=== PATIENT | male | born 1985 | race Caucasian/White ===

== ENCOUNTER 2021-05-29 13:11 | Emergency (ER) | payer OTHER, SELFPAY ==
[2021-05-29] VITALS (9 sets, daily range): BP systolic 103–125; BP diastolic 51–96; PULSE 71–89; RESP 20–22; TEMP 37.4–37.6; O2SAT 90–95; BMI 35.8
--- NOTE | 2021-05-29 13:54 | ED.VIS.DYS ---
HPI History of Present Illness Chief Complaint: Shortness of Breath Informant: patient Onset/Context/Timing Onset: Days (2) Context: gradual Timing: Continuous Quality: Positive for - (sob) Current Severity: Mild Maximum Severity: Mild Worsened by: Exertion Relieved by: Nothing Associated Symptoms cough Chest Pain: Positive for None Narrative Narrative: Patient symptomatic with Covid 1 week ago, had a positive test several days later. He works at [employer] and some people from work had Covid and he thinks maybe he got it from one of them. He has not been vaccinated. He has developed shortness of breath in the last few days and is feeling extremely fatigued as he has been since the beginning. Denies any chest pain, palpitations, near-syncope or syncope. PFSH PFSH no medical history Home Medications albuterol sulfate [Ventolin HFA] 1 - 2 puff INHALATION Q4H PRN PRN #1 inhaler 05/29/21 [Rx Last Taken Unknown] dexamethasone 6 mg PO DAILY #7 tab 05/29/21 [Rx Last Taken Unknown] fluticasone propionate 1 spray INTRANASAL BID 05/29/21 [History Last Taken Unknown] Allergy/AdvReac Type Severity Reaction Status Date / Time No Known Allergies Allergy Verified 05/29/21 13:22 no surgical history Social History Smoking Status: Never smoker ROS ROS ED Constitutional Constitutional ED: Reports body ache(s), chills, fatigue, fever(s) and malaise Eyes Eyes: Denies change in vision or diplopia ENT ENT ED: Denies rhinorrhea or sore throat Cardiovascular Cardiovascular: Denies chest pain or palpitations Respiratory/Chest Respiratory/Chest: Reports cough and dyspnea Gastrointestinal Gastrointestinal: Reports diarrhea; Denies abdominal pain, nausea or vomiting Genitourinary Genitourinary ED: Denies dysuria or hematuria Musculoskeletal Musculoskeletal: Reports myalgias; Denies back pain or neck pain Integumentary Denies abscess or rash Neurologic Neurologic: Denies headache(s), paresthesias or weakness Psychiatric Psychiatric: Denies anxiety or suicidal thoughts EXAM Physical Exam Const Vital Signs: 05/29/21 13:18 05/29/21 13:22 05/29/21 13:49 Temperature 99.6 F H 99.6 F H Temperature Source Temporal Temporal Pulse Rate 71 71 Respiratory Rate 22 H 22 H Respiratory Effort Normal Blood Pressure 103/54 L 103/54 L Blood Pressure Mean 70 70 Pulse Ox 95 95 Oxygen Delivery Method Room Air Room Air Room Air 05/29/21 15:08 05/29/21 16:00 05/29/21 17:00 Temperature 99.4 F H 99.4 F H 99.4 F H Temperature Source Temporal Temporal Temporal Pulse Rate 86 80 89 Respiratory Rate 20 H 21 H 21 H Respiratory Effort Blood Pressure 125/96 H 117/64 117/67 Blood Pressure Mean 105 81 83 Pulse Ox 93 91 95 Oxygen Delivery Method Room Air Room Air Room Air Positive well nourished and well developed General Appearance ED: well developed and NAD HEENT Reports moist mucous membranes normocephalic and atraumatic Eyes PERRL and EOMs intact bilaterally Neck full ROM and supple Resp normal respiratory effort and clear to auscultation bilaterally Cardio regular rate, regular rhythm and no murmurs Rate: Negative for tachycardic GI non-tender and non-distended Auscultation: normoactive bowel sounds Palpation: soft Back/Spine no CVA tenderness General Back: other FROM Extremity normal to inspection and no calf tenderness General Extremety ED: Negative for edema, pulses abnormal or tenderness General Extremity: Negative for edema or pulses abnormal Neuro oriented x3, CN's II-XII intact bilaterally and no sensory deficits noted Sensorium / Orientation: awake and alert Motor Exam: strength 5/5 throughout Skin no rashes or lesions noted and no wounds MDM MDM MDM Narrative Medical decision making narrative: Ruled out pulmonary embolus by CT angiography after abnormal D-dimer. Otherwise work-up is consistent with mild Covid pneumonia. His pulse ox has been between 91 and 95% on room air. I discussed this case with pulmonology Dr. Hennessy. No indication for admission at this time, he is a candidate for monoclonal antibody infusion as an outpatient given his BMI of 35.8. He will be referred to this and given appropriate isolation instructions and supportive care at home, and Dr. Hennessy also recommends Decadron which he was prescribed. Lab Data Labs: Laboratory Results - last 24 hr 05/29/21 05/29/21 05/29/21 13:13 13:13 14:15 WBC 4.2 L RBC 5.25 Hgb 14.6 Hct 44.0 MCV 83.8 MCH 27.8 MCHC 33.2 RDW Std Deviation 38.9 RDW Coeff of Samantha 12.7 Plt Count 210 MPV 9.5 Immature Gran % (Auto) 0.500 Neut % (Auto) 76.4 H Lymph % (Auto) 18.4 L Sebastian % (Auto) 4.3 Eos % (Auto) 0.2 Baso % (Auto) 0.2 Absolute Neuts (auto) 3.2 Absolute Lymphs (auto) 0.77 L Nucleated RBC % 0 D-Dimer Quant (PE/DVT) 1.06 H* Sodium 138 Potassium 3.8 Chloride 106 Carbon Dioxide 26.0 Anion Gap 6 BUN 12 Creatinine 0.94 Estim Creat Clear Calc 113.25 Est GFR (MDRD) Af Amer 118 Est GFR (MDRD) Non-Af 97 BUN/Creatinine Ratio 12.8 Glucose 108 H Calcium 8.2 L Radiography Diagnostic Testing: Radiology Impression Chest X-Ray 05/29/21 14:25 IMPRESSION: Patchy infiltrates in the left lung base. Electronically Signed: Jose Kenney MD at 15:01 EDT , Service support , Chest CTA 05/29/21 15:20 IMPRESSION: No evidence of pulmonary embolism. Dense consolidation in both lower lobes as well as patchy bilateral infiltrates as described. Electronically Signed: Jose Kenney MD at 15:44 EDT , Service support , Discharge Plan Triage Chief Complaint: Shortness of Breath ED Provider: Alistair Green Dx/Rx/DC Orders Clinical Impression: Pneumonia due to COVID-19 virus Instructions: Coronavirus Disease 2019 (COVID-19): Caring for Yourself or Others, ED - COVID Monoclonal AB Infusion ... Prescriptions: New albuterol sulfate [Ventolin HFA] 1 INHALER inhaler 1 - 2 puff inhalation Q4H PRN PRN (Reason: Wheezing) Qty: 1 RF: 0 dexamethasone 6 MG tablet 6 mg PO DAILY Qty: 7 RF: 0 No Action fluticasone propionate 50 mcg/actuation spray,suspension 1 spray INTRANASAL BID RF: 0 Other Ambulatory Orders: COVID Outpatient Monoclonal Antibody Referral (Routine) Location: None Selected Ordered By: Dr. Alistair Green Primary Care Provider: Care Physician,No Primary Referrals: Care Physician,No Primary [Primary Care Provider] - Doctor,Your [STAFF PHYSICIAN] - As Needed Disposition Disposition: Home, Self Care
[2021-05-29 14:01] LABS: Absolute Lymphocyte Count 0.77 X10^3/uL (0.83-4.51); Absolute Neutrophil Count 3.2 X10^3/uL (2.0-7.7); Basophil# 0.01 X10^3/uL; Basophil% 0.2 % (0-1); Eosinophil# 0.01 X10^3/uL; Eosinophils% 0.2 % (0-5); Hemoglobin 14.6 g/dL (13.0-16.5); Lymphocyte # 0.77 X10^3/ul (0.83-4.51); Lymphocyte % 18.4 % (19-41); Mean Corp Hgb Conc 33.2 g/dL (32-36); Mean Corpuscular Hgb 27.8 pg (27.0-32.0); Mean Corpuscular Volume 83.8 fL (80-94); Mean Platelet Vol. 9.5 fl (6.2-12.0); Monocyte# 0.18 X10^3/uL; Monocyte% 4.3 % (0-10); NRBC Flagged by Analyzer 0 % (0-5); Neutrophil % 76.4 % (47-70); Platelet Count 210 K/mm3 (150-450); RBC Distribution Width CV 12.7 % (11.6-14.6); RBC Distribution Width SD 38.9 fl (35.1-43.9); Red Blood Count 5.25 M/mm3 (4.6-6.2); White Blood Count 4.2 K/mm3 (4.4-11.0)
[2021-05-29 14:12] LABS: Anion Gap 6 (5-15); BUN 12 mg/dL (7-18); BUN/Creat Ratio 12.8 RATIO (10-20); Calcium,Total 8.2 mg/dL (8.5-10.1); Chloride 106 mmol/L (98-107); Creatinine, Serum 0.94 mg/dL (0.70-1.30); EST Glomerular Filtration Rate 97 mL/min (>60); Est Glom Filt Rate - Afr Amer 118 mL/min (>60); Estimated Creatinine Clearance 113.25 ml/min; Glucose 108 mg/dL (74-106); Potassium 3.8 mmol/L (3.5-5.1); Sodium Level 138 mmol/L (136-145)
--- NOTE | 2021-05-29 14:25 | RAD_ITS ---
STUDY: X-RAY CHEST REASON FOR EXAM: Male, 35 years old. covid sob TECHNIQUE: Single AP portable view of the chest. COMPARISON: None. FINDINGS: EKG electrodes are seen. There is elevation of the right hemidiaphragm. Patchy infiltrates in the left lung base. Normal size heart. Normal mediastinum and kristie. Normal visualized pulmonary arteries. Normal visualized aortic arch and descending thoracic aorta. Normal visualized thoracic spine. Normal visualized ribs, clavicles, and shoulders. There is no demonstrated abnormality of the visualized soft tissue structures of the upper abdomen. RAD/Chest 1 View (Portable) IMPRESSION: Patchy infiltrates in the left lung base. Electronically Signed: Jose Kenney MD at 15:01 EDT , Service support ,
[2021-05-29 14:35] LABS: D-Dimer Quantitative (DVT/PE) 1.06 FEU/ug/m (0.27-0.49)
--- NOTE | 2021-05-29 15:20 | CT_ITS ---
STUDY: CTA CHEST REASON FOR EXAM: Male, 35 years old. covid sob, elevated d-dimer RADIATION DOSAGE (If Supplied By Facility): CTDIvol = ( 16.06 ) mGy, DLP = ( 512.83 ) mGycm TECHNIQUE: The examination was performed with the intravenous administration of IV 100mL Isovue-370. Post-processing of the angiographic images was performed, with multiplanar reformation and 3D reconstruction. Individualized dose optimization techniques were used for this CT. COMPARISON: None. FINDINGS: Normal enhancement of the main pulmonary artery and right and left pulmonary arteries. Normal enhancement of the bilateral peripheral pulmonary arteries. There is no demonstrated pulmonary embolism. Normal thoracic aorta and visualized great vessels. There is no demonstrated aortic dissection. Normal heart and pericardium. Normal mediastinum. Normal hilar regions. Normal visualized trachea and bronchi. The lungs are well expanded. Patchy infiltrate in the posterior aspect of the left upper lobe as well as in the peripheral lateral aspect of the right upper lobe. Focal patchy infiltrate in the superior segment of the left lower lobe as well as the posterior aspect of the lingular segment of the left upper lobe. Dense consolidation seen in both lower lobes with evidence of air bronchograms. Normal pleura. Normal chest wall structures. Normal osseous structures. Normal visualized upper abdomen. CT/CTA Chest W/WO Contrast IMPRESSION: No evidence of pulmonary embolism. Dense consolidation in both lower lobes as well as patchy bilateral infiltrates as described. Electronically Signed: Jose Kenney MD at 15:44 EDT , Service support ,
== END 2021-05-29 18:02 | disposition home or self-care (01) ==
PROVIDERS: Emergency Provider Emergency Medicine
DX: U07.1 COVID-19 (principal); J12.82 Pneumonia due to coronavirus disease 2019; Z79.52 Long term (current) use of systemic steroids; Z79.899 Other long term (current) drug therapy
CPT/HCPCS: 71045; 71275; 80048; 85025; 85379; 99285; Q9967; A4216

== ENCOUNTER 2021-06-02 06:46 | Inpatient (IN) | payer OTHER, SELFPAY ==
[2021-06-02] VITALS (38 sets, daily range): BP systolic 108–128; BP diastolic 58–91; PULSE 49–105; RESP 12–45; TEMP 36.1–37.3; O2SAT 50–100; BMI 36.7
--- NOTE | 2021-06-02 06:55 | NURSING ---
NO OLD EKGS
--- NOTE | 2021-06-02 06:56 | RAD_ITS ---
STUDY: X-RAY CHEST REASON FOR EXAM: Male, 35 years old. hypoxia TECHNIQUE: Single AP portable view of the chest. COMPARISON: 05/29/2021 FINDINGS: Alveolar opacities in both lungs consistent with bilateral pneumonia, pulmonary edema, or ARDS. There is no demonstrated pleural abnormality. Normal size heart. Normal mediastinum and kristie. Normal visualized pulmonary arteries. Normal visualized aortic arch and descending thoracic aorta. Normal visualized thoracic spine. Normal visualized ribs, clavicles, and shoulders. There is no demonstrated abnormality of the visualized soft tissue structures of the upper abdomen. RAD/Chest 1 View (Portable) IMPRESSION: Bilateral pneumonia, pulmonary edema, or ARDS. Electronically Signed: Dilip Altman MD at 8:04 EDT Tel , Service support ,
--- NOTE | 2021-06-02 06:57 | EKG12_ITS ---
Test Reason : CP Blood Pressure : / mmHG Vent. Rate : 088 BPM Atrial Rate : 088 BPM P-R Int : 120 ms QRS Dur : 086 ms QT Int : 424 ms P-R-T Axes : 035 021 -24 degrees QTc Int : 513 ms Normal sinus rhythm T wave abnormality, consider inferior ischemia Prolonged QT Abnormal ECG Confirmed by SALVATORE PERDOMO, KRISSY ([id number]), technical writer and editor THEO WHITMORE ([id number]) on 06/04/2021 12:26:06 PM Referred By: VANESSA Confirmed By:KRISSY CHASE MD
--- NOTE | 2021-06-02 07:05 | NURSING ---
DR SANCHEZ GOFF
[2021-06-02 07:06] LABS: Allen Test Positive; Base Excess -4 mmol/L (-2 to +2); Bicarbonate 20.5 mmol/L (22-26); Blood Gas Specimen Type ART; Comment 12; FI02 90; O2 Delivery Device BiPAP; PO2 88 mmHG (75-100); SITE L Radial; SO2 97 % (95-99); Total Carbon Dioxide 21 mmol/L; pCO2 29.8 mmHg (35-45); pH 7.45 (7.35-7.45)
[2021-06-02] MEDS: 0.9% Normal Saline 1,000 ML 150 ML IV (07:08)
--- NOTE | 2021-06-02 07:09 | CT_ITS ---
STUDY: CTA CHEST/THORAX REASON FOR EXAM: Male, 35 years old. Hypoxia RADIATION DOSAGE (If Supplied By Facility): CTDIvol = ( 13.85 ) mGy, DLP = ( 489.20 ) mGycm TECHNIQUE: The examination was performed with the intravenous administration of IV 100mL Isovue-370. Post-processing of the angiographic images was performed, with multiplanar reformation and 3D reconstruction. Individualized dose optimization techniques were used for this CT. COMPARISON: Portable AP upright chest x-ray 0700 hours. CTA chest 05/29/2021 FINDINGS: Normal enhancement of the main pulmonary artery and right and left pulmonary arteries. Normal enhancement of the bilateral peripheral pulmonary arteries. There is no demonstrated pulmonary embolism. Normal thoracic aorta and visualized great vessels. There is no demonstrated aortic dissection. Normal heart and pericardium. There are a few borderline to mildly enlarged, likely reactive mediastinal lymph nodes. A node in the aorticopulmonary window (series 2 image 150, series 601 image 172) has increased from 1.65 x 1.35 x 0.6 cm to 2.05 x 1.8 x 0.95 cm. A right subcarinal lymph node is 3. 150.7 x 1.0 cm. Normal hilar regions. Normal visualized trachea and bronchi. Ill-defined groundglass pneumonic infiltrates are now seen almost completely throughout the bilateral lung hilton, with some sparing of the apices, anterobasilar periphery, and right posterior costophrenic sulcus. These opacities are more confluent in the posterior periphery of the lower lobes, more so on the left, and in the posterolateral right upper lobe. Focally more confluent confluent, almost nodular subsegmental densities are also now present in the posterolateral periphery of the right upper lobe. Normal pleura. Normal chest wall structures. There are stable early degenerative changes of the lower thoracic spine. Normal visualized upper abdomen. CT/CTA Chest W/WO Contrast IMPRESSION: 1. No demonstrated pulmonary embolism or arterial dissection. 2. Bilateral patchy infiltrates have progressed to more diffuse, hazy, groundglass opacities nearly throughout the bilateral lung hilton, with scattered subsegmental zones more confluent density. These remain suspicious for infection, including viral pneumonia, such as Covid 19. Pulmonary edema or pulmonary hemorrhages might also have this appearance. 3. A few reactive lymph nodes are noted in the mediastinum. Electronically Signed: Amrit Emanuel MD at 8:18 EDT , Service support ,
--- NOTE | 2021-06-02 07:14 | NURSING ---
ICU DR BRADFORD HYPOXIC RESP FAILURE
--- NOTE | 2021-06-02 07:20 | NURSING ---
CBC CLOTTED PER LAB, THEY WILL SEND A NEW LABEL
--- NOTE | 2021-06-02 07:40 | EDS_ITS ---
HPI History of Present Illness Chief Complaint: Shortness of Breath Informant: patient and spouse/S.O. Narrative Narrative: Patient is a 35-year-old female presenting respiratory distress. He was brought in by his . Patient was diagnosed with Covid 12 days ago. He was seen in the ER 4 days ago and at that time was recommended monoclonal antibody therapy. He did not follow-up with that stating he did not want to come back to the ER. He was started on Decadron 6 mg daily as well as an inhaler. Is not clear if he was taking the medication. Patient has not had his Covid vaccine. states he has been having worsening symptoms over the past 2 days. PFSH PFSH Home Medications albuterol sulfate [Ventolin HFA] 1 - 2 puff INHALATION Q4H PRN PRN #1 inhaler 05/29/21 [Rx Last Taken Unknown] dexamethasone 6 mg PO DAILY #7 tab 05/29/21 [Rx Last Taken Unknown] Allergy/AdvReac Type Severity Reaction Status Date / Time No Known Allergies Allergy Verified 05/29/21 13:22 Social History Smoking Status: Never smoker ROS ROS ED Review of Systems ROS Unobtainable: other Details: Acuity of condition Respiratory/Chest Respiratory/Chest: Reports cough and dyspnea EXAM Physical Exam Const Vital Signs: 06/02/21 06:46 06/02/21 06:47 06/02/21 06:50 Temperature 98.9 F 98.8 F Temperature Source Temporal Temporal Pulse Rate 96 105 H Respiratory Rate 24 H 30 H Respiratory Effort Short of Breath Labored Accessory Muscle Use Agonal Blood Pressure 126/91 H 126/91 H Blood Pressure Mean 102 102 Pulse Ox 71 50 Oxygen Delivery Method Non-Rebreather Room Air Room Air Oxygen Flow Rate (L/min) 15 Fraction of Inspired Oxygen (FIO2) 06/02/21 06:52 06/02/21 06:53 06/02/21 07:05 Temperature 98.9 F 99.2 F H Temperature Source Temporal Temporal Pulse Rate 89 81 88 Respiratory Rate 16 14 16 Respiratory Effort Blood Pressure 126/91 H 126/91 H 120/62 Blood Pressure Mean 102 102 81 Pulse Ox 97 100 99 Oxygen Delivery Method Non-Rebreather Bi-pap Bi-pap Oxygen Flow Rate (L/min) 15 Fraction of Inspired Oxygen (FIO2) 100 80 06/02/21 07:26 Temperature 99 F Temperature Source Temporal Pulse Rate 87 Respiratory Rate 40 H Respiratory Effort Blood Pressure 109/61 Blood Pressure Mean 77 Pulse Ox 97 Oxygen Delivery Method Bi-pap Oxygen Flow Rate (L/min) Fraction of Inspired Oxygen (FIO2) Positive well nourished and well developed General Appearance ED: well developed, ill appearing and diaphoretic Orientation / Consciousness: other Other Details: Somnolent HEENT Reports dry mucous membranes atraumatic Mouth ED: Yes dry mucous membranes Mouth: dry mucous membranes Eyes PERRL and EOMs intact bilaterally Neck supple and no JVD Resp Resp Narrative: Patient is respiratory distress. He is tachypneic. Quiet breath sounds throughout Cardio regular rate, regular rhythm and no murmurs GI non-tender and non-distended Palpation: soft Back/Spine normal to inspection Extremity normal to inspection General Extremety ED: Negative for edema or tenderness General Extremity: Negative for edema Neuro oriented x3 and CN's II-XII intact bilaterally Sensorium / Orientation: alert Motor Exam: general weakness Psych mental status grossly normal Skin Lesions: no lesions Rashes: no rashes MDM MDM MDM Narrative Medical decision making narrative: Patient arrives in respiratory distress. His oxygen is somewhere in the 50s on room air and he goes up to 71% on nonrebreather. Patient is cyanotic with increased work of breathing. He had a recent diagnosis of Covid 19 infection and I suspect his presentation is a progression of this. Patient is placed on BiPAP which does improve his O2 saturation as well as his work of breathing. Patient is admitted to the ICU. Case discussed with Dr. Orozco. CTA is ordered to evaluate for PE. Patient has a lactic acidosis however I suspect this is from hypoxia. Will defer antibiotics at this time. Blood cultures and procalcitonin are pending. Lab Data Attestation: I reviewed the patient's lab results. Labs: Laboratory Results - last 24 hr 06/02/21 06/02/21 07:00 07:00 WBC Cancelled Corrected WBC Cancelled RBC Cancelled Hgb Cancelled Hct Cancelled MCV Cancelled MCH Cancelled MCHC Cancelled RDW Std Deviation Cancelled RDW Coeff of Samantha Cancelled Plt Count Cancelled MPV Cancelled Immature Gran % (Auto) Cancelled Neut % (Auto) Cancelled Lymph % (Auto) Cancelled [place] % (Auto) Cancelled Eos % (Auto) Cancelled Baso % (Auto) Cancelled Absolute Neuts (auto) Cancelled Absolute Lymphs (auto) Cancelled Total Counted Cancelled Neutrophils % (Manual) Cancelled Band Neutrophils % Cancelled Lymphocytes % (Manual) Cancelled Monocytes % (Manual) Cancelled Eosinophils % (Manual) Cancelled Basophils % (Manual) Cancelled Metamyelocytes % Cancelled Myelocytes % Cancelled Promyelocytes % Cancelled Blast Cells % Cancelled Plasma Cell % (Manual) Cancelled Other Cells % Cancelled Nucleated RBC % Cancelled Nucleated RBCs/100 WBC Cancelled Differential Comment Cancelled Diff Path Review Cancelled Hypersegmented Neuts Cancelled Atypical Lymphocytes Cancelled Reactive Lymphocytes Cancelled Smudge Cells Cancelled Toxic Granulation Cancelled Toxic Vacuolation Cancelled Dohle Bodies Cancelled Adry Rods Cancelled Platelet Estimate Cancelled Plt Morphology Comment Cancelled RBC Morphology Cancelled Polychromasia Cancelled Hypochromasia Cancelled Poikilocytosis Cancelled Basophilic Stippling Cancelled Anisocytosis Cancelled Microcytosis Cancelled Macrocytosis Cancelled Spherocytes Cancelled Sickle Cells Cancelled Target Cells Cancelled Tear Drop Cells Cancelled Ovalocytes Cancelled Stomatocytes Cancelled Imlls-Black Bodies Cancelled Ne Cells Cancelled Bite Cells Cancelled Crenated Cell Cancelled Acanthocytes (Spur) Cancelled Rouleaux Cancelled Schistocytes Cancelled D-Dimer Quant (PE/DVT) Cancelled ABG Data ABG results: ABG 06/02/21 07:01 Specimen Type ART Sample Site L Radial pH 7.45 Bicarbonate Actual 20.5 L Total CO2 21 Base Excess -4 L O2 Saturation 97 O2 % 90 ABG pCO2 29.8 L ABG pO2 88 Huseyin Test Positive O2 Delivery Device BiPAP Clinical Comments 12 Radiography Chest X-Ray - ED: 1 View, Read by ED Physician and - (Multifocal infiltrate, consistent with COVID-19 pneumonia) Rhythm Strip Rhythm Strip: Sinus Rhythm Rate: 88 Ectopy: None EKG Initial EKG: Attestation: I personally reviewed and interpreted this EKG as follows: Interpretation: Sinus Rhythm Comments: Normal sinus rhythm at a rate of 88 Normal axis T wave inversions in inferior and lateral leads, most consistent with a strain pattern Critical Care Time Critical Care Time: Yes Critical care time (excluding procedures): 30-74 minutes (35-frequent bedside reevaluation for respiratory failure. Discussion with family and admission to the ICU.), Discussing w/Patient &/or Family/Physician/Allergy/Immunology and Arranging Admission or Transfer Discharge Plan Triage Chief Complaint: Shortness of Breath ED Provider: Tatum Long Dx/Rx/DC Orders Clinical Impression: Pneumonia due to COVID-19 virus, Acute respiratory failure with hypoxia Prescriptions: No Action albuterol sulfate [Ventolin HFA] 1 INHALER inhaler 1 - 2 puff inhalation Q4H PRN PRN (Reason: Wheezing) Qty: 1 RF: 0 dexamethasone 6 MG tablet 6 mg PO DAILY Qty: 7 RF: 0 Primary Care Provider: Care Physician,No Primary Referrals: Care Physician,No Primary [Primary Care Provider] - Disposition Disposition: Acute Care [facility]
[2021-06-02 07:41] LABS: ALB/GLOB Ratio 0.6 RATIO (0.9-2.4); AST(SGOT) 69 U/L (15-37); Alanine Aminotransfer ALT/SGPT 25 U/L (16-61); Albumin, Serum 2.8 g/dL (3.2-5.0); Alkaline Phosphatase 88 U/L (45-117); Anion Gap 12 (5-15); BUN 30 mg/dL (7-18); BUN/Creat Ratio 20.5 RATIO (10-20); CPK Total, Creatine Kinase 120 U/L (39-308); Calcium,Total 8.5 mg/dL (8.5-10.1); Chloride 100 mmol/L (98-107); Creatinine, Serum 1.46 mg/dL (0.70-1.30); EST Glomerular Filtration Rate 58 mL/min (>60); Est Glom Filt Rate - Afr Amer 70 mL/min (>60); Estimated Creatinine Clearance 72.92 ml/min; Globulin 4.5 g/dL (2.2-4.2); Glucose 136 mg/dL (74-106); LDH 1057 U/L (87-241); Potassium 4.5 mmol/L (3.5-5.1); Protein, Total 7.3 g/dL (6.4-8.2); Sodium Level 134 mmol/L (136-145)
[2021-06-02 07:42] LABS: Hematocrit 37.9 % (40-54); Hemoglobin 12.5 g/dL (13.0-16.5); Mean Platelet Vol. 8.8 fl (6.2-12.0); POSITIVE COUNT YES; POSITIVE MORPHOLOGY YES; Platelet Count 334 K/mm3 (150-450); RBC Distribution Width CV 13.1 % (11.6-14.6); RBC Distribution Width SD 40.5 fl (35.1-43.9); Red Blood Count 4.46 M/mm3 (4.6-6.2); White Blood Count 17.1 K/mm3 (4.4-11.0)
[2021-06-02 07:42] LABS: Troponin-I HS 34 pg/mL (3.0-78.0)
[2021-06-02 07:43] LABS: Lactic Acid 5.9 mmol/L (0.4-1.9); Procalcitonin 0.15 ng/mL (0.00-0.09)
[2021-06-02 07:44] LABS: Differential Indicated MANUAL DIFF
[2021-06-02 07:45] LABS: D-Dimer Quantitative (DVT/PE) 10.45 FEU/ug/m (0.27-0.49)
--- NOTE | 2021-06-02 07:53 | NURSING ---
ICU 1
[2021-06-02 08:18] LABS: Lymphocyte 7 % (19-41); Metamyelocyte 2 % (0-1); Monocyte 5 % (0-10); Neutrophil-Band 3 % (0-5); Neutrophil-Segmented 82 % (47-70); Plasma Cell 1 %; Total Cells Counted 100 (MANUAL DIFF)
[2021-06-02 08:19] LABS: Platelet Estimate ADEQUATE (ADEQ); Red Cell Morphology NORM C+C NORMAL (NORM C&C)
[2021-06-02 08:20] LABS: Absolute Neutrophil Count 14.6 X10^3/uL (2.0-7.7)
[2021-06-02 08:37] LABS: Fibrinogen 602 mg/dl (203-444)
--- NOTE | 2021-06-02 08:48 | CON.PCM.CC_ITS ---
Assessment & Plan Assessment/Plan (1) Acute respiratory failure with hypoxia: (2) Pneumonia due to COVID-19 virus: PLAN: RECOMMENDATIONS: 1. Continue gentle IV fluid hydration but transition to LR. 2. Start remdesivir. 3. Continue Decadron to complete 10-day treatment course. 4. Continue Lovenox twice daily. 5. Continue BiPAP and wean FiO2 to maintain oxygen saturations at or above 90%. 6. Maintain euvolemic state. Utilize as needed Lasix. IMPRESSIONS: 1. Acute hypoxemic respiratory failure secondary to COVID-19 pneumonia The patient presented to the hospital with progressive respiratory symptoms and hypoxemia, with symptom onset sometime around May 22. The patient subsequently tested positive for coronavirus. He is unvaccinated. Although D- dimer was elevated at presentation, CTA chest showed no evidence for PE. Nevertheless, there was extensive bilateral groundglass infiltrates. The patient has been started on continuous BiPAP support, which will be continued as tolerated. Wean FiO2 to maintain oxygen saturations at or above 90%. The patient will be continued on Decadron as ordered to complete a 10-day treatment course. I did call and speak briefly with infectious diseases, who was in agreement that given his close proximity to the 10-day window for remdesivir, that the medication should be administered. Unfortunately, we do not have any access currently to tocilizumab. The patient is at high risk for further clinical decompensation and the need for intubation in the next 24 hours. 2. Acute kidney injury Likely prerenal in etiology. Continue gentle IV fluid hydration. Continue to monitor urine output. No current indication for renal replacement therapy. TIME: 38 minutes of critical care time, independent of procedures, was spent addressing the patient's acute hypoxemic respiratory failure secondary to COVID- 19 pneumonia, acute kidney injury, review of all data and collaboration with the care team. ([id number]) HPI Consult Data Date of Consult: 06/03/21 HPI Narrative Reason for Consultation: Acute hypoxemic respiratory failure secondary to COVID- 19 pneumonia HPI Narrative: The patient is a 35-year-old male, with a history as outlined below, who presented to the emergency department on June 02 with progressive dyspnea and hypoxemia. The patient has been evaluated in the emergency department on May 29 with dyspnea. The patient is unvaccinated with regard to coronavirus. At the time of his emergency department visit on May 29, the patient was noted to be saturating in the mid 90s on room air. However, the patient did desaturate with ambulation. The patient was discharged home with a prescription for Decadron. Although the patient initially reported that he began to feel better, he subsequently decompensated over the last several days. The patient reported that his symptoms initially began on 22 May. On presentation to the emergency department, the patient was noted to be afebrile but was tachypneic and hypoxemic. Laboratory evaluation revealed an elevated white blood cell count to 17,000. Coagulation profile revealed a fibrinogen of 602 with a D-dimer of 10.45. Chemistry profile was notable for a sodium of 134 and creatinine of 1.46. Lactate was elevated at 5.9. Procalcitonin was noted to be 0.15. The patient was initiated on BiPAP therapy in the emergency department. Follow-up ABG revealed a pH of 7.45 with a PCO2 of 29 and PO2 of 88. CTA chest showed no evidence for PE but did demonstrate significant bilateral groundglass changes. Rapid coronavirus antigen testing was positive. Blood cultures were obtained. The patient was subsequently admitted to the medical intensive care unit for further management. FORMERLY [facility], [facility] Home Medications albuterol sulfate [Ventolin HFA] 1 - 2 puff INHALATION Q4H PRN PRN #1 inhaler 05/29/21 [Rx Last Taken Unknown] dexamethasone 6 mg PO DAILY #7 tab 05/29/21 [Rx Last Taken Unknown] Allergy/AdvReac Type Severity Reaction Status Date / Time No Known Allergies Allergy Verified 05/29/21 13:22 Family History (Updated 06/02/21 @ 14:[address] Laureen Orozco DO) Mother No problems noted. Father No problems noted. Social History Smoking Status: Never smoker ROS Constitutional Constitutional: Reports chills, fatigue and fever(s) Eyes Eyes: Denies blurry vision or change in vision ENT HEENT: Denies headache(s) or loss taste/smell Cardiovascular Cardiovascular: Reports dyspnea Respiratory/Chest Respiratory/Chest: Reports cough and dyspnea Gastrointestinal Gastrointestinal: Denies abdominal pain, diarrhea, nausea or vomiting Genitourinary Genitourinary: Denies difficulty urinating Musculoskeletal Musculoskeletal: Reports arthralgias and myalgias Integumentary Integumentary: Denies lesions, rash or skin ulcer Neurologic Neurologic: Denies abnormal gait or abnormal speech Psychiatric Psychiatric: Denies anxiety or depression Endocrine Endocrinology: Reports fatigue Hematologic/Lymphatic Hematologic/Lymphatic: Denies easy bleeding or easy bruising Physical Exam Const alert General Appearance: cooperative, in distress, ill appearing and on BiPAP Nutritional Appearance: obese HEENT normocephalic and head/scalp atraumatic Eyes PERRL, EOMs intact bilaterally and conjunctivae normal Neck supple General: trachea midline Resp Effort and Inspection: tachypneic and labored Auscultation: diminished lung sounds; Negative for rales, rhonchi or wheezes Cardio regular rate, regular rhythm, S1 normal heart sound and S2 normal heart sound GI normal to inspection, nondistended, normoactive bowel sounds Extremity no clubbing, cyanosis or edema Skin no rashes or lesions noted Neuro CN's II-XII intact bilaterally and no focal motor deficits Psych cooperative and affect normal Lab / Micro Data Result Diagrams: 06/03/21 03:31 06/03/21 03:31 Labs: Laboratory Results - last 24 hr 06/02/21 07:00: Fibrinogen 602 H, D-Dimer Quant (PE/DVT) Cancelled 06/02/21 07:00: Sodium 134 L, Potassium 4.5, Chloride 100, Carbon Dioxide 22.0, Anion Gap 12, BUN 30 H, Creatinine 1.46 H, Estim Creat Clear Calc 72.92, Est GFR (MDRD) Af Amer 70, Est GFR (MDRD) Non-Af 58 L, BUN/Creatinine Ratio 20.5 H, Glucose 136 H, Calcium 8.5, Total Bilirubin 1.30 H, AST 69 H, ALT 25, Alkaline Phosphatase 88, Lactate Dehydrogenase 1057 H, Total Creatine Kinase 120, C-React Prot Ext Range 99.20 H, Total Protein 7.3, Albumin 2.8 L, Globulin 4.5 H, Albumin/Globulin Ratio 0.6 L 06/02/21 07:00: Procalcitonin 0.15 H 06/02/21 07:00: Lactic Acid 5.9 H* 06/02/21 07:00: WBC Cancelled, Corrected WBC Cancelled, RBC Cancelled, Hgb Cancelled, Hct Cancelled, MCV Cancelled, MCH Cancelled, MCHC Cancelled, RDW Std Deviation Cancelled, RDW Coeff of Samantha Cancelled, Plt Count Cancelled, MPV Cancelled, Immature Gran % (Auto) Cancelled, Neut % (Auto) Cancelled, Lymph % (Auto) Cancelled, [place] % (Auto) Cancelled, Eos % (Auto) Cancelled, Baso % (Auto) Cancelled, Absolute Neuts (auto) Cancelled, Absolute Lymphs (auto) Cancelled, Total Counted Cancelled, Neutrophils % (Manual) Cancelled, Band Neutrophils % Cancelled, Lymphocytes % (Manual) Cancelled, Monocytes % (Manual) Cancelled, Eosinophils % (Manual) Cancelled, Basophils % (Manual) Cancelled, Metamyelocytes % Cancelled, Myelocytes % Cancelled, Promyelocytes % Cancelled, Blast Cells % Cancelled, Plasma Cell % (Manual) Cancelled, Other Cells % Cancelled, Nucleated RBC % Cancelled, Nucleated RBCs/100 WBC Cancelled, Differential Comment Cancelled, Diff Path Review Cancelled, Hypersegmented Neuts Cancelled, Atypical Lymphocytes Cancelled, Reactive Lymphocytes Cancelled, Smudge Cells Cancelled, Toxic Granulation Cancelled, Toxic Vacuolation Cancelled, Dohle Bodies Cancelled, Adry Rods Cancelled, Platelet Estimate Cancelled, Plt Morphology Comment Cancelled, RBC Morphology Cancelled, Polychromasia Cancelled, Hypochromasia Cancelled, Poikilocytosis Cancelled, Basophilic Stippling Cancelled, Anisocytosis Cancelled, Microcytosis Cancelled, Macrocytosis Cancelled, Spherocytes Cancelled, Sickle Cells Cancelled, Target Cells Cancelled, Tear Drop Cells Cancelled, Ovalocytes Cancelled, Stomatocytes Cancelled, [place] Bodies Cancelled, Ne Cells Cancelled, Bite Cells Cancelled, Crenated Cell Cancelled, Acanthocytes (Spur) Cancelled, Rouleaux Cancelled, Schistocytes Cancelled 06/02/21 07:00: Troponin I High Sens 34 06/02/21 07:16: D-Dimer Quant (PE/DVT) 10.45 H* 06/02/21 07:35: WBC 17.1 H, RBC 4.46 L, Hgb 12.5 L, Hct 37.9 L, MCV 85.0, MCH 28.0, MCHC 33.0, RDW Std Deviation 40.5, RDW Coeff of Samantha 13.1, Plt Count 334, MPV 8.8, Neut % (Auto) Not Reportable, Absolute Neuts (auto) 14.6 H, Absolute Lymphs (auto) 1.20, Total Counted 100, Neutrophils % (Manual) 82 H, Band Neutrophils % 3, Lymphocytes % (Manual) 7 L, Monocytes % (Manual) 5, Metamyelocytes % 2 H, Plasma Cell % (Manual) 1, Diff Path Review February, Platelet Estimate ADEQUATE, RBC Morphology NORM C+C Micro: Microbiology 06/02/21 07:08 Nasal Secretion SARS-CoV-2 Antigen (Rapid) - Final SARS-CoV-2 (COVID 19) ABG Data ABG results: ABG 06/02/21 07:01 Specimen Type ART Sample Site L Radial pH 7.45 Bicarbonate Actual 20.5 L Total CO2 21 Base Excess -4 L O2 Saturation 97 O2 % 90 ABG pCO2 29.8 L ABG pO2 88 Huseyin Test Positive O2 Delivery Device BiPAP Clinical Comments 12 Rhythm Strip Rhythm Strip: Sinus Rhythm Rate: 88 Ectopy: None Radiology Impression Chest X-Ray 06/02/21 06:56 IMPRESSION: Bilateral pneumonia, pulmonary edema, or ARDS. Electronically Signed: Dilip Altman MD at 8:04 EDT Tel , Service support , Chest CTA 06/02/21 07:09 IMPRESSION: 1. No demonstrated pulmonary embolism or arterial dissection. 2. Bilateral patchy infiltrates have progressed to more diffuse, hazy, groundglass opacities nearly throughout the bilateral lung [place], with scattered subsegmental zones more confluent density. These remain suspicious for infection, including viral pneumonia, such as Covid 19. Pulmonary edema or pulmonary hemorrhages might also have this appearance. 3. A few reactive lymph nodes are noted in the mediastinum. Electronically Signed: Amrit Emanuel MD at 8:18 EDT , Service support , Charges/Coding Procedures Hospitalists Procedures: [id number] Critial Care 1st Hr
[2021-06-02] MEDS: Enoxaparin 40 MG/0.4 ML Syringe SC ×2 (10:44→20:30)
[2021-06-02] MEDS: 0.9% Saline Lock 10 ML Syringe IV (10:45)
[2021-06-02] MEDS: Lactated Ringers 1,000 ML 75 ML IV ×2 (10:45→20:30)
[2021-06-02] MEDS: dexAMETHasone 10 MG/ML Vial 6 MG IV (11:07)
[2021-06-02 11:08] LABS: Reflex Lactate? Y
[2021-06-02 12:55] LABS: Alkaline Phosphatase 87 U/L (45-117)
[2021-06-02 13:35] LABS: Lactic Acid 1.8 mmol/L (0.4-1.9)
--- NOTE | 2021-06-02 14:05 | PCM.HP.STD ---
HPI - General General Date of Admission: 06/02/21 HPI Narrative DOMO MUÑOZ, is a 35 M who presents [facility] Home Medications albuterol sulfate [Ventolin HFA] 1 - 2 puff INHALATION Q4H PRN PRN #1 inhaler 05/29/21 [Rx Last Taken Unknown] dexamethasone 6 mg PO DAILY #7 tab 05/29/21 [Rx Last Taken Unknown] Allergy/AdvReac Type Severity Reaction Status Date / Time No Known Allergies Allergy Verified 05/29/21 13:22 Family History Mother No problems noted. Father No problems noted. Social History Smoking Status: Never smoker ROS Constitutional Constitutional: Reports chills, fatigue, malaise and weakness; Denies anorexia, change in weight, fever(s), night sweats or other Eyes Eyes: Denies blurry vision, change in eye color, change in vision, discharge from eye(s), double vision, erythema, eye pain, loss of vision or other ENT HEENT: Denies abnormal hearing, dysphagia, ear pain, epistaxis, headache(s), hearing loss, nasal congestion, nasal discharge, post nasal drip, sinus pressure, sore throat or other Cardiovascular Cardiovascular: Reports dyspnea on exertion; Denies chest pain, claudication, edema, lightheadedness, orthopnea, palpitations, paroxysmal nocturnal dyspnea, rapid heart rate, syncope or other Respiratory/Chest Respiratory/Chest: Reports cough, dyspnea, shortness of breath at rest and shortness of breath with exertion; Denies excessive phlegm production, hemoptysis, productive cough, wheezing or other Gastrointestinal Gastrointestinal: Denies abdominal pain, coffee ground emesis, constipation, diarrhea, dyspepsia, hematemesis, hematochezia, loose stools, melena, nausea, vomiting or other Genitourinary Genitourinary: Denies burning urination, difficulty urinating, dysuria, hematuria, nocturia, urinary frequency, urinary hesitancy, urinary incontinence, urinary urgency or other Musculoskeletal Musculoskeletal: Denies arthralgias, back pain, joint pain, joint stiffness, joint swelling, myalgias, neck pain or other Neurologic Neurologic: Denies abnormal gait, abnormal speech, confusion, disequilibrium, dizziness, focal weakness, headache(s), numbness, paresthesias, seizure-like activity, seizures, syncope, tingling, tremor(s) or other Psychiatric Psychiatric: Denies anxiety, depression, homicidal ideation, suicidal ideation or other Endocrine Endocrinology: Denies change in body appearance, cold intolerance, excessive sweating, heat intolerance, polydipsia, polyuria or other Hematologic/Lymphatic Hematologic/Lymphatic: Denies anemia, easy bleeding, easy bruising, lymphadenopathy or other Allergic/Immunologic Allergic/Immunologic: Denies rhinitis, hives, eczemia, asthma or other Vital Signs Vital Signs Vital Signs: 06/02/21 06:46 06/02/21 06:47 06/02/21 06:50 Temperature 98.9 F 98.8 F Temperature Source Temporal Temporal Pulse Rate 96 105 H Respiratory Rate 24 H 30 H Respiratory Effort Short of Breath Labored Accessory Muscle Use Agonal Respiratory Pattern Blood Pressure 126/91 H 126/91 H Blood Pressure [BP] Blood Pressure Mean 102 102 Blood Pressure Mean [BP] Blood Pressure Source Blood Pressure Source [BP] Blood Pressure Position Blood Pressure Position [BP] Blood Pressure Location Blood Pressure Location [BP] Pulse Ox 71 50 Oxygen Delivery Method Non-Rebreather Room Air Room Air Oxygen Flow Rate (L/min) 15 Fraction of Inspired Oxygen (FIO2) 06/02/21 06:52 06/02/21 06:53 06/02/21 07:05 Temperature 98.9 F 99.2 F H Temperature Source Temporal Temporal Pulse Rate 89 81 88 Respiratory Rate 16 14 16 Respiratory Effort Respiratory Pattern Blood Pressure 126/91 H 126/91 H 120/62 Blood Pressure [BP] Blood Pressure Mean 102 102 81 Blood Pressure Mean [BP] Blood Pressure Source Blood Pressure Source [BP] Blood Pressure Position Blood Pressure Position [BP] Blood Pressure Location Blood Pressure Location [BP] Pulse Ox 97 100 99 Oxygen Delivery Method Non-Rebreather Bi-pap Bi-pap Oxygen Flow Rate (L/min) 15 Fraction of Inspired Oxygen (FIO2) 100 80 06/02/21 07:26 06/02/21 07:34 06/02/21 07:46 Temperature 99 F Temperature Source Temporal Pulse Rate 87 85 83 Respiratory Rate 40 H 38 H 40 H Respiratory Effort Respiratory Pattern Tachypnea Tachypnea Blood Pressure 109/61 Blood Pressure [BP] Blood Pressure Mean 77 Blood Pressure Mean [BP] Blood Pressure Source Blood Pressure Source [BP] Blood Pressure Position Blood Pressure Position [BP] Blood Pressure Location Blood Pressure Location [BP] Pulse Ox 97 92 98 Oxygen Delivery Method Bi-pap Oxygen Flow Rate (L/min) Fraction of Inspired Oxygen (FIO2) 100 75 06/02/21 08:28 06/02/21 08:33 06/02/21 08:38 Temperature 97 F L Temperature Source Temporal Pulse Rate 78 76 74 Respiratory Rate 44 H 41 H Respiratory Effort Respiratory Pattern Tachypnea Blood Pressure 117/65 Blood Pressure [BP] Blood Pressure Mean 82 Blood Pressure Mean [BP] Blood Pressure Source Monitor Blood Pressure Source [BP] Blood Pressure Position Semi-Fowlers Blood Pressure Position [BP] Blood Pressure Location Right Arm Blood Pressure Location [BP] Pulse Ox 92 95 Oxygen Delivery Method Bi-pap Oxygen Flow Rate (L/min) Fraction of Inspired Oxygen (FIO2) 80 80 06/02/21 08:45 06/02/21 09:00 06/02/21 09:15 Temperature 97 F L Temperature Source Temporal Pulse Rate 75 77 73 Respiratory Rate 45 H 32 H 43 H Respiratory Effort Respiratory Pattern Blood Pressure 109/64 118/64 Blood Pressure [BP] 111/69 Blood Pressure Mean 79 82 Blood Pressure Mean [BP] 83 Blood Pressure Source Monitor Monitor Blood Pressure Source [BP] Monitor Blood Pressure Position Semi-Fowlers Semi-Fowlers Blood Pressure Position [BP] Semi-Fowlers Blood Pressure Location Right Arm Right Arm Blood Pressure Location [BP] Left Arm Pulse Ox 91 94 91 Oxygen Delivery Method Bi-pap Bi-pap Bi-pap Oxygen Flow Rate (L/min) Fraction of Inspired Oxygen (FIO2) 80 80 80 06/02/21 09:30 06/02/21 10:00 06/02/21 10:30 Temperature Temperature Source Pulse Rate 64 68 66 Respiratory Rate 38 H 37 H 38 H Respiratory Effort Respiratory Pattern Blood Pressure 121/65 H Blood Pressure [BP] 109/67 108/75 Blood Pressure Mean 83 Blood Pressure Mean [BP] 81 86 Blood Pressure Source Monitor Blood Pressure Source [BP] Monitor Monitor Blood Pressure Position Semi-Fowlers Blood Pressure Position [BP] Semi-Fowlers Semi-Fowlers Blood Pressure Location Right Arm Blood Pressure Location [BP] Left Arm Left Arm Pulse Ox 94 95 95 Oxygen Delivery Method Bi-pap Bi-pap Bi-pap Oxygen Flow Rate (L/min) Fraction of Inspired Oxygen (FIO2) 80 80 80 06/02/21 11:00 06/02/21 11:38 06/02/21 12:06 Temperature Temperature Source Pulse Rate 70 58 L 55 L Respiratory Rate 40 H Respiratory Effort Respiratory Pattern Tachypnea Blood Pressure Blood Pressure [BP] 108/65 Blood Pressure Mean Blood Pressure Mean [BP] 79 Blood Pressure Source Blood Pressure Source [BP] Monitor Blood Pressure Position Blood Pressure Position [BP] Semi-Fowlers Blood Pressure Location Blood Pressure Location [BP] Left Arm Pulse Ox 98 95 Oxygen Delivery Method Bi-pap Oxygen Flow Rate (L/min) Fraction of Inspired Oxygen (FIO2) 80 80 Weight Weight: 112.5 kg Body Mass Index (BMI) 36.7 Physical Exam Const alert and oriented x3 Constitutional Narrative: Young white male sitting up in bed on noninvasive ventilation, markedly tachypneic although does not appear in significant respiratory distress at this time General Appearance: cooperative HEENT normocephalic, head/scalp atraumatic, hearing grossly normal bilaterally and dentition normal Mouth: oral and palatal mucosa normal and moist mucous membranes abnormal parched Eyes PERRL, EOMs intact bilaterally and conjunctivae normal Neck no lymphadenopathy, supple and no JVD Neck Narrative: Trachea midline, no thyromegaly Resp no retractions, no use of accessory muscles and clear to auscultation bilaterally Resp Narrative: Diffuse crackles bilaterally, significant tachypnea Auscultation: crackles; Negative for rales, rhonchi or wheezes Cardio regular rhythm, S1 normal heart sound, S2 normal heart sound, no murmurs, no rub, no gallops, no clicks and no JVD Cardio Narrative: Bradycardia GI normal to inspection, nondistended, normoactive bowel sounds, soft to palpation, non-tender and non-distended Extremity no clubbing, cyanosis or edema Peripheral Pulses: Yes pulses 2+ throughout Skin no rashes or lesions noted, no wounds, skin turgor normal, no jaundice, no petechiae and no mottling Neuro oriented x3, CN's II-XII intact bilaterally, moves all extremities and no focal motor deficits Sensorium / Orientation: awake and alert Speech: speech normal Psych Psych Narrative: Appears mildly anxious Results Lab / Micro Data Result Diagrams: 06/02/21 07:35 06/02/21 07:00 Labs: Laboratory Results - last 24 hr 06/02/21 07:00: Fibrinogen 602 H, D-Dimer Quant (PE/DVT) Cancelled 06/02/21 07:00: Sodium 134 L, Potassium 4.5, Chloride 100, Carbon Dioxide 22.0, Anion Gap 12, BUN 30 H, Creatinine 1.46 H, Estim Creat Clear Calc 72.92, Est GFR (MDRD) Af Amer 70, Est GFR (MDRD) Non-Af 58 L, BUN/Creatinine Ratio 20.5 H, Glucose 136 H, Calcium 8.5, Total Bilirubin 1.30 H, AST 69 H, ALT 25, Alkaline Phosphatase 88, Lactate Dehydrogenase 1057 H, Total Creatine Kinase 120, C-React Prot Ext Range 99.20 H, Total Protein 7.3, Albumin 2.8 L, Globulin 4.5 H, Albumin/Globulin Ratio 0.6 L 06/02/21 07:00: Procalcitonin 0.15 H 06/02/21 07:00: Lactic Acid 5.9 H* 06/02/21 07:00: WBC Cancelled, Corrected WBC Cancelled, RBC Cancelled, Hgb Cancelled, Hct Cancelled, MCV Cancelled, MCH Cancelled, MCHC Cancelled, RDW Std Deviation Cancelled, RDW Coeff of Samantha Cancelled, Plt Count Cancelled, MPV Cancelled, Immature Gran % (Auto) Cancelled, Neut % (Auto) Cancelled, Lymph % (Auto) Cancelled, Jerome % (Auto) Cancelled, Eos % (Auto) Cancelled, Baso % (Auto) Cancelled, Absolute Neuts (auto) Cancelled, Absolute Lymphs (auto) Cancelled, Total Counted Cancelled, Neutrophils % (Manual) Cancelled, Band Neutrophils % Cancelled, Lymphocytes % (Manual) Cancelled, Monocytes % (Manual) Cancelled, Eosinophils % (Manual) Cancelled, Basophils % (Manual) Cancelled, Metamyelocytes % Cancelled, Myelocytes % Cancelled, Promyelocytes % Cancelled, Blast Cells % Cancelled, Plasma Cell % (Manual) Cancelled, Other Cells % Cancelled, Nucleated RBC % Cancelled, Nucleated RBCs/100 WBC Cancelled, Differential Comment Cancelled, Diff Path Review Cancelled, Hypersegmented Neuts Cancelled, Atypical Lymphocytes Cancelled, Reactive Lymphocytes Cancelled, Smudge Cells Cancelled, Toxic Granulation Cancelled, Toxic Vacuolation Cancelled, Dohle Bodies Cancelled, Adry Rods Cancelled, Platelet Estimate Cancelled, Plt Morphology Comment Cancelled, RBC Morphology Cancelled, Polychromasia Cancelled, Hypochromasia Cancelled, Poikilocytosis Cancelled, Basophilic Stippling Cancelled, Anisocytosis Cancelled, Microcytosis Cancelled, Macrocytosis Cancelled, Spherocytes Cancelled, Sickle Cells Cancelled, Target Cells Cancelled, Tear Drop Cells Cancelled, Ovalocytes Cancelled, Stomatocytes Cancelled, [place] Bodies Cancelled, Ne Cells Cancelled, Bite Cells Cancelled, Crenated Cell Cancelled, Acanthocytes (Spur) Cancelled, Rouleaux Cancelled, Schistocytes Cancelled 06/02/21 07:00: Troponin I High Sens 34 06/02/21 07:00: Alkaline Phosphatase 87 06/02/21 07:16: D-Dimer Quant (PE/DVT) 10.45 H* 06/02/21 07:35: WBC 17.1 H, RBC 4.46 L, Hgb 12.5 L, Hct 37.9 L, MCV 85.0, MCH 28.0, MCHC 33.0, RDW Std Deviation 40.5, RDW Coeff of Samantha 13.1, Plt Count 334, MPV 8.8, Neut % (Auto) Not Reportable, Absolute Neuts (auto) 14.6 H, Absolute Lymphs (auto) 1.20, Total Counted 100, Neutrophils % (Manual) 82 H, Band Neutrophils % 3, Lymphocytes % (Manual) 7 L, Monocytes % (Manual) 5, Metamyelocytes % 2 H, Plasma Cell % (Manual) 1, Diff Path Review February foll, Platelet Estimate ADEQUATE, RBC Morphology NORM C+C 06/02/21 11:45: Lactic Acid Cancelled 06/02/21 13:05: Lactic Acid 1.8 Micro: Microbiology 06/02/21 07:08 Nasal Secretion SARS-CoV-2 Antigen (Rapid) - Final SARS-CoV-2 (COVID 19) ABG Data ABG results: ABG 06/02/21 07:01 Specimen Type ART Sample Site L Radial pH 7.45 Bicarbonate Actual 20.5 L Total CO2 21 Base Excess -4 L O2 Saturation 97 O2 % 90 ABG pCO2 29.8 L ABG pO2 88 Huseyin Test Positive O2 Delivery Device BiPAP Clinical Comments 12 Rhythm Strip Rhythm Strip: Sinus Rhythm Rate: 88 Ectopy: None Radiology Impression Chest X-Ray 06/02/21 06:56 IMPRESSION: Bilateral pneumonia, pulmonary edema, or ARDS. Electronically Signed: Dilip Altman MD at 8:04 EDT Tel , Service support , Chest CTA 06/02/21 07:09 IMPRESSION: 1. No demonstrated pulmonary embolism or arterial dissection. 2. Bilateral patchy infiltrates have progressed to more diffuse, hazy, groundglass opacities nearly throughout the bilateral lung [place], with scattered subsegmental zones more confluent density. These remain suspicious for infection, including viral pneumonia, such as Covid 19. Pulmonary edema or pulmonary hemorrhages might also have this appearance. 3. A few reactive lymph nodes are noted in the mediastinum. Electronically Signed: Amrit Emanuel MD at 8:18 EDT , Service support , Assessment & Plan Assessment/Plan (1) Acute respiratory failure with hypoxia: (2) Pneumonia due to COVID-19 virus: (3) Leukocytosis: (4) MALAIKA (acute kidney injury): (5) Sepsis: (6) Hyperbilirubinemia: PLAN: Assessment: Sepsis secondary to COVID-19 pneumonia -Patient has acute hypoxic respiratory failure, hyperbilirubinemia, MALAIKA, and known source of infection Acute hypoxic respiratory failure secondary to COVID-19 pneumonia/ARDS MALAIKA Hyperbilirubinemia Hyponatremia Leukocytosis Plan: -Continue gentle hydration with LR -Continue Decadron but will convert to IV to complete 10-day course all this could be extended given severity of disease -Start remdesivir per discussion with infectious disease -Continue BiPAP support and wean FiO2 as able to keep sats greater than 90% -Twice daily Lovenox 40 mg -CTA of the chest showed impressive bilateral infiltrates consistent with COVID-19 infection but no PE -We do not have any access to tocilizumab -Transfer was attempted to [facility], [facility], [place] [facility] [place] [facility], and [facility] for tocilizumab dosing without any success as there are not any available beds, [facility] had available beds but they do not have any Tocilizumab -Monitor urine output closely -Serial labs -Patient has markedly elevated markers of inflammation -Patient and family are aware that he could decompensate clinically resulting in intubation Charges/Coding Visit Charges Inpatient E&M: 02164 Init Hosp L3
[2021-06-02 17:45] LABS: Bedside Glucose 126 mg/dL (70-110)
[2021-06-03] VITALS (34 sets, daily range): BP systolic 113–135; BP diastolic 55–71; PULSE 43–71; RESP 12–44; TEMP 36.1–36.7; O2SAT 90–98
--- NOTE | 2021-06-03 02:46 | CPS ---
Patient tried on AVAPS for increased RR on BiPAP settings. Will monitor patient on these new settings.
[2021-06-03 03:50] LABS: Hematocrit 39.3 % (40-54); Hemoglobin 12.7 g/dL (13.0-16.5); Mean Corp Hgb Conc 32.3 g/dL (32-36); Mean Corpuscular Hgb 27.9 pg (27.0-32.0); Mean Corpuscular Volume 86.4 fL (80-94); Mean Platelet Vol. 8.9 fl (6.2-12.0); POSITIVE COUNT YES; POSITIVE MORPHOLOGY YES; Platelet Count 327 K/mm3 (150-450); RBC Distribution Width CV 13.3 % (11.6-14.6); RBC Distribution Width SD 42.2 fl (35.1-43.9); Red Blood Count 4.55 M/mm3 (4.6-6.2); White Blood Count 17.3 K/mm3 (4.4-11.0)
[2021-06-03 04:01] LABS: Differential Indicated MANUAL DIFF
[2021-06-03 04:26] LABS: ALB/GLOB Ratio 0.7 RATIO (0.9-2.4); AST(SGOT) 31 U/L (15-37); Alanine Aminotransfer ALT/SGPT 20 U/L (16-61); Albumin, Serum 2.3 g/dL (3.2-5.0); Alkaline Phosphatase 67 U/L (45-117); Anion Gap 5 (5-15); BUN 27 mg/dL (7-18); BUN/Creat Ratio 28.8 RATIO (10-20); Calcium,Total 7.7 mg/dL (8.5-10.1); Chloride 105 mmol/L (98-107); Creatinine, Serum 0.94 mg/dL (0.70-1.30); EST Glomerular Filtration Rate 97 mL/min (>60); Est Glom Filt Rate - Afr Amer 117 mL/min (>60); Estimated Creatinine Clearance 113.25 ml/min; Globulin 3.3 g/dL (2.2-4.2); Glucose 131 mg/dL (74-106); Potassium 4.4 mmol/L (3.5-5.1); Protein, Total 5.6 g/dL (6.4-8.2); Sodium Level 140 mmol/L (136-145); Thyroid Stim Hormone (TSH) 1.21 uIU/mL (0.358-3.74)
[2021-06-03 04:30] LABS: Absolute Neutrophil Count 14.7 X10^3/uL (2.0-7.7)
[2021-06-03 04:31] LABS: Absolute Lymphocyte Count 0.86 X10^3/uL (0.83-4.51); Lymphocyte 5 % (19-41); Monocyte 7 % (0-10); Myelocyte 1 % (0-0); Neutrophil-Band 2 % (0-5); Neutrophil-Segmented 83 % (47-70); Platelet Estimate ADEQUATE (ADEQ); Promyelocyte 2 % (0-0); Red Cell Morphology NORM C+C NORMAL (NORM C&C)
--- NOTE | 2021-06-03 05:49 | PN.CC_ITS ---
Assessment & Plan Assessment/Plan (1) Acute respiratory failure with hypoxia: (2) Pneumonia due to COVID-19 virus: PLAN: RECOMMENDATIONS: 1. Stop continuous IV fluids. 2. Continue remdesivir as ordered. Continue to monitor liver and renal function. 3. Continue Decadron to complete 10-day treatment course. 4. Continue Lovenox twice daily. 5. Continue BiPAP and wean FiO2 to maintain oxygen saturations at or above 90%. 6. If the patient remains stable today from an oxygenation perspective, will attempt to wean to Airvo. 7. Maintain euvolemic state. Utilize as needed Lasix. IMPRESSIONS: 1. Acute hypoxemic respiratory failure secondary to COVID-19 pneumonia The patient presented to the hospital with progressive respiratory symptoms and hypoxemia, with symptom onset sometime around May 22. The patient subsequently tested positive for coronavirus. He is unvaccinated. Although D- dimer was elevated at presentation, CTA chest showed no evidence for PE. Nevertheless, there was extensive bilateral groundglass infiltrates. The patient has been started on continuous BiPAP support, which will be continued as tolerated. Wean FiO2 to maintain oxygen saturations at or above 90%. The patient will be continued on Decadron as ordered to complete a 10-day treatment course. I did call and speak briefly with infectious diseases, who was in agreement that given his close proximity to the 10-day window for remdesivir, that the medication should be administered. Unfortunately, we do not have any access currently to tocilizumab. 2. Acute kidney injury Resolved. Likely prerenal in etiology. Fluids can be discontinued. Continue to monitor urine output. No current indication for renal replacement therapy. TIME: 34 minutes of critical care time, independent of procedures, was spent addressing the patient's acute hypoxemic respiratory failure secondary to COVID- 19 pneumonia, acute kidney injury, review of all data and collaboration with the care team. ([id number]) Subjective Subjective The patient was seen and examined at the bedside this morning. Events from the last 24 hours have been reviewed. The patient is currently afebrile, hemodynamically stable and maintaining appropriate oxygen saturations on continuous BiPAP support with an FiO2 requirement of 70%. The patient remains tachypneic and has been bradycardic overnight. He is currently documented to be overall net -600 mL for the hospital admission. White count remains elevated this morning at 17,000. Liver and renal function are stable. The patient remains on remdesivir, Decadron and twice daily Lovenox. Objective Data Objective Data The patient's most recent lab work, culture data and imaging studies have all been personally reviewed. CTA chest showed no evidence for pulmonary embolism. However, significant bilateral groundglass infiltrates were noted. Blood cultures are pending. Vital Signs: Vital Signs Temp Pulse Resp BP Pulse Ox 97.9 F 50 L 33 H 114/67 97 06/03/21 00:00 06/03/21 04:35 06/03/21 04:35 06/03/21 04:00 06/03/21 04:35 Oxygen Flow Rate (L/min) 2 Oxygen Delivery Method Bi-pap Weight: 112.5 kg Body Mass Index (BMI) 36.7 Intake & Output: Intake and Output for Last 24 Hours 06/01/21 06/02/21 06/03/21 23:59 23:59 23:59 Intake Total 1453.75 / 1453.75 0 / 0 Output Total 1700 / 1900 400 / 400 Balance -246.25 / -446.25 -400 / -400 Lab / Micro Data Attestation: I reviewed the patient's lab results. Result Diagrams: 06/03/21 03:31 06/03/21 03:31 Labs: Laboratory Results - last 24 hr 06/02/21 07:00: Fibrinogen 602 H, D-Dimer Quant (PE/DVT) Cancelled 06/02/21 07:00: Sodium 134 L, Potassium 4.5, Chloride 100, Carbon Dioxide 22.0, Anion Gap 12, BUN 30 H, Creatinine 1.46 H, Estim Creat Clear Calc 72.92, Est GFR (MDRD) Af Amer 70, Est GFR (MDRD) Non-Af 58 L, BUN/Creatinine Ratio 20.5 H, Glucose 136 H, Calcium 8.5, Total Bilirubin 1.30 H, AST 69 H, ALT 25, Alkaline Phosphatase 88, Lactate Dehydrogenase 1057 H, Total Creatine Kinase 120, C-React Prot Ext Range 99.20 H, Total Protein 7.3, Albumin 2.8 L, Globulin 4.5 H, Albumin/Globulin Ratio 0.6 L 06/02/21 07:00: Procalcitonin 0.15 H 06/02/21 07:00: Lactic Acid 5.9 H* 06/02/21 07:00: WBC Cancelled, Corrected WBC Cancelled, RBC Cancelled, Hgb Cancelled, Hct Cancelled, MCV Cancelled, MCH Cancelled, MCHC Cancelled, RDW Std Deviation Cancelled, RDW Coeff of Samantha Cancelled, Plt Count Cancelled, MPV Cancelled, Immature Gran % (Auto) Cancelled, Neut % (Auto) Cancelled, Lymph % (Auto) Cancelled, Haakon % (Auto) Cancelled, Eos % (Auto) Cancelled, Baso % (Auto) Cancelled, Absolute Neuts (auto) Cancelled, Absolute Lymphs (auto) Cancelled, Total Counted Cancelled, Neutrophils % (Manual) Cancelled, Band Neutrophils % Cancelled, Lymphocytes % (Manual) Cancelled, Monocytes % (Manual) Cancelled, Eosinophils % (Manual) Cancelled, Basophils % (Manual) Cancelled, Metamyelocytes % Cancelled, Myelocytes % Cancelled, Promyelocytes % Cancelled, Blast Cells % Cancelled, Plasma Cell % (Manual) Cancelled, Other Cells % Cancelled, Nucleated RBC % Cancelled, Nucleated RBCs/100 WBC Cancelled, Differential Comment Cancelled, Diff Path Review Cancelled, Hypersegmented Neuts Cancelled, Atypical Lymphocytes Cancelled, Reactive Lymphocytes Cancelled, Smudge Cells Cancelled, Toxic Granulation Cancelled, Toxic Vacuolation Cancelled, Dohle Bodies Cancelled, Adry Rods Cancelled, Platelet Estimate Cancelled, Plt Morphology Comment Cancelled, RBC Morphology Cancelled, Polychromasia Cancelled, Hypoch romasia Cancelled, Poikilocytosis Cancelled, Basophilic Stippling Cancelled, Anisocytosis Cancelled, Microcytosis Cancelled, Macrocytosis Cancelled, Spherocytes Cancelled, Sickle Cells Cancelled, Target Cells Cancelled, Tear Drop Cells Cancelled, Ovalocytes Cancelled, Stomatocytes Cancelled, [place] Bodies Cancelled, [place] Cells Cancelled, Bite Cells Cancelled, Crenated Cell Cancelled, Acanthocytes (Spur) Cancelled, Rouleaux Cancelled, Schistocytes Cancelled 06/02/21 07:00: Troponin I High Sens 34 06/02/21 07:00: Alkaline Phosphatase 87 06/02/21 07:16: D-Dimer Quant (PE/DVT) 10.45 H* 06/02/21 07:35: WBC 17.1 H, RBC 4.46 L, Hgb 12.5 L, Hct 37.9 L, MCV 85.0, MCH 28.0, MCHC 33.0, RDW Std Deviation 40.5, RDW Coeff of Samantha 13.1, Plt Count 334, MPV 8.8, Neut % (Auto) Not Reportable, Absolute Neuts (auto) 14.6 H, Absolute Lymphs (auto) 1.20, Total Counted 100, Neutrophils % (Manual) 82 H, Band Neutrophils % 3, Lymphocytes % (Manual) 7 L, Monocytes % (Manual) 5, Metamyelocytes % 2 H, Plasma Cell % (Manual) 1, Diff Path Review February gerardo, Platelet Estimate ADEQUATE, RBC Morphology NORM C+C 06/02/21 11:45: Lactic Acid Cancelled 06/02/21 13:05: Lactic Acid 1.8 06/02/21 17:09: POC Glucose 126 H 06/03/21 03:31: WBC 17.3 H, RBC 4.55 L, Hgb 12.7 L, Hct 39.3 L, MCV 86.4, MCH 27.9, MCHC 32.3, RDW Std Deviation 42.2, RDW Coeff of Samantha 13.3, Plt Count 327, MPV 8.9, Neut % (Auto) Not Reportable, Absolute Neuts (auto) 14.7 H, Absolute Lymphs (auto) 0.86, Neutrophils % (Manual) 83 H, Band Neutrophils % 2, Lymphocytes % (Manual) 5 L, Monocytes % (Manual) 7, Myelocytes % 1 H, Promyelocytes % 2 H, Diff Path Review February gerardo, Platelet Estimate ADEQUATE, RBC Morphology NORM C+C 06/03/21 03:31: Sodium 140, Potassium 4.4, Chloride 105, Carbon Dioxide 30.0, Anion Gap 5, BUN 27 H, Creatinine 0.94, Estim Creat Clear Calc 113.25, Est GFR (MDRD) Af Amer 117, Est GFR (MDRD) Non-Af 97, BUN/Creatinine Ratio 28.8 H, Glucose 131 H, Calcium 7.7 L, Total Bilirubin 0.80, AST 31, ALT 20, Alkaline Phosphatase 67, Total Protein 5.6 L, Albumin 2.3 L, Globulin 3.3, Albumin/Globulin Ratio 0.7 L, TSH 1.21 Micro: Microbiology 06/02/21 07:08 Nasal Secretion SARS-CoV-2 Antigen (Rapid) - Final SARS-CoV-2 (COVID 19) ABG Data ABG results: ABG 06/02/21 07:01 Specimen Type ART Sample Site L Radial pH 7.45 Bicarbonate Actual 20.5 L Total CO2 21 Base Excess -4 L O2 Saturation 97 O2 % 90 ABG pCO2 29.8 L ABG pO2 88 Huseyin Test Positive O2 Delivery Device BiPAP Clinical Comments 12 Radiography Diagnostic Testing: Radiology Impression Chest X-Ray 06/02/21 06:56 IMPRESSION: Bilateral pneumonia, pulmonary edema, or ARDS. Electronically Signed: Dilip Altman MD at 8:04 EDT Tel , Service support , Chest CTA 06/02/21 07:09 IMPRESSION: 1. No demonstrated pulmonary embolism or arterial dissection. 2. Bilateral patchy infiltrates have progressed to more diffuse, hazy, groundglass opacities nearly throughout the bilateral lung [place], with scattered subsegmental zones more confluent density. These remain suspicious for infection, including viral pneumonia, such as Covid 19. Pulmonary edema or pulmonary hemorrhages might also have this appearance. 3. A few reactive lymph nodes are noted in the mediastinum. Electronically Signed: Amrit Emanuel MD at 8:18 EDT , Service support , Rhythm Strip Rhythm Strip: Sinus Rhythm Rate: 88 Ectopy: None Physical Exam Const alert General Appearance: cooperative, ill appearing and on BiPAP Nutritional Appearance: obese HEENT normocephalic and head/scalp atraumatic Eyes PERRL, EOMs intact bilaterally and conjunctivae normal Neck supple General: trachea midline Resp Effort and Inspection: tachypneic and labored Auscultation: diminished lung sounds; Negative for rales, rhonchi or wheezes Cardio S1 normal heart sound and S2 normal heart sound Rate: bradycardia GI normal to inspection, nondistended, normoactive bowel sounds Extremity no clubbing, cyanosis or edema Skin no rashes or lesions noted Neuro CN's II-XII intact bilaterally and no focal motor deficits Psych cooperative and affect normal Charges/Coding Procedures Hospitalists Procedures: [id number] Critial Care 1st Hr
[2021-06-03] MEDS: Enoxaparin 40 MG/0.4 ML Syringe SC ×2 (09:57→19:43)
[2021-06-03] MEDS: dexAMETHasone 10 MG/ML Vial 6 MG IV (09:58)
--- NOTE | 2021-06-03 11:28 | PN.HOSP_ITS ---
Subjective Subjective Patient has been able to be weaned from continuous BiPAP to air Vo with a flow rate of 60 L/min and FiO2 of 90%. He states that his breathing feels okay at this time. He just worked with therapy and is doing exercises in his room while sitting up in a chair. He has no specific complaints but does note that he got significantly winded with exertion. Objective Data Objective Data Vital Signs: Vital Signs Temp Pulse Resp BP Pulse Ox 97 F L 63 21 H 135/69 H 95 06/03/21 08:00 06/03/21 10:00 06/03/21 10:00 06/03/21 10:00 06/03/21 10:00 Oxygen Flow Rate (L/min) 60 Oxygen Delivery Method Airvo Weight: 112.5 kg Body Mass Index (BMI) 36.7 Intake & Output: Intake and Output for Last 24 Hours 06/01/21 06/02/21 06/03/21 23:59 23:59 23:59 Intake Total 1453.75 / 1453.75 987.5 / 987.5 Output Total 1700 / 1900 800 / 800 Balance -246.25 / -446.25 187.5 / 187.5 Lab / Micro Data Result Diagrams: 06/03/21 03:31 06/03/21 03:31 Labs: Laboratory Results - last 24 hr 06/02/21 07:00: Alkaline Phosphatase 87 06/02/21 11:45: Lactic Acid Cancelled 06/02/21 13:05: Lactic Acid 1.8 06/02/21 17:09: POC Glucose 126 H 06/03/21 03:31: WBC 17.3 H, RBC 4.55 L, Hgb 12.7 L, Hct 39.3 L, MCV 86.4, MCH 27.9, MCHC 32.3, RDW Std Deviation 42.2, RDW Coeff of Samantha 13.3, Plt Count 327, MPV 8.9, Neut % (Auto) Not Reportable, Absolute Neuts (auto) 14.7 H, Absolute Lymphs (auto) 0.86, Neutrophils % (Manual) 83 H, Band Neutrophils % 2, Lymphocyt es % (Manual) 5 L, Monocytes % (Manual) 7, Myelocytes % 1 H, Promyelocytes % 2 H , Diff Path Review May , Platelet Estimate ADEQUATE, RBC Morphology NORM C+C 08/29/21 03:31: Sodium 140, Potassium 4.4, Chloride 105, Carbon Dioxide 30.0, Anion Gap 5, BUN 27 H, Creatinine 0.94, Estim Creat Clear Calc 113.25, Est GFR (MDRD) Af Amer 117, Est GFR (MDRD) Non-Af 97, BUN/Creatinine Ratio 28.8 H, Glucose 131 H, Calcium 7.7 L, Total Bilirubin 0.80, AST 31, ALT 20, Alkaline Phosphatase 67, Total Protein 5.6 L, Albumin 2.3 L, Globulin 3.3, Albumin/Globulin Ratio 0.7 L, TSH 1.21 Micro: Microbiology 06/02/21 07:08 Nasal Secretion SARS-CoV-2 Antigen (Rapid) - Final SARS-CoV-2 (COVID 19) Rhythm Strip Rhythm Strip: Sinus Rhythm Rate: 88 Ectopy: None Physical Exam Const alert and oriented x3 Constitutional Narrative: Young white male sitting up in a chair on air Vo, less tachypneic, nontoxic General Appearance: cooperative Exam Limitations: no limitations HEENT normocephalic, head/scalp atraumatic, hearing grossly normal bilaterally and dentition normal HEENT Narrative: No thrush Head and Scalp: normocephalic Neck Neck Narrative: Trachea midline, no thyromegaly Resp no retractions, no use of accessory muscles and clear to auscultation bilaterally Resp Narrative: Diminished lung sounds but clear today Auscultation: crackles; Negative for rales, rhonchi or wheezes Cardio regular rate, regular rhythm, S1 normal heart sound, S2 normal heart sound, no murmurs, no rub, no gallops, no clicks and no JVD GI normal to inspection, nondistended, normoactive bowel sounds, soft to palpation, non-tender and non-distended Extremity no clubbing, cyanosis or edema Peripheral Pulses: Yes pulses 2+ throughout Neuro oriented x3, moves all extremities and no focal motor deficits Sensorium / Orientation: awake and alert Speech: speech normal Psych affect normal Psych Narrative: A much less anxious today Assessment & Plan Assessment/Plan (1) Acute respiratory failure with hypoxia: (2) Pneumonia due to COVID-19 virus: (3) Leukocytosis: (4) MALAIKA (acute kidney injury): (5) Sepsis: (6) Hyperbilirubinemia: PLAN: Assessment: Sepsis secondary to COVID-19 pneumonia -Patient has acute hypoxic respiratory failure, hyperbilirubinemia, MALAIKA, and known source of infection Acute hypoxic respiratory failure secondary to COVID-19 pneumonia/ARDS MALAIKA-resolved Hyperbilirubinemia Hyponatremia Leukocytosis Plan: -Discontinue IV fluids -Blood cultures are pending but doubt bacterial infection -Oxygen has been weaned from continuous BiPAP to air Vo with a flow rate of 60 L/min and FiO2 of 90% -SPO2 has been 90 to 98% on the air Vo -Wean O2 as able -Continue Decadron day 2 of 5 -Continue remdesivir day 2 of 5 -Continue twice daily Lovenox 40 mg -CTA of the chest showed impressive bilateral infiltrates consistent with COVID- 19 infection but no PE -Serial labs -Patient and family are aware that he could decompensate clinically resulting in intubation Charges/Coding Visit Charges Inpatient E&M: 92422 Subs Hosp L2
[2021-06-04] VITALS (41 sets, daily range): BP systolic 108–125; BP diastolic 55–76; PULSE 39–76; RESP 12–33; TEMP 36.4–37.2; O2SAT 91–97
[2021-06-04 02:00] LABS: M R Staph aureus DNA By PCR Negative (Negative); Probe Check PASS; Specimen Processing Control PASS
[2021-06-04 04:58] LABS: Hematocrit 41.1 % (40-54); Hemoglobin 13.5 g/dL (13.0-16.5); Mean Corp Hgb Conc 32.8 g/dL (32-36); Mean Corpuscular Hgb 28.1 pg (27.0-32.0); Mean Corpuscular Volume 85.6 fL (80-94); Mean Platelet Vol. 8.7 fl (6.2-12.0); POSITIVE COUNT YES; POSITIVE MORPHOLOGY YES; Platelet Count 316 K/mm3 (150-450); RBC Distribution Width CV 13.1 % (11.6-14.6); RBC Distribution Width SD 41.2 fl (35.1-43.9); White Blood Count 19.1 K/mm3 (4.4-11.0)
[2021-06-04 05:05] LABS: Differential Indicated MANUAL DIFF
[2021-06-04 05:15] LABS: ALB/GLOB Ratio 0.7 RATIO (0.9-2.4); AST(SGOT) 27 U/L (15-37); Alanine Aminotransfer ALT/SGPT 22 U/L (16-61); Albumin, Serum 2.3 g/dL (3.2-5.0); Alkaline Phosphatase 69 U/L (45-117); Anion Gap 4 (5-15); BUN 27 mg/dL (7-18); BUN/Creat Ratio 35.2 RATIO (10-20); Calcium,Total 7.9 mg/dL (8.5-10.1); Chloride 108 mmol/L (98-107); Creatinine, Serum 0.77 mg/dL (0.70-1.30); EST Glomerular Filtration Rate 123 mL/min (>60); Est Glom Filt Rate - Afr Amer 148 mL/min (>60); Estimated Creatinine Clearance 138.26 ml/min; Globulin 3.4 g/dL (2.2-4.2); Glucose 105 mg/dL (74-106); Potassium 4.2 mmol/L (3.5-5.1); Protein, Total 5.7 g/dL (6.4-8.2); Sodium Level 141 mmol/L (136-145)
[2021-06-04 05:57] LABS: Lymphocyte 11 % (19-41); Metamyelocyte 5 % (0-1); Monocyte 3 % (0-10); Myelocyte 4 % (0-0); Neutrophil-Segmented 76 % (47-70); Plasma Cell 1 %; Total Cells Counted 100 (MANUAL DIFF)
[2021-06-04 05:58] LABS: Absolute Neutrophil Count 16.3 X10^3/uL (2.0-7.7)
[2021-06-04 06:00] LABS: Differential Comment MANUAL DIFF; Platelet Estimate ADEQUATE (ADEQ); Red Cell Morphology NORM C+C NORMAL (NORM C&C)
[2021-06-04] MEDS: Enoxaparin 40 MG/0.4 ML Syringe SC ×2 (08:54→20:00)
[2021-06-04] MEDS: Furosemide 20 MG/2 ML VIAL IV (08:54)
[2021-06-04] MEDS: 0.9% Saline Lock 10 ML Syringe IV (08:54)
[2021-06-04] MEDS: Acetaminophen 325 MG Tablet 650 MG PO (08:57)
--- NOTE | 2021-06-04 09:40 | PN.CC_ITS ---
Assessment & Plan Assessment/Plan (1) Acute respiratory failure with hypoxia: (2) Pneumonia due to COVID-19 virus: PLAN: RECOMMENDATIONS: 1. Avoid continuous IV fluids. Lasix as tolerated 2. Continue remdesivir as ordered. Continue to monitor liver and renal function. 3. Continue Decadron to complete 10-day treatment course. 4. Continue Lovenox twice daily. 5. Continue BiPAP and wean FiO2 to maintain oxygen saturations at or above 90%. 6. Okay to use Airvo to assist with nutrition 7. Atropine if needed for bradycardia with hypotension IMPRESSIONS: 1. Acute hypoxemic respiratory failure secondary to COVID-19 pneumonia The patient presented to the hospital with progressive respiratory symptoms and hypoxemia, with symptom onset sometime around May 22. The patient subsequently tested positive for coronavirus. He is unvaccinated. Although D-dimer was elevated at presentation, CTA chest showed no evidence for PE. Nevertheless, there was extensive bilateral groundglass infiltrates. The patient has been started on continuous BiPAP support, which will be continued as tolerated. Wean FiO2 to maintain oxygen saturations at or above 90%. The patient will be continued on Decadron as ordered to complete a 10-day treatment course. We will continue to volume restrict as tolerated. 2. Acute kidney injury Resolved. Likely prerenal in etiology. Fluids can be discontinued. Continue to monitor urine output. No current indication for renal replacement therapy. 3. Bradycardia/obesity/possible depression Complicates care, management, recovery and prognosis. Continue to attempt to motivate patient. Atropine can be used if patient becomes hypotensive. Continue telemetry. Clinical suspicion for high vagal tone leading to lower heart rates TIME: 32 minutes of critical care time, independent of procedures, was spent addressing the patient's acute hypoxemic respiratory failure secondary to COVID- 19 pneumonia, acute kidney injury, review of all data and collaboration with the care team. (7:30 AM to 8:30 AM) Subjective Subjective Patient did okay overnight. Patient did tolerate BiPAP with sleep and is back on Airvo during the day. No fever has been noted overnight. Patient is not reporting any pain. Patient did have significant bradycardia associated with coughing episodes Objective Data Objective Data Vital Signs: Vital Signs Temp Pulse Resp BP Pulse Ox 36.4 C L 64 26 H 119/61 92 06/04/21 06:00 06/04/21 08:45 06/04/21 08:45 06/04/21 08:45 06/04/21 08:45 Oxygen Flow Rate (L/min) 60 Oxygen Delivery Method Airvo Weight: 112.6 kg Body Mass Index (BMI) 36.7 Intake & Output: Intake and Output for Last 24 Hours 06/02/21 06/03/21 06/04/21 23:59 23:59 23:59 Intake Total 1453.75 / 1453.75 2087.5 / 2087.5 410 / 410 Output Total 1700 / 1900 1100 / 1100 500 / 500 Balance -246.25 / -446.25 987.5 / 987.5 -90 / -90 Lab / Micro Data Result Diagrams: 06/04/21 04:37 06/04/21 04:37 Labs: Laboratory Results - last 24 hr 06/03/21 22:57: MRSA (PCR) Negative 06/04/21 04:37: WBC 19.1 H, RBC 4.80, Hgb 13.5, Hct 41.1, MCV 85.6, MCH 28.1, MCHC 32.8, RDW Std Deviation 41.2, RDW Coeff of Samantha 13.1, Plt Count 316, MPV 8.7, Neut % (Auto) Not Reportable, Absolute Neuts (auto) 16.3 H, Absolute Lymphs (auto) 2.10, Total Counted 100, Neutrophils % (Manual) 76 H, Lymphocytes % (Manual) 11 L, Monocytes % (Manual) 3, Metamyelocytes % 5 H, Myelocytes % 4 H, Plasma Cell % (Manual) 1, Differential Comment MANUAL DIFF, Diff Path Review February, Platelet Estimate ADEQUATE, RBC Morphology NORM C+C 06/04/21 04:37: Sodium 141, Potassium 4.2, Chloride 108 H, Carbon Dioxide 29.0, Anion Gap 4 L, BUN 27 H, Creatinine 0.77, Estim Creat Clear Calc 138.26, Est GFR (MDRD) Af Amer 148, Est GFR (MDRD) Non-Af 123, BUN/Creatinine Ratio 35.2 H, Glucose 105, Calcium 7.9 L, Total Bilirubin 0.80, AST 27, ALT 22, Alkaline Phosphatase 69, Total Protein 5.7 L, Albumin 2.3 L, Globulin 3.4, Albumin/Globulin Ratio 0.7 L Micro: Microbiology 06/02/21 07:00 Blood Culture (Wb) - Anticubital Right Blood Culture - Preliminary No growth in 48 hours. 06/02/21 06:50 Blood Culture (Wb) - Anticubital Left Blood Culture - Preliminary No growth in 48 hours. 06/02/21 07:08 Nasal Secretion SARS-CoV-2 Antigen (Rapid) - Final SARS-CoV-2 (COVID 19) Rhythm Strip Rhythm Strip: Sinus Rhythm Rate: 88 Ectopy: None Physical Exam Const General Appearance: cooperative, ill appearing and on BiPAP Nutritional Appearance: obese HEENT normocephalic Head and Scalp: normal to inspection Mouth: oral and palatal mucosa normal Eyes PERRL and EOMs intact bilaterally Eyes Narrative: Slight scleral injection without icterus Lymph Lymphatic: no lymphadenopathy noted Resp Effort and Inspection: tachypneic and respiratory distress Auscultation: diminished lung sounds; Negative for rales, rhonchi or wheezes Cardio S1 normal heart sound and S2 normal heart sound Rate: bradycardia GI normal to inspection, nondistended, normoactive bowel sounds Extremity General Extremity: Negative for clubbing, cyanosis or edema Peripheral Pulses: Yes pulses 2+ throughout Skin no rashes or lesions noted Neuro oriented x3, CN's II-XII intact bilaterally, moves all extremities and no focal motor deficits Psych Mood & Affect: depressed and flat affect Charges/Coding Procedures Hospitalists Procedures: [id number] Critial Care 1st Hr
--- NOTE | 2021-06-04 10:52 | PN.HOSP_ITS ---
Subjective Subjective Patient states he is very tired and fatigued today. He is stable with regards to his oxygenation status and remains on air Vo during the day and BiPAP at night. Current airflow settings are 60 L/min and 85% FiO2. No specific complaints other than fatigue. Objective Data Objective Data Vital Signs: Vital Signs Temp Pulse Resp BP Pulse Ox 97.5 F L 58 L 23 H 121/62 H 94 06/04/21 06:00 06/04/21 10:32 06/04/21 08:59 06/04/21 10:32 06/04/21 10:32 Oxygen Flow Rate (L/min) 60 Oxygen Delivery Method Airvo Weight: 112.6 kg Body Mass Index (BMI) 36.7 Intake & Output: Intake and Output for Last 24 Hours 06/02/21 06/03/21 06/04/21 23:59 23:59 23:59 Intake Total 1453.75 / 1453.75 2087.5 / 2087.5 410 / 410 Output Total 1700 / 1900 1100 / 1100 500 / 500 Balance -246.25 / -446.25 987.5 / 987.5 -90 / -90 Lab / Micro Data Result Diagrams: 06/04/21 04:37 06/04/21 04:37 Labs: Laboratory Results - last 24 hr 06/03/21 22:57: MRSA (PCR) Negative 06/04/21 04:37: WBC 19.1 H, RBC 4.80, Hgb 13.5, Hct 41.1, MCV 85.6, MCH 28.1, MCHC 32.8, RDW Std Deviation 41.2, RDW Coeff of Samantha 13.1, Plt Count 316, MPV 8.7, Neut % (Auto) Not Reportable, Absolute Neuts (auto) 16.3 H, Absolute Lymphs (auto) 2.10, Total Counted 100, Neutrophils % (Manual) 76 H, Lymphocytes % (Manual) 11 L, Monocytes % (Manual) 3, Metamyelocytes % 5 H, Myelocytes % 4 H, Plasma Cell % (Manual) 1, Differential Comment MANUAL DIFF, Diff Path Review May , Platelet Estimate ADEQUATE, RBC Morphology NORM C+C 06/04/21 04:37: Sodium 141, Potassium 4.2, Chloride 108 H, Carbon Dioxide 29.0, Anion Gap 4 L, BUN 27 H, Creatinine 0.77, Estim Creat Clear Calc 138.26, Est GFR (MDRD) Af Amer 148, Est GFR (MDRD) Non-Af 123, BUN/Creatinine Ratio 35.2 H, Glucose 105, Calcium 7.9 L, Total Bilirubin 0.80, AST 27, ALT 22, Alkaline Phosphatase 69, Total Protein 5.7 L, Albumin 2.3 L, Globulin 3.4, Albumin/Globulin Ratio 0.7 L Micro: Microbiology 06/02/21 07:00 Blood Culture (Wb) - Anticubital Right Blood Culture - Preliminary No growth in 48 hours. 06/02/21 06:50 Blood Culture (Wb) - Anticubital Left Blood Culture - Preliminary No growth in 48 hours. 06/02/21 07:08 Nasal Secretion SARS-CoV-2 Antigen (Rapid) - Final SARS-CoV-2 (COVID 19) Rhythm Strip Rhythm Strip: Sinus Rhythm Rate: 88 Ectopy: None Physical Exam Const alert and oriented x3 Constitutional Narrative: Young white male sitting up in a chair on airVo, appears very fatigued, nontoxic, appears mildly short of breath General Appearance: cooperative Exam Limitations: no limitations HEENT normocephalic, head/scalp atraumatic, hearing grossly normal bilaterally and dentition normal HEENT Narrative: Mallampati 2-3, no thrush on exam Head and Scalp: normocephalic Resp no retractions, no use of accessory muscles and clear to auscultation bilaterally Resp Narrative: Diminished lung sounds, few scattered crackles Auscultation: crackles; Negative for rales, rhonchi or wheezes Cardio regular rate, regular rhythm, S1 normal heart sound, S2 normal heart sound, no murmurs, no rub, no gallops, no clicks and no JVD Cardio Narrative: Bradycardia GI normal to inspection, nondistended, normoactive bowel sounds, soft to palpation, non-tender and non-distended Extremity Extremity Narrative: Trace edema bilateral upper and lower extremities, no cyanosis or clubbing Peripheral Pulses: Yes pulses 2+ throughout Neuro oriented x3, moves all extremities and no focal motor deficits Sensorium / Orientation: awake and alert Speech: speech normal Assessment & Plan Assessment/Plan (1) Acute respiratory failure with hypoxia: (2) Pneumonia due to COVID-19 virus: (3) Leukocytosis: (4) MALAIKA (acute kidney injury): (5) Sepsis: (6) Hyperbilirubinemia: PLAN: Assessment: Sepsis secondary to COVID-19 pneumonia -Patient has acute hypoxic respiratory failure, hyperbilirubinemia, MALAIKA, and known source of infection Acute hypoxic respiratory failure secondary to COVID-19 pneumonia/ARDS MALAIKA-resolved Hyperbilirubinemia Hyponatremia Leukocytosis-secondary to steroid use Plan: -Lasix IV push times 20 mg x 1 dose today -Blood cultures are negative for growth at 48 hours -Oxygen has been weaned from continuous BiPAP to air Vo with a flow rate of 60 L/min and FiO2 of 85% -SPO2 has been 91 to 96% on the air Vo -Wean O2 as able -Continue Decadron day 3 of 5 -Continue remdesivir day 3 of 5 -Continue twice daily Lovenox 40 mg -CTA of the chest showed impressive bilateral infiltrates consistent with COVID- 19 infection but no PE -Serial labs -Patient and family are aware that he could decompensate clinically resulting in intubation Charges/Coding Visit Charges Inpatient E&M: 81603 Subs Hosp L2
[2021-06-04] MEDS: dexAMETHasone 10 MG/ML Vial 6 MG IV (10:55)
--- NOTE | 2021-06-04 12:15 | CASEMGMT ---
Addendum entered by Samson Shipley 06/04/21 14:13: Prescription benefits: Pt states he has rx benefits as far as I know. Original Note: RN CM DOCUMENTATION ENGINEER CM to room to meet with patient for initial transition planning/care coordination assessment. FRANCES SPARKS introduced self and role at [facility]. Pt voices understanding and consents to assessment at this time. Pt sitting up in recliner chair in room in no distress at this time. Pt is A/O at this time and answers all questions appropriately. Care providers, pharmacy, and demographics verified/updated at this time. Pt had COVID testing done @ [facility] 05/23. PCP: No PCP. Pt states he usually goes to [facility] in [place], but has not been there for years. He wishes to f/u @ there @ discharge. Specialists: denies Preferred Pharmacy: [facility] Retail Insurance: [employer] Living Will/HPOA: Pt does not currently have LW/HCPOA and declines info at this time. Pt made aware that he can contact as an out-pt and make appt in the future if he decides he would like to talk with someone about this or would like to utilize [facility] social work for advanced directive completion. LNOK: , Leigha Living Arrangements: Lives w/his , Leigha, and 2 sons: ages 6 & 3. Independent prior to illness w/COVID. Works full-time. and children have not been ill and have not had symptoms of COVID. was vaccinated. Pt states he has been quarantining in his home. They have an extra bathroom and bedroom he has been using. Transportation: Pt states drives self and states no transportation concerns at this time. also drives. DME: Denies using any DME and denies needs. Pt may need O2 @ discharge. He states he has no preference of DME company. HHC/SNF: No history of either. No needs identified. Pt wishes to return home and states has no concerns with going home at time of discharge. CM to follow for home oxygen needs and any further discharge planning/needs. Pt voices no further concerns/needs at this time. Advised pt to ask for CM if any further questions/concerns/needs arise. Voices understanding. PLAN: Home. CM to follow for any O2 needs @ discharge. Luke FERRARA RN, CM
[2021-06-04 14:05] LABS: Pathologist Review Reviewed
[2021-06-04 14:09] LABS: Pathologist Review Reviewed
[2021-06-04 14:14] LABS: Pathologist Review Reviewed
[2021-06-05] VITALS (36 sets, daily range): BP systolic 95–124; BP diastolic 48–73; PULSE 48–94; RESP 12–35; TEMP 35.9–37.5; O2SAT 84–100
[2021-06-05 04:07] LABS: Differential Indicated MANUAL DIFF; Hematocrit 44.9 % (40-54); Hemoglobin 14.4 g/dL (13.0-16.5); Mean Corp Hgb Conc 32.1 g/dL (32-36); Mean Corpuscular Hgb 28.1 pg (27.0-32.0); Mean Corpuscular Volume 87.5 fL (80-94); Mean Platelet Vol. 8.8 fl (6.2-12.0); POSITIVE COUNT YES; POSITIVE MORPHOLOGY YES; Platelet Count 322 K/mm3 (150-450); RBC Distribution Width SD 41.6 fl (35.1-43.9); Red Blood Count 5.13 M/mm3 (4.6-6.2); White Blood Count 21.7 K/mm3 (4.4-11.0)
[2021-06-05 04:36] LABS: ALB/GLOB Ratio 0.7 RATIO (0.9-2.4); AST(SGOT) 50 U/L (15-37); Alanine Aminotransfer ALT/SGPT 35 U/L (16-61); Albumin, Serum 2.6 g/dL (3.2-5.0); Alkaline Phosphatase 77 U/L (45-117); Anion Gap 5 (5-15); BUN 20 mg/dL (7-18); BUN/Creat Ratio 24.8 RATIO (10-20); Calcium,Total 8.2 mg/dL (8.5-10.1); Chloride 105 mmol/L (98-107); EST Glomerular Filtration Rate 116 mL/min (>60); Est Glom Filt Rate - Afr Amer 140 mL/min (>60); Estimated Creatinine Clearance 133.07 ml/min; Globulin 3.7 g/dL (2.2-4.2); Glucose 91 mg/dL (74-106); Potassium 4.6 mmol/L (3.5-5.1); Protein, Total 6.3 g/dL (6.4-8.2); Sodium Level 138 mmol/L (136-145)
[2021-06-05 04:41] LABS: Metamyelocyte 5 % (0-1); Neutrophil-Segmented 72 % (47-70); Total Cells Counted 100 (MANUAL DIFF)
[2021-06-05 04:42] LABS: Absolute Neutrophil Count 15.6 X10^3/uL (2.0-7.7); Eosinophil 1 % (0-5); Lymphocyte 11 % (19-41); Monocyte 6 % (0-10); Myelocyte 4 % (0-0); Neutrophil # 15.64 X10^3/uL (2.7-7.7); Promyelocyte 1 % (0-0)
[2021-06-05 04:43] LABS: Absolute Lymphocyte Count 2.39 X10^3/uL (0.83-4.51); Lymphocyte # 2.39 X10^3/ul (0.83-4.51)
[2021-06-05 04:44] LABS: Platelet Estimate ADEQUATE (ADEQ)
[2021-06-05 04:46] LABS: Red Cell Morphology NORM C+C NORMAL (NORM C&C)
--- NOTE | 2021-06-05 08:35 | PN.CC_ITS ---
Assessment & Plan Assessment/Plan (1) Acute respiratory failure with hypoxia: (2) Pneumonia due to COVID-19 virus: PLAN: RECOMMENDATIONS: 1. Avoid continuous IV fluids. Lasix as tolerated 2. Continue remdesivir as ordered. Continue to monitor liver and renal function. 3. Continue Decadron to complete 10-day treatment course. 4. Continue Lovenox twice daily. 5. Continue BiPAP with sleep and wean FiO2 to maintain oxygen saturations at or above 90%. 6. Attempt to arrange visit with to motivate patient 7. Atropine if needed for bradycardia with hypotension IMPRESSIONS: 1. Acute hypoxemic respiratory failure secondary to COVID-19 pneumonia The patient presented to the hospital with progressive respiratory symptoms and hypoxemia, with symptom onset sometime around May 22. The patient subsequently tested positive for COVID-19. He is unvaccinated. Although D-dimer was elevated at presentation, CTA chest showed no evidence for PE. Nevertheless, there was extensive bilateral groundglass infiltrates. Patient has been able to be weaned to Airvo during the day. Would continue with BiPAP with sleep as he is still a high risk for intubation. Wean FiO2 to maintain oxygen saturations at or above 90%. The patient will be continued on Decadron as ordered to complete a 10-day treatment course. We will continue to volume restrict as tolerated. 2. Acute kidney injury Resolved. Likely prerenal in etiology. Fluids can be discontinued. Continue to monitor urine output. No current indication for renal replacement therapy. 3. Bradycardia/obesity/possible depression Complicates care, management, recovery and prognosis. Continue to attempt to motivate patient. Will attempt to arrange for a visit from his to help with motivation. Atropine can be used if patient becomes hypotensive. Continue telemetry. Clinical suspicion for high vagal tone leading to lower heart rates. TIME: 31 minutes of critical care time, independent of procedures, was spent addressing the patient's acute hypoxemic respiratory failure secondary to COVID- 19 pneumonia, acute kidney injury, review of all data and collaboration with the care team. (7 AM to 8 AM) Subjective Subjective Patient did okay from a hemodynamic standpoint overnight. Patient is still requiring high FiO2 requirements and overall reports that he is frustrated with his lack of improvement. Patient has had very poor p.o. intake. Nursing is reporting poor participation in recovery. Patient has been video calling with his . Patient is not reporting any nausea, vomiting or chest pain. Patient does have generalized body aches. Objective Data Objective Data Vital Signs: Vital Signs Temp Pulse Resp BP Pulse Ox 37.5 C H 81 27 H 124/73 H 93 06/05/21 04:00 06/05/21 07:12 06/05/21 06:00 06/05/21 06:00 06/05/21 07:12 Oxygen Flow Rate (L/min) 60 Oxygen Delivery Method Bi-pap Weight: 112.2 kg Body Mass Index (BMI) 36.7 Intake & Output: Intake and Output for Last 24 Hours 06/03/21 06/04/21 06/05/21 23:59 23:59 23:59 Intake Total 2087.5 / 2087.5 1200 / 1200 200 / 200 Output Total 1100 / 1100 2325 / 2625 800 / 800 Balance 987.5 / 987.5 -1125 / -1425 -600 / -600 Lab / Micro Data Result Diagrams: 06/05/21 03:50 06/05/21 03:50 Labs: Laboratory Results - last 24 hr 06/02/21 07:35: Diff Path Review Reviewed 06/03/21 03:31: Diff Path Review Reviewed 06/04/21 04:37: Diff Path Review Reviewed 06/05/21 03:50: WBC 21.7 H, RBC 5.13, Hgb 14.4, Hct 44.9, MCV 87.5, MCH 28.1, MCHC 32.1, RDW Std Deviation 41.6, RDW Coeff of Samantha 13.0, Plt Count 322, MPV 8.8, Neut % (Auto) Not Reportable, Absolute Neuts (auto) 15.6 H, Absolute Lymphs (auto) 2.39, Total Counted 100, Neutrophils % (Manual) 72 H, Lymphocytes % (Manual) 11 L, Monocytes % (Manual) 6, Eosinophils % (Manual) 1, Metamyelocytes % 5 H, Myelocytes % 4 H, Promyelocytes % 1 H, Diff Path Review May foll, Platelet Estimate ADEQUATE, RBC Morphology NORM C+C 06/05/21 03:50: Sodium 138, Potassium 4.6, Chloride 105, Carbon Dioxide 28.0, Anion Gap 5, BUN 20 H, Creatinine 0.80, Estim Creat Clear Calc 133.07, Est GFR (MDRD) Af Amer 140, Est GFR (MDRD) Non-Af 116, BUN/Creatinine Ratio 24.8 H, Glucose 91, Calcium 8.2 L, Total Bilirubin 1.20 H, AST 50 H, ALT 35, Alkaline Phosphatase 77, Total Protein 6.3 L, Albumin 2.6 L, Globulin 3.7, Albumin/Gl obulin Ratio 0.7 L Micro: Microbiology 06/02/21 07:00 Blood Culture (Wb) - Anticubital Right Blood Culture - Preliminary No growth in 48 hours. 06/02/21 06:50 Blood Culture (Wb) - Anticubital Left Blood Culture - Preliminary No growth in 48 hours. 06/02/21 07:08 Nasal Secretion SARS-CoV-2 Antigen (Rapid) - Final SARS-CoV-2 (COVID 19) Rhythm Strip Rhythm Strip: Sinus Rhythm Rate: 88 Ectopy: None Physical Exam Const Constitutional Narrative: On Airvo General Appearance: cooperative and ill appearing Nutritional Appearance: obese HEENT normocephalic Eyes PERRL and EOMs intact bilaterally Eyes Narrative: Slight scleral injection without icterus Lymph Lymphatic: no lymphadenopathy noted Resp Effort and Inspection: tachypneic and respiratory distress Auscultation: diminished lung sounds; Negative for rales, rhonchi or wheezes Cardio S1 normal heart sound and S2 normal heart sound Rate: bradycardia GI normal to inspection, nondistended, normoactive bowel sounds Extremity General Extremity: Negative for clubbing, cyanosis or edema Skin no rashes or lesions noted Neuro oriented x3, CN's II-XII intact bilaterally, moves all extremities and no focal motor deficits Psych Mood & Affect: depressed and flat affect Charges/Coding Procedures Hospitalists Procedures: [id number] Critial Care 1st Hr
[2021-06-05] MEDS: dexAMETHasone 10 MG/ML Vial 6 MG IV (09:54)
[2021-06-05] MEDS: Enoxaparin 40 MG/0.4 ML Syringe SC ×2 (09:55→19:47)
--- NOTE | 2021-06-05 11:23 | PCM.PN.HOSP ---
Subjective Subjective No issues overnight, has slow recovery. Maintaining his oxygen saturations on air Vo, but still requiring elevated FiO2's Objective Data Objective Data Vital Signs: Vital Signs Temp Pulse Resp BP Pulse Ox 97.9 F 89 18 113/60 89 06/05/21 08:00 06/05/21 10:58 06/05/21 09:00 06/05/21 09:00 06/05/21 09:00 Oxygen Flow Rate (L/min) 60 Oxygen Delivery Method Airvo Weight: 247 lb 5.738 oz Body Mass Index (BMI) 36.7 Intake & Output: Intake and Output for Last 24 Hours 06/04/21 06/05/21 06/06/21 03:59 03:59 03:59 Intake Total 2087.5 / 2087.5 1200 / 1200 200 / 200 Output Total 900 / 1100 2625 / 3125 650 / 650 Balance 1187.5 / 987.5 -1425 / -1925 -450 / -450 Lab / Micro Data Result Diagrams: 06/05/21 03:50 06/05/21 03:50 Labs: Laboratory Results - last 24 hr 06/02/21 07:35: Diff Path Review Reviewed 06/03/21 03:31: Diff Path Review Reviewed 06/04/21 04:37: Diff Path Review Reviewed 06/05/21 03:50: WBC 21.7 H, RBC 5.13, Hgb 14.4, Hct 44.9, MCV 87.5, MCH 28.1, MCHC 32.1, RDW Std Deviation 41.6, RDW Coeff of Samantha 13.0, Plt Count 322, MPV 8.8, Neut % (Auto) Not Reportable, Absolute Neuts (auto) 15.6 H, Absolute Lymphs (auto) 2.39, Total Counted 100, Neutrophils % (Manual) 72 H, Lymphocytes % (Manual) 11 L, Monocytes % (Manual) 6, Eosinophils % (Manual) 1, Metamyelocytes % 5 H, Myelocytes % 4 H, Promyelocytes % 1 H, Diff Path Review May foll, Platelet Estimate ADEQUATE, RBC Morphology NORM C+C 06/05/21 03:50: Sodium 138, Potassium 4.6, Chloride 105, Carbon Dioxide 28.0, Anion Gap 5, BUN 20 H, Creatinine 0.80, Estim Creat Clear Calc 133.07, Est GFR (MDRD) Af Amer 140, Est GFR (MDRD) Non-Af 116, BUN/Creatinine Ratio 24.8 H, Glucose 91, Calcium 8.2 L, Total Bilirubin 1.20 H, AST 50 H, ALT 35, Alkaline Phosphatase 77, Total Protein 6.3 L, Albumin 2.6 L, Globulin 3.7, Albumin/Globulin Ratio 0.7 L Micro: Microbiology 06/02/21 07:00 Blood Culture (Wb) - Anticubital Right Blood Culture - Preliminary No growth in 48 hours. 06/02/21 06:50 Blood Culture (Wb) - Anticubital Left Blood Culture - Preliminary No growth in 48 hours. 06/02/21 07:08 Nasal Secretion SARS-CoV-2 Antigen (Rapid) - Final SARS-CoV-2 (COVID 19) Rhythm Strip Rhythm Strip: Sinus Rhythm Rate: 88 Ectopy: None Physical Exam Const alert and oriented x3 General Appearance: cooperative HEENT normocephalic and moist oral mucous membranes Eyes PERRL, EOMs intact bilaterally and conjunctivae normal Neck supple and no JVD Resp normal respiratory effort, no retractions, no use of accessory muscles and clear to auscultation bilaterally Auscultation: diminished lung sounds; Negative for crackles, rales, rhonchi or wheezes Cardio regular rate, regular rhythm, S1 normal heart sound, S2 normal heart sound and no murmurs GI soft to palpation, non-tender and non-distended; Negative for hepatosplenomegaly Extremity no clubbing, cyanosis or edema Skin no rashes or lesions noted Neuro no focal motor deficits and no sensory deficits noted Psych Mood & Affect: flat affect Assessment & Plan Assessment/Plan (1) Acute respiratory failure with hypoxia: (2) Pneumonia due to COVID-19 virus: (3) MALAIKA (acute kidney injury): (4) Sepsis: (5) Hyperbilirubinemia: PLAN: 1. Sepsis and acute hypoxic respiratory failure secondary to COVID-19 pneumonia -Limit IV fluids, and Lasix as needed -Continue with air Vo as needed, may need to go up on the BiPAP, appreciate optical instrument assembly supervisor assistance -Continue with Decadron and remdesivir -CT of the chest demonstrated no PE DVT: Lovenox Charges/Coding Visit Charges Inpatient E&M: 94713 Subs Hosp L2
[2021-06-05 12:35] LABS: Pathologist Review Reviewed
[2021-06-05] MEDS: Acetaminophen 325 MG Tablet 650 MG PO (19:46)
[2021-06-05] MEDS: MELATONIN 3 MG TABLET PO (19:46)
[2021-06-06] VITALS (36 sets, daily range): BP systolic 93–125; BP diastolic 47–74; PULSE 56–95; RESP 12–32; TEMP 36.3–36.8; O2SAT 84–100
[2021-06-06 03:50] LABS: Hematocrit 42.7 % (40-54); Hemoglobin 14.1 g/dL (13.0-16.5); Mean Corpuscular Hgb 28.1 pg (27.0-32.0); Mean Corpuscular Volume 85.2 fL (80-94); Mean Platelet Vol. 8.9 fl (6.2-12.0); POSITIVE COUNT YES; POSITIVE MORPHOLOGY YES; Platelet Count 306 K/mm3 (150-450); RBC Distribution Width CV 12.9 % (11.6-14.6); RBC Distribution Width SD 39.6 fl (35.1-43.9); Red Blood Count 5.01 M/mm3 (4.6-6.2); White Blood Count 20.2 K/mm3 (4.4-11.0)
[2021-06-06 03:53] LABS: Differential Indicated MANUAL DIFF
[2021-06-06 04:05] LABS: ALB/GLOB Ratio 0.7 RATIO (0.9-2.4); AST(SGOT) 54 U/L (15-37); Alanine Aminotransfer ALT/SGPT 39 U/L (16-61); Albumin, Serum 2.6 g/dL (3.2-5.0); Alkaline Phosphatase 75 U/L (45-117); Anion Gap 3 (5-15); BUN 17 mg/dL (7-18); Calcium,Total 8.3 mg/dL (8.5-10.1); Chloride 105 mmol/L (98-107); Creatinine, Serum 0.77 mg/dL (0.70-1.30); EST Glomerular Filtration Rate 121 mL/min (>60); Est Glom Filt Rate - Afr Amer 147 mL/min (>60); Estimated Creatinine Clearance 138.26 ml/min; Globulin 3.7 g/dL (2.2-4.2); Glucose 89 mg/dL (74-106); Potassium 4.2 mmol/L (3.5-5.1); Protein, Total 6.3 g/dL (6.4-8.2); Sodium Level 138 mmol/L (136-145)
[2021-06-06 04:16] LABS: Myelocyte 1 % (0-0); Neutrophil-Band 1 % (0-5); Neutrophil-Segmented 86 % (47-70); Total Cells Counted 100 (MANUAL DIFF)
[2021-06-06 04:17] LABS: Eosinophil 2 % (0-5); Lymphocyte 9 % (19-41); Monocyte 1 % (0-10); Platelet Estimate ADEQUATE (ADEQ); Red Cell Morphology NORM C+C NORMAL (NORM C&C)
[2021-06-06 04:18] LABS: Absolute Lymphocyte Count 1.81 X10^3/uL (0.83-4.51); Absolute Neutrophil Count 17.5 X10^3/uL (2.0-7.7); Lymphocyte # 1.81 X10^3/ul (0.83-4.51); Neutrophil # 17.54 X10^3/uL (2.7-7.7)
[2021-06-06] MEDS: Furosemide 40 MG/4 ML Vial IV (05:47)
[2021-06-06] MEDS: 0.9% Saline Lock 10 ML Syringe IV ×2 (05:47→09:44)
--- NOTE | 2021-06-06 07:49 | PN.CC_ITS ---
Assessment & Plan Assessment/Plan (1) Acute respiratory failure with hypoxia: (2) Pneumonia due to COVID-19 virus: PLAN: RECOMMENDATIONS: 1. Avoid continuous IV fluids. Administer Lasix today 2. Continue remdesivir as ordered. Continue to monitor liver and renal function. 3. Continue Decadron to complete 10-day treatment course. 4. Continue Lovenox twice daily. 5. Continue BiPAP with sleep and wean FiO2 to maintain oxygen saturations at or above 90%. 6. Increase activity and incentive spirometer as tolerated IMPRESSIONS: 1. Acute hypoxemic respiratory failure secondary to COVID-19 pneumonia The patient presented to the hospital with progressive respiratory symptoms and hypoxemia, with symptom onset sometime around May 22. The patient subsequently tested positive for COVID-19. He is unvaccinated. [facility]th [facility] D-dimer was elevated at presentation, CTA chest showed no evidence for PE. Nevertheless, there was extensive bilateral groundglass infiltrates. Patient has been able to be weaned to Airvo during the day. Would continue with BiPAP with sleep as he is still a high risk for intubation. Wean FiO2 to maintain oxygen saturations at or above 90%. The patient will be continued on Decadron as ordered to complete a 10-day treatment course. We will continue to volume restrict as tolerated. Patient will be given a diuretic challenge today. 2. Acute kidney injury Resolved. Likely prerenal in etiology. Continue to monitor urine output. No current indication for renal replacement therapy. Patient will be challenged with diuretics as tolerated 3. Bradycardia/obesity/possible depression Complicates care, management, recovery and prognosis. Continue to attempt to motivate patient. Will attempt to arrange for a visit from his to help with motivation. Heart rate appears to be improving. Continue telemetry. Clinical suspicion for high vagal tone leading to lower heart rates. Subjective Subjective Patient did okay overnight. Patient has required AVAPS to maintain saturations. Patient was visited by his last night and appears to be in a better mood today. Patient subjectively feels improved compared to previous. Patient still reporting a nonproductive cough. Objective Data Objective Data Vital Signs: Vital Signs Temp Pulse Resp BP Pulse Ox 36.6 C 87 18 114/73 95 06/06/21 00:00 06/06/21 07:00 06/06/21 07:00 06/06/21 07:00 06/06/21 07:00 Oxygen Flow Rate (L/min) 60 Oxygen Delivery Method Bi-pap Weight: 111.5 kg Body Mass Index (BMI) 36.7 Intake & Output: Intake and Output for Last 24 Hours 06/04/21 06/05/21 06/06/21 23:59 23:59 23:59 Intake Total 1200 / 1200 2630 / 2690 150 / 150 Output Total 2325 / 2625 1900 / 2650 2250 / 2250 Balance -1125 / -1425 730 / 40 -2100 / -2100 Lab / Micro Data Result Diagrams: 06/06/21 03:35 06/06/21 03:35 Labs: Laboratory Results - last 24 hr 06/05/21 03:50: Diff Path Review Reviewed 06/06/21 03:35: WBC 20.2 H, RBC 5.01, Hgb 14.1, Hct 42.7, MCV 85.2, MCH 28.1, MCHC 33.0, RDW Std Deviation 39.6, RDW Coeff of Samantha 12.9, Plt Count 306, MPV 8.9, Neut % (Auto) Not Reportable, Absolute Neuts (auto) 17.5 H, Absolute Lymphs (auto) 1.81, Total Counted 100, Neutrophils % (Manual) 86 H, Band Neutrophils % 1, Lymphocytes % (Manual) 9 L, Monocytes % (Manual) 1, Eosinophils % (Manual) 2, Myelocytes % 1 H, Platelet Estimate ADEQUATE, RBC Morphology NORM C+C 06/06/21 03:35: Sodium 138, Potassium 4.2, Chloride 105, Carbon Dioxide 30.0, Anion Gap 3 L, BUN 17, Creatinine 0.77, Estim Creat Clear Calc 138.26, Est GFR (MDRD) Af Amer 147, Est GFR (MDRD) Non-Af 121, BUN/Creatinine Ratio 22.0 H, Glucose 89, Calcium 8.3 L, Total Bilirubin 1.20 H, AST 54 H, ALT 39, Alkaline Phosphatase 75, Total Protein 6.3 L, Albumin 2.6 L, Globulin 3.7, Albumin/Globulin Ratio 0.7 L Micro: Microbiology 06/02/21 07:00 Blood Culture (Wb) - Anticubital Right Blood Culture - Preliminary No growth in 48 hours. 06/02/21 06:50 Blood Culture (Wb) - Anticubital Left Blood Culture - Preliminary No growth in 48 hours. 06/02/21 07:08 Nasal Secretion SARS-CoV-2 Antigen (Rapid) - Final SARS-CoV-2 (COVID 19) Rhythm Strip Rhythm Strip: Sinus Rhythm Rate: 88 Ectopy: None Physical Exam Const Constitutional Narrative: On BiPAP General Appearance: cooperative Nutritional Appearance: obese HEENT normocephalic Eyes PERRL and EOMs intact bilaterally Eyes Narrative: Slight scleral injection without icterus Lymph Lymphatic: no lymphadenopathy noted Chest inspection of chest normal Chest: symmetrical chest wall rise; Negative for crepitus Resp Effort and Inspection: tachypneic and respiratory distress Auscultation: diminished lung sounds; Negative for rales, rhonchi or wheezes Cardio S1 normal heart sound, S2 normal heart sound, no murmurs, no rub and no gallops GI normal to inspection, nondistended, normoactive bowel sounds Extremity General Extremity: edema bilateral (1+) lower extremity; Negative for clubbing or cyanosis Skin no rashes or lesions noted Neuro oriented x3, CN's II-XII intact bilaterally, moves all extremities and no focal motor deficits Psych Mood & Affect: depressed and flat affect Charges/Coding Visit Charges Inpatient E&M: 62199 Subs Hosp L3
[2021-06-06] MEDS: Enoxaparin 40 MG/0.4 ML Syringe SC ×2 (09:43→19:44)
[2021-06-06] MEDS: dexAMETHasone 10 MG/ML Vial 6 MG IV (09:44)
--- NOTE | 2021-06-06 09:57 | PN.HOSP_ITS ---
Subjective Subjective No issues overnight, maintain his oxygen saturations with BiPAP overnight, he is currently back to air Vo maintaining his sats on an FiO2 of 70 Objective Data Objective Data Vital Signs: Vital Signs Temp Pulse Resp BP Pulse Ox 98.3 F 95 19 H 110/73 92 06/06/21 08:00 06/06/21 08:00 06/06/21 08:00 06/06/21 08:00 06/06/21 08:00 Oxygen Flow Rate (L/min) 60 Oxygen Delivery Method Airvo Weight: 245 lb 13.047 oz Body Mass Index (BMI) 36.7 Intake & Output: Intake and Output for Last 24 Hours 06/05/21 06/06/21 06/07/21 03:59 03:59 03:59 Intake Total 1200 / 1200 2720 / 2720 60 / 60 Output Total 2625 / 3125 2750 / 2750 1900 / 1900 Balance -1425 / -1925 -30 / -30 -1840 / -1840 Lab / Micro Data Result Diagrams: 06/06/21 03:35 06/06/21 03:35 Labs: Laboratory Results - last 24 hr 06/05/21 03:50: Diff Path Review Reviewed 06/06/21 03:35: WBC 20.2 H, RBC 5.01, Hgb 14.1, Hct 42.7, MCV 85.2, MCH 28.1, MCHC 33.0, RDW Std Deviation 39.6, RDW Coeff of Samantha 12.9, Plt Count 306, MPV 8.9, Neut % (Auto) Not Reportable, Absolute Neuts (auto) 17.5 H, Absolute Lymphs (auto) 1.81, Total Counted 100, Neutrophils % (Manual) 86 H, Band Neutrophils % 1, Lymphocytes % (Manual) 9 L, Monocytes % (Manual) 1, Eosinophils % (Manual) 2, Myelocytes % 1 H, Platelet Estimate ADEQUATE, RBC Morphology NORM C+C 06/06/21 03:35: Sodium 138, Potassium 4.2, Chloride 105, Carbon Dioxide 30.0, Anion Gap 3 L, BUN 17, Creatinine 0.77, Estim Creat Clear Calc 138.26, Est GFR (MDRD) Af Amer 147, Est GFR (MDRD) Non-Af 121, BUN/Creatinine Ratio 22.0 H, Glucose 89, Calcium 8.3 L, Total Bilirubin 1.20 H, AST 54 H, ALT 39, Alkaline Phosphatase 75, Total Protein 6.3 L, Albumin 2.6 L, Globulin 3.7, Albumin/Globulin Ratio 0.7 L Micro: Microbiology 06/02/21 07:00 Blood Culture (Wb) - Anticubital Right Blood Culture - Preliminary No growth in 48 hours. 06/02/21 06:50 Blood Culture (Wb) - Anticubital Left Blood Culture - Preliminary No growth in 48 hours. 06/02/21 07:08 Nasal Secretion SARS-CoV-2 Antigen (Rapid) - Final SARS-CoV-2 (COVID 19) Rhythm Strip Rhythm Strip: Sinus Rhythm Rate: 88 Ectopy: None Physical Exam Const alert and oriented x3 General Appearance: cooperative HEENT normocephalic and moist oral mucous membranes Eyes PERRL, EOMs intact bilaterally and conjunctivae normal Neck supple and no JVD Resp normal respiratory effort, no retractions, no use of accessory muscles and clear to auscultation bilaterally Auscultation: diminished lung sounds; Negative for crackles, rales, rhonchi or wheezes Cardio regular rate, regular rhythm, S1 normal heart sound, S2 normal heart sound and no murmurs GI soft to palpation, non-tender and non-distended; Negative for hepatosplenomegaly Extremity no clubbing, cyanosis or edema Skin no rashes or lesions noted Neuro no focal motor deficits and no sensory deficits noted Psych Mood & Affect: flat affect Assessment & Plan Assessment/Plan (1) Acute respiratory failure with hypoxia: (2) Pneumonia due to COVID-19 virus: (3) MALAIKA (acute kidney injury): (4) Sepsis: (5) Hyperbilirubinemia: PLAN: 1. Sepsis and acute hypoxic respiratory failure secondary to COVID-19 pneumonia -Limit IV fluids, and Lasix as needed -Continue with air Vo as needed, may need to go up on the BiPAP, appreciate certifed refrigeration operator assistance -Continue with Decadron and remdesivir -CT of the chest demonstrated no PE DVT: Lovenox Charges/Coding Visit Charges Inpatient E&M: 77080 Subs Hosp L2
--- NOTE | 2021-06-06 10:12 | CASEMGMT ---
SW participated in ICU rounds, participated via phone. SW called after rounds to offer support. had mentioned to the night staff that she had paperwork that needs completed for pt's job. She states she had the company fax it over, however it was not received. SW gave fax number and this SW's email to have pt's company send the information again, she gave permission for SW to have the paperwork completed and sent back to pt's company. SW will continue to follow, will assist as able with paperwork. JUAN Sesay
[2021-06-06] MEDS: Acetaminophen 325 MG Tablet 650 MG PO (19:44)
[2021-06-06] MEDS: MELATONIN 3 MG TABLET PO (19:44)
[2021-06-07] VITALS (34 sets, daily range): BP systolic 104–143; BP diastolic 61–79; PULSE 59–95; RESP 12–32; TEMP 36.1–36.6; O2SAT 87–100
--- NOTE | 2021-06-07 00:07 | NURSING ---
po staying 86-87 % on avap fi02 at 75%. resp paged
[2021-06-07 04:32] LABS: Hematocrit 40.7 % (40-54); Hemoglobin 13.6 g/dL (13.0-16.5); Mean Corp Hgb Conc 33.4 g/dL (32-36); Mean Corpuscular Hgb 28.5 pg (27.0-32.0); Mean Corpuscular Volume 85.3 fL (80-94); Mean Platelet Vol. 8.8 fl (6.2-12.0); POSITIVE COUNT YES; POSITIVE MORPHOLOGY YES; Platelet Count 313 K/mm3 (150-450); RBC Distribution Width CV 13.1 % (11.6-14.6); RBC Distribution Width SD 40.4 fl (35.1-43.9); Red Blood Count 4.77 M/mm3 (4.6-6.2); White Blood Count 22.3 K/mm3 (4.4-11.0)
[2021-06-07 04:57] LABS: ALB/GLOB Ratio 0.6 RATIO (0.9-2.4); AST(SGOT) 43 U/L (15-37); Alanine Aminotransfer ALT/SGPT 38 U/L (16-61); Albumin, Serum 2.4 g/dL (3.2-5.0); Alkaline Phosphatase 64 U/L (45-117); Anion Gap 5 (5-15); BUN 23 mg/dL (7-18); BUN/Creat Ratio 31.2 RATIO (10-20); Calcium,Total 8.5 mg/dL (8.5-10.1); Chloride 104 mmol/L (98-107); Creatinine, Serum 0.74 mg/dL (0.70-1.30); EST Glomerular Filtration Rate 128 mL/min (>60); Est Glom Filt Rate - Afr Amer 155 mL/min (>60); Estimated Creatinine Clearance 143.86 ml/min; Globulin 3.7 g/dL (2.2-4.2); Glucose 102 mg/dL (74-106); Potassium 4.2 mmol/L (3.5-5.1); Protein, Total 6.1 g/dL (6.4-8.2); Sodium Level 138 mmol/L (136-145)
[2021-06-07 05:08] LABS: Differential Indicated MANUAL DIFF
[2021-06-07 05:28] LABS: Total Cells Counted 100 (MANUAL DIFF)
[2021-06-07 05:30] LABS: Eosinophil 1 % (0-5); Lymphocyte 4 % (19-41); Monocyte 1 % (0-10); Myelocyte 1 % (0-0); Neutrophil-Band 3 % (0-5); Neutrophil-Segmented 90 % (47-70)
[2021-06-07 05:31] LABS: Absolute Neutrophil Count 20.8 X10^3/uL (2.0-7.7); Neutrophil # 20.75 X10^3/uL (2.7-7.7); Platelet Estimate ADEQUATE (ADEQ); Red Cell Morphology NORM C+C NORMAL (NORM C&C)
[2021-06-07 05:32] LABS: Absolute Lymphocyte Count 0.89 X10^3/uL (0.83-4.51); Lymphocyte # 0.89 X10^3/ul (0.83-4.51)
--- NOTE | 2021-06-07 06:22 | RAD_ITS ---
INDICATION: hypoxia EXAMINATION/TECHNIQUE: X-RAY - XR Chest 1 View COMPARISON: 05/25/2021. FINDINGS: LINES/DEVICES: None. LUNGS: Prominence of the bronchovascular interstitial lung markings is visualized bilaterally and scattered areas of patchy airspace opacification visualized in bilateral lung [place] that demonstrates slight decrease in comparison to the prior study consistent with the patient''s history of Covid 19 disease. No evidence of pneumothorax or pleural effusion is seen. MEDIASTINUM AND CARDIOVASCULAR STRUCTURES: Cardiac silhouette not enlarged. Central airways and mediastinal contour are unremarkable. BONES AND SOFT TISSUES: Unremarkable. RAD/Chest 1 View (Portable) IMPRESSION: Bilateral patchy airspace opacification visualized consistent with Covid 19 disease, slightly improved aeration is seen in comparison to the prior study. Electronically Signed: Usama León MD at 9:16 EDT Tel , Service support ,
[2021-06-07] MEDS: dexAMETHasone 10 MG/ML Vial 6 MG IV (08:38)
[2021-06-07] MEDS: Enoxaparin 40 MG/0.4 ML Syringe SC ×2 (08:38→22:13)
[2021-06-07 09:02] LABS: Pathologist Review Reviewed
--- NOTE | 2021-06-07 10:17 | PN.CC_ITS ---
Assessment & Plan Assessment/Plan (1) Acute respiratory failure with hypoxia: (2) Pneumonia due to COVID-19 virus: PLAN: RECOMMENDATIONS: 1. Continue Lasix as tolerated with labs 2. Completed remdesivir. No need to monitor liver function daily 3. Continue Decadron to complete 10-day treatment course. 4. Continue Lovenox twice daily. 5. Continue BiPAP with sleep and wean FiO2 to maintain oxygen saturations at or above 90%. 6. Increase activity and incentive spirometer as tolerated 7. Diuretic challenge IMPRESSIONS: 1. Acute hypoxemic respiratory failure secondary to COVID-19 pneumonia The patient presented to the hospital with progressive respiratory symptoms and hypoxemia, with symptom onset sometime around May 22. The patient subsequently tested positive for COVID-19. He is unvaccinated. Although D-dimer was elevated at presentation, CTA chest showed no evidence for PE. Nevertheless, there was extensive bilateral groundglass infiltrates. Patient has been able to be weaned to Airvo during the day. Would continue with BiPAP with sleep as he is still a high risk for intubation. Wean FiO2 to maintain oxygen saturations at or above 90%. The patient was significant desaturation overnight, likely secondary to derecruitment. Patient is on maximal BiPAP settings, but appears to be tolerating Airvo at this time. Continue with aggressive pulmonary toileting, but cannot exclude the need for intubation in the next 24 hours. Chest x-ray actually appears somewhat improved and patient appears to be having a lymphocytic reaction. 2. Acute kidney injury Resolved. Likely prerenal in etiology. Continue to monitor urine output. No current indication for renal replacement therapy. Patient will be challenged with diuretics as tolerated 3. Bradycardia/obesity/possible depression Complicates care, management, recovery and prognosis. Continue to attempt to motivate patient. Will attempt to arrange for a visit from his to help with motivation. Heart rate appears to be normalized. Continue telemetry. Clinical suspicion for high vagal tone leading to lower heart rates. TIME: 33 minutes critical care time spent addressing patient's acute hypoxic respiratory failure, review of all data and collaboration with care team (7 AM to 8 AM) Subjective Subjective Patient did okay overnight. Patient did have significant worsening in oxygenation and was on BiPAP 95% this morning when initially evaluated. Patient's motivation continues to be dragging. A chest x-ray was obtained showing actual improvement in infiltrates bilaterally. Patient was challenged with Airvo and appears to be tolerating at this time. Patient's appetite is slightly improved. Objective Data Objective Data Vital Signs: Vital Signs Temp Pulse Resp BP Pulse Ox 36.1 C L 74 15 108/61 95 06/07/21 08:00 06/07/21 09:00 06/07/21 09:00 06/07/21 09:00 06/07/21 09:00 Oxygen Flow Rate (L/min) 60 Oxygen Delivery Method Airvo Weight: 112.6 kg Body Mass Index (BMI) 36.7 Intake & Output: Intake and Output for Last 24 Hours 06/05/21 06/06/21 06/07/21 23:59 23:59 23:59 Intake Total 2630 / 2690 1760 / 1760 500 / 500 Output Total 1900 / 2650 3650 / 3650 350 / 350 Balance 730 / 40 -1890 / -1890 150 / 150 Lab / Micro Data Result Diagrams: 06/07/21 04:20 06/07/21 04:20 Labs: Laboratory Results - last 24 hr 06/06/21 03:35: Diff Path Review Reviewed 06/07/21 04:20: WBC 22.3 H, RBC 4.77, Hgb 13.6, Hct 40.7, MCV 85.3, MCH 28.5, MCHC 33.4, RDW Std Deviation 40.4, RDW Coeff of Samantha 13.1, Plt Count 313, MPV 8.8, Neut % (Auto) Not Reportable, Absolute Neuts (auto) 20.8 H, Absolute Lymphs (auto) 0.89, Total Counted 100, Neutrophils % (Manual) 90 H, Band Neutrophils % 3, Lymphocytes % (Manual) 4 L, Monocytes % (Manual) 1, Eosinophils % (Manual) 1, Myelocytes % 1 H, Diff Path Review May foll, Platelet Estimate ADEQUATE, RBC Morphology NORM C+C 06/07/21 04:20: Sodium 138, Potassium 4.2, Chloride 104, Carbon Dioxide 29.0, Anion Gap 5, BUN 23 H, Creatinine 0.74, Estim Creat Clear Calc 143.86, Est GFR (MDRD) Af Amer 155, Est GFR (MDRD) Non-Af 128, BUN/Creatinine Ratio 31.2 H, Glucose 102, Calcium 8.5, Total Bilirubin 0.90, AST 43 H, ALT 38, Alkaline Phosphatase 64, Total Protein 6.1 L, Albumin 2.4 L, Globulin 3.7, Albumin/Globul in Ratio 0.6 L Micro: Microbiology 06/02/21 06:50 Blood Culture (Wb) - Anticubital Left Blood Culture - Final No growth in 5 days. 06/02/21 07:00 Blood Culture (Wb) - Anticubital Right Blood Culture - Final No growth in 5 days. 06/02/21 07:08 Nasal Secretion SARS-CoV-2 Antigen (Rapid) - Final SARS-CoV-2 (COVID 19) Radiography Diagnostic Testing: Radiology Impression Chest X-Ray 06/07/21 06:22 IMPRESSION: Bilateral patchy airspace opacification visualized consistent with Covid 19 disease, slightly improved aeration is seen in comparison to the prior study. Electronically Signed: Usama León MD at 9:16 EDT Tel , Service support , Rhythm Strip Rhythm Strip: Sinus Rhythm Rate: 88 Ectopy: None Physical Exam Const Constitutional Narrative: On BiPAP, then Airvo General Appearance: cooperative and frail Nutritional Appearance: obese HEENT normocephalic Eyes PERRL and EOMs intact bilaterally Eyes Narrative: Slight scleral injection without icterus Lymph Lymphatic: no lymphadenopathy noted Chest inspection of chest normal Chest: symmetrical chest wall rise; Negative for crepitus Resp Effort and Inspection: tachypneic and respiratory distress Auscultation: diminished lung sounds; Negative for rales, rhonchi or wheezes Cardio S1 normal heart sound, S2 normal heart sound, no murmurs, no rub and no gallops Rate: bradycardia GI normal to inspection, nondistended, normoactive bowel sounds Extremity General Extremity: edema bilateral (1+) lower extremity; Negative for clubbing or cyanosis Skin no rashes or lesions noted Neuro oriented x3, CN's II-XII intact bilaterally, moves all extremities and no focal motor deficits Psych Mood & Affect: depressed and flat affect Charges/Coding Procedures Hospitalists Procedures: [id number] Critial Care 1st Hr
[2021-06-07] MEDS: Furosemide 40 MG/4 ML Vial IV (11:30)
[2021-06-07 13:04] LABS: Pathologist Review Reviewed
--- NOTE | 2021-06-07 16:53 | PN.HOSP_ITS ---
Subjective Subjective Feels like he is breathing a little bit better today, his FiO2 has climbed on his air Vo. Did discuss his need for incentive spirometry and that coughing while doing incentive spirometry is a good thing Objective Data Objective Data Vital Signs: Vital Signs Temp Pulse Resp BP Pulse Ox 97.1 F L 80 23 H 104/73 90 06/07/21 12:50 06/07/21 15:09 06/07/21 15:00 06/07/21 15:00 06/07/21 15:00 Oxygen Flow Rate (L/min) 60 Oxygen Delivery Method Airvo Weight: 248 lb 3.848 oz Body Mass Index (BMI) 36.7 Intake & Output: Intake and Output for Last 24 Hours 06/06/21 06/07/21 06/08/21 03:59 03:59 03:59 Intake Total 2720 / 2720 1670 / 1670 1000 / 1000 Output Total 2750 / 2750 2500 / 2850 1950 / 1950 Balance -30 / -30 -830 / -1180 -950 / -950 Lab / Micro Data Result Diagrams: 06/07/21 04:20 06/07/21 04:20 Labs: Laboratory Results - last 24 hr 06/06/21 03:35: Diff Path Review Reviewed 06/07/21 04:20: WBC 22.3 H, RBC 4.77, Hgb 13.6, Hct 40.7, MCV 85.3, MCH 28.5, MCHC 33.4, RDW Std Deviation 40.4, RDW Coeff of Samantha 13.1, Plt Count 313, MPV 8.8, Neut % (Auto) Not Reportable, Absolute Neuts (auto) 20.8 H, Absolute Lymphs (auto) 0.89, Total Counted 100, Neutrophils % (Manual) 90 H, Band Neutrophils % 3, Lymphocytes % (Manual) 4 L, Monocytes % (Manual) 1, Eosinophils % (Manual) 1, Myelocytes % 1 H, Diff Path Review Reviewed, Platelet Estimate ADEQUATE, RBC M orphology NORM C+C 06/07/21 04:20: Sodium 138, Potassium 4.2, Chloride 104, Carbon Dioxide 29.0, Anion Gap 5, BUN 23 H, Creatinine 0.74, Estim Creat Clear Calc 143.86, Est GFR (MDRD) Af Amer 155, Est GFR (MDRD) Non-Af 128, BUN/Creatinine Ratio 31.2 H, Glucose 102, Calcium 8.5, Total Bilirubin 0.90, AST 43 H, ALT 38, Alkaline Phosphatase 64, Total Protein 6.1 L, Albumin 2.4 L, Globulin 3.7, Albumin/Globulin Ratio 0.6 L Micro: Microbiology 06/02/21 06:50 Blood Culture (Wb) - Anticubital Left Blood Culture - Final No growth in 5 days. 06/02/21 07:00 Blood Culture (Wb) - Anticubital Right Blood Culture - Final No growth in 5 days. 06/02/21 07:08 Nasal Secretion SARS-CoV-2 Antigen (Rapid) - Final SARS-CoV-2 (COVID 19) Radiography Diagnostic Testing: Radiology Impression Chest X-Ray 06/07/21 06:22 IMPRESSION: Bilateral patchy airspace opacification visualized consistent with Covid 19 disease, slightly improved aeration is seen in comparison to the prior study. Electronically Signed: Usama León MD at 9:16 EDT Tel , Service support , Rhythm Strip Rhythm Strip: Sinus Rhythm Rate: 88 Ectopy: None Physical Exam Const alert and oriented x3 General Appearance: cooperative HEENT normocephalic and moist oral mucous membranes Eyes PERRL, EOMs intact bilaterally and conjunctivae normal Neck supple and no JVD Resp normal respiratory effort, no retractions, no use of accessory muscles and clear to auscultation bilaterally Auscultation: diminished lung sounds; Negative for crackles, rales, rhonchi or wheezes Cardio regular rate, regular rhythm, S1 normal heart sound, S2 normal heart sound and no murmurs GI soft to palpation, non-tender and non-distended; Negative for hepatosplenomegaly Extremity no clubbing, cyanosis or edema Skin no rashes or lesions noted Neuro no focal motor deficits and no sensory deficits noted Psych Mood & Affect: flat affect Assessment & Plan Assessment/Plan (1) Acute respiratory failure with hypoxia: (2) Pneumonia due to COVID-19 virus: (3) MALAIKA (acute kidney injury): (4) Sepsis: (5) Hyperbilirubinemia: PLAN: 1. Sepsis and acute hypoxic respiratory failure secondary to COVID-19 pneumonia -Limit IV fluids, and Lasix as needed -Continue with air Vo as needed, may need to go up on the BiPAP, appreciate video game script writer assistance -Continue with Decadron and remdesivir -CT of the chest demonstrated no PE DVT: Lovenox Charges/Coding Visit Charges Inpatient E&M: 38698 Subs Hosp L2
[2021-06-07] MEDS: Acetaminophen 325 MG Tablet 650 MG PO (22:13)
[2021-06-07] MEDS: MELATONIN 3 MG TABLET PO (22:17)
[2021-06-08] VITALS (36 sets, daily range): BP systolic 106–127; BP diastolic 57–75; PULSE 49–96; RESP 12–29; TEMP 36.2–36.4; O2SAT 90–97
[2021-06-08] MEDS: Acetaminophen 325 MG Tablet 650 MG PO ×3 (05:10→18:10)
[2021-06-08 05:31] LABS: Hematocrit 41.3 % (40-54); Hemoglobin 13.7 g/dL (13.0-16.5); Mean Corp Hgb Conc 33.2 g/dL (32-36); Mean Corpuscular Hgb 28.4 pg (27.0-32.0); Mean Corpuscular Volume 85.5 fL (80-94); Mean Platelet Vol. 9.2 fl (6.2-12.0); POSITIVE COUNT YES; POSITIVE MORPHOLOGY YES; Platelet Count 386 K/mm3 (150-450); RBC Distribution Width CV 13.1 % (11.6-14.6); RBC Distribution Width SD 40.2 fl (35.1-43.9); Red Blood Count 4.83 M/mm3 (4.6-6.2); White Blood Count 20.8 K/mm3 (4.4-11.0)
[2021-06-08 05:40] LABS: Differential Indicated MANUAL DIFF
[2021-06-08 05:59] LABS: ALB/GLOB Ratio 0.6 RATIO (0.9-2.4); AST(SGOT) 33 U/L (15-37); Alanine Aminotransfer ALT/SGPT 36 U/L (16-61); Albumin, Serum 2.5 g/dL (3.2-5.0); Alkaline Phosphatase 66 U/L (45-117); Anion Gap 7 (5-15); BUN 24 mg/dL (7-18); Calcium,Total 8.5 mg/dL (8.5-10.1); Chloride 100 mmol/L (98-107); Creatinine, Serum 0.86 mg/dL (0.70-1.30); EST Glomerular Filtration Rate 108 mL/min (>60); Est Glom Filt Rate - Afr Amer 130 mL/min (>60); Estimated Creatinine Clearance 123.79 ml/min; Globulin 4.1 g/dL (2.2-4.2); Glucose 108 mg/dL (74-106); Potassium 4.1 mmol/L (3.5-5.1); Protein, Total 6.6 g/dL (6.4-8.2); Sodium Level 137 mmol/L (136-145)
[2021-06-08 06:40] LABS: Total Cells Counted 100 (MANUAL DIFF)
[2021-06-08 06:43] LABS: Eosinophil 1 % (0-5); Lymphocyte 2 % (19-41); Metamyelocyte 1 % (0-1); Monocyte 1 % (0-10); Neutrophil-Segmented 95 % (47-70); Platelet Estimate ADEQUATE (ADEQ)
[2021-06-08 06:44] LABS: Absolute Lymphocyte Count 0.42 X10^3/uL (0.83-4.51); Absolute Neutrophil Count 19.7 X10^3/uL (2.0-7.7); Lymphocyte # 0.42 X10^3/ul (0.83-4.51); Neutrophil # 19.73 X10^3/uL (2.7-7.7); Red Cell Morphology NORM C+C NORMAL (NORM C&C)
[2021-06-08 06:45] LABS: Toxic Granulation 1+
--- NOTE | 2021-06-08 08:25 | PCM.PN.INT ---
Assessment & Plan Assessment/Plan (1) Acute respiratory failure with hypoxia: (2) Pneumonia due to COVID-19 virus: PLAN: RECOMMENDATIONS: 1. Continue Lasix as tolerated with labs 2. Completed remdesivir. No need to monitor liver function daily 3. Continue Decadron to complete 10-day treatment course. 4. Continue Lovenox twice daily. 5. Continue BiPAP with sleep and wean FiO2 to maintain oxygen saturations at or above 90%. 6. Increase activity and incentive spirometer as tolerated 7. Diuretic challenge IMPRESSIONS: 1. Acute hypoxemic respiratory failure secondary to COVID-19 pneumonia The patient presented to the hospital with progressive respiratory symptoms and hypoxemia, with symptom onset sometime around May 22. The patient subsequently tested positive for COVID-19. He is unvaccinated. Although D-dimer was elevated at presentation, CTA chest showed no evidence for PE. Nevertheless, there was extensive bilateral groundglass infiltrates. Patient has been able to be weaned to Airvo during the day. Would continue with BiPAP with sleep as he is still a high risk for intubation. Wean FiO2 to maintain oxygen saturations at or above 90%. The patient was significant desaturation overnight, likely secondary to derecruitment. Patient is on maximal BiPAP settings, but appears to be tolerating Airvo at this time. Patient appears to be improving clinically. Slightly less concerned about need for intubation, but continue to stress aggressive pulmonary toileting. 2. Acute kidney injury Resolved. Likely prerenal in etiology. Continue to monitor urine output. No current indication for renal replacement therapy. Patient will be challenged with diuretics as tolerated 3. Bradycardia/obesity/possible depression Complicates care, management, recovery and prognosis. Continue to attempt to motivate patient. Will attempt to arrange for a visit from his to help with motivation. Heart rate appears to be normalized. Continue telemetry. Clinical suspicion for high vagal tone leading to lower heart rates. Subjective Subjective Patient much more awake and interactive today compared to previous. Patient states he feels subjectively improved. Patient is still having a cough with deep inhalation. Patient was able to have visitation with his overnight and felt this improved his condition. Patient is reporting more of an appetite today. Objective Data Objective Data Vital Signs: Vital Signs Temp Pulse Resp BP Pulse Ox 36.4 C L 61 19 H 114/67 90 06/08/21 08:03 06/08/21 08:03 06/08/21 08:03 06/08/21 08:03 06/08/21 08:03 Oxygen Flow Rate (L/min) 60 Oxygen Delivery Method Airvo Weight: 109.7 kg Body Mass Index (BMI) 36.7 Intake & Output: Intake and Output for Last 24 Hours 06/06/21 06/07/21 06/08/21 23:59 23:59 23:59 Intake Total 1760 / 1760 2049 / 2049 0 / 0 Output Total 3650 / 3650 3100 / 3100 200 / 200 Balance -1890 / -1890 -1050 / -1050 -200 / -200 Lab / Micro Data Result Diagrams: 06/08/21 03:20 06/08/21 03:20 Labs: Laboratory Results - last 24 hr 06/06/21 03:35: Diff Path Review Reviewed 06/07/21 04:20: Diff Path Review Reviewed 06/08/21 03:20: WBC 20.8 H, RBC 4.83, Hgb 13.7, Hct 41.3, MCV 85.5, MCH 28.4, MCHC 33.2, RDW Std Deviation 40.2, RDW Coeff of Samantha 13.1, Plt Count 386, MPV 9.2, Neut % (Auto) Not Reportable, Absolute Neuts (auto) 19.7 H, Absolute Lymphs (auto) 0.42 L, Total Counted 100, Neutrophils % (Manual) 95 H, Lymphocytes % (Manual) 2 L, Monocytes % (Manual) 1, Eosinophils % (Manual) 1, Metamyelocytes % 1, Diff Path Review May foll, Toxic Granulation 1+, Platelet Estimate ADEQUATE, RBC Morphology NORM C+C 06/08/21 03:20: Sodium 137, Potassium 4.1, Chloride 100, Carbon Dioxide 30.0, Anion Gap 7, BUN 24 H, Creatinine 0.86, Estim Creat Clear Calc 123.79, Est GFR (MDRD) Af Amer 130, Est GFR (MDRD) Non-Af 108, BUN/Creatinine Ratio 28.0 H, Glucose 108 H, Calcium 8.5, Total Bilirubin 0.90, AST 33, ALT 36, Alkaline Phosphatase 66, Total Protein 6.6, Albumin 2.5 L, Globulin 4.1, Albumin/Globulin Ratio 0.6 L Micro: Microbiology 06/02/21 06:50 Blood Culture (Wb) - Anticubital Left Blood Culture - Final No growth in 5 days. 06/02/21 07:00 Blood Culture (Wb) - Anticubital Right Blood Culture - Final No growth in 5 days. 06/02/21 07:08 Nasal Secretion SARS-CoV-2 Antigen (Rapid) - Final SARS-CoV-2 (COVID 19) Radiography Diagnostic Testing: Radiology Impression Chest X-Ray 06/07/21 06:22 IMPRESSION: Bilateral patchy airspace opacification visualized consistent with Covid 19 disease, slightly improved aeration is seen in comparison to the prior study. Electronically Signed: Usama León MD at 9:16 EDT Tel , Service support , Rhythm Strip Rhythm Strip: Sinus Rhythm Rate: 88 Ectopy: None Physical Exam Const Constitutional Narrative: On Airvo General Appearance: cooperative and frail Nutritional Appearance: obese HEENT normocephalic Eyes PERRL and EOMs intact bilaterally Eyes Narrative: Slight scleral injection without icterus Lymph Lymphatic: no lymphadenopathy noted Chest inspection of chest normal Chest: symmetrical chest wall rise; Negative for crepitus Resp Effort and Inspection: tachypneic and respiratory distress Auscultation: diminished lung sounds; Negative for rales, rhonchi or wheezes Cardio S1 normal heart sound, S2 normal heart sound, no murmurs, no rub and no gallops Rate: regular rate GI normal to inspection, nondistended, normoactive bowel sounds Extremity General Extremity: edema bilateral (1+) lower extremity; Negative for clubbing or cyanosis Skin no rashes or lesions noted Neuro oriented x3, CN's II-XII intact bilaterally, moves all extremities and no focal motor deficits Psych mental status grossly normal, thought process normal and cooperative Charges/Coding Visit Charges Inpatient E&M: 45466 Subs Hosp L3
[2021-06-08] MEDS: dexAMETHasone 10 MG/ML Vial 6 MG IV (08:52)
[2021-06-08] MEDS: Enoxaparin 40 MG/0.4 ML Syringe SC ×2 (08:52→20:39)
[2021-06-08] MEDS: Furosemide 40 MG/4 ML Vial IV (08:52)
[2021-06-08] MEDS: 0.9% Saline Lock 10 ML Syringe IV (08:52)
--- NOTE | 2021-06-08 10:39 | PN.HOSP_ITS ---
Subjective Subjective Continues to feel improved, no issues overnight. Did have extensive discussions with him about incentive spirometry and how coughing is a good thing Objective Data Objective Data Vital Signs: Vital Signs Temp Pulse Resp BP Pulse Ox 97.6 F L 82 18 107/70 91 06/08/21 08:03 06/08/21 10:00 06/08/21 10:00 06/08/21 10:00 06/08/21 10:00 Oxygen Flow Rate (L/min) 60 Oxygen Delivery Method Airvo Weight: 241 lb 13.553 oz Body Mass Index (BMI) 36.7 Intake & Output: Intake and Output for Last 24 Hours 06/07/21 06/08/21 06/09/21 03:59 03:59 03:59 Intake Total 1670 / 1670 2050 / 2050 360 / 360 Output Total 2500 / 2850 3100 / 3300 1475 / 1475 Balance -830 / -1180 -1050 / -1250 -1115 / -1115 Lab / Micro Data Result Diagrams: 06/08/21 03:20 06/08/21 03:20 Labs: Laboratory Results - last 24 hr 06/07/21 04:20: Diff Path Review Reviewed 06/08/21 03:20: WBC 20.8 H, RBC 4.83, Hgb 13.7, Hct 41.3, MCV 85.5, MCH 28.4, MCHC 33.2, RDW Std Deviation 40.2, RDW Coeff of Samantha 13.1, Plt Count 386, MPV 9.2, Neut % (Auto) Not Reportable, Absolute Neuts (auto) 19.7 H, Absolute Lymphs (auto) 0.42 L, Total Counted 100, Neutrophils % (Manual) 95 H, Lymphocytes % (Manual) 2 L, Monocytes % (Manual) 1, Eosinophils % (Manual) 1, Metamyelocytes % 1, Diff Path Review May foll, Toxic Granulation 1+, Platelet Estimate ADEQUATE, RBC Morphology NORM C+C 06/08/21 03:20: Sodium 137, Potassium 4.1, Chloride 100, Carbon Dioxide 30.0, Anion Gap 7, BUN 24 H, Creatinine 0.86, Estim Creat Clear Calc 123.79, Est GFR (MDRD) Af Amer 130, Est GFR (MDRD) Non-Af 108, BUN/Creatinine Ratio 28.0 H, Glucose 108 H, Calcium 8.5, Total Bilirubin 0.90, AST 33, ALT 36, Alkaline Phosphatase 66, Total Protein 6.6, Albumin 2.5 L, Globulin 4.1, Albumin/Globulin Ratio 0.6 L Micro: Microbiology 06/02/21 06:50 Blood Culture (Wb) - Anticubital Left Blood Culture - Final No growth in 5 days. 06/02/21 07:00 Blood Culture (Wb) - Anticubital Right Blood Culture - Final No growth in 5 days. 06/02/21 07:08 Nasal Secretion SARS-CoV-2 Antigen (Rapid) - Final SARS-CoV-2 (COVID 19) Rhythm Strip Rhythm Strip: Sinus Rhythm Rate: 88 Ectopy: None Physical Exam Const alert and oriented x3 General Appearance: cooperative HEENT normocephalic and moist oral mucous membranes Eyes PERRL, EOMs intact bilaterally and conjunctivae normal Neck supple and no JVD Resp normal respiratory effort, no retractions, no use of accessory muscles and clear to auscultation bilaterally Auscultation: diminished lung sounds; Negative for crackles, rales, rhonchi or wheezes Cardio regular rate, regular rhythm, S1 normal heart sound, S2 normal heart sound and no murmurs GI soft to palpation, non-tender and non-distended; Negative for hepatosplenomegaly Extremity no clubbing, cyanosis or edema Skin no rashes or lesions noted Neuro no focal motor deficits and no sensory deficits noted Psych affect normal Assessment & Plan Assessment/Plan (1) Acute respiratory failure with hypoxia: (2) Pneumonia due to COVID-19 virus: (3) MALAIKA (acute kidney injury): (4) Sepsis: (5) Hyperbilirubinemia: PLAN: 1. Sepsis and acute hypoxic respiratory failure secondary to COVID-19 pneumonia -Limit IV fluids, and Lasix as needed -Continue with air Vo as needed, may need to go up on the BiPAP, appreciate valve inspector assistance -Continue with Decadron, completed remdesivir -CT of the chest demonstrated no PE DVT: Lovenox Charges/Coding Visit Charges Inpatient E&M: 42377 Subs Hosp L2
--- NOTE | 2021-06-08 18:53 | NURSING ---
Emergency documentation in effect.
--- NOTE | 2021-06-08 18:53 | NURSING ---
Emergency documentation in effect.
[2021-06-08] MEDS: MELATONIN 3 MG TABLET PO (20:39)
[2021-06-09] VITALS (36 sets, daily range): BP systolic 99–125; BP diastolic 49–76; PULSE 57–105; RESP 12–33; TEMP 36.6–36.8; O2SAT 88–100
[2021-06-09] MEDS: Acetaminophen 325 MG Tablet 650 MG PO ×2 (04:05→20:33)
[2021-06-09 05:34] LABS: Absolute Lymphocyte Count 1.09 X10^3/uL (0.83-4.51); Absolute Neutrophil Count 22.2 X10^3/uL (2.0-7.7); Basophil% 0.4 % (0-1); Eosinophil# 0.42 X10^3/uL; Eosinophils% 1.6 % (0-5); Hematocrit 43.7 % (40-54); Hemoglobin 14.5 g/dL (13.0-16.5); Lymphocyte # 1.09 X10^3/ul (0.83-4.51); Lymphocyte % 4.3 % (19-41); Mean Corp Hgb Conc 33.2 g/dL (32-36); Mean Corpuscular Hgb 28.3 pg (27.0-32.0); Mean Corpuscular Volume 85.4 fL (80-94); Mean Platelet Vol. 9.5 fl (6.2-12.0); Monocyte% 2.7 % (0-10); NRBC Flagged by Analyzer 0 % (0-5); Neutrophil # 22.22 X10^3/uL (2.7-7.7); Neutrophil % 87.1 % (47-70); POSITIVE DIFFERENTIAL YES; Platelet Count 488 K/mm3 (150-450); RBC Distribution Width CV 12.9 % (11.6-14.6); RBC Distribution Width SD 39.9 fl (35.1-43.9); Red Blood Count 5.12 M/mm3 (4.6-6.2); White Blood Count 25.5 K/mm3 (4.4-11.0)
[2021-06-09 05:35] LABS: Differential Indicated SCAN CRITERIA MET
[2021-06-09 05:38] LABS: Differential Comment SCANNED
[2021-06-09 05:46] LABS: Anion Gap 4 (5-15); BUN 22 mg/dL (7-18); BUN/Creat Ratio 24.6 RATIO (10-20); Calcium,Total 8.4 mg/dL (8.5-10.1); Chloride 100 mmol/L (98-107); Creatinine, Serum 0.89 mg/dL (0.70-1.30); EST Glomerular Filtration Rate 103 mL/min (>60); Est Glom Filt Rate - Afr Amer 124 mL/min (>60); Estimated Creatinine Clearance 119.62 ml/min; Glucose 95 mg/dL (74-106); Sodium Level 136 mmol/L (136-145)
--- NOTE | 2021-06-09 07:24 | PCM.PN.INT ---
Assessment & Plan Assessment/Plan (1) Acute respiratory failure with hypoxia: (2) Pneumonia due to COVID-19 virus: PLAN: RECOMMENDATIONS: 1. Continue Lasix as tolerated with labs 2. Completed remdesivir. No need to monitor liver function daily 3. Continue Decadron to complete 10-day treatment course (06/11/2021). 4. Continue Lovenox twice daily. 5. Continue BiPAP with sleep and wean FiO2 to maintain oxygen saturations at or above 90%. 6. Increase activity and incentive spirometer as tolerated 7. Diuretic challenge today IMPRESSIONS: 1. Acute hypoxemic respiratory failure secondary to COVID-19 pneumonia The patient presented to the hospital with progressive respiratory symptoms and hypoxemia, with symptom onset sometime around May 22. The patient subsequently tested positive for COVID-19. He is unvaccinated. Although D-dimer was elevated at presentation, CTA chest showed no evidence for PE. Nevertheless, there was extensive bilateral groundglass infiltrates. Patient has been able to be weaned to Airvo during the day. Would continue with BiPAP with sleep as he is still a high risk for intubation. Wean FiO2 to maintain oxygen saturations at or above 90%. The patient was significant desaturation overnight, likely secondary to derecruitment. Patient appears to be requiring more oxygen on BiPAP and on Airvo. This would be suggestive of possible uncontrolled sleep apnea. Will increase patient's EPAP to prevent the recruitment. 2. Acute kidney injury Resolved. Likely prerenal in etiology. Continue to monitor urine output. No current indication for renal replacement therapy. Patient will be challenged with diuretics as tolerated 3. Bradycardia/obesity/possible depression Complicates care, management, recovery and prognosis. Continue to attempt to motivate patient. Will attempt to arrange for a visit from his to help with motivation. Heart rate appears to be normalized. Continue telemetry. Clinical suspicion for high vagal tone leading to lower heart rates previously. Subjective Subjective Patient did okay overnight. No acute issues were reported. Patient was actually requiring less FiO2 on Airvo than on BiPAP. No chest pain is reported. Patient is reporting a good appetite. Objective Data Objective Data Vital Signs: Vital Signs Temp Pulse Resp BP Pulse Ox 36.6 C 85 33 H 113/68 95 06/09/21 04:00 06/09/21 07:00 06/09/21 07:00 06/09/21 07:00 06/09/21 07:00 Oxygen Flow Rate (L/min) 60 Oxygen Delivery Method Bi-pap Weight: 107.5 kg Body Mass Index (BMI) 36.7 Intake & Output: Intake and Output for Last 24 Hours 06/07/21 06/08/21 06/09/21 23:59 23:59 23:59 Intake Total 2049 / 2049 1300 / 1300 120 / 120 Output Total 3100 / 3100 2475 / 2475 225 / 225 Balance -1050 / -1050 -1175 / -1175 -105 / -105 Lab / Micro Data Result Diagrams: 06/09/21 03:50 06/09/21 03:50 Labs: Laboratory Results - last 24 hr 06/09/21 03:50: WBC 25.5 H, RBC 5.12, Hgb 14.5, Hct 43.7, MCV 85.4, MCH 28.3, MCHC 33.2, RDW Std Deviation 39.9, RDW Coeff of Samantha 12.9, Plt Count 488 H, MPV 9.5, Immature Gran % (Auto) 3.900 H, Neut % (Auto) 87.1 H, Lymph % (Auto) 4.3 L, [place] % (Auto) 2.7, Eos % (Auto) 1.6, Baso % (Auto) 0.4, Absolute Neuts (auto) 22.2 H, Absolute Lymphs (auto) 1.09, Nucleated RBC % 0, Differential Comment SCANNED 06/09/21 03:50: Sodium 136, Potassium 4.0, Chloride 100, Carbon Dioxide 32.0, Anion Gap 4 L, BUN 22 H, Creatinine 0.89, Estim Creat Clear Calc 119.62, Est GFR (MDRD) Af Amer 124, Est GFR (MDRD) Non-Af 103, BUN/Creatinine Ratio 24.6 H, Glucose 95, Calcium 8.4 L Micro: Microbiology 06/02/21 06:50 Blood Culture (Wb) - Anticubital Left Blood Culture - Final No growth in 5 days. 06/02/21 07:00 Blood Culture (Wb) - Anticubital Right Blood Culture - Final No growth in 5 days. 06/02/21 07:08 Nasal Secretion SARS-CoV-2 Antigen (Rapid) - Final SARS-CoV-2 (COVID 19) Rhythm Strip Rhythm Strip: Sinus Rhythm Rate: 88 Ectopy: None Physical Exam Const Constitutional Narrative: On BiPAP General Appearance: cooperative Nutritional Appearance: obese HEENT normocephalic Eyes PERRL and EOMs intact bilaterally Eyes Narrative: Slight scleral injection without icterus Lymph Lymphatic: no lymphadenopathy noted Chest inspection of chest normal Chest: symmetrical chest wall rise; Negative for crepitus Resp Effort and Inspection: tachypneic and respiratory distress Auscultation: diminished lung sounds; Negative for rales, rhonchi or wheezes Cardio S1 normal heart sound, S2 normal heart sound, no murmurs, no rub and no gallops Rate: regular rate GI normal to inspection, nondistended, normoactive bowel sounds Extremity General Extremity: edema bilateral (1+) lower extremity; Negative for clubbing or cyanosis Skin no rashes or lesions noted Neuro oriented x3, CN's II-XII intact bilaterally, moves all extremities and no focal motor deficits Psych mental status grossly normal, thought process normal and cooperative Mood & Affect: depressed and flat affect Charges/Coding Visit Charges Inpatient E&M: 47953 Subs Hosp L3
[2021-06-09] MEDS: Furosemide 40 MG Tablet PO (09:32)
[2021-06-09] MEDS: Sodium Chloride 0.65% 1 SPRAY SPRAY.BTL 2 SPRAY NASAL ×2 (09:32→20:33)
[2021-06-09] MEDS: dexAMETHasone 10 MG/ML Vial 6 MG IV (09:32)
[2021-06-09] MEDS: Enoxaparin 40 MG/0.4 ML Syringe SC ×2 (09:32→20:33)
--- NOTE | 2021-06-09 09:56 | PN.HOSP_ITS ---
Subjective Subjective No issues overnight, doing well. Continue with air Vo and BiPAP Objective Data Objective Data Vital Signs: Vital Signs Temp Pulse Resp BP Pulse Ox 97.8 F 105 H 20 H 125/76 H 90 06/09/21 04:00 06/09/21 09:00 06/09/21 09:00 06/09/21 09:00 06/09/21 09:00 Oxygen Flow Rate (L/min) 60 Oxygen Delivery Method Airvo Weight: 236 lb 15.951 oz Body Mass Index (BMI) 36.7 Intake & Output: Intake and Output for Last 24 Hours 06/08/21 06/09/21 06/10/21 03:59 03:59 03:59 Intake Total 2050 / 2050 1300 / 1420 120 / 120 Output Total 3100 / 3300 2475 / 2700 225 / 225 Balance -1050 / -1250 -1175 / -1280 -105 / -105 Lab / Micro Data Result Diagrams: 06/09/21 03:50 06/09/21 03:50 Labs: Laboratory Results - last 24 hr 06/09/21 03:50: WBC 25.5 H, RBC 5.12, Hgb 14.5, Hct 43.7, MCV 85.4, MCH 28.3, MCHC 33.2, RDW Std Deviation 39.9, RDW Coeff of Samantha 12.9, Plt Count 488 H, MPV 9.5, Immature Gran % (Auto) 3.900 H, Neut % (Auto) 87.1 H, Lymph % (Auto) 4.3 L, [place] % (Auto) 2.7, Eos % (Auto) 1.6, Baso % (Auto) 0.4, Absolute Neuts (auto) 22.2 H, Absolute Lymphs (auto) 1.09, Nucleated RBC % 0, Differential Comment SCANNED 06/09/21 03:50: Sodium 136, Potassium 4.0, Chloride 100, Carbon Dioxide 32.0, Anion Gap 4 L, BUN 22 H, Creatinine 0.89, Estim Creat Clear Calc 119.62, Est GFR (MDRD) Af Amer 124, Est GFR (MDRD) Non-Af 103, BUN/Creatinine Ratio 24.6 H, Glucose 95, Calcium 8.4 L Micro: Microbiology 06/02/21 06:50 Blood Culture (Wb) - Anticubital Left Blood Culture - Final No growth in 5 days. 06/02/21 07:00 Blood Culture (Wb) - Anticubital Right Blood Culture - Final No growth in 5 days. 06/02/21 07:08 Nasal Secretion SARS-CoV-2 Antigen (Rapid) - Final SARS-CoV-2 (COVID 19) Rhythm Strip Rhythm Strip: Sinus Rhythm Rate: 88 Ectopy: None Physical Exam Const alert and oriented x3 General Appearance: cooperative HEENT normocephalic and moist oral mucous membranes Eyes PERRL, EOMs intact bilaterally and conjunctivae normal Neck supple and no JVD Resp normal respiratory effort, no retractions and no use of accessory muscles Auscultation: diminished lung sounds; Negative for crackles, rales, rhonchi or wheezes Cardio regular rate, regular rhythm, S1 normal heart sound, S2 normal heart sound and no murmurs GI soft to palpation, non-tender and non-distended; Negative for hepatosplenomegaly Extremity no clubbing, cyanosis or edema Skin no rashes or lesions noted Neuro no focal motor deficits and no sensory deficits noted Psych affect normal Assessment & Plan Assessment/Plan (1) Acute respiratory failure with hypoxia: (2) Pneumonia due to COVID-19 virus: (3) MALAIKA (acute kidney injury): (4) Sepsis: (5) Hyperbilirubinemia: PLAN: 1. Sepsis and acute hypoxic respiratory failure secondary to COVID-19 pneumonia -Limit IV fluids, and Lasix as needed -Continue with air Vo as needed, may need to go up on the BiPAP, appreciate blood and plasma laboratory assistant assistance -Continue with Decadron, completed remdesivir -CT of the chest demonstrated no PE DVT: Lovenox Charges/Coding Visit Charges Inpatient E&M: 25560 Subs Hosp L2
[2021-06-09] MEDS: MELATONIN 3 MG TABLET PO (20:33)
[2021-06-10] VITALS (35 sets, daily range): BP systolic 103–121; BP diastolic 53–81; PULSE 65–105; RESP 12–32; TEMP 36–37.2; O2SAT 88–95
[2021-06-10 04:54] LABS: Absolute Lymphocyte Count 1.04 X10^3/uL (0.83-4.51); Absolute Neutrophil Count 17.3 X10^3/uL (2.0-7.7); Basophil# 0.05 X10^3/uL; Basophil% 0.2 % (0-1); Eosinophil# 0.35 X10^3/uL; Eosinophils% 1.7 % (0-5); Hematocrit 39.9 % (40-54); Hemoglobin 13.6 g/dL (13.0-16.5); Lymphocyte # 1.04 X10^3/ul (0.83-4.51); Lymphocyte % 5.2 % (19-41); Mean Corp Hgb Conc 34.1 g/dL (32-36); Mean Corpuscular Hgb 28.8 pg (27.0-32.0); Mean Corpuscular Volume 84.5 fL (80-94); Monocyte# 0.75 X10^3/uL; Monocyte% 3.7 % (0-10); NRBC Flagged by Analyzer 0 % (0-5); Neutrophil # 17.29 X10^3/uL (2.7-7.7); Neutrophil % 86.2 % (47-70); Platelet Count 384 K/mm3 (150-450); RBC Distribution Width CV 13.1 % (11.6-14.6); Red Blood Count 4.72 M/mm3 (4.6-6.2); White Blood Count 20.1 K/mm3 (4.4-11.0)
[2021-06-10 05:13] LABS: ALB/GLOB Ratio 0.5 RATIO (0.9-2.4); AST(SGOT) 34 U/L (15-37); Alanine Aminotransfer ALT/SGPT 34 U/L (16-61); Albumin, Serum 2.1 g/dL (3.2-5.0); Alkaline Phosphatase 83 U/L (45-117); Anion Gap 5 (5-15); BUN 22 mg/dL (7-18); BUN/Creat Ratio 27.7 RATIO (10-20); Calcium,Total 8.4 mg/dL (8.5-10.1); Chloride 101 mmol/L (98-107); Creatinine, Serum 0.79 mg/dL (0.70-1.30); EST Glomerular Filtration Rate 118 mL/min (>60); Est Glom Filt Rate - Afr Amer 142 mL/min (>60); Estimated Creatinine Clearance 134.76 ml/min; Globulin 4.4 g/dL (2.2-4.2); Glucose 113 mg/dL (74-106); Potassium 4.2 mmol/L (3.5-5.1); Protein, Total 6.5 g/dL (6.4-8.2); Sodium Level 136 mmol/L (136-145)
--- NOTE | 2021-06-10 08:06 | PCM.PN.INT ---
Assessment & Plan Assessment/Plan (1) Acute respiratory failure with hypoxia: (2) Pneumonia due to COVID-19 virus: PLAN: RECOMMENDATIONS: 1. Continue Lasix as tolerated with labs 2. Completed remdesivir. No need to monitor liver function daily 3. Continue Decadron to complete 10-day treatment course (06/11/2021). 4. Continue Lovenox twice daily. 5. Continue BiPAP with sleep and wean FiO2 to maintain oxygen saturations at or above 90%. 6. Increase activity and incentive spirometer as tolerated 7. Hold Lasix for today IMPRESSIONS: 1. Acute hypoxemic respiratory failure secondary to COVID-19 pneumonia The patient presented to the hospital with progressive respiratory symptoms and hypoxemia, with symptom onset sometime around May 22. The patient subsequently tested positive for COVID-19. He is unvaccinated. Although D-dimer was elevated at presentation, CTA chest showed no evidence for PE. Nevertheless, there was extensive bilateral groundglass infiltrates. Patient has been able to be weaned to Airvo during the day. Would continue with BiPAP with sleep as he is still a high risk for intubation. Wean FiO2 to maintain oxygen saturations at or above 90%. Patient appears to be improved on increased EPAP settings. Decadron will be completed 06/11/2021. We will hold off on diuresis for now as patient does have an element of contraction alkalosis. 2. Acute kidney injury Resolved. Likely prerenal in etiology. Continue to monitor urine output. No current indication for renal replacement therapy. Patient will be challenged with diuretics as tolerated 3. Bradycardia/obesity/possible depression Complicates care, management, recovery and prognosis. Continue to attempt to motivate patient. Will attempt to arrange for a visit from his to help with motivation. Heart rate appears to be normalized. Continue telemetry. Clinical suspicion for high vagal tone leading to lower heart rates previously. Subjective Subjective The patient did well overnight. No acute issues were reported. Patient able to tolerate BiPAP therapy. Patient subjectively feels unchanged compared to previous. Objective Data Objective Data Vital Signs: Vital Signs Temp Pulse Resp BP Pulse Ox 37.2 C 72 20 H 116/75 92 06/10/21 04:00 06/10/21 07:35 06/10/21 07:35 06/10/21 07:00 06/10/21 07:35 Oxygen Flow Rate (L/min) 60 Oxygen Delivery Method Bi-pap Weight: 107.9 kg Body Mass Index (BMI) 36.7 Intake & Output: Intake and Output for Last 24 Hours 06/08/21 06/09/21 06/10/21 23:59 23:59 23:59 Intake Total 1300 / 1300 480 / 480 Output Total 2475 / 2475 5 / 2274 400 / 400 Balance -1175 / -1175 -1545 / -1795 -400 / -400 Lab / Micro Data Result Diagrams: 06/10/21 04:40 06/10/21 04:40 Labs: Laboratory Results - last 24 hr 06/10/21 04:40: WBC 20.1 H, RBC 4.72, Hgb 13.6, Hct 39.9 L, MCV 84.5, MCH 28.8, MCHC 34.1, RDW Std Deviation 40.0, RDW Coeff of Samantha 13.1, Plt Count 384, MPV 9.0, Immature Gran % (Auto) 3.000 H, Neut % (Auto) 86.2 H, Lymph % (Auto) 5.2 L, [place] % (Auto) 3.7, Eos % (Auto) 1.7, Baso % (Auto) 0.2, Absolute Neuts (auto) 17.3 H, Absolute Lymphs (auto) 1.04, Nucleated RBC % 0 06/10/21 04:40: Sodium 136, Potassium 4.2, Chloride 101, Carbon Dioxide 30.0, Anion Gap 5, BUN 22 H, Creatinine 0.79, Estim Creat Clear Calc 134.76, Est GFR (MDRD) Af Amer 142, Est GFR (MDRD) Non-Af 118, BUN/Creatinine Ratio 27.7 H, Glucose 113 H, Calcium 8.4 L, Total Bilirubin 0.90, AST 34, ALT 34, Alkaline Phosphatase 83, Total Protein 6.5, Albumin 2.1 L, Globulin 4.4 H, Albumin/Globulin Ratio 0.5 L Micro: Microbiology 06/02/21 06:50 Blood Culture (Wb) - Anticubital Left Blood Culture - Final No growth in 5 days. 06/02/21 07:00 Blood Culture (Wb) - Anticubital Right Blood Culture - Final No growth in 5 days. 06/02/21 07:08 Nasal Secretion SARS-CoV-2 Antigen (Rapid) - Final SARS-CoV-2 (COVID 19) Rhythm Strip Rhythm Strip: Sinus Rhythm Rate: 88 Ectopy: None Physical Exam Const Constitutional Narrative: On BiPAP General Appearance: cooperative Nutritional Appearance: obese HEENT normocephalic Eyes PERRL and EOMs intact bilaterally Eyes Narrative: Slight scleral injection without icterus Lymph Lymphatic: no lymphadenopathy noted Chest inspection of chest normal Chest: symmetrical chest wall rise; Negative for crepitus Resp Effort and Inspection: tachypneic and respiratory distress Auscultation: diminished lung sounds; Negative for rales, rhonchi or wheezes Cardio S1 normal heart sound, S2 normal heart sound, no murmurs, no rub and no gallops Rate: regular rate GI normal to inspection, nondistended, normoactive bowel sounds Extremity General Extremity: edema bilateral (1+) lower extremity; Negative for clubbing or cyanosis Skin no rashes or lesions noted Neuro oriented x3, CN's II-XII intact bilaterally, moves all extremities and no focal motor deficits Psych mental status grossly normal, thought process normal and cooperative Mood & Affect: depressed and flat affect Charges/Coding Visit Charges Inpatient E&M: 43867 Subs Hosp L3
[2021-06-10] MEDS: Enoxaparin 40 MG/0.4 ML Syringe SC ×2 (08:25→20:54)
[2021-06-10] MEDS: dexAMETHasone 10 MG/ML Vial 6 MG IV (08:25)
[2021-06-10] MEDS: 0.9% Saline Lock 10 ML Syringe IV (08:25)
[2021-06-10] MEDS: Acetaminophen 325 MG Tablet 650 MG PO ×2 (08:33→22:26)
--- NOTE | 2021-06-10 10:48 | PN.HOSP_ITS ---
Subjective Subjective No new issues overnight, remained stable. Tolerating BiPAP and air well Objective Data Objective Data Vital Signs: Vital Signs Temp Pulse Resp BP Pulse Ox 97 F L 91 20 H 109/65 88 06/10/21 08:00 06/10/21 10:00 06/10/21 10:00 06/10/21 10:00 06/10/21 10:00 Oxygen Flow Rate (L/min) 60 Oxygen Delivery Method Mechanical Ventilator Weight: 237 lb 14.06 oz Body Mass Index (BMI) 36.7 Intake & Output: Intake and Output for Last 24 Hours 06/09/21 06/10/21 06/11/21 03:59 03:59 03:59 Intake Total 1300 / 1420 480 / 480 240 / 240 Output Total 2475 / 2700 2275 / 2425 550 / 550 Balance -1175 / -1280 -1795 / -1945 -310 / -310 Lab / Micro Data Result Diagrams: 06/10/21 04:40 06/10/21 04:40 Labs: Laboratory Results - last 24 hr 06/10/21 04:40: WBC 20.1 H, RBC 4.72, Hgb 13.6, Hct 39.9 L, MCV 84.5, MCH 28.8, MCHC 34.1, RDW Std Deviation 40.0, RDW Coeff of Samantha 13.1, Plt Count 384, MPV 9.0, Immature Gran % (Auto) 3.000 H, Neut % (Auto) 86.2 H, Lymph % (Auto) 5.2 L, [place] % (Auto) 3.7, Eos % (Auto) 1.7, Baso % (Auto) 0.2, Absolute Neuts (auto) 17.3 H, Absolute Lymphs (auto) 1.04, Nucleated RBC % 0 06/10/21 04:40: Sodium 136, Potassium 4.2, Chloride 101, Carbon Dioxide 30.0, Anion Gap 5, BUN 22 H, Creatinine 0.79, Estim Creat Clear Calc 134.76, Est GFR (MDRD) Af Amer 142, Est GFR (MDRD) Non-Af 118, BUN/Creatinine Ratio 27.7 H, Glucose 113 H, Calcium 8.4 L, Total Bilirubin 0.90, AST 34, ALT 34, Alkaline Phosphatase 83, Total Protein 6.5, Albumin 2.1 L, Globulin 4.4 H, Albumin/Globulin Ratio 0.5 L Micro: Microbiology 06/02/21 06:50 Blood Culture (Wb) - Anticubital Left Blood Culture - Final No growth in 5 days. 06/02/21 07:00 Blood Culture (Wb) - Anticubital Right Blood Culture - Final No growth in 5 days. 06/02/21 07:08 Nasal Secretion SARS-CoV-2 Antigen (Rapid) - Final SARS-CoV-2 (COVID 19) Rhythm Strip Rhythm Strip: Sinus Rhythm Rate: 88 Ectopy: None Physical Exam Const alert and oriented x3 General Appearance: cooperative HEENT normocephalic and moist oral mucous membranes Eyes PERRL, EOMs intact bilaterally and conjunctivae normal Neck supple and no JVD Resp normal respiratory effort, no retractions and no use of accessory muscles Auscultation: diminished lung sounds; Negative for crackles, rales, rhonchi or wheezes Cardio regular rate, regular rhythm, S1 normal heart sound, S2 normal heart sound and no murmurs GI soft to palpation, non-tender and non-distended; Negative for hepatosplenomegaly Extremity no clubbing, cyanosis or edema Skin no rashes or lesions noted Neuro no focal motor deficits and no sensory deficits noted Psych affect normal Assessment & Plan Assessment/Plan (1) Acute respiratory failure with hypoxia: (2) Pneumonia due to COVID-19 virus: (3) MALAIKA (acute kidney injury): (4) Sepsis: (5) Hyperbilirubinemia: PLAN: 1. Sepsis and acute hypoxic respiratory failure secondary to COVID-19 pneumonia -Limit IV fluids, and Lasix as needed -Continue with air Vo as needed, may need to go up on the BiPAP, appreciate arch cushion press operator assistance -Continue with Decadron, completed remdesivir -CT of the chest demonstrated no PE DVT: Lovenox Charges/Coding Visit Charges Inpatient E&M: [id number] Subs Hosp L2
[2021-06-10] MEDS: MELATONIN 3 MG TABLET PO (22:26)
[2021-06-11] VITALS (34 sets, daily range): BP systolic 102–120; BP diastolic 58–76; PULSE 70–115; RESP 12–34; TEMP 36.1–36.6; O2SAT 89–95
[2021-06-11 05:16] LABS: Absolute Lymphocyte Count 1.31 X10^3/uL (0.83-4.51); Absolute Neutrophil Count 19.4 X10^3/uL (2.0-7.7); Basophil# 0.07 X10^3/uL; Basophil% 0.3 % (0-1); Eosinophil# 0.32 X10^3/uL; Eosinophils% 1.4 % (0-5); Hematocrit 43.7 % (40-54); Hemoglobin 14.3 g/dL (13.0-16.5); Lymphocyte # 1.31 X10^3/ul (0.83-4.51); Lymphocyte % 5.8 % (19-41); Mean Corp Hgb Conc 32.7 g/dL (32-36); Mean Corpuscular Hgb 28.2 pg (27.0-32.0); Mean Corpuscular Volume 86.2 fL (80-94); Mean Platelet Vol. 9.1 fl (6.2-12.0); Monocyte# 1.13 X10^3/uL; NRBC Flagged by Analyzer 0 % (0-5); Neutrophil # 19.41 X10^3/uL (2.7-7.7); Neutrophil % 85.2 % (47-70); Platelet Count 409 K/mm3 (150-450); RBC Distribution Width CV 13.2 % (11.6-14.6); RBC Distribution Width SD 40.9 fl (35.1-43.9); Red Blood Count 5.07 M/mm3 (4.6-6.2); White Blood Count 22.8 K/mm3 (4.4-11.0)
[2021-06-11 05:38] LABS: Anion Gap 6 (5-15); BUN 20 mg/dL (7-18); BUN/Creat Ratio 23.8 RATIO (10-20); Calcium,Total 8.3 mg/dL (8.5-10.1); Chloride 100 mmol/L (98-107); Creatinine, Serum 0.84 mg/dL (0.70-1.30); EST Glomerular Filtration Rate 110 mL/min (>60); Est Glom Filt Rate - Afr Amer 133 mL/min (>60); Estimated Creatinine Clearance 126.74 ml/min; Glucose 101 mg/dL (74-106); Potassium 4.1 mmol/L (3.5-5.1); Sodium Level 135 mmol/L (136-145)
--- NOTE | 2021-06-11 07:18 | PN.CC_ITS ---
Assessment & Plan Assessment/Plan (1) Acute respiratory failure with hypoxia: (2) Pneumonia due to COVID-19 virus: PLAN: RECOMMENDATIONS: 1. Continue Lasix as tolerated with labs 2. Completed remdesivir. No need to monitor liver function daily 3. Continue Decadron to complete 10-day treatment course (06/11/2021). 4. Continue Lovenox twice daily. 5. Continue BiPAP with sleep and wean FiO2 to maintain oxygen saturations at or above 90%. 6. Increase activity and incentive spirometer as tolerated 7. Diuretic challenge IMPRESSIONS: 1. Acute hypoxemic respiratory failure secondary to COVID-19 pneumonia The patient presented to the hospital with progressive respiratory symptoms and hypoxemia, with symptom onset sometime around May 22. The patient subsequently tested positive for COVID-19. He is unvaccinated. Although D-dimer was elevated at presentation, CTA chest showed no evidence for PE. Nevertheless, there was extensive bilateral groundglass infiltrates. Patient has been able to be weaned to Airvo during the day. Would continue with BiPAP with sleep as he is still a high risk for intubation. Wean FiO2 to maintain oxygen saturations at or above 90%. Patient appears to be improved on increased EPAP settings. Decadron will be completed today. Will attempt to challenge with diuretics again today. 2. Acute kidney injury Resolved. Likely prerenal in etiology. Continue to monitor urine output. No current indication for renal replacement therapy. Patient will be challenged with diuretics as tolerated 3. Bradycardia/obesity/possible depression Complicates care, management, recovery and prognosis. Continue to attempt to motivate patient. Will attempt to arrange for a visit from his to help with motivation. Heart rate appears to be normalized. Continue telemetry. Clinical suspicion for high vagal tone leading to lower heart rates initially. Subjective Subjective Patient did well overnight. No acute issues were reported. Patient has been tolerating Airvo during the day. No fevers have been noted. Patient tolerating p.o. Objective Data Objective Data Vital Signs: Vital Signs Temp Pulse Resp BP Pulse Ox 36.6 C 85 26 H 109/60 92 06/11/21 05:00 06/11/21 07:13 06/11/21 07:13 06/11/21 05:00 06/11/21 07:13 Oxygen Flow Rate (L/min) 60 Oxygen Delivery Method Bi-pap Weight: 109.7 kg Body Mass Index (BMI) 36.7 Intake & Output: Intake and Output for Last 24 Hours 06/09/21 06/10/21 06/11/21 23:59 23:59 23:59 Intake Total 480 / 480 580 / 580 0 / 0 Output Total 2024 2750 / 2850 100 / 100 Balance -1545 / -1795 -2170 / -2270 -100 / -100 Lab / Micro Data Result Diagrams: 06/11/21 04:55 06/11/21 04:55 Labs: Laboratory Results - last 24 hr 06/11/21 04:55: WBC 22.8 H, RBC 5.07, Hgb 14.3, Hct 43.7, MCV 86.2, MCH 28.2, MCHC 32.7, RDW Std Deviation 40.9, RDW Coeff of Samantha 13.2, Plt Count 409, MPV 9.1, Immature Gran % (Auto) 2.300 H, Neut % (Auto) 85.2 H, Lymph % (Auto) 5.8 L, [place] % (Auto) 5.0, Eos % (Auto) 1.4, Baso % (Auto) 0.3, Absolute Neuts (auto) 19.4 H, Absolute Lymphs (auto) 1.31, Nucleated RBC % 0 06/11/21 04:55: Sodium 135 L, Potassium 4.1, Chloride 100, Carbon Dioxide 29.0, Anion Gap 6, BUN 20 H, Creatinine 0.84, Estim Creat Clear Calc 126.74, Est GFR (MDRD) Af Amer 133, Est GFR (MDRD) Non-Af 110, BUN/Creatinine Ratio 23.8 H, Glucose 101, Calcium 8.3 L Micro: Microbiology 06/02/21 06:50 Blood Culture (Wb) - Anticubital Left Blood Culture - Final No growth in 5 days. 06/02/21 07:00 Blood Culture (Wb) - Anticubital Right Blood Culture - Final No growth in 5 days. 06/02/21 07:08 Nasal Secretion SARS-CoV-2 Antigen (Rapid) - Final SARS-CoV-2 (COVID 19) Rhythm Strip Rhythm Strip: Sinus Rhythm Rate: 88 Ectopy: None Physical Exam Const Constitutional Narrative: On BiPAP General Appearance: cooperative Nutritional Appearance: obese HEENT normocephalic Eyes PERRL and EOMs intact bilaterally Eyes Narrative: Slight scleral injection without icterus Lymph Lymphatic: no lymphadenopathy noted Chest inspection of chest normal Chest: symmetrical chest wall rise; Negative for crepitus Resp Effort and Inspection: tachypneic and respiratory distress Auscultation: diminished lung sounds; Negative for rales, rhonchi or wheezes Cardio S1 normal heart sound, S2 normal heart sound, no murmurs, no rub and no gallops Rate: regular rate GI normal to inspection, nondistended, normoactive bowel sounds Extremity General Extremity: edema bilateral (1+) lower extremity; Negative for clubbing or cyanosis Skin no rashes or lesions noted Neuro oriented x3, CN's II-XII intact bilaterally, moves all extremities and no focal motor deficits Psych mental status grossly normal, thought process normal and cooperative Mood & Affect: depressed and flat affect Charges/Coding Visit Charges Inpatient E&M: 43685 Subs Hosp L3
[2021-06-11] MEDS: dexAMETHasone 10 MG/ML Vial 6 MG IV (08:12)
[2021-06-11] MEDS: Acetaminophen 325 MG Tablet 650 MG PO ×2 (08:13→13:51)
[2021-06-11] MEDS: Enoxaparin 40 MG/0.4 ML Syringe SC ×2 (08:13→22:06)
--- NOTE | 2021-06-11 10:00 | PN.HOSP_ITS ---
Subjective Subjective Patient seen and examined. He was on AirVo and had no active complaints. Review of systems otherwise negative. He is tachypneic and tachycardic. Objective Data Objective Data Vital Signs: Vital Signs Temp Pulse Resp BP Pulse Ox 97.5 F L 105 H 24 H 114/66 94 06/11/21 08:00 06/11/21 09:00 06/11/21 09:00 06/11/21 09:00 06/11/21 09:00 Oxygen Flow Rate (L/min) 60 Oxygen Delivery Method Airvo Weight: 241 lb 13.553 oz Body Mass Index (BMI) 36.7 Intake & Output: Intake and Output for Last 24 Hours 06/09/21 06/10/21 06/11/21 23:59 23:59 23:59 Intake Total 480 / 480 580 / 580 0 / 0 Output Total 2025 / 2275 2750 / 2850 100 / 100 Balance -1545 / -1795 -2170 / -2270 -100 / -100 Lab / Micro Data Result Diagrams: 06/11/21 04:55 06/11/21 04:55 Labs: Laboratory Results - last 24 hr 06/11/21 04:55: WBC 22.8 H, RBC 5.07, Hgb 14.3, Hct 43.7, MCV 86.2, MCH 28.2, MCHC 32.7, RDW Std Deviation 40.9, RDW Coeff of Samantha 13.2, Plt Count 409, MPV 9.1, Immature Gran % (Auto) 2.300 H, Neut % (Auto) 85.2 H, Lymph % (Auto) 5.8 L, [place] % (Auto) 5.0, Eos % (Auto) 1.4, Baso % (Auto) 0.3, Absolute Neuts (auto) 19.4 H, Absolute Lymphs (auto) 1.31, Nucleated RBC % 0 06/11/21 04:55: Sodium 135 L, Potassium 4.1, Chloride 100, Carbon Dioxide 29.0, Anion Gap 6, BUN 20 H, Creatinine 0.84, Estim Creat Clear Calc 126.74, Est GFR (MDRD) Af Amer 133, Est GFR (MDRD) Non-Af 110, BUN/Creatinine Ratio 23.8 H, Glucose 101, Calcium 8.3 L Micro: Microbiology 06/02/21 06:50 Blood Culture (Wb) - Anticubital Left Blood Culture - Final No growth in 5 days. 06/02/21 07:00 Blood Culture (Wb) - Anticubital Right Blood Culture - Final No growth in 5 days. 06/02/21 07:08 Nasal Secretion SARS-CoV-2 Antigen (Rapid) - Final SARS-CoV-2 (COVID 19) Rhythm Strip Rhythm Strip: Sinus Rhythm Rate: 88 Ectopy: None Physical Exam Const alert, oriented x3 and no apparent distress Exam Limitations: no limitations HEENT head/scalp atraumatic and moist oral mucous membranes Head and Scalp: normocephalic Eyes PERRL, EOMs intact bilaterally and conjunctivae normal Neck no lymphadenopathy Resp Resp Narrative: tachypneic, diminished breath sounds bibasally, on AirVO. Cardio regular rhythm, S1 normal heart sound, S2 normal heart sound and no murmurs Cardio Narrative: tachycardic GI normal to inspection, nondistended, normoactive bowel sounds, soft to palpation, non-tender and non-distended Extremity normal to inspection, full ROM and no clubbing, cyanosis or edema Peripheral Pulses: Yes pulses 2+ throughout Skin no rashes or lesions noted Neuro oriented x3, CN's II-XII intact bilaterally and moves all extremities Sensorium / Orientation: awake and alert Psych affect normal Assessment & Plan Assessment/Plan (1) Sepsis: (2) MALAIKA (acute kidney injury): (3) Pneumonia due to COVID-19 virus: (4) Acute respiratory failure with hypoxia: (5) Hyperbilirubinemia: PLAN: #Acute hypoxic respiratory failure due to COVID 19 infection. * still remains on AirVO. remains tachypneic * CTA negative ofr PE * on AirVO and BIPAP at night, with sleep * titrate oxygen to maintain sats >90% * breathing treatment with bronchodilators. * on IV lasix * completed remdesivir. To complete a 10 day course of decadron. * covid test was positive for 06/02/2021 * #MALAIKA: resolved #Bradycardia: resolved DVT prophylaxis: lovenox 40mg bid Charges/Coding Visit Charges Inpatient E&M: 92409 Subs Hosp L3
[2021-06-11] MEDS: Furosemide 40 MG Tablet PO ×2 (11:00→17:24)
[2021-06-11] MEDS: 0.9% Saline Lock 10 ML Syringe IV ×2 (13:49→14:29)
[2021-06-11] MEDS: QUEtiapine 25 MG Tablet 50 MG PO (22:06)
[2021-06-12] VITALS (35 sets, daily range): BP systolic 94–121; BP diastolic 57–73; PULSE 74–136; RESP 12–41; TEMP 36.4–36.8; O2SAT 85–100
[2021-06-12 04:15] LABS: Absolute Lymphocyte Count 1.42 X10^3/uL (0.83-4.51); Basophil# 0.07 X10^3/uL; Basophil% 0.3 % (0-1); Eosinophil# 0.16 X10^3/uL; Eosinophils% 0.7 % (0-5); Hemoglobin 13.3 g/dL (13.0-16.5); Lymphocyte # 1.42 X10^3/ul (0.83-4.51); Lymphocyte % 6.1 % (19-41); Mean Corp Hgb Conc 32.4 g/dL (32-36); Mean Corpuscular Hgb 27.9 pg (27.0-32.0); Mean Corpuscular Volume 86.1 fL (80-94); Mean Platelet Vol. 8.8 fl (6.2-12.0); Monocyte% 4.7 % (0-10); NRBC Flagged by Analyzer 0 % (0-5); Neutrophil # 19.99 X10^3/uL (2.7-7.7); Neutrophil % 86.4 % (47-70); Platelet Count 376 K/mm3 (150-450); RBC Distribution Width CV 13.2 % (11.6-14.6); RBC Distribution Width SD 41.1 fl (35.1-43.9); Red Blood Count 4.76 M/mm3 (4.6-6.2); White Blood Count 23.2 K/mm3 (4.4-11.0)
[2021-06-12 04:33] LABS: Anion Gap 5 (5-15); BUN 20 mg/dL (7-18); BUN/Creat Ratio 26.7 RATIO (10-20); Calcium,Total 8.1 mg/dL (8.5-10.1); Chloride 103 mmol/L (98-107); Creatinine, Serum 0.75 mg/dL (0.70-1.30); EST Glomerular Filtration Rate 126 mL/min (>60); Est Glom Filt Rate - Afr Amer 152 mL/min (>60); Estimated Creatinine Clearance 141.94 ml/min; Glucose 112 mg/dL (74-106); Potassium 4.2 mmol/L (3.5-5.1); Sodium Level 138 mmol/L (136-145)
--- NOTE | 2021-06-12 06:51 | PN.CC_ITS ---
Assessment & Plan Assessment/Plan (1) Acute respiratory failure with hypoxia: (2) Pneumonia due to COVID-19 virus: PLAN: RECOMMENDATIONS: 1. Continue to wean oxygen to maintain saturations at or above 90%. 2. Continue Lovenox twice daily. 3. Continue attempts at awake prone positioning as tolerated. 4. Continue diuretic therapy as needed to maintain euvolemic state. 5. Encourage incentive spirometer use and mobilize patient as tolerated. IMPRESSIONS: 1. Acute hypoxemic respiratory failure secondary to COVID-19 pneumonia The patient presented to the hospital with progressive respiratory symptoms and hypoxemia, with symptom onset sometime around May 22. The patient subsequently tested positive for coronavirus. He is unvaccinated. Although D- dimer was elevated at presentation, CTA chest showed no evidence for PE. Ne vertheless, there was extensive bilateral groundglass infiltrates. The patient has completed treatment courses of both remdesivir and Decadron to date. However, he continues to have a high oxygen requirement, transitioning between BiPAP support at night and heated high flow throughout the day. Plan to continue to wean FiO2 as tolerated to maintain saturations at or above 90%. Continue twice daily Lovenox as ordered. Continue periodic administration of IV Lasix to maintain euvolemic state. 2. Acute kidney injury Resolved. Likely prerenal in etiology. Continue to monitor urine output. No current indication for renal replacement therapy. This note was generated with Sighter dictation software. It may contain incorrect words, spelling, and punctuation that were not noted in checking the note before signing. Subjective Subjective The patient was seen and examined at the bedside this morning. Events from the last 24 hours have been reviewed. The patient is currently afebrile, hemodynamically stable and maintaining appropriate oxygen saturations on BiPAP with an FiO2 requirement of 60%. The patient has primarily been maintained on BiPAP throughout the night with Airvo heated high flow throughout the day. He is currently documented to be overall net -7.3 L for the hospital admission. The patient has completed treatment courses of remdesivir and Decadron. Objective Data Objective Data The patient's most recent lab work, culture data and imaging studies have all been personally reviewed. CTA chest showed no evidence for pulmonary embolism. However, significant bilateral groundglass infiltrates were noted. Vital Signs: Vital Signs Temp Pulse Resp BP Pulse Ox 97.6 F L 87 34 H 113/69 91 06/12/21 00:00 06/12/21 06:00 06/12/21 06:00 06/12/21 06:00 06/12/21 06:00 Oxygen Flow Rate (L/min) 60 Oxygen Delivery Method Bi-pap Weight: 111.3 kg Body Mass Index (BMI) 36.7 Intake & Output: Intake and Output for Last 24 Hours 06/10/21 06/11/21 06/12/21 23:59 23:59 23:59 Intake Total 580 / 580 1210 / 1210 Output Total 2750 / 2850 1100 / 1100 Balance -2170 / -2270 110 / 110 Lab / Micro Data Attestation: I reviewed the patient's lab results. Result Diagrams: 06/13/21 04:25 06/13/21 04:25 Labs: Laboratory Results - last 24 hr 06/12/21 04:10: WBC 23.2 H, RBC 4.76, Hgb 13.3, Hct 41.0, MCV 86.1, MCH 27.9, MCHC 32.4, RDW Std Deviation 41.1, RDW Coeff of Samantha 13.2, Plt Count 376, MPV 8.8, Immature Gran % (Auto) 1.800 H, Neut % (Auto) 86.4 H, Lymph % (Auto) 6.1 L, [place] % (Auto) 4.7, Eos % (Auto) 0.7, Baso % (Auto) 0.3, Absolute Neuts (auto) 20.0 H, Absolute Lymphs (auto) 1.42, Nucleated RBC % 0 06/12/21 04:10: Sodium 138, Potassium 4.2, Chloride 103, Carbon Dioxide 30.0, Anion Gap 5, BUN 20 H, Creatinine 0.75, Estim Creat Clear Calc 141.94, Est GFR (MDRD) Af Amer 152, Est GFR (MDRD) Non-Af 126, BUN/Creatinine Ratio 26.7 H, Glucose 112 H, Calcium 8.1 L Micro: Microbiology 06/02/21 06:50 Blood Culture (Wb) - Anticubital Left Blood Culture - Final No growth in 5 days. 06/02/21 07:00 Blood Culture (Wb) - Anticubital Right Blood Culture - Final No growth in 5 days. 06/02/21 07:08 Nasal Secretion SARS-CoV-2 Antigen (Rapid) - Final SARS-CoV-2 (COVID 19) Rhythm Strip Rhythm Strip: Sinus Rhythm Rate: 88 Ectopy: None Physical Exam Const alert and no apparent distress Constitutional Narrative: Sitting in bedside recliner. General Appearance: cooperative Nutritional Appearance: obese HEENT normocephalic and head/scalp atraumatic Eyes PERRL, EOMs intact bilaterally and conjunctivae normal Neck supple General: trachea midline Chest inspection of chest normal Resp Effort and Inspection: tachypneic Auscultation: diminished lung sounds; Negative for rales, rhonchi or wheezes Cardio regular rate and regular rhythm GI normal to inspection, nondistended, normoactive bowel sounds Extremity General Extremity: edema bilateral lower extremity; Negative for clubbing Skin no rashes or lesions noted Neuro moves all extremities and no focal motor deficits Psych Mood & Affect: flat affect Charges/Coding Visit Charges Inpatient E&M: 08817 Subs Hosp L3
[2021-06-12 10:06] LABS: Pathologist Review Reviewed
[2021-06-12] MEDS: Enoxaparin 40 MG/0.4 ML Syringe SC ×2 (12:20→20:06)
[2021-06-12] MEDS: Acetaminophen 325 MG Tablet 650 MG PO ×2 (12:26→20:05)
--- NOTE | 2021-06-12 13:14 | CASEMGMT ---
Pt's called about forms from pt's company, if they were faxed over. They were faxed over this morning. SW explained to will see if physician can assist in completing and will have pt sign a release. SW spoke w/pt, he signed a release for SW to have the form completed and faxed to his company. Physician will look at form and complete it as time allows, give back to SW. SW will continue to follow. JUAN Sesay
--- NOTE | 2021-06-12 15:25 | PN.HOSP_ITS ---
Subjective Subjective Patient seen and examined. He remains short of breath, and tachypneic and tachycardic. He was on high flow oxygen by nasal canula at time of review, but subsequently was transitioned to BIPAP due to worening shortness of breath. Review of systems is otherwise. Objective Data Objective Data Vital Signs: Vital Signs Temp Pulse Resp BP Pulse Ox 98.2 F 125 H 32 H 111/72 93 06/12/21 12:22 06/12/21 14:00 06/12/21 14:00 06/12/21 14:00 06/12/21 14:00 Oxygen Flow Rate (L/min) 60 Oxygen Delivery Method Airvo Weight: 245 lb 5.992 oz Body Mass Index (BMI) 36.7 Intake & Output: Intake and Output for Last 24 Hours 06/10/21 06/11/21 06/12/21 23:59 23:59 23:59 Intake Total 580 / 580 1210 / 1210 400 / 400 Output Total 2750 / 2850 1100 / 1100 1150 / 1150 Balance -2170 / -2270 110 / 110 -750 / -750 Lab / Micro Data Result Diagrams: 06/12/21 04:10 06/12/21 04:10 Labs: Laboratory Results - last 24 hr 06/08/21 03:20: Diff Path Review Reviewed 06/12/21 04:10: WBC 23.2 H, RBC 4.76, Hgb 13.3, Hct 41.0, MCV 86.1, MCH 27.9, MCHC 32.4, RDW Std Deviation 41.1, RDW Coeff of Samantha 13.2, Plt Count 376, MPV 8.8, Immature Gran % (Auto) 1.800 H, Neut % (Auto) 86.4 H, Lymph % (Auto) 6.1 L, [place] % (Auto) 4.7, Eos % (Auto) 0.7, Baso % (Auto) 0.3, Absolute Neuts (auto) 20.0 H, Absolute Lymphs (auto) 1.42, Nucleated RBC % 0 06/12/21 04:10: Sodium 138, Potassium 4.2, Chloride 103, Carbon Dioxide 30.0, Anion Gap 5, BUN 20 H, Creatinine 0.75, Estim Creat Clear Calc 141.94, Est GFR (MDRD) Af Amer 152, Est GFR (MDRD) Non-Af 126, BUN/Creatinine Ratio 26.7 H, Glucose 112 H, Calcium 8.1 L Micro: Microbiology 06/02/21 06:50 Blood Culture (Wb) - Anticubital Left Blood Culture - Final No growth in 5 days. 06/02/21 07:00 Blood Culture (Wb) - Anticubital Right Blood Culture - Final No growth in 5 days. 06/02/21 07:08 Nasal Secretion SARS-CoV-2 Antigen (Rapid) - Final SARS-CoV-2 (COVID 19) Rhythm Strip Rhythm Strip: Sinus Rhythm Rate: 88 Ectopy: None Physical Exam Const alert and oriented x3 Orientation / Consciousness: lethargic Exam Limitations: no limitations HEENT head/scalp atraumatic and moist oral mucous membranes Head and Scalp: normocephalic Eyes PERRL, EOMs intact bilaterally and conjunctivae normal Neck no lymphadenopathy Resp Resp Narrative: few bilateral crackles, diminished breath sounds bibasally, no wheezes or crackles. on BIPAP Cardio Cardio Narrative: tachypneic, normal S1 and S2. no murmurs GI normal to inspection, nondistended, normoactive bowel sounds, soft to palpation, non-tender and non-distended Extremity normal to inspection, full ROM and no clubbing, cyanosis or edema Peripheral Pulses: Yes pulses 2+ throughout Skin no rashes or lesions noted Neuro oriented x3, CN's II-XII intact bilaterally and moves all extremities Sensorium / Orientation: awake and alert Psych Psych Narrative: flat affect Assessment & Plan Assessment/Plan (1) Sepsis: (2) Acute respiratory failure with hypoxia: (3) Pneumonia due to COVID-19 virus: (4) MALAIKA (acute kidney injury): (5) Hyperbilirubinemia: PLAN: #Acute hypoxic respiratory failure due to COVID 19 infection. * now on BIPAP; still remains very short of breath * CTA negative for PE * titrate oxygen to maintain sats >90% * breathing treatment with bronchodilators. * on IV lasix * completed remdesivir. To complete a 10 day course of decadron. * covid test was positive for 06/02/2021 * in cumulative negative balance of 7.3L * #MALAIKA: resolved. DVT prophylaxis: lovenox 40mg bid Charges/Coding Visit Charges Inpatient E&M: 13929 Subs Hosp L3
[2021-06-12] MEDS: QUEtiapine 25 MG Tablet 50 MG PO (20:05)
[2021-06-12] MEDS: MELATONIN 3 MG TABLET PO (20:05)
--- NOTE | 2021-06-12 21:15 | NURSING ---
pt resp 30-40. hrt 120-140. pt c/o feeling anxious. dr magy mullins notified. portable chest xray
--- NOTE | 2021-06-12 21:25 | RAD_ITS ---
STUDY: X-RAY CHEST REASON FOR EXAM: Male, 35 years old. SOB/Anxiety TECHNIQUE: Portable, upright, AP chest radiograph COMPARISON: 06/07/2021 FINDINGS: Bilateral perihilar infiltrates are increased compared to 06/07/2021. There is no demonstrated pleural abnormality. Normal size heart. Normal mediastinum and kristie. Normal visualized pulmonary arteries. Normal visualized aortic arch and descending thoracic aorta. Normal visualized thoracic spine. Normal visualized ribs, clavicles, and shoulders. There is no demonstrated abnormality of the visualized soft tissue structures of the upper abdomen. RAD/Chest 1 View (Portable) IMPRESSION: Increased appearance of bilateral pneumonia. Electronically Signed: Jerry Miguel MD at 22:07 EDT Tel , Service support ,
--- NOTE | 2021-06-12 21:41 | NURSING ---
portable chest xray done
--- NOTE | 2021-06-12 22:18 | NURSING ---
pt up to bsc. pt became very dizzy. pt asst back to bed. pt had a 600cc red black liquid stool. pt cleaned up from bedpan
[2021-06-12] MEDS: 0.9% Saline Lock 10 ML Syringe IV (22:53)
[2021-06-13] VITALS (35 sets, daily range): BP systolic 94–144; BP diastolic 56–92; PULSE 75–139; RESP 12–44; TEMP 36.4–37.7; O2SAT 73–98
--- NOTE | 2021-06-13 00:24 | PCM.RX.CS ---
Consult Pharmacy has been consulted to manage selected antiobiotic: Vancomycin Type of Consult: New start Suspected Infection: Pneumonia Prior Doses of Antibiotics Received/Current Regimen: Medications Vancomycin HCl 1,500 mg/ (Sodium Chloride) 530 mls @ 250 mls/hr IV Q8H KATHYA Vancomycin HCl 1,750 mg/ (Sodium Chloride) 535 mls @ 250 mls/hr IV X1 ONE Stop: 06/13/21 01:08 Last Admin: 06/12/21 23:16 Dose: 250 mls/hr Labs: Sodium 138 mmol/L (136-145) 06/12/21 04:10 Potassium 4.2 mmol/L (3.5-5.1) 06/12/21 04:10 Chloride 103 mmol/L (98-107) 06/12/21 04:10 Carbon Dioxide 30.0 mmol/L (21.0-32.0) 06/12/21 04:10 Anion Gap 5 (5-15) 06/12/21 04:10 BUN 20 mg/dL (7-18) H 06/12/21 04:10 Creatinine 0.75 mg/dL (0.70-1.30) 06/12/21 04:10 Est GFR (MDRD) Af Amer 152 mL/min (>60) 06/12/21 04:10 Est GFR (MDRD) Non-Af 126 mL/min (>60) 06/12/21 04:10 BUN/Creatinine Ratio 26.7 RATIO (10-20) H 06/12/21 04:10 Glucose 112 mg/dL (74-106) H 06/12/21 04:10 Microbiology: Microbiology 06/02/21 06:50 Blood Culture (Wb) - Anticubital Left Blood Culture - Final No growth in 5 days. 06/02/21 07:00 Blood Culture (Wb) - Anticubital Right Blood Culture - Final No growth in 5 days. 06/02/21 07:08 Nasal Secretion SARS-CoV-2 Antigen (Rapid) - Final SARS-CoV-2 (COVID 19) Weight used for dosin.3 kg Estimated Creatinine Clearance: 142 Goal Trough: 15-20 mcg/mL Pharmacy Plan for Drug Dosing: Pharmacy Service will continue to monitor and adjust dosing as required. Follow-Up Labs: Trough Vancomycin Labs to be done on [date and time ordered]: 06/13/21 @2300
[2021-06-13 04:34] LABS: Absolute Lymphocyte Count 0.91 X10^3/uL (0.83-4.51); Absolute Neutrophil Count 22.6 X10^3/uL (2.0-7.7); Basophil# 0.05 X10^3/uL; Basophil% 0.2 % (0-1); Eosinophil# 0.14 X10^3/uL; Eosinophils% 0.6 % (0-5); Hematocrit 40.4 % (40-54); Hemoglobin 13.4 g/dL (13.0-16.5); Lymphocyte # 0.91 X10^3/ul (0.83-4.51); Lymphocyte % 3.6 % (19-41); Mean Corp Hgb Conc 33.2 g/dL (32-36); Mean Corpuscular Hgb 28.3 pg (27.0-32.0); Mean Corpuscular Volume 85.2 fL (80-94); Mean Platelet Vol. 8.8 fl (6.2-12.0); Monocyte# 1.25 X10^3/uL; Monocyte% 4.9 % (0-10); NRBC Flagged by Analyzer 0 % (0-5); Neutrophil # 22.63 X10^3/uL (2.7-7.7); Neutrophil % 89.4 % (47-70); POSITIVE DIFFERENTIAL YES; Platelet Count 389 K/mm3 (150-450); RBC Distribution Width CV 13.3 % (11.6-14.6); RBC Distribution Width SD 41.5 fl (35.1-43.9); Red Blood Count 4.74 M/mm3 (4.6-6.2); White Blood Count 25.3 K/mm3 (4.4-11.0)
[2021-06-13 04:38] LABS: Differential Indicated SCAN CRITERIA MET
[2021-06-13 04:48] LABS: Anion Gap 5 (5-15); BUN 14 mg/dL (7-18); BUN/Creat Ratio 20.2 RATIO (10-20); Calcium,Total 8.1 mg/dL (8.5-10.1); Chloride 102 mmol/L (98-107); Creatinine, Serum 0.69 mg/dL (0.70-1.30); EST Glomerular Filtration Rate 137 mL/min (>60); Est Glom Filt Rate - Afr Amer 166 mL/min (>60); Estimated Creatinine Clearance 154.29 ml/min; Glucose 116 mg/dL (74-106); Potassium 4.1 mmol/L (3.5-5.1); Sodium Level 135 mmol/L (136-145)
[2021-06-13 05:15] LABS: Differential Comment SCANNED
--- NOTE | 2021-06-13 06:28 | PCM.PN.INT ---
Assessment & Plan Assessment/Plan (1) Acute respiratory failure with hypoxia: (2) Pneumonia due to COVID-19 virus: PLAN: RECOMMENDATIONS: 1. Given CTA findings, discontinue Lovenox and start patient on Eliquis. 2. Proceed with intubation. Once intubated, obtain arterial blood gas in 1 hour. 3. Initiate propofol and fentanyl for sedation. 4. Obtain and send sputum for culture. 5. Wean FiO2 and PEEP to maintain oxygen saturations at or above 90%. 6. Continue empiric antimicrobials. 7. Start weight-based heparin infusion. 8. Check strep and urine Legionella antigens, along with procalcitonin. 9. Continue diuretic therapy as needed to maintain euvolemic state. 10. Start appropriate GI prophylaxis IMPRESSIONS: 1. Acute hypoxemic respiratory failure secondary to COVID-19 pneumonia The patient presented to the hospital with progressive respiratory symptoms and hypoxemia, with symptom onset sometime around May 22. The patient subsequently tested positive for coronavirus. He is unvaccinated. Despite having completed a treatment course of remdesivir and Decadron, the patient has remained quite tenuous from a respiratory perspective. In fact, over the last 24 hours he has decompensated from an oxygenation standpoint. Repeat CTA chest completed this morning did reveal evidence of pulmonary emboli and significant bilateral infiltrates. Ultimately, the patient was intubated on June 13. He will be continued on broad-spectrum antimicrobials, pending further infectious work-up. Weight-based heparin infusion has been initiated. FiO2 and PEEP will be weaned to maintain oxygen saturations at or above 90%. Continue periodic administration of IV Lasix to maintain euvolemic state. 2. Bilateral pulmonary emboli As noted above, weight-based heparin infusion will be initiated. 3. Acute kidney injury Resolved. Likely prerenal in etiology. Continue to monitor urine output. No current indication for renal replacement therapy. TIME: 42 minutes of critical care time, inclusive of procedures, was spent addressing the patient's acute hypoxemic respiratory failure secondary to COVID-19 pneumonia, bilateral pulmonary emboli, review of all data and collaboration with care team. ([id number], [id number]) Subjective Subjective The patient was seen and examined at the bedside this morning. Events from the last 24 hours have been reviewed. The patient currently has a low-grade fever but remains otherwise hemodynamically stable. The patient has had increasing tachypnea and tachycardia overnight. He has also become progressively hypoxemic and is now requiring BiPAP with an FiO2 requirement of 75%. Given his clinical decompensation, the patient was started overnight on vancomycin and Zosyn. The patient is currently documented to be overall net -9 L for the hospital admission. White count remains elevated at 25,000. Chemistry profile was unremarkable. Given the patient's clinical decompensation, a repeat CTA chest was obtained this morning. That imaging study demonstrated continued evidence of pronounced bilateral confluent and nonconfluent groundglass opacities bilaterally. In addition, there was evidence of bilateral subsegmental pulmonary emboli. Therefore, the patient's prophylactic Lovenox was discontinued and he was placed on Eliquis. Over the course of the morning and into the early afternoon hours, the patient continued to decompensate from a respiratory perspective. He continued to demonstrate increased work of breathing despite the use of noninvasive positive pressure ventilatory support and was notably tachypneic. His was brought to the bedside. She was updated on his overall clinical status along with the findings of his CTA chest from today. I explained to her that given his clinical decompensation, I would advocate to proceed with intubation. She is in agreement. Intubation Indication: Respiratory failure Consent was obtained from: Patient's The patient was placed in the appropriate sniffing position. Preoxygenated sedation via BiPAP was provided for a minimum of 3 minutes. The patient had continuous cardiac as well as pulse oximetry monitoring during the procedure. Procedure sedation was provided by the administration of 4 mg of Versed, 20 mg of etomidate and 100 mg of succinylcholine. Direct laryngoscopy was then performed using a number 4 MAC blade, which revealed a grade 1 view. A 7.5 mm endotracheal tube was visualized advancing between the cords to the level of 23 cm at the lip. The stylette was then removed and discarded. Tube placement was confirmed by fogging in the tube along with equal and bilateral breath sounds. Colorimetric change was visualized on the CO2 meter. The cuff was then inflated and the tube secured using a commercially available device. A good pulse oximetry waveform was seen on the monitor throughout the procedure. A portable chest x-ray has been ordered to confirm appropriate placement. The patient tolerated the procedure well. Objective Data Objective Data The patient's most recent lab work, culture data and imaging studies have all been personally reviewed. CTA chest showed no evidence for pulmonary embolism. However, significant bilateral ground glass infiltrates were noted. MRSA screen was negative. Blood cultures have demonstrated no growth to date. Vital Signs: Vital Signs Temp Pulse Resp BP Pulse Ox 99.4 F H 108 H 38 H 129/80 H 95 06/13/21 04:00 06/13/21 06:00 06/13/21 06:00 06/13/21 06:00 06/13/21 06:00 Oxygen Flow Rate (L/min) 60 Oxygen Delivery Method Bi-pap Weight: 111.7 kg Body Mass Index (BMI) 36.7 Intake & Output: Intake and Output for Last 24 Hours 06/11/21 06/12/21 06/13/21 23:59 23:59 23:59 Intake Total 1210 / 1210 1060 / 1060 585 / 585 Output Total 1100 / 1100 2600 / 2900 680 / 680 Balance 110 / 110 -1540 / -1840 -95 / -95 Lab / Micro Data Attestation: I reviewed the patient's lab results. Result Diagrams: 06/14/21 04:55 06/14/21 04:55 Labs: Laboratory Results - last 24 hr 06/08/21 03:20: Diff Path Review Reviewed 06/13/21 04:25: WBC 25.3 H, RBC 4.74, Hgb 13.4, Hct 40.4, MCV 85.2, MCH 28.3, MCHC 33.2, RDW Std Deviation 41.5, RDW Coeff of Samantha 13.3, Plt Count 389, MPV 8.8, Immature Gran % (Auto) 1.300 H, Neut % (Auto) 89.4 H, Lymph % (Auto) 3.6 L, [place] % (Auto) 4.9, Eos % (Auto) 0.6, Baso % (Auto) 0.2, Absolute Neuts (auto) 22.6 H, Absolute Lymphs (auto) 0.91, Nucleated RBC % 0, Differential Comment SCANNED 06/13/21 04:25: Sodium 135 L, Potassium 4.1, Chloride 102, Carbon Dioxide 28.0, Anion Gap 5, BUN 14, Creatinine 0.69 L, Estim Creat Clear Calc 154.29, Est GFR (MDRD) Af Amer 166, Est GFR (MDRD) Non-Af 137, BUN/Creatinine Ratio 20.2 H, Glucose 116 H, Calcium 8.1 L Micro: Microbiology 06/02/21 06:50 Blood Culture (Wb) - Anticubital Left Blood Culture - Final No growth in 5 days. 06/02/21 07:00 Blood Culture (Wb) - Anticubital Right Blood Culture - Final No growth in 5 days. 06/02/21 07:08 Nasal Secretion SARS-CoV-2 Antigen (Rapid) - Final SARS-CoV-2 (COVID 19) Radiography Diagnostic Testing: Radiology Impression Chest X-Ray 06/12/21 21:25 IMPRESSION: Increased appearance of bilateral pneumonia. Electronically Signed: Jerry Miguel MD at 22:07 EDT Tel , Service support , Rhythm Strip Rhythm Strip: Sinus Rhythm Rate: 88 Ectopy: None Physical Exam Const alert Constitutional Narrative: Sitting in bedside recliner. General Appearance: cooperative, ill appearing and on BiPAP Nutritional Appearance: obese HEENT normocephalic and head/scalp atraumatic Eyes PERRL, EOMs intact bilaterally and conjunctivae normal Neck supple General: trachea midline Chest inspection of chest normal Resp Effort and Inspection: tachypneic and labored Auscultation: diminished lung sounds; Negative for rales, rhonchi or wheezes Cardio S1 normal heart sound and S2 normal heart sound Rate: tachycardic Heart Sounds: Negative for murmur GI normal to inspection, nondistended, normoactive bowel sounds Extremity General Extremity: edema bilateral lower extremity; Negative for clubbing Skin no rashes or lesions noted Neuro moves all extremities and no focal motor deficits Psych Mood & Affect: flat affect Charges/Coding Procedures Hospitalists Procedures: 45764 Critial Care 1st Hr
--- NOTE | 2021-06-13 06:32 | CT_ITS ---
STUDY: CTA CHEST REASON FOR EXAM: Male, 35 years old. Worsening respiratory failure RADIATION DOSAGE (If Supplied By Facility): CTDIvol = ( 17.41 ) mGy, DLP = ( 492.26 ) mGycm TECHNIQUE: The examination was performed with the intravenous administration of IV 100mL Isovue-370. Post-processing of the angiographic images was performed, with multiplanar reformation and 3D reconstruction. Individualized dose optimization techniques were used for this CT. COMPARISON: 06/02/2021 FINDINGS: Normal enhancement of the main pulmonary artery and right and left pulmonary arteries. Normal enhancement of the bilateral peripheral pulmonary arteries. There are numerous right and left upper and lower lobe subsegmental pulmonary emboli. Normal thoracic aorta and visualized great vessels. There is no demonstrated aortic dissection. Normal heart and pericardium. Normal mediastinum. Normal hilar regions. Normal visualized trachea and bronchi. The lungs are well expanded. Extensive ground glass and peripheral consolidative densities throughout both lungs, mildly progressed compared 06/02/2021. Normal pleura. Normal chest wall structures. Normal osseous structures. Normal visualized upper abdomen. CT/CTA Chest W/WO Contrast IMPRESSION: Numerous bilateral subsegmental pulmonary emboli. Progression of pulmonary infiltrates and consolidations compared to 06/02/2021. Electronically Signed: Jerry Miguel MD at 7:34 EDT Tel , Service support ,
[2021-06-13 08:15] LABS: Allen Test Positive; Base Excess 2 mmol/L (-2 to +2); Bicarbonate 25.8 mmol/L (22-26); Blood Gas Specimen Type ART; FI02 85; Mode avaps; O2 Delivery Device BiPAP; PEEP 10; PO2 63 mmHG (75-100); RR 14; SITE L Radial; SO2 93 % (95-99); Total Carbon Dioxide 27 mmol/L; Vt 450; pCO2 36.2 mmHg (35-45); pH 7.46 (7.35-7.45)
[2021-06-13] MEDS: 0.9% Saline Lock 10 ML Syringe IV ×3 (08:54→19:04)
[2021-06-13 09:22] LABS: Procalcitonin 0.25 ng/mL (0.00-0.09)
--- NOTE | 2021-06-13 10:00 | CASEMGMT ---
RN CLARE participated in interdisciplinary rounds this morning. Patient continues on continues Bipap with Fio2 @ 85%. CM will continue to follow-this patient and plan for a safe discharge when appropriate.
--- NOTE | 2021-06-13 10:57 | PN.HOSP_ITS ---
Subjective Subjective Patient seen and examined. He looked very ill and was very tachycardic and tachypneic. He was on BiPAP at time of review. In cumulative negative balance by 8.9L Objective Data Objective Data Vital Signs: Vital Signs Temp Pulse Resp BP Pulse Ox 99.5 F H 104 H 43 H 121/65 H 94 06/13/21 08:00 06/13/21 09:00 06/13/21 09:00 06/13/21 09:00 06/13/21 09:00 Oxygen Flow Rate (L/min) 60 Oxygen Delivery Method Bi-pap Weight: 246 lb 4.101 oz Body Mass Index (BMI) 36.7 Intake & Output: Intake and Output for Last 24 Hours 06/11/21 06/12/21 06/13/21 23:59 23:59 23:59 Intake Total 1210 / 1210 1060 / 1060 1165 / 1165 Output Total 1100 / 1100 2600 / 2900 1180 / 1180 Balance 110 / 110 -1540 / -1840 -15 / -15 Lab / Micro Data Result Diagrams: 06/13/21 04:25 06/13/21 04:25 Labs: Laboratory Results - last 24 hr 06/13/21 04:25: WBC 25.3 H, RBC 4.74, Hgb 13.4, Hct 40.4, MCV 85.2, MCH 28.3, MCHC 33.2, RDW Std Deviation 41.5, RDW Coeff of Samantha 13.3, Plt Count 389, MPV 8.8, Immature Gran % (Auto) 1.300 H, Neut % (Auto) 89.4 H, Lymph % (Auto) 3.6 L, [place] % (Auto) 4.9, Eos % (Auto) 0.6, Baso % (Auto) 0.2, Absolute Neuts (auto) 22.6 H, Absolute Lymphs (auto) 0.91, Nucleated RBC % 0, Differential Comment SCANNED 06/13/21 04:25: Sodium 135 L, Potassium 4.1, Chloride 102, Carbon Dioxide 28.0, Anion Gap 5, BUN 14, Creatinine 0.69 L, Estim Creat Clear Calc 154.29, Est GFR (MDRD) Af Amer 166, Est GFR (MDRD) Non-Af 137, BUN/Creatinine Ratio 20.2 H, Glucose 116 H, Calcium 8.1 L 06/13/21 08:45: Procalcitonin 0.25 H Micro: Microbiology 06/13/21 08:45 Urine, Clean Catch Legionella Antigen - Final 06/13/21 08:45 Urine, Clean Catch Streptococcus pneumoniae Antigen (M - Final 06/02/21 06:50 Blood Culture (Wb) - Anticubital Left Blood Culture - Final No growth in 5 days. 06/02/21 07:00 Blood Culture (Wb) - Anticubital Right Blood Culture - Final No growth in 5 days. 06/02/21 07:08 Nasal Secretion SARS-CoV-2 Antigen (Rapid) - Final SARS-CoV-2 (COVID 19) ABG Data ABG results: ABG 06/13/21 08:08 Specimen Type ART Sample Site L Radial pH 7.46 H Bicarbonate Actual 25.8 Total CO2 27 Base Excess 2 O2 Saturation 93 L O2 % 85 ABG pCO2 36.2 ABG pO2 63 L Huseyin Test Positive Respiration Rate 14 O2 Delivery Device BiPAP Vent Mode avaps Tidal Volume 450 POC PEEP 10 Radiography Diagnostic Testing: Radiology Impression Chest X-Ray 06/12/21 21:25 IMPRESSION: Increased appearance of bilateral pneumonia. Electronically Signed: Jerry Miguel MD at 22:07 EDT Tel , Service support , Chest CTA 06/13/21 06:32 IMPRESSION: Numerous bilateral subsegmental pulmonary emboli. Progression of pulmonary infiltrates and consolidations compared to 06/02/2021. Electronically Signed: Jerry Miguel MD at 7:34 EDT Tel , Service support , Rhythm Strip Rhythm Strip: Sinus Rhythm Rate: 88 Ectopy: None Physical Exam Const alert, oriented x3 and no apparent distress Constitutional Narrative: looks very ill and frail General Appearance: cooperative Orientation / Consciousness: lethargic Exam Limitations: no limitations HEENT normocephalic, head/scalp atraumatic, hearing grossly normal bilaterally, moist oral mucous membranes and dentition normal Head and Scalp: normocephalic Eyes PERRL, EOMs intact bilaterally and conjunctivae normal Neck no lymphadenopathy, supple and no JVD Neck Narrative: Trachea midline, no thyromegaly Resp normal respiratory effort, no retractions and no use of accessory muscles Resp Narrative: few bilateral crackles, diminished breath sounds bibasally, no wheezes or crackles. Remains on BIPAP Auscultation: diminished lung sounds; Negative for crackles, rales, rhonchi or wheezes Cardio Cardio Narrative: still tachypneic, normal S1 and S2. no murmurs GI normal to inspection, nondistended, normoactive bowel sounds, soft to palpation, non-tender and non-distended; Negative for hepatosplenomegaly Extremity normal to inspection, full ROM and no clubbing, cyanosis or edema Extremity Narrative: Trace edema bilateral upper and lower extremities, no cyanosis or clubbing Peripheral Pulses: Yes pulses 2+ throughout Skin no rashes or lesions noted, no wounds, skin turgor normal, no jaundice, no petechiae and no mottling Neuro oriented x3, CN's II-XII intact bilaterally, moves all extremities, no focal motor deficits and no sensory deficits noted Sensorium / Orientation: awake and alert Speech: speech normal Psych Psych Narrative: looks distressed and anxious Mood & Affect: flat affect Assessment & Plan Assessment/Plan (1) Sepsis: (2) Acute respiratory failure with hypoxia: (3) Pneumonia due to COVID-19 virus: (4) MALAIKA (acute kidney injury): (5) Hyperbilirubinemia: PLAN: #Acute hypoxic respiratory failure due to COVID 19 infection. * still on BIPAP; still remains very short of breath * initial CTA negative for PE * repeat CTA done yesterday showed numerous right and left upper and lower lobe subsegmental pulmonary emboli and progression of pulmonary infiltrates and consolidations compared to prior. * titrate oxygen to maintain sats >90% * breathing treatment with bronchodilators. * on IV lasix * completed remdesivir. To complete a 10 day course of decadron. * covid test was positive for 06/02/2021 * in cumulative negative balance of 7.3L * started on IV vancomycin and zosyn due to probable superimposed bacterial pneumonia * #Pulmonary embolism * CTA reading as above. * on heparin drip * #MALAIKA: resolved. DVT prophylaxis:patient now on heparin drip for PE Prognosis: pateint is very ill and deteriorating. Prognosis is guarded. Charges/Coding Visit Charges Inpatient E&M: 09169 Subs Hosp L3
[2021-06-13] MEDS: HEPARIN/D5w 25,000 UNITS 25,000 UNITS/250 ML IV.SOLN. 8 UNITS IV (11:55)
--- NOTE | 2021-06-13 12:05 | CHAPLAIN ---
Type of Pastoral Visit ___ Initial Visit ___ Follow-up Visit ___ On-call Visit ___ General Patient Visit ___ Spiritual Assessment _x__ Family Conference ___ Bereavement ___ Rapid Response ___ Code Blue ___ Other (describe below) Pastoral Care Referral From ___ Patient ___ Family _x__ Nurse ___ Physician ___ Vaccine Specialist ___ Sales And Service Specialist ___ Other (describe below) Sacrament/Intervention _x__ Active listening ___ Anointing ___ Bahai ___ Bereavement ___ Communion _x__ Jennifer exploration ___ _x__ Life review _x__ Prayer ___ Reconciliation ___ Sacrament of Sick _x__ Supportive presence ___ Wedding ___ Other (describe below) Pastoral Comments met with spouse after her meeting with and RN; pt condition continues to be very serious; spouse is tearful and afraid her will ; pt expresses concern that his parents and her parents are not taking the illness seriously and have not been supportive at this time; pt and spouse are Adventist according to her account; her belief system helps her but she also has jennifer questions during this time; spouse is given time, presence, calm assurance of care, and prayers; spouse does not seek oil burner mechanic support for the patient at this time because it might make him further upset to see the oil burner mechanic; spouse will require support ongoing
[2021-06-13 12:08] LABS: Partial Thromboplast Time 24.1 Seconds (24.1-36.2)
[2021-06-13 12:23] LABS: International Normalized Ratio 1.3; Prothrombin Time (Protime)PT. 15.5 SECONDS (11.7-14.9)
[2021-06-13] MEDS: Midazolam 2 MG/2 ML Syringe 4 MG IV (13:05)
[2021-06-13] MEDS: Etomidate 20 MG/10 ML Vial IV (13:07)
[2021-06-13] MEDS: Propofol 10MG/Ml 1,000 MG/100 ML Bottle 6.7 MG CONT INF (13:10)
[2021-06-13] MEDS: Succinylcholine Chloride 200 MG/10 ML Vial 100 MG IV (13:25)
--- NOTE | 2021-06-13 13:32 | RAD_ITS ---
STUDY: X-RAY CHEST REASON FOR EXAM: Male, 35 years old. Intubation TECHNIQUE: Single AP portable view of the chest. COMPARISON: Comparison is made with prior study 06/12/2021. FINDINGS: An endotracheal tube is in situ. The tip is at 4.8 cm proximal to the chris. A nasogastric tube is seen with the tip in the fundal portion of the stomach. EKG electrodes are seen. Stable bilateral pulmonary infiltrates worse in the right upper lobe. There is no demonstrated pleural abnormality. Normal size heart. Normal mediastinum and kristie. Normal visualized pulmonary arteries. Normal visualized aortic arch and descending thoracic aorta. Normal visualized thoracic spine. Normal visualized ribs, clavicles, and shoulders. There is no demonstrated abnormality of the visualized soft tissue structures of the upper abdomen. RAD/Chest 1 View (Portable) IMPRESSION: The tip of the endotracheal tube is at 4.8 cm proximal to the chris. The tip of the orogastric tube is in the fundal portion of the stomach. Stable bilateral infiltrates worse in the right upper lobe. Electronically Signed: Jose Kenney MD at 14:14 EDT , Service support ,
[2021-06-13 14:59] LABS: CPK Total, Creatine Kinase 30 U/L (39-308); Triglycerides 119 mg/dL
[2021-06-13 15:20] LABS: Allen Test Positive; Base Excess 0 mmol/L (-2 to +2); Bicarbonate 29.2 mmol/L (22-26); Blood Gas Specimen Type ART; FI02 100; Mode AC; O2 Delivery Device Adult Vent; PEEP 15; PO2 79 mmHG (75-100); RR 14; SITE L Radial; SO2 89 % (95-99); Total Carbon Dioxide 32 mmol/L; Vt 500; pCO2 92.8 mmHg (35-45); pH 7.11 (7.35-7.45)
[2021-06-13] MEDS: Propofol 10MG/Ml 1,000 MG/100 ML Bottle 33.5 MG CONT INF ×4 (15:24→23:47)
--- NOTE | 2021-06-13 16:27 | CHAPLAIN ---
Type of Pastoral Visit ___ Initial Visit _x__ Follow-up Visit ___ On-call Visit ___ General Patient Visit ___ Spiritual Assessment ___ Family Conference ___ Bereavement ___ Rapid Response ___ Code Blue ___ Other (describe below) Pastoral Care Referral From ___ Patient ___ Family _x__ Nurse ___ Physician ___ [employer] Fusion Middleware Architect ___ Pigment Mixer ___ Other (describe below) Sacrament/Intervention ___ Active listening ___ Anointing ___ Faith ___ Bereavement ___ Communion ___ Jennifer exploration ___ _x__ Life review _x__ Prayer ___ Reconciliation ___ Sacrament of Sick _x__ Supportive presence ___ Wedding _x__ Other (describe below) Pastoral Comments RN requested support for spouse of patient; spouse has episode of chest pain and is checked out by medical staff; spouse is ok but is then given support and presence by this systems program manager; sat in room with patient and spouse; asked questions for spouse to keep talking and on focus; prayer; met patient's best friend in waiting area for support and presence too
[2021-06-13] MEDS: Heparin Injection (Vial) 5,000 UNIT/ML VIAL IV (19:02)
[2021-06-13] MEDS: TITRATION PARAMETER CHANGE 1 EACH IV (23:30)
[2021-06-14] VITALS (39 sets, daily range): BP systolic 81–116; BP diastolic 49–70; PULSE 71–104; RESP 16–18; TEMP 36.4–37.9; O2SAT 86–100
--- NOTE | 2021-06-14 00:02 | PCM.RX.CS ---
Consult Pharmacy has been consulted to manage selected antiobiotic: Vancomycin Type of Consult: Follow-up Labs: Sodium 135 mmol/L (136-145) L 06/13/21 04:25 Potassium 4.1 mmol/L (3.5-5.1) 06/13/21 04:25 Chloride 102 mmol/L (98-107) 06/13/21 04:25 Carbon Dioxide 28.0 mmol/L (21.0-32.0) 06/13/21 04:25 Anion Gap 5 (5-15) 06/13/21 04:25 BUN 14 mg/dL (7-18) 06/13/21 04:25 Creatinine 0.69 mg/dL (0.70-1.30) L 06/13/21 04:25 Est GFR (MDRD) Af Amer 166 mL/min (>60) 06/13/21 04:25 Est GFR (MDRD) Non-Af 137 mL/min (>60) 06/13/21 04:25 BUN/Creatinine Ratio 20.2 RATIO (10-20) H 06/13/21 04:25 Glucose 116 mg/dL (74-106) H 06/13/21 04:25 Microbiology: Microbiology 06/12/21 13:17 Sputum, Induced/Lukens Gram Stain - Final 06/13/21 08:45 Urine, Clean Catch Legionella Antigen - Final 06/13/21 08:45 Urine, Clean Catch Streptococcus pneumoniae Antigen (M - Final 06/02/21 06:50 Blood Culture (Wb) - Anticubital Left Blood Culture - Final No growth in 5 days. 06/02/21 07:00 Blood Culture (Wb) - Anticubital Right Blood Culture - Final No growth in 5 days. 06/02/21 07:08 Nasal Secretion SARS-CoV-2 Antigen (Rapid) - Final SARS-CoV-2 (COVID 19) Goal Trough: 15-20 mcg/mL Pharmacy Plan for Drug Dosing: Pharmacy Service will continue to monitor and adjust dosing as required. DOSE STARTED BEFORE TROUGH DRAWN, RETIME TROUGH TO NEXT DOSE Follow-Up Labs: Trough Vancomycin Labs to be done on [date and time ordered]: 06/14 @ 0700
[2021-06-14 01:45] LABS: Partial Thromboplast Time 36.5 Seconds (24.1-36.2)
[2021-06-14] MEDS: Heparin Injection (Vial) 5,000 UNIT/ML VIAL IV ×4 (02:28→23:36)
[2021-06-14] MEDS: Propofol 10MG/Ml 1,000 MG/100 ML Bottle 33.5 MG CONT INF ×9 (02:36→22:31)
[2021-06-14 05:01] LABS: Absolute Lymphocyte Count 0.84 X10^3/uL (0.83-4.51); Absolute Neutrophil Count 19.1 X10^3/uL (2.0-7.7); Basophil# 0.06 X10^3/uL; Basophil% 0.3 % (0-1); Eosinophils% 1.4 % (0-5); Hematocrit 38.9 % (40-54); Lymphocyte # 0.84 X10^3/ul (0.83-4.51); Lymphocyte % 3.9 % (19-41); Mean Corp Hgb Conc 30.8 g/dL (32-36); Mean Corpuscular Hgb 28.3 pg (27.0-32.0); Mean Corpuscular Volume 91.7 fL (80-94); Mean Platelet Vol. 8.8 fl (6.2-12.0); Monocyte# 1.07 X10^3/uL; Monocyte% 4.9 % (0-10); NRBC Flagged by Analyzer 0 % (0-5); Neutrophil # 19.07 X10^3/uL (2.7-7.7); Neutrophil % 87.8 % (47-70); Platelet Count 356 K/mm3 (150-450); RBC Distribution Width CV 13.5 % (11.6-14.6); RBC Distribution Width SD 45.7 fl (35.1-43.9); Red Blood Count 4.24 M/mm3 (4.6-6.2); White Blood Count 21.7 K/mm3 (4.4-11.0)
[2021-06-14 05:24] LABS: Anion Gap 4 (5-15); BUN 12 mg/dL (7-18); BUN/Creat Ratio 24.9 RATIO (10-20); Calcium,Total 7.9 mg/dL (8.5-10.1); Chloride 106 mmol/L (98-107); Creatinine, Serum 0.48 mg/dL (0.70-1.30); EST Glomerular Filtration Rate 210 mL/min (>60); Est Glom Filt Rate - Afr Amer 254 mL/min (>60); Estimated Creatinine Clearance 221.79 ml/min; Glucose 106 mg/dL (74-106); Potassium 4.8 mmol/L (3.5-5.1); Sodium Level 138 mmol/L (136-145)
[2021-06-14 05:26] LABS: Base Excess 4 mmol/L (-2 to +2); Bicarbonate 31.6 mmol/L (22-26); Blood Gas Specimen Type ART; FI02 100; Mode AC; O2 Delivery Device Adult Vent; PEEP 15; PO2 99 mmHG (75-100); RR 16; SITE L Radial; SO2 96 % (95-99); Total Carbon Dioxide 34 mmol/L; Vt 500; pCO2 78.4 mmHg (35-45); pH 7.21 (7.35-7.45)
--- NOTE | 2021-06-14 06:48 | PN.CC_ITS ---
Assessment & Plan Assessment/Plan (1) Acute respiratory failure with hypoxia: (2) Pneumonia due to COVID-19 virus: PLAN: RECOMMENDATIONS: 1. Continue patient on assist control mode of mechanical ventilation. Wean FiO2/PEEP to maintain saturations at or above 90%. 2. Attempt to maintain plateau pressures less than 30. 3. Continue empiric antimicrobials. 4. Continue weight-based heparin infusion. 5. Continue propofol and fentanyl for sedation. 6. Continue appropriate GI prophylaxis. 7. Continue diuretic therapy as needed to maintain euvolemic state. 8. Continue Nimbex infusion for at least 24 additional hours. IMPRESSIONS: 1. Acute hypoxemic respiratory failure secondary to COVID-19 pneumonia The patient presented to the hospital with progressive respiratory symptoms and hypoxemia, with symptom onset sometime around May 22. The patient subsequently tested positive for coronavirus. He is unvaccinated. Despite h lisa completed a treatment course of remdesivir and Decadron, the patient has remained quite tenuous from a respiratory perspective. In fact, the patient decompensated from an oxygenation standpoint and ultimately required intubation on June 13. Repeat CTA chest did reveal evidence of pulmonary emboli and significant bilateral infiltrates. Accordingly, the patient will be continued on broad-spectrum antimicrobials along with weight-based heparin infusion. FiO2 and PEEP will be weaned as tolerated. The patient is currently being maintained on a cis atracurium infusion to prevent coughing and ventilator dyssynchrony. Anticipate at least 24 additional hours of pharmacologic paralysis. Continue periodic administration of IV Lasix to maintain euvolemic state. 2. Bilateral pulmonary emboli Continue weight-based heparin infusion for now. 3. Acute kidney injury Resolved. Likely prerenal in etiology. Continue to monitor urine output. No current indication for renal replacement therapy. TIME: 36 minutes of critical care time, inclusive of procedures, was spent addressing the patient's acute hypoxemic respiratory failure secondary to COVID-19 pneumonia, bilateral pulmonary emboli, review of all data and collaboration with care team. ([id number]) Subjective Subjective The patient was seen and examined at the bedside this morning. Events from the last 24 hours have been reviewed. The patient is currently afebrile, hem odynamically stable and maintaining appropriate oxygen saturations on assist control mode mechanical ventilation with an FiO2 requirement of 90% and PEEP of 15. The patient remains on a continuous atracurium infusion. He is currently sedated on propofol and fentanyl the patient. The patient also remains on a continuous heparin infusion. He is currently documented to be overall net -7.6 L for the hospital admission. White blood cell count remains elevated at 22,000. ABG from this morning revealed a pH of 7.21, PCO2 of 78 and PO2 of 99. Chemistry profile remains unremarkable. The patient remains on broad-spectrum antimicrobials. Objective Data Objective Data The patient's most recent lab work, culture data and imaging studies have all been personally reviewed. CTA chest showed no evidence for pulmonary embolism. However, significant bilateral ground glass infiltrates were noted. MRSA screen was negative. Blood cultures have demonstrated no growth to date. Vital Signs: Vital Signs Temp Pulse Resp BP Pulse Ox 97.7 F L 89 16 110/62 97 06/14/21 06:00 06/14/21 06:00 06/14/21 06:00 06/14/21 06:00 06/14/21 06:00 Oxygen Flow Rate (L/min) 60 Oxygen Delivery Method Mechanical Ventilator Weight: 106.2 kg Body Mass Index (BMI) 36.7 Intake & Output: Intake and Output for Last 24 Hours 06/12/21 06/13/21 06/14/21 23:59 23:59 23:59 Intake Total 1060 / 1060 2663.39 / 2694.83 1152.83 / 1152.83 Output Total 2600 / 2900 2125 / 2125 465 / 465 Balance -1540 / -1840 538.39 / 569.83 687.83 / 687.83 Lab / Micro Data Attestation: I reviewed the patient's lab results. Result Diagrams: 06/14/21 04:55 06/14/21 04:55 Labs: Laboratory Results - last 24 hr 06/13/21 08:45: Procalcitonin 0.25 H 06/13/21 08:55: Total Creatine Kinase 30 L, Triglycerides 119 06/13/21 11:50: PT 15.5 H, INR 1.3, APTT 24.1 06/13/21 17:35: APTT 34.0 06/14/21 01:15: APTT 36.5 H 06/14/21 04:55: WBC 21.7 H, RBC 4.24 L, Hgb 12.0 L, Hct 38.9 L, MCV 91.7 D, MCH 28.3, MCHC 30.8 L D, RDW Std Deviation 45.7 H, RDW Coeff of Samantha 13.5, Plt Count 356, MPV 8.8, Immature Gran % (Auto) 1.700 H, Neut % (Auto) 87.8 H, Lymph % (Auto) 3.9 L, Laurel % (Auto) 4.9, Eos % (Auto) 1.4, Baso % (Auto) 0.3, Absolute Neuts (auto) 19.1 H, Absolute Lymphs (auto) 0.84, Nucleated RBC % 0 06/14/21 04:55: Sodium 138, Potassium 4.8, Chloride 106, Carbon Dioxide 28.0, Anion Gap 4 L, BUN 12, Creatinine 0.48 L, Estim Creat Clear Calc 221.79, Est GFR (MDRD) Af Amer 254, Est GFR (MDRD) Non-Af 210, BUN/Creatinine Ratio 24.9 H, Gl ucose 106, Calcium 7.9 L Micro: Microbiology 06/12/21 13:17 Sputum, Induced/Lukens Gram Stain - Final 06/13/21 08:45 Urine, Clean Catch Legionella Antigen - Final 06/13/21 08:45 Urine, Clean Catch Streptococcus pneumoniae Antigen (M - Final 06/02/21 06:50 Blood Culture (Wb) - Anticubital Left Blood Culture - Final No growth in 5 days. 06/02/21 07:00 Blood Culture (Wb) - Anticubital Right Blood Culture - Final No growth in 5 days. 06/02/21 07:08 Nasal Secretion SARS-CoV-2 Antigen (Rapid) - Final SARS-CoV-2 (COVID 19) ABG Data ABG results: ABG 06/13/21 06/13/21 06/14/21 08:08 15:15 05:19 Specimen Type ART ART ART Sample Site L Radial L Radial L Radial pH 7.46 H 7.11 L* 7.21 L Bicarbonate Actual 25.8 29.2 H 31.6 H Total CO2 27 32 34 Base Excess 2 0 4 H O2 Saturation 93 L 89 L 96 O2 % 85 100 100 ABG pCO2 36.2 92.8 H* 78.4 H* ABG pO2 63 L 79 99 Huseyin Test Positive Positive N/A Respiration Rate 14 14 16 O2 Delivery Device BiPAP Adult Vent Adult Vent Vent Mode avaps AC AC Tidal Volume 450 500 500 POC PEEP 10 15 15 Crit Call To/Read Back Yes Yes Blood Gas Notified Whom berny amato Radiography Diagnostic Testing: Radiology Impression Chest CTA 06/13/21 06:32 IMPRESSION: Numerous bilateral subsegmental pulmonary emboli. Progression of pulmonary infiltrates and consolidations compared to 06/02/2021. Electronically Signed: Jerry Miguel MD at 7:34 EDT Tel , Service support , Chest X-Ray 06/13/21 13:32 IMPRESSION: The tip of the endotracheal tube is at 4.8 cm proximal to the chris. The tip of the orogastric tube is in the fundal portion of the stomach. Stable bilateral infiltrates worse in the right upper lobe. Electronically Signed: Jose Kenney MD at 14:14 EDT , Service support , Rhythm Strip Rhythm Strip: Sinus Rhythm Rate: 88 Ectopy: None Physical Exam Const no apparent distress Constitutional Narrative: Pharmacologically paralyzed General Appearance: intubated and patient mechanically ventilated Nutritional Appearance: obese HEENT normocephalic and head/scalp atraumatic Mouth: endotracheal tube in place and OG tube in place Eyes conjunctivae normal Neck supple General: trachea midline Chest inspection of chest normal Resp Auscultation: diminished lung sounds; Negative for rales, rhonchi or wheezes Cardio regular rate and regular rhythm GI normal to inspection, nondistended, normoactive bowel sounds Extremity no clubbing, cyanosis or edema Skin no rashes or lesions noted Neuro Sensorium / Orientation: sedated on vent Charges/Coding Procedures Hospitalists Procedures: [id number] Critial Care 1st Hr
[2021-06-14 07:51] LABS: Vancomycin, Trough Level 15.1 ug/mL (5.0-15.0)
--- NOTE | 2021-06-14 08:20 | PCM.RX.CS ---
Consult Type of Consult: Follow-up Suspected Infection: Pneumonia Labs: Sodium 138 mmol/L (136-145) 06/14/21 04:55 Potassium 4.8 mmol/L (3.5-5.1) 06/14/21 04:55 Chloride 106 mmol/L (98-107) 06/14/21 04:55 Carbon Dioxide 28.0 mmol/L (21.0-32.0) 06/14/21 04:55 Anion Gap 4 (5-15) L 06/14/21 04:55 BUN 12 mg/dL (7-18) 06/14/21 04:55 Creatinine 0.48 mg/dL (0.70-1.30) L 06/14/21 04:55 Est GFR (MDRD) Af Amer 254 mL/min (>60) 06/14/21 04:55 Est GFR (MDRD) Non-Af 210 mL/min (>60) 06/14/21 04:55 BUN/Creatinine Ratio 24.9 RATIO (10-20) H 06/14/21 04:55 Glucose 106 mg/dL (74-106) 06/14/21 04:55 Vancomycin Trough 15.1 ug/mL (5.0-15.0) H 06/14/21 07:00 Microbiology: Microbiology 06/12/21 13:17 Sputum, Induced/Lukens Gram Stain - Final 06/13/21 08:45 Urine, Clean Catch Legionella Antigen - Final 06/13/21 08:45 Urine, Clean Catch Streptococcus pneumoniae Antigen (M - Final 06/02/21 06:50 Blood Culture (Wb) - Anticubital Left Blood Culture - Final No growth in 5 days. 06/02/21 07:00 Blood Culture (Wb) - Anticubital Right Blood Culture - Final No growth in 5 days. 06/02/21 07:08 Nasal Secretion SARS-CoV-2 Antigen (Rapid) - Final SARS-CoV-2 (COVID 19) Goal Trough: 15-20 mcg/mL Pharmacy Plan for Drug Dosing: VANCOMYCIN LEVEL RECEIVED Current Vancomycin Dose: 1500MG Q8H Number of Doses Received: 4 Vancomycin Level: 15.1 Hours Since Last Dose: 6 Renal Function: sCr 0.48 MG/DL Renal Function Trend: STABLE Lab/Micro: Vancomycin Plan/Comments: NO CHANGES MADE TO VANCOMYCIN DOSING REGIMEN AT THIS TIME, CONTINUE WITH 1500MG Q8H. Pending Level: 0700 06/16/21 Pharmacy Service will continue to monitor and adjust dosing as required. Follow-Up Labs: Trough Vancomycin Labs to be done on [date and time ordered]: 06/16/21 0700 VANCOMYCIN LEVEL
[2021-06-14 08:58] LABS: Partial Thromboplast Time 36.7 Seconds (24.1-36.2)
[2021-06-14] MEDS: HEPARIN/D5w 25,000 UNITS 25,000 UNITS/250 ML IV.SOLN. 14 UNITS IV (10:05)
[2021-06-14] MEDS: Lansoprazole 15 MG Capsule.DR 30 MG GT (10:08)
--- NOTE | 2021-06-14 10:14 | CASEMGMT ---
Social Work SW participated in ICU rounds. Pt is now intubated. Physician completed paperwork for pt employer and SW faxed to employer. Phone call to pt Leigha and updated on paperwork and offered emotional support. Leigha states she did speak with nurse this morning and that was helpful in understanding pt condition. Pt tearful, but does state that she has support around her and she has a friend who will drive her to the hospital today to visit pt. SW offered to meet with her or to notify lace cutter when she arrives. Leigha denies at this time. SW will remain available for family support if desired. TIBURCIO Mtz
--- NOTE | 2021-06-14 14:46 | CHAPLAIN ---
Type of Pastoral Visit ___ Initial Visit _x__ Follow-up Visit ___ On-call Visit ___ General Patient Visit ___ Spiritual Assessment ___ Family Conference ___ Bereavement ___ Rapid Response ___ Code Blue ___ Other (describe below) Pastoral Care Referral From ___ Patient ___ Family _x__ Nurse ___ Physician _x__ Wood Boatbuilder ___ Barrel Leveler ___ Other (describe below) Sacrament/Intervention ___ Active listening ___ Anointing ___ Denominational ___ Bereavement ___ Communion ___ Jennifer exploration ___ ___ Life review _x__ Prayer ___ Reconciliation ___ Sacrament of Sick _x__ Supportive presence ___ Wedding ___ Other (describe below) Pastoral Comments follow up visit to patient who is intubated and to his who is now in the room; had just been in to talk with spouse; offered support and presence; prayer is welcomed
[2021-06-14] MEDS: Dexmedetomidine 1,000 mcg in 0.9% NS 240 mL 13.3 MCG CONT INF (14:51)
--- NOTE | 2021-06-14 16:08 | PN.HOSP_ITS ---
Subjective Subjective Patient seen and examined. He was intubated after decompensating respiratory simon in the afternoon of June 13. He is also paralyzed with cisatracurium. He remains on heparin drip for bilateral PE and on broad-spectrum antimicrobials. No other active issues per his nurse. Objective Data Objective Data Vital Signs: Vital Signs Temp Pulse Resp BP Pulse Ox 99.0 F 98 16 105/65 100 06/14/21 12:00 06/14/21 14:15 06/14/21 14:15 06/14/21 13:00 06/14/21 14:15 Oxygen Flow Rate (L/min) 60 Oxygen Delivery Method Mechanical Ventilator Weight: 234 lb 2.095 oz Body Mass Index (BMI) 36.7 Intake & Output: Intake and Output for Last 24 Hours 06/12/21 06/13/21 06/14/21 23:59 23:59 23:59 Intake Total 1060 / 1060 2663.39 / 2694.83 2685.00 / 2685.00 Output Total 2600 / 2900 2125 / 2125 965 / 965 Balance -1540 / -1840 538.39 / 569.83 1720.00 / 1720.00 Lab / Micro Data Result Diagrams: 06/14/21 04:55 06/14/21 04:55 Labs: Laboratory Results - last 24 hr 06/13/21 17:35: APTT 34.0 06/14/21 01:15: APTT 36.5 H 06/14/21 04:55: WBC 21.7 H, RBC 4.24 L, Hgb 12.0 L, Hct 38.9 L, MCV 91.7 D, MCH 28.3, MCHC 30.8 L D, RDW Std Deviation 45.7 H, RDW Coeff of Samantha 13.5, Plt Count 356, MPV 8.8, Immature Gran % (Auto) 1.700 H, Neut % (Auto) 87.8 H, Lymph % (Auto) 3.9 L, Dickenson % (Auto) 4.9, Eos % (Auto) 1.4, Baso % (Auto) 0.3, Absolute Neuts (auto) 19.1 H, Absolute Lymphs (auto) 0.84, Nucleated RBC % 0 06/14/21 04:55: Sodium 138, Potassium 4.8, Chloride 106, Carbon Dioxide 28.0, Anion Gap 4 L, BUN 12, Creatinine 0.48 L, Estim Creat Clear Calc 221.79, Est GFR (MDRD) Af Amer 254, Est GFR (MDRD) Non-Af 210, BUN/Creatinine Ratio 24.9 H, Glucose 106, Calcium 7.9 L 06/14/21 07:00: Vancomycin Trough 15.1 H 06/14/21 08:30: APTT 36.7 H Micro: Microbiology 06/14/21 07:20 Sputum, Induced/Lukens Gram Stain - Final 06/12/21 13:17 Sputum, Induced/Lukens Gram Stain - Final 06/13/21 08:45 Urine, Clean Catch Legionella Antigen - Final 06/13/21 08:45 Urine, Clean Catch Streptococcus pneumoniae Antigen (M - Final 06/02/21 06:50 Blood Culture (Wb) - Anticubital Left Blood Culture - Final No growth in 5 days. 06/02/21 07:00 Blood Culture (Wb) - Anticubital Right Blood Culture - Final No growth in 5 days. 06/02/21 07:08 Nasal Secretion SARS-CoV-2 Antigen (Rapid) - Final SARS-CoV-2 (COVID 19) ABG Data ABG results: ABG 06/14/21 05:19 Specimen Type ART Sample Site L Radial pH 7.21 L Bicarbonate Actual 31.6 H Total CO2 34 Base Excess 4 H O2 Saturation 96 O2 % 100 ABG pCO2 78.4 H* ABG pO2 99 Huseyin Test N/A Respiration Rate 16 O2 Delivery Device Adult Vent Vent Mode AC Tidal Volume 500 POC PEEP 15 Crit Call To/Read Back Yes Blood Gas Notified Whom Rhythm Strip Rhythm Strip: Sinus Rhythm Rate: 88 Ectopy: None Physical Exam Const Constitutional Narrative: intubated, sedated, paralysed. RASS score is -4 General Appearance: cooperative Exam Limitations: altered mental status HEENT normocephalic, head/scalp atraumatic, hearing grossly normal bilaterally, moist oral mucous membranes and dentition normal Head and Scalp: normocephalic Eyes PERRL, EOMs intact bilaterally and conjunctivae normal Neck no lymphadenopathy, supple and no JVD Neck Narrative: Trachea midline, no thyromegaly Resp Resp Narrative: intubated, sedated, Auscultation: diminished lung sounds Cardio regular rate, regular rhythm, S1 normal heart sound, S2 normal heart sound, no murmurs, no rub, no gallops, no clicks and no JVD Cardio Narrative: still tachypneic, normal S1 and S2. no murmurs GI normal to inspection, nondistended, normoactive bowel sounds, soft to palpation, non-tender and non-distended; Negative for hepatosplenomegaly Extremity normal to inspection, full ROM and no clubbing, cyanosis or edema Peripheral Pulses: Yes pulses 2+ throughout Skin no rashes or lesions noted, no wounds, skin turgor normal, no jaundice, no petechiae and no mottling Neuro Neuro Narrative: intubated, sedated, RASS score is -4 Psych Mood & Affect: flat affect Assessment & Plan Assessment/Plan (1) Sepsis: (2) Acute respiratory failure with hypoxia: (3) Pneumonia due to COVID-19 virus: (4) MALAIKA (acute kidney injury): (5) Hyperbilirubinemia: PLAN: #Acute hypoxic respiratory failure due to COVID 19 infection. * was emergently intubated and sedated yesterday. * on heparin drip for bilateral PE * on intermittent IV lasix * vent management as per critical care. * completed remdesivir and to complete a 10 day course of decadron * on IV vancomycin and zosyn for superimposed bactereial pneumonia. * #Pulmonary embolism * CTA reading as above. * on heparin drip * #MALAIKA: resolved. DVT prophylaxis:patient now on heparin drip for PE Prognosis: patient is very ill and deteriorating. Prognosis is guarded. Charges/Coding Visit Charges Inpatient E&M: 55708 [facility] Hosp L3
[2021-06-14] MEDS: TITRATION PARAMETER CHANGE 1 EACH IV (20:20)
[2021-06-14 23:14] LABS: Partial Thromboplast Time 42.5 Seconds (24.1-36.2)
[2021-06-15] VITALS (39 sets, daily range): BP systolic 86–116; BP diastolic 51–85; PULSE 24–112; RESP 16–27; TEMP 37.7–38; O2SAT 64–97
[2021-06-15] MEDS: HEPARIN/D5w 25,000 UNITS 25,000 UNITS/250 ML IV.SOLN. 17 UNITS IV (00:54)
[2021-06-15] MEDS: Propofol 10MG/Ml 1,000 MG/100 ML Bottle 33.5 MG CONT INF ×2 (01:19→04:19)
[2021-06-15] MEDS: Dexmedetomidine 1,000 mcg in 0.9% NS 240 mL 15.9 MCG CONT INF (05:23)
--- NOTE | 2021-06-15 05:55 | PN.CC_ITS ---
Assessment & Plan Assessment/Plan (1) Acute respiratory failure with hypoxia: (2) Pneumonia due to COVID-19 virus: PLAN: RECOMMENDATIONS: 1. Continue patient on assist control mode of mechanical ventilation. Wean FiO2/PEEP to maintain saturations at or above 90%. 2. Attempt to maintain plateau pressures less than 30. 3. Continue empiric antimicrobials. 4. Continue weight-based heparin infusion. 5. Continue propofol, fentanyl and Precedex for sedation. 6. Continue appropriate GI prophylaxis. 7. Continue diuretic therapy as needed to maintain euvolemic state. 8. Continue Nimbex infusion. Will attempt to wean paralytic over the course of the day. IMPRESSIONS: 1. Acute hypoxemic respiratory failure secondary to COVID-19 pneumonia The patient presented to the hospital with progressive respiratory symptoms and hypoxemia, with symptom onset sometime around May 22. The patient subsequently tested positive for coronavirus. He is unvaccinated. Despite having completed a treatment course of remdesivir and Decadron, the patient has remained quite tenuous from a respiratory perspective. In fact, the patient decompensated from an oxygenation standpoint and ultimately required intubation on June 13. Repeat CTA chest did reveal evidence of pulmonary emboli and significant bilateral infiltrates. Accordingly, the patient will be continued on broad-spectrum antimicrobials along with weight-based heparin infusion. FiO2 and PEEP will be weaned as tolerated. The patient is currently being maintained on a cis atracurium infusion to prevent coughing and ventilator dyssynchrony. Continue periodic administration of IV Lasix to maintain euvolemic state. 2. Bilateral pulmonary emboli Continue weight-based heparin infusion for now. 3. Acute kidney injury Resolved. Likely prerenal in etiology. Continue to monitor urine output. No current indication for renal replacement therapy. TIME: 38 minutes of critical care time, inclusive of procedures, was spent addressing the patient's acute hypoxemic respiratory failure secondary to COVID-19 pneumonia, bilateral pulmonary emboli, review of all data and collaboration with care team. ([id number]) Subjective Subjective The patient was seen and examined at the bedside this morning. Events from the last 24 hours have been reviewed. The patient currently has low-grade fevers with borderline blood pressure readings. Last evening, the patient did have to be started transiently on vasopressor support due to hemodynamic instability that developed as a consequence of sedative medication use. However, over the course of the night, his Levophed was able to be weaned off completely. He remains sedated on propofol, fentanyl and Precedex. The patient remains on a continuous atracurium infusion. He remains on assist control mode of mechanical ventilation with an FiO2 requirement of 80% and PEEP of 10. He is currently documented to be overall net -5 L for the hospital admission. Arterial blood g as obtained this morning revealed a pH of 7.3, PCO2 of 69 and PO2 of 63. Objective Data Objective Data The patient's most recent lab work, culture data and imaging studies have all been personally reviewed. CTA chest showed no evidence for pulmonary embolism. However, significant bilateral ground glass infiltrates were noted. MRSA screen was negative. Blood cultures have demonstrated no growth to date. Vital Signs: Vital Signs Temp Pulse Resp BP Pulse Ox 100 F H 71 17 97/54 L 90 06/15/21 04:00 06/15/21 04:00 06/15/21 04:00 06/15/21 04:00 06/15/21 04:00 Oxygen Flow Rate (L/min) 60 Oxygen Delivery Method Mechanical Ventilator Weight: 109.2 kg Body Mass Index (BMI) 36.7 Intake & Output: Intake and Output for Last 24 Hours 06/13/21 06/14/21 06/15/21 23:59 23:59 23:59 Intake Total 2663.39 / 2694.83 4240.98 / 4323.96 1237.92 / 1237.92 Output Total 2125 / 2125 1790 / 1790 320 / 320 Balance 538.39 / 569.83 2450.98 / 2533.96 917.92 / 917.92 Lab / Micro Data Attestation: I reviewed the patient's lab results. Result Diagrams: 06/15/21 05:40 06/15/21 05:40 Labs: Laboratory Results - last 24 hr 06/14/21 07:00: Vancomycin Trough 15.1 H 06/14/21 08:30: APTT 36.7 H 06/14/21 16:00: APTT 38.0 H 06/14/21 22:50: APTT 42.5 H Micro: Microbiology 06/14/21 07:20 Sputum, Induced/Lukens Gram Stain - Final 06/12/21 13:17 Sputum, Induced/Lukens Gram Stain - Final 06/13/21 08:45 Urine, Clean Catch Legionella Antigen - Final 06/13/21 08:45 Urine, Clean Catch Streptococcus pneumoniae Antigen (M - Final 06/02/21 06:50 Blood Culture (Wb) - Anticubital Left Blood Culture - Final No growth in 5 days. 06/02/21 07:00 Blood Culture (Wb) - Anticubital Right Blood Culture - Final No growth in 5 days. 06/02/21 07:08 Nasal Secretion SARS-CoV-2 Antigen (Rapid) - Final SARS-CoV-2 (COVID 19) Rhythm Strip Rhythm Strip: Sinus Rhythm Rate: 88 Ectopy: None Physical Exam Const no apparent distress Constitutional Narrative: Pharmacologically paralyzed General Appearance: intubated and patient mechanically ventilated Nutritional Appearance: obese HEENT normocephalic and head/scalp atraumatic Mouth: endotracheal tube in place and OG tube in place Eyes conjunctivae normal Neck supple General: trachea midline Chest inspection of chest normal Resp Auscultation: diminished lung sounds; Negative for rales, rhonchi or wheezes Cardio regular rate and regular rhythm GI normal to inspection, nondistended, normoactive bowel sounds Extremity General Extremity: edema bilateral lower extremity; Negative for clubbing Skin no rashes or lesions noted Neuro Sensorium / Orientation: sedated on vent Charges/Coding Procedures Hospitalists Procedures: [id number] Critial Care 1st Hr
[2021-06-15 05:56] LABS: Absolute Lymphocyte Count 1.24 X10^3/uL (0.83-4.51); Basophil# 0.02 X10^3/uL; Basophil% 0.2 % (0-1); Eosinophil# 0.32 X10^3/uL; Eosinophils% 2.8 % (0-5); Hematocrit 35.3 % (40-54); Lymphocyte # 1.24 X10^3/ul (0.83-4.51); Mean Corp Hgb Conc 31.2 g/dL (32-36); Mean Corpuscular Hgb 28.4 pg (27.0-32.0); Mean Corpuscular Volume 91.2 fL (80-94); Mean Platelet Vol. 8.8 fl (6.2-12.0); Monocyte# 0.57 X10^3/uL; NRBC Flagged by Analyzer 0 % (0-5); Neutrophil # 9.04 X10^3/uL (2.7-7.7); Neutrophil % 79.9 % (47-70); Platelet Count 321 K/mm3 (150-450); RBC Distribution Width CV 13.2 % (11.6-14.6); RBC Distribution Width SD 44.4 fl (35.1-43.9); Red Blood Count 3.87 M/mm3 (4.6-6.2); White Blood Count 11.3 K/mm3 (4.4-11.0)
[2021-06-15 06:09] LABS: Partial Thromboplast Time 45.9 Seconds (24.1-36.2)
[2021-06-15 06:10] LABS: Anion Gap 3 (5-15); BUN 10 mg/dL (7-18); BUN/Creat Ratio 16.4 RATIO (10-20); Calcium,Total 7.9 mg/dL (8.5-10.1); Chloride 103 mmol/L (98-107); Creatinine, Serum 0.61 mg/dL (0.70-1.30); EST Glomerular Filtration Rate 160 mL/min (>60); Est Glom Filt Rate - Afr Amer 193 mL/min (>60); Estimated Creatinine Clearance 174.52 ml/min; Glucose 73 mg/dL (74-106); Potassium 4.1 mmol/L (3.5-5.1); Sodium Level 139 mmol/L (136-145)
[2021-06-15 06:41] LABS: Allen Test Positive; Base Excess 7 mmol/L (-2 to +2); Bicarbonate 33.8 mmol/L (22-26); Blood Gas Specimen Type ART; FI02 80; Mode AC; O2 Delivery Device Adult Vent; PEEP 10; PO2 63 mmHG (75-100); RR 16; SITE L Radial; SO2 88 % (95-99); Total Carbon Dioxide 36 mmol/L; Vt 500; pCO2 68.9 mmHg (35-45)
[2021-06-15] MEDS: Heparin Injection (Vial) 5,000 UNIT/ML VIAL IV ×3 (06:41→21:09)
[2021-06-15] MEDS: TITRATION PARAMETER CHANGE 1 EACH IV ×2 (07:06→16:06)
[2021-06-15] MEDS: Propofol 10MG/Ml 1,000 MG/100 ML Bottle 32.8 MG CONT INF ×4 (07:20→15:30)
[2021-06-15] MEDS: 0.9% Saline Lock 10 ML Syringe IV ×4 (08:14→14:29)
--- NOTE | 2021-06-15 09:22 | NURSING ---
0925 prep for line placement. Yadiel Farris MATERIAL COORDINATOR present HR 51 R 20 BP 100/58 71 spO2 86 0930 HR 67 R 17 BP 95/53 67 SpO2 93 100% FiO2 intermiitant levi to 52 0935 HR 66 R 18 BP 95/52 65 SpO2 94 wire in 0940 HR 68 R 19 BP 94/54 67 SpO2 [address] cxr ordered
--- NOTE | 2021-06-15 09:33 | CASEMGMT ---
SW called , offered support. SW remains available for support to family. JUAN Sesay
--- NOTE | 2021-06-15 09:35 | RAD_ITS ---
STUDY: X-RAY CHEST REASON FOR EXAM: Male, 35 years old. RIJ tl placement TECHNIQUE: Single AP portable view of the chest. COMPARISON: June 13, 2021 FINDINGS: Central catheter on the right extends to the cavoatrial junction. Endotracheal tube, 3 cm above the chris. Feeding tube extends to the stomach in the upper abdomen. There are stable moderate groundglass and airspace opacities of the bilateral lungs. There is no demonstrated pleural abnormality. Normal size heart. Normal mediastinum and kristie. Normal visualized pulmonary arteries. Normal visualized aortic arch and descending thoracic aorta. Normal visualized thoracic spine. Normal visualized ribs, clavicles, and shoulders. There is no demonstrated abnormality of the visualized soft tissue structures of the upper abdomen. RAD/CXR for Line Placement IMPRESSION: Central catheter placement. No pneumothorax. Stable endotracheal tube and feeding tube. Stable bilateral pneumonia. Electronically Signed: Alistair Mclean MD at 10:27 EDT , Service support ,
--- NOTE | 2021-06-15 09:54 | PCM.OP.BLANK ---
Operative Report Date of Procedure: 06/15/21 Central line placement procedure note Indication: IV access/hemodynamic instability/vasoactive medications Procedure: A time-out was completed to verify correct patient, indication, medication allergies, procedure, coagulation studies, informed consent signed, and equipment needed. The patient was placed in the supine position for a central line placement to the rt IJ vein. The patients rt neck was prepped using chlorhexidine and a full body sterile drape was applied. 1% lidocaine was used to anesthetize the surrounding skin. A 7fr 16 cm blue guard triple lumen catheter introduced into the internal jugular vein using the modified Seldinger technique with the assistance of ultrasound. The catheter was threaded smoothly over the guidewire, the guidewire was removed easily, nonpulsatile blood returned. All ports were aspirated of air and flushed with sterile saline. The catheter was sutured in place and covered with an occlusive dressing impregnated with chlorhexidine. Post-procedure: The patient tolerated the procedure well. Vital signs remained stable. EBL 3 cc. No complications. Chest X Ray ordered to confirm tip placement and the absence of pneumothorax. Procedures Hospitalists Procedures: 57212 Insert Non-tunnel CV Cath
[2021-06-15] MEDS: HEPARIN/D5w 25,000 UNITS 25,000 UNITS/250 ML IV.SOLN. 18 UNITS IV (10:25)
[2021-06-15] MEDS: Lansoprazole 15 MG Capsule.DR 30 MG GT (10:42)
[2021-06-15] MEDS: QUEtiapine 100 MG Tablet PO ×2 (10:42→21:02)
[2021-06-15] MEDS: Furosemide 40 MG/4 ML Vial IV (10:44)
[2021-06-15] MEDS: Dexmedetomidine 1,000 mcg in 0.9% NS 240 mL 16.4 MCG CONT INF (10:50)
--- NOTE | 2021-06-15 15:40 | PN.HOSP_ITS ---
Subjective Subjective Patient seen and examined. He remains intubated and sedated. He has been having low grade fevers. He had an internal jugular central line inserted today. He was initiated on levophed overnight, but was subsequently weaned off. He remains on cis atracurium to paralyse him and prevent coughing and ventilator dyssynchrony. Objective Data Objective Data Vital Signs: Vital Signs Temp Pulse Resp BP Pulse Ox 100.0 F H 74 16 86/52 L 93 06/15/21 14:00 06/15/21 15:00 06/15/21 14:00 06/15/21 14:00 06/15/21 14:00 Oxygen Flow Rate (L/min) 60 Oxygen Delivery Method Mechanical Ventilator Weight: 240 lb 11.916 oz Body Mass Index (BMI) 36.7 Intake & Output: Intake and Output for Last 24 Hours 06/13/21 06/14/21 06/15/21 23:59 23:59 23:59 Intake Total 2663.39 / 2694.83 4240.98 / 4323.96 3136.59 / 3136.59 Output Total 2125 / 2125 1790 / 1790 2500 / 2500 Balance 538.39 / 569.83 2450.98 / 2533.96 636.59 / 636.59 Lab / Micro Data Result Diagrams: 06/15/21 05:40 06/15/21 05:40 Labs: Laboratory Results - last 24 hr 06/14/21 16:00: APTT 38.0 H 06/14/21 22:50: APTT 42.5 H 06/15/21 05:40: WBC 11.3 H, RBC 3.87 L, Hgb 11.0 L, Hct 35.3 L, MCV 91.2, MCH 28.4, MCHC 31.2 L, RDW Std Deviation 44.4 H, RDW Coeff of Samantha 13.2, Plt Count 321, MPV 8.8, Immature Gran % (Auto) 1.100 H, Neut % (Auto) 79.9 H, Lymph % (Auto) 11.0 L, [place] % (Auto) 5.0, Eos % (Auto) 2.8, Baso % (Auto) 0.2, Absolute Neuts (auto) 9.0 H, Absolute Lymphs (auto) 1.24, Nucleated RBC % 0 06/15/21 05:40: Sodium 139, Potassium 4.1, Chloride 103, Carbon Dioxide 33.0 H, Anion Gap 3 L, BUN 10, Creatinine 0.61 L, Estim Creat Clear Calc 174.52, Est GFR (MDRD) Af Amer 193, Est GFR (MDRD) Non-Af 160, BUN/Creatinine Ratio 16.4, Glucose 73 L, Calcium 7.9 L 06/15/21 05:40: APTT 45.9 H 06/15/21 13:30: APTT 52.0 H Micro: Microbiology 06/14/21 07:20 Sputum, Induced/Lukens Gram Stain - Final 06/14/21 07:20 Sputum, Induced/Lukens Respiratory Culture - Preliminary Culture exhibits no growth. 06/12/21 13:17 Sputum, Induced/Lukens Gram Stain - Final 06/13/21 08:45 Urine, Clean Catch Legionella Antigen - Final 06/13/21 08:45 Urine, Clean Catch Streptococcus pneumoniae Antigen (M - Final 06/02/21 06:50 Blood Culture (Wb) - Anticubital Left Blood Culture - Final No growth in 5 days. 06/02/21 07:00 Blood Culture (Wb) - Anticubital Right Blood Culture - Final No growth in 5 days. 06/02/21 07:08 Nasal Secretion SARS-CoV-2 Antigen (Rapid) - Final SARS-CoV-2 (COVID 19) ABG Data ABG results: ABG 06/15/21 06:35 Specimen Type ART Sample Site L Radial pH 7.30 L Bicarbonate Actual 33.8 H Total CO2 36 Base Excess 7 H O2 Saturation 88 L O2 % 80 ABG pCO2 68.9 H* ABG pO2 63 L Huseyin Test Positive Respiration Rate 16 O2 Delivery Device Adult Vent Vent Mode AC Tidal Volume 500 POC PEEP 10 Crit Call To/Read Back Yes Blood Gas Notified Whom brown Radiography Diagnostic Testing: Radiology Impression Chest X-Ray 06/15/21 09:35 IMPRESSION: Central catheter placement. No pneumothorax. Stable endotracheal tube and feeding tube. Stable bilateral pneumonia. Electronically Signed: Alistair Mclean MD at 10:27 EDT , Service support , Rhythm Strip Rhythm Strip: Sinus Rhythm Rate: 88 Ectopy: None Physical Exam Const Constitutional Narrative: intubated, sedated, paralysed. RASS score is -4 General Appearance: cooperative Exam Limitations: altered mental status HEENT normocephalic, head/scalp atraumatic, hearing grossly normal bilaterally, moist oral mucous membranes and dentition normal Head and Scalp: normocephalic Eyes PERRL, EOMs intact bilaterally and conjunctivae normal Neck no lymphadenopathy, supple and no JVD Neck Narrative: Trachea midline, no thyromegaly Resp normal respiratory effort, no retractions and no use of accessory muscles Resp Narrative: intubated, sedated, RASS score is -4 Auscultation: diminished lung sounds Cardio regular rate, regular rhythm, S1 normal heart sound, S2 normal heart sound, no murmurs, no rub, no gallops, no clicks and no JVD Cardio Narrative: still tachypneic, normal S1 and S2. no murmurs GI normal to inspection, nondistended, normoactive bowel sounds, soft to palpation, non-tender and non-distended; Negative for hepatosplenomegaly Extremity normal to inspection, full ROM and no clubbing, cyanosis or edema Peripheral Pulses: Yes pulses 2+ throughout Skin no rashes or lesions noted, no wounds, skin turgor normal, no jaundice, no petechiae and no mottling Neuro Neuro Narrative: intubated, sedated, RASS score is -4 Psych Psych Narrative: RASS score is -4 Mood & Affect: flat affect Assessment & Plan Assessment/Plan (1) Sepsis: (2) Acute respiratory failure with hypoxia: (3) Pneumonia due to COVID-19 virus: (4) MALAIKA (acute kidney injury): (5) Hyperbilirubinemia: PLAN: #Acute hypoxic respiratory failure due to COVID 19 infection. * intubated and sedated. * on heparin drip for bilateral PE * on intermittent IV lasix * vent management as per critical care. * completed remdesivir and to complete a 10 day course of decadron * on IV vancomycin and zosyn for superimposed bacterial pneumonia. * in cumulative positive balance by 5.29L * #Pulmonary embolism * CTA reading as above. * on heparin drip * #MALAIKA: resolved. DVT prophylaxis:patient now on heparin drip for PE Prognosis: patient is very ill and deteriorating. Prognosis is guarded. Charges/Coding Visit Charges Inpatient E&M: 50581 Subs Hosp L3
[2021-06-15] MEDS: Propofol 10MG/Ml 1,000 MG/100 ML Bottle 29.5 MG CONT INF ×2 (18:42→21:33)
[2021-06-15] MEDS: Dexmedetomidine 1,000 mcg in 0.9% NS 240 mL 41 MCG CONT INF (19:24)
[2021-06-15 20:46] LABS: Partial Thromboplast Time 53.7 Seconds (24.1-36.2)
[2021-06-15] MEDS: HEPARIN/D5w 25,000 UNITS 25,000 UNITS/250 ML IV.SOLN. 20 UNITS IV (22:42)
[2021-06-16] VITALS (40 sets, daily range): BP systolic 83–124; BP diastolic 52–81; PULSE 62–89; RESP 16–47; TEMP 36.8–38.3; O2SAT 85–97
[2021-06-16] MEDS: Propofol 10MG/Ml 1,000 MG/100 ML Bottle 29.5 MG CONT INF ×2 (00:27→03:20)
[2021-06-16] MEDS: Dexmedetomidine 1,000 mcg in 0.9% NS 240 mL 41 MCG CONT INF ×4 (01:37→19:45)
[2021-06-16 02:50] LABS: Absolute Lymphocyte Count 1.22 X10^3/uL (0.83-4.51); Absolute Neutrophil Count 9.4 X10^3/uL (2.0-7.7); Basophil# 0.02 X10^3/uL; Basophil% 0.2 % (0-1); Eosinophil# 0.28 X10^3/uL; Eosinophils% 2.4 % (0-5); Hematocrit 34.6 % (40-54); Lymphocyte # 1.22 X10^3/ul (0.83-4.51); Lymphocyte % 10.4 % (19-41); Mean Corp Hgb Conc 31.8 g/dL (32-36); Mean Corpuscular Hgb 28.4 pg (27.0-32.0); Mean Corpuscular Volume 89.2 fL (80-94); Mean Platelet Vol. 8.6 fl (6.2-12.0); Monocyte# 0.63 X10^3/uL; Monocyte% 5.4 % (0-10); NRBC Flagged by Analyzer 0 % (0-5); Neutrophil # 9.43 X10^3/uL (2.7-7.7); Neutrophil % 80.5 % (47-70); Platelet Count 325 K/mm3 (150-450); RBC Distribution Width SD 42.7 fl (35.1-43.9); Red Blood Count 3.88 M/mm3 (4.6-6.2); White Blood Count 11.7 K/mm3 (4.4-11.0)
[2021-06-16 03:04] LABS: Partial Thromboplast Time 54.2 Seconds (24.1-36.2)
[2021-06-16 03:15] LABS: Anion Gap 4 (5-15); BUN 9 mg/dL (7-18); BUN/Creat Ratio 16.3 RATIO (10-20); Calcium,Total 7.8 mg/dL (8.5-10.1); Chloride 104 mmol/L (98-107); Creatinine, Serum 0.55 mg/dL (0.70-1.30); EST Glomerular Filtration Rate 179 mL/min (>60); Est Glom Filt Rate - Afr Amer 217 mL/min (>60); Estimated Creatinine Clearance 193.56 ml/min; Glucose 82 mg/dL (74-106); Potassium 3.4 mmol/L (3.5-5.1); Sodium Level 141 mmol/L (136-145)
[2021-06-16] MEDS: Acetaminophen 650 MG/20 ML UDC GT ×3 (03:34→17:04)
[2021-06-16] MEDS: 0.9% Saline Lock 10 ML Syringe IV ×5 (03:36→09:06)
[2021-06-16] MEDS: Succinylcholine Chloride 200 MG/10 ML Vial 100 MG IV (03:50)
--- NOTE | 2021-06-16 04:00 | RAD_ITS ---
STUDY: X-RAY CHEST REASON FOR EXAM: Male, 35 years old. Tube placement TECHNIQUE: Portable, semierect, AP chest radiograph COMPARISON: 06/15/2021 RAD/Chest 1 View (Portable) IMPRESSION: Endotracheal tube terminates 3.5 cm above the chris. Similar diffuse lung opacities. Right IJ central catheter and enteric tube remain. Electronically Signed: Jerry Miguel MD at 4:47 EDT Tel , Service support ,
[2021-06-16] MEDS: Succinylcholine Chloride 200 MG/10 ML Vial IV (04:10)
[2021-06-16] MEDS: Heparin Injection (Vial) 5,000 UNIT/ML VIAL IV (04:19)
[2021-06-16] MEDS: TITRATION PARAMETER CHANGE 1 EACH IV ×2 (04:34→05:46)
--- NOTE | 2021-06-16 04:55 | PN.CC_ITS ---
Assessment & Plan Assessment/Plan (1) Acute respiratory failure with hypoxia: (2) Pneumonia due to COVID-19 virus: PLAN: RECOMMENDATIONS: 1. Continue patient on assist control mode of mechanical ventilation. Wean FiO2/PEEP to maintain saturations at or above 90%. 2. Attempt to maintain plateau pressures less than 30. 3. Continue antimicrobials. 4. Continue therapeutic anticoagulation. 5. Continue current sedation regimen and maintain deep level of sedation to prevent coughing and ventilator dyssynchrony. 6. Continue appropriate GI prophylaxis. 7. Continue diuretic therapy as needed to maintain euvolemic state. 8. Potassium repletion as ordered. 9. Check triglycerides and CK. 10. Continue Levophed to maintain a mean arterial pressure at or above 65 mmHg. 11. Increase Seroquel dosing and restart Decadron. IMPRESSIONS: 1. Acute hypoxemic respiratory failure secondary to COVID-19 pneumonia The patient presented to the hospital with progressive respiratory symptoms and hypoxemia, with symptom onset sometime around May 22. The patient subsequently tested positive for coronavirus. He is unvaccinated. Despite having completed a treatment course of remdesivir and Decadron, the patient has remained quite tenuous from a respiratory perspective. In fact, the patient decompensated from an oxygenation standpoint and ultimately required intubation on June 13. Repeat CTA chest did reveal evidence of pulmonary emboli and significant bilateral infiltrates. Accordingly, the patient will be continued on broad-spectrum antimicrobials along with therapeutic anticoagulation. The patient has been weaned from his paralytic therapy. Maintain deep level of sedation in order to prevent coughing and further ventilator dyssynchrony. We will continue IV diuretic therapy today. Decadron has been restarted as well. The patient can be started on tube feeds today from my perspective. 2. Distributive shock The patient developed hypotension as a consequence of sedative medication use. Plan to continue current supportive measures including Levophed to maintain a mean arterial pressure at or above 65 mmHg. 3. Bilateral pulmonary emboli Continue therapeutic anticoagulation with Lovenox as ordered. 4. Hypokalemia Electrolyte repletion as ordered. Recheck levels in the morning. TIME: 37 minutes of critical care time, independent of procedures, was spent addressing the patient's acute hypoxemic respiratory failure secondary to COVID- 19 pneumonia, bilateral pulmonary emboli, distributive shock, review of all data and collaboration with care team. ([id number]) Subjective Subjective The patient was seen and examined at the bedside this morning. Events from the last 24 hours have been reviewed. The patient was able to be weaned off of cisatracurium over the last 12 hours. However, as a consequence of discontinua tion of paralytic therapy, the patient became increasingly agitated and dyssynchronous with the ventilator. The patient also was experiencing frequent paroxysms of coughing, which also led to further ventilator dyssynchrony. Therefore, his sedation regimen was further escalated and now includes propofol, fentanyl, Precedex and a Versed infusion. The patient has been febrile with a temperature this morning noted to be 101 ?F. He is currently documented to be overall net -5.1 L for the hospital admission. The patient remains on broad- spectrum antimicrobials along with low-dose Levophed at 5 mcg/min to maintain hemodynamic stability. He remains stable on assist control mode of mechanical ventilation with an FiO2 requirement of 60% and PEEP of 10. He remains therapeutically anticoagulated on Lovenox twice daily. Decadron was once again restarted this morning. Repeat chest x-ray from this morning revealed an appropriately positioned endotracheal tube with continued bilateral airspace opacities. Objective Data Objective Data The patient's most recent lab work, culture data and imaging studies have all be en personally reviewed. CTA chest showed no evidence for pulmonary embolism. However, significant bilateral ground glass infiltrates were noted. MRSA screen was negative. Blood cultures have demonstrated no growth to date. Sputum culture dated June 12 was positive for Moraxella. Vital Signs: Vital Signs Temp Pulse Resp BP Pulse Ox 101.0 F H 79 47 H 83/52 L 97 06/16/21 04:00 06/16/21 04:00 06/16/21 04:00 06/16/21 04:10 06/16/21 04:00 Oxygen Flow Rate (L/min) 60 Oxygen Delivery Method Mechanical Ventilator Weight: 109.2 kg Body Mass Index (BMI) 36.7 Intake & Output: Intake and Output for Last 24 Hours 06/14/21 06/15/21 06/16/21 23:59 23:59 23:59 Intake Total 4240.98 / 4323.96 4567.88 / 4758.38 1283.69 / 1283.69 Output Total 1790 / 1790 4525 / 4525 950 / 950 Balance 2450.98 / 2533.96 42.88 / 233.38 333.69 / 333.69 Lab / Micro Data Attestation: I reviewed the patient's lab results. Result Diagrams: 06/16/21 02:45 06/16/21 02:45 Labs: Laboratory Results - last 24 hr 06/15/21 05:40: WBC 11.3 H, RBC 3.87 L, Hgb 11.0 L, Hct 35.3 L, MCV 91.2, MCH 28.4, MCHC 31.2 L, RDW Std Deviation 44.4 H, RDW Coeff of Samantha 13.2, Plt Count 321, MPV 8.8, Immature Gran % (Auto) 1.100 H, Neut % (Auto) 79.9 H, Lymph % (Auto) 11.0 L, [place] % (Auto) 5.0, Eos % (Auto) 2.8, Baso % (Auto) 0.2, Absolute Neuts (auto) 9.0 H, Absolute Lymphs (auto) 1.24, Nucleated RBC % 0 06/15/21 05:40: Sodium 139, Potassium 4.1, Chloride 103, Carbon Dioxide 33.0 H, Anion Gap 3 L, BUN 10, Creatinine 0.61 L, Estim Creat Clear Calc 174.52, Est GFR (MDRD) Af Amer 193, Est GFR (MDRD) Non-Af 160, BUN/Creatinine Ratio 16.4, Glucose 73 L, Calcium 7.9 L 06/15/21 05:40: APTT 45.9 H 06/15/21 13:30: APTT 52.0 H 06/15/21 20:00: APTT 53.7 H 06/16/21 02:45: WBC 11.7 H, RBC 3.88 L, Hgb 11.0 L, Hct 34.6 L, MCV 89.2, MCH 28.4, MCHC 31.8 L, RDW Std Deviation 42.7, RDW Coeff of Samantha 13.0, Plt Count 325, MPV 8.6, Immature Gran % (Auto) 1.100 H, Neut % (Auto) 80.5 H, Lymph % (Auto) 10.4 L, [place] % (Auto) 5.4, Eos % (Auto) 2.4, Baso % (Auto) 0.2, Absolute Neuts (auto) 9.4 H, Absolute Lymphs (auto) 1.22, Nucleated RBC % 0 06/16/21 02:45: Sodium 141, Potassium 3.4 L, Chloride 104, Carbon Dioxide 33.0 H , Anion Gap 4 L, BUN 9, Creatinine 0.55 L, Estim Creat Clear Calc 193.56, Est GFR (MDRD) Af Amer 217, Est GFR (MDRD) Non-Af 179, BUN/Creatinine Ratio 16.3, Glucose 82, Calcium 7.8 L 06/16/21 02:45: APTT 54.2 H Micro: Microbiology 06/12/21 13:17 Sputum, Induced/Lukens Gram Stain - Final 06/12/21 13:17 Sputum, Induced/Lukens Respiratory Culture - Final Moraxella(Michel.)Catarrhalis 06/14/21 07:20 Sputum, Induced/Lukens Gram Stain - Final 06/14/21 07:20 Sputum, Induced/Lukens Respiratory Culture - Preliminary Culture exhibits no growth. 06/13/21 08:45 Urine, Clean Catch Legionella Antigen - Final 06/13/21 08:45 Urine, Clean Catch Streptococcus pneumoniae Antigen (M - Final 06/02/21 06:50 Blood Culture (Wb) - Anticubital Left Blood Culture - Final No growth in 5 days. 06/02/21 07:00 Blood Culture (Wb) - Anticubital Right Blood Culture - Final No growth in 5 days. 06/02/21 07:08 Nasal Secretion SARS-CoV-2 Antigen (Rapid) - Final SARS-CoV-2 (COVID 19) ABG Data ABG results: ABG 06/15/21 06:35 Specimen Type ART Sample Site L Radial pH 7.30 L Bicarbonate Actual 33.8 H Total CO2 36 Base Excess 7 H O2 Saturation 88 L O2 % 80 ABG pCO2 68.9 H* ABG pO2 63 L Huseyin Test Positive Respiration Rate 16 O2 Delivery Device Adult Vent Vent Mode AC Tidal Volume 500 POC PEEP 10 Crit Call To/Read Back Yes Blood Gas Notified Whom brown Radiography Diagnostic Testing: Radiology Impression Chest X-Ray 06/15/21 09:35 IMPRESSION: Central catheter placement. No pneumothorax. Stable endotracheal tube and feeding tube. Stable bilateral pneumonia. Electronically Signed: Alistair Mclean MD at 10:27 EDT , Service support , Chest X-Ray 06/16/21 04:00 IMPRESSION: Endotracheal tube terminates 3.5 cm above the chris. Similar diffuse lung opacities. Right IJ central catheter and enteric tube remain. Electronically Signed: Jerry Miguel MD at 4:47 EDT Tel , Service support , Rhythm Strip Rhythm Strip: Sinus Rhythm Rate: 88 Ectopy: None Physical Exam Const Constitutional Narrative: and friend are present at the bedside. The pat ient appears quite uncomfortable and diaphoretic this morning. General Appearance: intubated and patient mechanically ventilated Nutritional Appearance: obese HEENT normocephalic and head/scalp atraumatic Mouth: endotracheal tube in place and OG tube in place Eyes PERRL and conjunctivae normal Neck supple General: trachea midline and CVC in place Chest inspection of chest normal Chest Narrative: No crepitus noted Resp Effort and Inspection: tachypneic Auscultation: rales and diminished lung sounds; Negative for rhonchi or wheezes Cardio S1 normal heart sound and S2 normal heart sound Rate: tachycardic GI normal to inspection, nondistended, normoactive bowel sounds Extremity General Extremity: edema bilateral lower extremity; Negative for clubbing Skin no rashes or lesions noted Neuro Sensorium / Orientation: sedated on vent Charges/Coding Procedures Hospitalists Procedures: 51482 Critial Care 1st Hr
[2021-06-16 05:05] LABS: Magnesium 2.2 mg/dL (1.6-2.6); Phosphorus 2.3 mg/dL (2.5-4.9)
[2021-06-16] MEDS: Albuterol 2.5 MG/3 ML VIAL.NEB. INHALATION (05:13)
[2021-06-16] MEDS: Enoxaparin 100 MG/ML Syringe SC ×2 (05:45→21:22)
[2021-06-16] MEDS: QUEtiapine 100 MG Tablet 200 MG PO ×2 (05:45→21:25)
[2021-06-16] MEDS: Propofol 10MG/Ml 1,000 MG/100 ML Bottle 32.8 MG CONT INF ×6 (06:05→21:21)
[2021-06-16] MEDS: Furosemide 40 MG/4 ML Vial IV ×2 (06:06→19:29)
[2021-06-16] MEDS: Chlorhexidine 15 ML PO ×2 (10:41→21:50)
[2021-06-16] MEDS: Lansoprazole 15 MG Capsule.DR 30 MG GT (10:42)
[2021-06-16] MEDS: dexAMETHasone 4 MG/ML Vial 6 MG IV (10:42)
--- NOTE | 2021-06-16 14:28 | PN.HOSP_ITS ---
Subjective Subjective Patient seen and examined. He remains intubated and sedated. His and friend were by his bedside. He became agitated overnight after his paralytic medication was turned off. Propofol and fentanyl were increased. He is also been noted to be febrile. He was started on low-dose Levophed which he remains on. Chest x-ray this morning showed persistent bilateral airspace opacities. Objective Data Objective Data Vital Signs: Vital Signs Temp Pulse Resp BP Pulse Ox 98.2 F 81 22 H 112/67 91 06/16/21 12:00 06/16/21 13:20 06/16/21 13:20 06/16/21 14:00 06/16/21 13:20 Oxygen Flow Rate (L/min) 60 Oxygen Delivery Method Mechanical Ventilator Weight: 240 lb 11.916 oz Body Mass Index (BMI) 36.7 Intake & Output: Intake and Output for Last 24 Hours 06/14/21 06/15/21 06/16/21 23:59 23:59 23:59 Intake Total 4240.98 / 4323.96 4567.88 / 4758.38 3337.86 / 3337.86 Output Total 1790 / 1790 4525 / 4525 3300 / 3300 Balance 2450.98 / 2533.96 42.88 / 233.38 37.86 / 37.86 Lab / Micro Data Result Diagrams: 06/16/21 02:45 06/16/21 02:45 Labs: Laboratory Results - last 24 hr 06/15/21 20:00: APTT 53.7 H 06/16/21 02:45: WBC 11.7 H, RBC 3.88 L, Hgb 11.0 L, Hct 34.6 L, MCV 89.2, MCH 28.4, MCHC 31.8 L, RDW Std Deviation 42.7, RDW Coeff of Samantha 13.0, Plt Count 325, MPV 8.6, Immature Gran % (Auto) 1.100 H, Neut % (Auto) 80.5 H, Lymph % (Auto) 10.4 L, [place] % (Auto) 5.4, Eos % (Auto) 2.4, Baso % (Auto) 0.2, Absolute Neuts (auto) 9.4 H, Absolute Lymphs (auto) 1.22, Nucleated RBC % 0 06/16/21 02:45: Sodium 141, Potassium 3.4 L, Chloride 104, Carbon Dioxide 33.0 H , Anion Gap 4 L, BUN 9, Creatinine 0.55 L, Estim Creat Clear Calc 193.56, Est GFR (MDRD) Af Amer 217, Est GFR (MDRD) Non-Af 179, BUN/Creatinine Ratio 16.3, Glucose 82, Calcium 7.8 L 06/16/21 02:45: APTT 54.2 H 06/16/21 02:45: Phosphorus 2.3 L, Magnesium 2.2 Micro: Microbiology 06/14/21 07:20 Sputum, Induced/Lukens Gram Stain - Final 06/14/21 07:20 Sputum, Induced/Lukens Respiratory Culture - Final Culture exhibits no growth. 06/12/21 13:17 Sputum, Induced/Lukens Gram Stain - Final 06/12/21 13:17 Sputum, Induced/Lukens Respiratory Culture - Final Moraxella(Michel.)Catarrhalis 06/13/21 08:45 Urine, Clean Catch Legionella Antigen - Final 06/13/21 08:45 Urine, Clean Catch Streptococcus pneumoniae Antigen (M - Final 06/02/21 06:50 Blood Culture (Wb) - Anticubital Left Blood Culture - Final No growth in 5 days. 06/02/21 07:00 Blood Culture (Wb) - Anticubital Right Blood Culture - Final No growth in 5 days. 06/02/21 07:08 Nasal Secretion SARS-CoV-2 Antigen (Rapid) - Final SARS-CoV-2 (COVID 19) Radiography Diagnostic Testing: Radiology Impression Chest X-Ray 06/16/21 04:00 IMPRESSION: Endotracheal tube terminates 3.5 cm above the crhis. Similar diffuse lung opacities. Right IJ central catheter and enteric tube remain. Electronically Signed: Jerry Miguel MD at 4:47 EDT Tel , Service support , Rhythm Strip Rhythm Strip: Sinus Rhythm Rate: 88 Ectopy: None Physical Exam Const Constitutional Narrative: intubated, sedated, paralysed. RASS score is -4 General Appearance: cooperative Exam Limitations: altered mental status HEENT normocephalic, head/scalp atraumatic, hearing grossly normal bilaterally, moist oral mucous membranes and dentition normal Head and Scalp: normocephalic Eyes PERRL, EOMs intact bilaterally and conjunctivae normal Neck no lymphadenopathy, supple and no JVD Neck Narrative: Trachea midline, no thyromegaly Resp Resp Narrative: intubated, sedated, RASS score is -4. diminished breath sounds bibasally, no wheezes or crackles. tachypneic. Auscultation: diminished lung sounds Cardio regular rate, regular rhythm, S1 normal heart sound, S2 normal heart sound, no murmurs, no rub, no gallops, no clicks and no JVD Cardio Narrative: still tachypneic, normal S1 and S2. no murmurs GI normal to inspection, nondistended, normoactive bowel sounds, soft to palpation, non-tender and non-distended; Negative for hepatosplenomegaly Extremity normal to inspection and no clubbing, cyanosis or edema Peripheral Pulses: Yes pulses 2+ throughout Skin no rashes or lesions noted, no wounds, skin turgor normal, no jaundice, no petechiae and no mottling Neuro Neuro Narrative: intubated, sedated, RASS score is -4 Psych Psych Narrative: RASS score is -4 Mood & Affect: flat affect Assessment & Plan Assessment/Plan (1) Sepsis: (2) Acute respiratory failure with hypoxia: (3) Pneumonia due to COVID-19 virus: (4) MALAIKA (acute kidney injury): (5) Hyperbilirubinemia: PLAN: #Acute hypoxic respiratory failure due to COVID 19 infection. * intubated and sedated. * restarted on decadron. Has remained tachypneic. * on intermittent IV lasix * vent management as per critical care. * completed a 5 day course of remdesivir. * on IV vancomycin and zosyn for superimposed bacterial pneumonia. * in cumulative positive balance by 5.29L * #Pulmonary embolism * CTA reading as above. * heparin drip discontinued and patient switched to therapeutic lovenox. #Hypokalemia: K is 3.4. Will replace and trend. DVT prophylaxis:not indicated as he is on therapeutic lovenox for PE. Prognosis: patient remains critically ill. Prognosis is guarded. Charges/Coding Visit Charges Inpatient E&M: 17950 Subs Hosp L3
[2021-06-16 17:13] LABS: Vancomycin, Trough Level 14.7 ug/mL (5.0-15.0)
--- NOTE | 2021-06-16 17:24 | PHA.PHARE_ITS ---
Consult Pharmacy has been consulted to manage selected antiobiotic: Vancomycin Type of Consult: Follow-up Prior Doses of Antibiotics Received/Current Regimen: current regimen is 1500mg q8h Labs: Sodium 141 mmol/L (136-145) 06/16/21 02:45 Potassium 3.4 mmol/L (3.5-5.1) L 06/16/21 02:45 Chloride 104 mmol/L (98-107) 06/16/21 02:45 Carbon Dioxide 33.0 mmol/L (21.0-32.0) H 06/16/21 02:45 Anion Gap 4 (5-15) L 06/16/21 02:45 BUN 9 mg/dL (7-18) 06/16/21 02:45 Creatinine 0.55 mg/dL (0.70-1.30) L 06/16/21 02:45 Est GFR (MDRD) Af Amer 217 mL/min (>60) 06/16/21 02:45 Est GFR (MDRD) Non-Af 179 mL/min (>60) 06/16/21 02:45 BUN/Creatinine Ratio 16.3 RATIO (10-20) 06/16/21 02:45 Glucose 82 mg/dL (74-106) 06/16/21 02:45 Vancomycin Trough 14.7 ug/mL (5.0-15.0) 06/16/21 16:27 Microbiology: Microbiology 06/14/21 07:20 Sputum, Induced/Lukens Gram Stain - Final 06/14/21 07:20 Sputum, Induced/Lukens Respiratory Culture - Final Culture exhibits no growth. 06/12/21 13:17 Sputum, Induced/Lukens Gram Stain - Final 06/12/21 13:17 Sputum, Induced/Lukens Respiratory Culture - Final Moraxella(Michel.)Catarrhalis 06/13/21 08:45 Urine, Clean Catch Legionella Antigen - Final 06/13/21 08:45 Urine, Clean Catch Streptococcus pneumoniae Antigen (M - Fi nal 06/02/21 06:50 Blood Culture (Wb) - Anticubital Left Blood Culture - Final No growth in 5 days. 06/02/21 07:00 Blood Culture (Wb) - Anticubital Right Blood Culture - Final No growth in 5 days. 06/02/21 07:08 Nasal Secretion SARS-CoV-2 Antigen (Rapid) - Final SARS-CoV-2 (COVID 19) Weight used for dosin.2 kg Estimated Creatinine Clearance: >100ml/min Goal Trough: 15-20 mcg/mL Pharmacy Plan for Drug Dosing: The vanc trough level drawn at 16:27 today (about 8 hours after the previous dose) came back as 14.7. This is very close to the goal range still so will keep the same dosing for now. Recheck the trough again in 2 days. Pharmacy Service will continue to monitor and adjust dosing as required. Follow-Up Labs: Trough Vancomycin Labs to be done on [date and time ordered]: 06/18/21 08:30
[2021-06-17] VITALS (35 sets, daily range): BP systolic 88–111; BP diastolic 52–64; PULSE 76–93; RESP 16–34; TEMP 37.7–38.8; O2SAT 88–98
[2021-06-17] MEDS: Propofol 10MG/Ml 1,000 MG/100 ML Bottle 32.8 MG CONT INF ×9 (00:08→21:41)
[2021-06-17] MEDS: Dexmedetomidine 1,000 mcg in 0.9% NS 240 mL 41 MCG CONT INF ×4 (01:32→21:25)
[2021-06-17 03:30] LABS: Absolute Lymphocyte Count 0.72 X10^3/uL (0.83-4.51); Absolute Neutrophil Count 17.1 X10^3/uL (2.0-7.7); Basophil# 0.03 X10^3/uL; Basophil% 0.2 % (0-1); Eosinophil# 0.02 X10^3/uL; Eosinophils% 0.1 % (0-5); Hematocrit 37.8 % (40-54); Hemoglobin 11.8 g/dL (13.0-16.5); Lymphocyte # 0.72 X10^3/ul (0.83-4.51); Lymphocyte % 3.8 % (19-41); Mean Corp Hgb Conc 31.2 g/dL (32-36); Mean Corpuscular Volume 89.6 fL (80-94); Mean Platelet Vol. 8.8 fl (6.2-12.0); Monocyte# 0.79 X10^3/uL; Monocyte% 4.2 % (0-10); NRBC Flagged by Analyzer 0 % (0-5); Neutrophil # 17.13 X10^3/uL (2.7-7.7); Neutrophil % 90.9 % (47-70); Platelet Count 371 K/mm3 (150-450); RBC Distribution Width CV 13.1 % (11.6-14.6); RBC Distribution Width SD 43.1 fl (35.1-43.9); Red Blood Count 4.22 M/mm3 (4.6-6.2); White Blood Count 18.8 K/mm3 (4.4-11.0)
[2021-06-17 03:42] LABS: ALB/GLOB Ratio 0.3 RATIO (0.9-2.4); AST(SGOT) 31 U/L (15-37); Alanine Aminotransfer ALT/SGPT 25 U/L (16-61); Albumin, Serum 1.5 g/dL (3.2-5.0); Alkaline Phosphatase 76 U/L (45-117); Anion Gap 5 (5-15); BUN 8 mg/dL (7-18); BUN/Creat Ratio 13.9 RATIO (10-20); Calcium,Total 8.1 mg/dL (8.5-10.1); Chloride 106 mmol/L (98-107); Creatinine, Serum 0.58 mg/dL (0.70-1.30); EST Glomerular Filtration Rate 170 mL/min (>60); Est Glom Filt Rate - Afr Amer 206 mL/min (>60); Estimated Creatinine Clearance 183.55 ml/min; Globulin 4.7 g/dL (2.2-4.2); Glucose 149 mg/dL (74-106); Protein, Total 6.2 g/dL (6.4-8.2); Sodium Level 146 mmol/L (136-145)
--- NOTE | 2021-06-17 08:34 | PN.CC_ITS ---
Assessment & Plan Assessment/Plan (1) Acute respiratory failure with hypoxia: (2) Pneumonia due to COVID-19 virus: PLAN: RECOMMENDATIONS: 1. Continue patient on assist control mode of mechanical ventilation. Wean FiO2/PEEP to maintain saturations at or above 90%. 2. Attempt to maintain plateau pressures less than 30. 3. Continue antimicrobials, therapeutic anticoagulation and GI prophylaxis. 4. Monitor triglycerides and CK while on propofol 5. Continue current sedation regimen and maintain deep level of sedation to prevent coughing and ventilator dyssynchrony. 6. Wean pressors as tolerated 7. Continue diuretic therapy as needed to maintain euvolemic state. 8. Potassium repletion as ordered. 9. Continue Seroquel dosing and plan for another 10 days of Decadron. IMPRESSIONS: 1. Acute hypoxemic respiratory failure secondary to COVID-19 pneumonia The patient presented to the hospital with progressive respiratory symptoms and hypoxemia, with symptom onset sometime around May 22. The patient subsequently tested positive for coronavirus. He is unvaccinated. Despite having completed a treatment course of remdesivir and Decadron, the patient has remained quite tenuous from a respiratory perspective. In fact, the patient decompensated from an oxygenation standpoint and ultimately required intubation on June 13. Repeat CTA chest did reveal evidence of pulmonary emboli and significant bilateral infiltrates. Accordingly, the patient will be continued on broad-spectrum antimicrobials along with therapeutic anticoagulation. The patient has been weaned from his paralytic therapy. Maintain deep level of sedation in order to prevent coughing and further ventilator dyssynchrony. We will treat patient with diuretic therapy today. Decadron has been restarted with plans to complete another 10 days. 2. Distributive shock The patient developed hypotension as a consequence of sedative medication use. Plan to continue current supportive measures including Levophed to maintain a mean arterial pressure at or above 65 mmHg. 3. Bilateral pulmonary emboli Continue therapeutic anticoagulation with Lovenox as ordered. 4. Hypokalemia Electrolyte repletion as ordered. Recheck levels in the morning given active diuresis. TIME: 36 minutes of critical care time, independent of procedures, was spent addressing the patient's acute hypoxemic respiratory failure secondary to COVID- 19 pneumonia, bilateral pulmonary emboli, distributive shock, review of all data and collaboration with care team. (7 AM to 8 AM) Subjective Subjective Patient did okay overnight. Patient continues to be on multiple sedative medications and Levophed drips. Patient is still on 80% FiO2, but decompensates quickly with vent asynchrony. Patient tolerating tube feeds. Objective Data Objective Data Vital Signs: Vital Signs Temp Pulse Resp BP Pulse Ox 38.1 C H 85 22 H 104/60 92 06/17/21 07:00 06/17/21 07:38 06/17/21 07:38 06/17/21 07:00 06/17/21 07:38 Oxygen Flow Rate (L/min) 60 Oxygen Delivery Method Mechanical Ventilator Weight: 107.7 kg Body Mass Index (BMI) 36.7 Intake & Output: Intake and Output for Last 24 Hours 06/15/21 06/16/21 06/17/21 23:59 23:59 23:59 Intake Total 4567.88 / 4758.38 5103.08 / 5180.48 1607.60 / 1607.60 Output Total 4525 / 4525 7100 / 7100 1550 / 1550 Balance 42.88 / 233.38 -1996.92 / -1919.52 57.60 / 57.60 Lab / Micro Data Result Diagrams: 06/17/21 03:00 06/17/21 03:00 Labs: Laboratory Results - last 24 hr 06/16/21 16:27: Vancomycin Trough 14.7 06/17/21 03:00: WBC 18.8 H, RBC 4.22 L, Hgb 11.8 L, Hct 37.8 L, MCV 89.6, MCH 28.0, MCHC 31.2 L, RDW Std Deviation 43.1, RDW Coeff of Samantha 13.1, Plt Count 371, MPV 8.8, Immature Gran % (Auto) 0.800, Neut % (Auto) 90.9 H, Lymph % (Auto) 3.8 L, [place] % (Auto) 4.2, Eos % (Auto) 0.1, Baso % (Auto) 0.2, Absolute Neuts (auto) 17.1 H, Absolute Lymphs (auto) 0.72 L, Nucleated RBC % 0 06/17/21 03:00: Sodium 146 H, Potassium 4.0, Chloride 106, Carbon Dioxide 35.0 H , Anion Gap 5, BUN 8, Creatinine 0.58 L, Estim Creat Clear Calc 183.55, Est GFR (MDRD) Af Amer 206, Est GFR (MDRD) Non-Af 170, BUN/Creatinine Ratio 13.9, Glucose 149 H, Calcium 8.1 L, Total Bilirubin 0.90, AST 31, ALT 25, Alkaline Phosphatase 76, Total Protein 6.2 L, Albumin 1.5 L, Globulin 4.7 H, Albumin/Gl obulin Ratio 0.3 L Micro: Microbiology 06/14/21 07:20 Sputum, Induced/Lukens Gram Stain - Final 06/14/21 07:20 Sputum, Induced/Lukens Respiratory Culture - Final Culture exhibits no growth. 06/12/21 13:17 Sputum, Induced/Lukens Gram Stain - Final 06/12/21 13:17 Sputum, Induced/Lukens Respiratory Culture - Final Moraxella(Michel.)Catarrhalis 06/13/21 08:45 Urine, Clean Catch Legionella Antigen - Final 06/13/21 08:45 Urine, Clean Catch Streptococcus pneumoniae Antigen (M - Final 06/02/21 06:50 Blood Culture (Wb) - Anticubital Left Blood Culture - Final No growth in 5 days. 06/02/21 07:00 Blood Culture (Wb) - Anticubital Right Blood Culture - Final No growth in 5 days. 06/02/21 07:08 Nasal Secretion SARS-CoV-2 Antigen (Rapid) - Final SARS-CoV-2 (COVID 19) Rhythm Strip Rhythm Strip: Sinus Rhythm Rate: 88 Ectopy: None Physical Exam Const Constitutional Narrative: The patient appears quite uncomfortable and diaphoretic this morning. General Appearance: intubated and patient mechanically ventilated Nutritional Appearance: obese HEENT normocephalic and head/scalp atraumatic Mouth: endotracheal tube in place and OG tube in place Eyes PERRL and conjunctivae normal Neck supple General: trachea midline and CVC in place Chest inspection of chest normal Chest: symmetrical chest wall rise; Negative for crepitus Resp Effort and Inspection: tachypneic Auscultation: rales diffuse and diminished lung sounds; Negative for rhonchi or wheezes Cardio regular rate, regular rhythm, S1 normal heart sound, S2 normal heart sound, no murmurs, no rub and no gallops GI normal to inspection, nondistended, normoactive bowel sounds Extremity General Extremity: edema bilateral lower extremity; Negative for clubbing Skin no rashes or lesions noted Neuro Sensorium / Orientation: sedated on vent Charges/Coding Procedures Hospitalists Procedures: 18598 Critial Care 1st Hr
[2021-06-17] MEDS: Furosemide 40 MG/4 ML Vial IV (10:50)
[2021-06-17] MEDS: Enoxaparin 100 MG/ML Syringe SC ×2 (10:53→22:09)
[2021-06-17] MEDS: QUEtiapine 100 MG Tablet 200 MG PO ×2 (10:53→22:09)
[2021-06-17] MEDS: Lansoprazole 15 MG Capsule.DR 30 MG GT (10:54)
[2021-06-17] MEDS: Chlorhexidine 15 ML PO ×2 (10:54→20:03)
[2021-06-17] MEDS: dexAMETHasone 4 MG/ML Vial 6 MG IV (10:54)
[2021-06-17] MEDS: AcetaZOLAMIDE 500 MG/10 ML Vial 250 MG IV (12:13)
[2021-06-17] MEDS: Vital AF 1.2 Cal Liquid 1,000 ML 25 ML GT (12:54)
[2021-06-17] MEDS: Acetaminophen 650 MG/20 ML UDC GT (13:21)
--- NOTE | 2021-06-17 15:57 | PN.HOSP_ITS ---
Subjective Subjective Patient seen and examined. He remains intubated and sedated. No active events overnight. Objective Data Objective Data Vital Signs: Vital Signs Temp Pulse Resp BP Pulse Ox 101.3 F H 93 18 88/53 L 93 06/17/21 13:00 06/17/21 15:06 06/17/21 15:06 06/17/21 14:00 06/17/21 15:06 Oxygen Flow Rate (L/min) 60 Oxygen Delivery Method Mechanical Ventilator Weight: 237 lb 7.005 oz Body Mass Index (BMI) 36.7 Intake & Output: Intake and Output for Last 24 Hours 06/15/21 06/16/21 06/17/21 23:59 23:59 23:59 Intake Total 4567.88 / 4758.38 5103.08 / 5180.48 2959.28 / 2959.28 Output Total 4525 / 4525 7100 / 7100 4375 / 4375 Balance 42.88 / 233.38 -1996.92 / -1919.52 -1415.72 / -1415.72 Medical Nutrition Assessment Dietitian: Malnutrition Criteria Met Start: 06/17/21 11:18 Freq: Status: Active Protocol: Document 06/17/21 11:18 AG (Rec: 06/17/21 11:18 AG [id number]) Nutrition Malnutrition Evidence of Malnutrition Exists Yes Malnutrition (severe): Acute Illness/Injury Evidenced By Suboptimal Energy Intake ( Severe),Weight Loss (Severe) Intake Problem Inadequate Oral Intake Etiology r/t resp. failure Signs/Symptoms as evidenced by no PO intake x 5 days Status Active Problem Clinical Problem Acute Disease or Injury Related Malnutrition Etiology severe, acute malnutrition r/t inadequate energy intake w/ increased energy needs d/t resp. failure from COVID-19 Signs/Symptoms as evidenced by estimated PO intake meeting <50% of estimated nutritional needs >5 days; unintentional wt loss of 4.8kg/4.3% x 2 weeks Status Active Problem Recommendation Dietitian Recommendations/Changes Vital AF 1.2 via OGT at goal rate of 80mL/hour w/ 125mL H2O flush every 4 hours to provide 2304 calories, 144 g protein, and 2307mL total fluid/day. Would start at 25mL /hour and increase by 15mL every 12 hours as tolerated until goal rate is achieved. Lab / Micro Data Result Diagrams: 06/17/21 03:00 06/17/21 03:00 Labs: Laboratory Results - last 24 hr 06/16/21 16:27: Vancomycin Trough 14.7 06/17/21 03:00: WBC 18.8 H, RBC 4.22 L, Hgb 11.8 L, Hct 37.8 L, MCV 89.6, MCH 28.0, MCHC 31.2 L, RDW Std Deviation 43.1, RDW Coeff of Samantha 13.1, Plt Count 371, MPV 8.8, Immature Gran % (Auto) 0.800, Neut % (Auto) 90.9 H, Lymph % (Auto) 3.8 L, [place] % (Auto) 4.2, Eos % (Auto) 0.1, Baso % (Auto) 0.2, Absolute Neuts (auto) 17.1 H, Absolute Lymphs (auto) 0.72 L, Nucleated RBC % 0 06/17/21 03:00: Sodium 146 H, Potassium 4.0, Chloride 106, Carbon Dioxide 35.0 H , Anion Gap 5, BUN 8, Creatinine 0.58 L, Estim Creat Clear Calc 183.55, Est GFR (MDRD) Af Amer 206, Est GFR (MDRD) Non-Af 170, BUN/Creatinine Ratio 13.9, Glucose 149 H, Calcium 8.1 L, Total Bilirubin 0.90, AST 31, ALT 25, Alkaline Phosphatase 76, Total Protein 6.2 L, Albumin 1.5 L, Globulin 4.7 H, Albumin/Globulin Ratio 0.3 L Micro: Microbiology 06/14/21 07:20 Sputum, Induced/Lukens Gram Stain - Final 06/14/21 07:20 Sputum, Induced/Lukens Respiratory Culture - Final Culture exhibits no growth. 06/12/21 13:17 Sputum, Induced/Lukens Gram Stain - Final 06/12/21 13:17 Sputum, Induced/Lukens Respiratory Culture - Final Moraxella(Michel.)Catarrhalis 06/13/21 08:45 Urine, Clean Catch Legionella Antigen - Final 06/13/21 08:45 Urine, Clean Catch Streptococcus pneumoniae Antigen (M - Final 06/02/21 06:50 Blood Culture (Wb) - Anticubital Left Blood Culture - Final No growth in 5 days. 06/02/21 07:00 Blood Culture (Wb) - Anticubital Right Blood Culture - Final No growth in 5 days. 06/02/21 07:08 Nasal Secretion SARS-CoV-2 Antigen (Rapid) - Final SARS-CoV-2 (COVID 19) Rhythm Strip Rhythm Strip: Sinus Rhythm Rate: 88 Ectopy: None Physical Exam Const Constitutional Narrative: intubated, sedated, paralysed. RASS score is -4 General Appearance: cooperative Exam Limitations: altered mental status HEENT normocephalic, head/scalp atraumatic, hearing grossly normal bilaterally and moist oral mucous membranes Head and Scalp: normocephalic Eyes PERRL, EOMs intact bilaterally and conjunctivae normal Neck no lymphadenopathy, supple and no JVD Resp normal respiratory effort, no retractions and no use of accessory muscles Resp Narrative: intubated, sedated, RASS score is -4. diminished breath sounds bibasally, no wheezes or crackles. Auscultation: diminished lung sounds Cardio regular rate, regular rhythm, S1 normal heart sound, S2 normal heart sound, no murmurs, no rub, no gallops, no clicks and no JVD Cardio Narrative: normal S1 and S2. no murmurs GI normal to inspection, nondistended, normoactive bowel sounds, soft to palpation, non-tender and non-distended; Negative for hepatosplenomegaly Extremity normal to inspection and no clubbing, cyanosis or edema Extremity Narrative: Trace edema bilateral upper and lower extremities, no cyanosis or clubbing Skin no rashes or lesions noted, no wounds, skin turgor normal, no jaundice, no abdoulaye chiae and no mottling Neuro Neuro Narrative: intubated, sedated, RASS score is -4 Psych Psych Narrative: RASS score is -4 Mood & Affect: flat affect Assessment & Plan Assessment/Plan (1) Sepsis: (2) Acute respiratory failure with hypoxia: (3) Pneumonia due to COVID-19 virus: (4) MALAIKA (acute kidney injury): (5) Hyperbilirubinemia: PLAN: #Acute hypoxic respiratory failure due to COVID 19 infection. * intubated and sedated. * restarted on decadron. * on intermittent IV lasix * vent management as per critical care. * completed a 5 day course of remdesivir. * on IV vancomycin and zosyn for superimposed bacterial pneumonia. * #Pulmonary embolism * heparin drip discontinued and patient switched to therapeutic lovenox. #Hypokalemia:[email or web address] DVT prophylaxis:not indicated as he is on therapeutic lovenox for PE. Prognosis: patient remains critically ill. Prognosis is guarded. Charges/Coding Visit Charges Inpatient E&M: 61239 Subs Hosp L3
[2021-06-18] VITALS (42 sets, daily range): BP systolic 94–136; BP diastolic 53–72; PULSE 48–94; RESP 16–33; TEMP 37.3–38; O2SAT 84–100
[2021-06-18] MEDS: Propofol 10MG/Ml 1,000 MG/100 ML Bottle 32.8 MG CONT INF ×2 (01:00→03:47)
[2021-06-18] MEDS: Dexmedetomidine 1,000 mcg in 0.9% NS 240 mL 41 MCG CONT INF (03:35)
[2021-06-18 04:25] LABS: Absolute Lymphocyte Count 0.77 X10^3/uL (0.83-4.51); Absolute Neutrophil Count 12.2 X10^3/uL (2.0-7.7); Basophil# 0.03 X10^3/uL; Basophil% 0.2 % (0-1); Eosinophil# 0.01 X10^3/uL; Eosinophils% 0.1 % (0-5); Hematocrit 35.8 % (40-54); Hemoglobin 10.7 g/dL (13.0-16.5); Lymphocyte # 0.77 X10^3/ul (0.83-4.51); Lymphocyte % 5.6 % (19-41); Mean Corp Hgb Conc 29.9 g/dL (32-36); Mean Corpuscular Hgb 27.9 pg (27.0-32.0); Mean Corpuscular Volume 93.5 fL (80-94); Mean Platelet Vol. 8.8 fl (6.2-12.0); Monocyte% 4.3 % (0-10); NRBC Flagged by Analyzer 0 % (0-5); Neutrophil # 12.24 X10^3/uL (2.7-7.7); Neutrophil % 88.6 % (47-70); Platelet Count 361 K/mm3 (150-450); RBC Distribution Width CV 13.2 % (11.6-14.6); RBC Distribution Width SD 44.8 fl (35.1-43.9); Red Blood Count 3.83 M/mm3 (4.6-6.2); White Blood Count 13.8 K/mm3 (4.4-11.0)
[2021-06-18] MEDS: 0.9% Saline Lock 10 ML Syringe IV ×2 (04:31→09:30)
[2021-06-18] MEDS: TITRATION PARAMETER CHANGE 1 EACH IV (04:31)
[2021-06-18 04:47] LABS: ALB/GLOB Ratio 0.3 RATIO (0.9-2.4); AST(SGOT) 26 U/L (15-37); Alanine Aminotransfer ALT/SGPT 21 U/L (16-61); Albumin, Serum 1.4 g/dL (3.2-5.0); Alkaline Phosphatase 64 U/L (45-117); Anion Gap 1 (5-15); BUN 10 mg/dL (7-18); BUN/Creat Ratio 15.2 RATIO (10-20); Chloride 106 mmol/L (98-107); Creatinine, Serum 0.66 mg/dL (0.70-1.30); EST Glomerular Filtration Rate 145 mL/min (>60); Est Glom Filt Rate - Afr Amer 176 mL/min (>60); Globulin 4.8 g/dL (2.2-4.2); Glucose 176 mg/dL (74-106); Potassium 4.1 mmol/L (3.5-5.1); Protein, Total 6.2 g/dL (6.4-8.2); Sodium Level 143 mmol/L (136-145)
[2021-06-18] MEDS: Propofol 10MG/Ml 1,000 MG/100 ML Bottle 32.7 MG CONT INF (06:42)
--- NOTE | 2021-06-18 07:58 | PN.CC_ITS ---
Assessment & Plan Assessment/Plan (1) Acute respiratory failure with hypoxia: (2) Pneumonia due to COVID-19 virus: PLAN: RECOMMENDATIONS: 1. Continue patient on assist control mode of mechanical ventilation. Wean FiO2/PEEP to maintain saturations at or above 90%. 2. Attempt to maintain plateau pressures less than 30. 3. Continue antimicrobials, therapeutic anticoagulation and GI prophylaxis. 4. Monitor triglycerides and CK while on propofol 5. Continue current sedation regimen and maintain deep level of sedation to prevent coughing and ventilator dyssynchrony. 6. Wean pressors as tolerated 7. Continue diuretic therapy as needed to maintain euvolemic state with potassium supplementation as indicated 8. Attempt to lighten sedation slowly 9. Continue Seroquel dosing and plan for another 10 days of Decadron. IMPRESSIONS: 1. Acute hypoxemic respiratory failure secondary to COVID-19 pneumonia The patient presented to the hospital with progressive respiratory symptoms and hypoxemia, with symptom onset sometime around May 22. The patient subsequently tested positive for coronavirus. He is unvaccinated. Despite having completed a treatment course of remdesivir and Decadron, the patient has remained quite tenuous from a respiratory perspective. In fact, the patient decompensated from an oxygenation standpoint and ultimately required intubation on June 13. Repeat CTA chest did reveal evidence of pulmonary emboli and significant bilateral infiltrates. Accordingly, the patient will be continued on broad-spectrum antimicrobials along with therapeutic anticoagulation. The patient has been weaned from his paralytic therapy. Oxygenation is improving. We will potentially attempt to decrease sedation to a goal RASS of -2. We will treat patient with diuretic therapy today. Decadron h as been restarted with plans to complete another 10 days. 2. Distributive shock The patient developed hypotension as a consequence of sedative medication use. Plan to continue current supportive measures including Levophed to maintain a mean arterial pressure at or above 65 mmHg. 3. Bilateral pulmonary emboli Continue therapeutic anticoagulation with Lovenox as ordered. 4. Hypokalemia Electrolyte repletion as ordered. Recheck levels in the morning given active diuresis. TIME: 34 minutes of critical care time, independent of procedures, was spent addressing the patient's acute hypoxemic respiratory failure secondary to COVID- 19 pneumonia, bilateral pulmonary emboli, distributive shock, review of all data and collaboration with care team. (6:45 AM to 7:45 AM) Subjective Subjective Patient did okay overnight. Patient has been noted to have some increased residuals. No bowel movement has been reported. Patient remains on propofol, Precedex, Versed and fentanyl. Nursing has been decreasing Versed drips. Patient has remained on pressors. Objective Data Objective Data Vital Signs: Vital Signs Temp Pulse Resp BP Pulse Ox 37.8 C H 68 25 H 110/58 L 92 06/18/21 07:00 06/18/21 07:34 06/18/21 07:34 06/18/21 07:00 06/18/21 07:34 Oxygen Flow Rate (L/min) 60 Oxygen Delivery Method Mechanical Ventilator Weight: 109 kg Body Mass Index (BMI) 36.7 Intake & Output: Intake and Output for Last 24 Hours 06/16/21 06/17/21 06/18/21 23:59 23:59 23:59 Intake Total 5103.08 / 5180.48 5262.54 / 5514.14 2113.24 / 2113.24 Output Total 7100 / 7100 5925 / 6125 675 / 675 Balance -1996.92 / -1919.52 -662.46 / -610.86 1438.24 / 1438.24 Medical Nutrition Assessment Dietitian: Malnutrition Criteria Met Start: 06/17/21 11:18 Freq: Status: Active Protocol: Document 06/17/21 11:18 AG (Rec: 06/17/21 11:18 [id number]) Nutrition Malnutrition Evidence of Malnutrition Exists Yes Malnutrition (severe): Acute Illness/Injury Evidenced By Suboptimal Energy Intake ( Severe),Weight Loss (Severe) Intake Problem Inadequate Oral Intake Etiology r/t resp. failure Signs/Symptoms as evidenced by no PO intake x 5 days Status Active Problem Clinical Problem Acute Disease or Injury Related Malnutrition Etiology severe, acute malnutrition r/t inadequate energy intake w/ increased energy needs d/t resp. failure from COVID-19 Signs/Symptoms as evidenced by estimated PO intake meeting <50% of estimated nutritional needs >5 days; unintentional wt loss of 4.8kg/4.3% x 2 weeks Status Active Problem Recommendation Dietitian Recommendations/Changes Vital AF 1.2 via OGT at goal rate of 80mL/hour w/ 125mL H2O flush every 4 hours to provide 2304 calories, 144 g protein, and 2307mL total fluid/day. Would start at 25mL /hour and increase by 15mL every 12 hours as tolerated until goal rate is achieved. Lab / Micro Data Result Diagrams: 06/18/21 04:00 06/18/21 04:00 Labs: Laboratory Results - last 24 hr 06/18/21 04:00: WBC 13.8 H, RBC 3.83 L, Hgb 10.7 L, Hct 35.8 L, MCV 93.5, MCH 27.9, MCHC 29.9 L, RDW Std Deviation 44.8 H, RDW Coeff of Samantha 13.2, Plt Count 361, MPV 8.8, Immature Gran % (Auto) 1.200 H, Neut % (Auto) 88.6 H, Lymph % (Aut o) 5.6 L, [place] % (Auto) 4.3, Eos % (Auto) 0.1, Baso % (Auto) 0.2, Absolute Neuts (auto) 12.2 H, Absolute Lymphs (auto) 0.77 L, Nucleated RBC % 0 06/18/21 04:00: Sodium 143, Potassium 4.1, Chloride 106, Carbon Dioxide 36.0 H, Anion Gap 1 L, BUN 10, Creatinine 0.66 L, Estim Creat Clear Calc 161.30, Est GFR (MDRD) Af Amer 176, Est GFR (MDRD) Non-Af 145, BUN/Creatinine Ratio 15.2, Glucose 176 H, Calcium 8.0 L, Total Bilirubin 0.50, AST 26, ALT 21, Alkaline Phosphatase 64, Total Protein 6.2 L, Albumin 1.4 L, Globulin 4.8 H, Albumin/Globulin Ratio 0.3 L Micro: Microbiology 06/14/21 07:20 Sputum, Induced/Lukens Gram Stain - Final 06/14/21 07:20 Sputum, Induced/Lukens Respiratory Culture - Final Culture exhibits no growth. 06/12/21 13:17 Sputum, Induced/Lukens Gram Stain - Final 06/12/21 13:17 Sputum, Induced/Lukens Respiratory Culture - Final Moraxella(Michel.)Catarrhalis 06/13/21 08:45 Urine, Clean Catch Legionella Antigen - Final 06/13/21 08:45 Urine, Clean Catch Streptococcus pneumoniae Antigen (M - Final 06/02/21 06:50 Blood Culture (Wb) - Anticubital Left Blood Culture - Final No growth in 5 days. 06/02/21 07:00 Blood Culture (Wb) - Anticubital Right Blood Culture - Final No growth in 5 days. 06/02/21 07:08 Nasal Secretion SARS-CoV-2 Antigen (Rapid) - Final SARS-CoV-2 (COVID 19) Rhythm Strip Rhythm Strip: Sinus Rhythm Rate: 88 Ectopy: None Physical Exam Const Constitutional Narrative: RASS -3 General Appearance: intubated and patient mechanically ventilated Nutritional Appearance: obese HEENT normocephalic and head/scalp atraumatic Mouth: endotracheal tube in place and OG tube in place Eyes PERRL and conjunctivae normal Neck supple General: trachea midline and CVC in place Chest inspection of chest normal Chest: symmetrical chest wall rise; Negative for crepitus Resp Effort and Inspection: tachypneic Auscultation: rales diffuse and diminished lung sounds; Negative for rhonchi or wheezes Cardio regular rate, regular rhythm, S1 normal heart sound, S2 normal heart sound, no murmurs, no rub and no gallops GI normal to inspection, nondistended, normoactive bowel sounds Extremity General Extremity: edema bilateral lower extremity; Negative for clubbing Skin no rashes or lesions noted Neuro Sensorium / Orientation: sedated on vent Charges/Coding Procedures Hospitalists Procedures: 34150 Critial Care 1st Hr
[2021-06-18] MEDS: Furosemide 40 MG/4 ML Vial IV (09:30)
[2021-06-18] MEDS: Dexmedetomidine 1,000 mcg in 0.9% NS 240 mL 40.9 MCG CONT INF ×2 (09:38→15:57)
[2021-06-18] MEDS: Propofol 10MG/Ml 1,000 MG/100 ML Bottle 26.2 MG CONT INF (09:39)
[2021-06-18 09:43] LABS: Vancomycin, Trough Level 17.5 ug/mL (5.0-15.0)
--- NOTE | 2021-06-18 10:40 | PCM.RX.CS ---
Consult Pharmacy has been consulted to manage selected antiobiotic: Vancomycin Type of Consult: Follow-up Suspected Infection: Pneumonia Prior Doses of Antibiotics Received/Current Regimen: Currently on 1500mg iv q8h. Labs: Sodium 143 mmol/L (136-145) 06/18/21 04:00 Potassium 4.1 mmol/L (3.5-5.1) 06/18/21 04:00 Chloride 106 mmol/L (98-107) 06/18/21 04:00 Carbon Dioxide 36.0 mmol/L (21.0-32.0) H 06/18/21 04:00 Anion Gap 1 (5-15) L 06/18/21 04:00 BUN 10 mg/dL (7-18) 06/18/21 04:00 Creatinine 0.66 mg/dL (0.70-1.30) L 06/18/21 04:00 Est GFR (MDRD) Af Amer 176 mL/min (>60) 06/18/21 04:00 Est GFR (MDRD) Non-Af 145 mL/min (>60) 06/18/21 04:00 BUN/Creatinine Ratio 15.2 RATIO (10-20) 06/18/21 04:00 Glucose 176 mg/dL (74-106) H 06/18/21 04:00 Vancomycin Trough 17.5 ug/mL (5.0-15.0) H 06/18/21 09:00 Microbiology: Microbiology 06/14/21 07:20 Sputum, Induced/Lukens Gram Stain - Final 06/14/21 07:20 Sputum, Induced/Lukens Respiratory Culture - Final Culture exhibits no growth. 06/12/21 13:17 Sputum, Induced/Lukens Gram Stain - Final 06/12/21 13:17 Sputum, Induced/Lukens Respiratory Culture - Final Moraxella(Michel.)Catarrhalis 06/13/21 08:45 Urine, Clean Catch Legionella Antigen - Final 06/13/21 08:45 Urine, Clean Catch Streptococcus pneumoniae Antigen (M - Final 06/02/21 06:50 Blood Culture (Wb) - Anticubital Left Blood Culture - Final No growth in 5 days. 06/02/21 07:00 Blood Culture (Wb) - Anticubital Right Blood Culture - Final No growth in 5 days. 06/02/21 07:08 Nasal Secretion SARS-CoV-2 Antigen (Rapid) - Final SARS-CoV-2 (COVID 19) Weight used for dosin kg Estimated Creatinine Clearance: >100ml/min Goal Trough: 15-20 mcg/mL Pharmacy Plan for Drug Dosing: Trough today 17.5 and in goal range of 15-20mcg/ml. Will continue same dose and get a repeat trough level in 2 days on 06.20.21. Pharmacy Service will continue to monitor and adjust dosing as required. Follow-Up Labs: Trough Vancomycin - 06.20.21@0830 before 0900 dose
[2021-06-18] MEDS: Enoxaparin 100 MG/ML Syringe SC ×2 (10:48→21:40)
[2021-06-18] MEDS: QUEtiapine 100 MG Tablet 200 MG PO ×2 (10:48→21:42)
[2021-06-18] MEDS: Chlorhexidine 15 ML PO ×2 (10:48→21:27)
[2021-06-18] MEDS: Lansoprazole 15 MG Capsule.DR 30 MG GT (10:49)
[2021-06-18] MEDS: dexAMETHasone 4 MG/ML Vial 6 MG IV (10:49)
[2021-06-18] MEDS: Senna/Docusate Sodium 1 Tablet 2 TABLET GT ×2 (10:51→21:41)
[2021-06-18] MEDS: Polyethylene Glycol 3350 17 GM PACKET GT (11:15)
[2021-06-18] MEDS: Vital AF 1.2 Cal Liquid 1,000 ML 80 ML GT (13:41)
--- NOTE | 2021-06-18 13:50 | PCM.PN.HOSP ---
Subjective Subjective Not awaking, so Versed being decreased. Objective Data Objective Data Vital Signs: Vital Signs Temp Pulse Resp BP Pulse Ox 37.9 C H 59 L 26 H 104/59 L 92 06/18/21 12:00 06/18/21 13:00 06/18/21 13:00 06/18/21 13:00 06/18/21 13:00 Oxygen Flow Rate (L/min) 60 Oxygen Delivery Method Mechanical Ventilator Weight: 109 kg Body Mass Index (BMI) 36.7 Intake & Output: Intake and Output for Last 24 Hours 06/16/21 06/17/21 06/18/21 23:59 23:59 23:59 Intake Total 5103.08 / 5180.48 5262.54 / 5514.14 3524.53 / 3524.53 Output Total 7100 / 7100 5925 / 6125 3175 / 3175 Balance -1996.92 / -1919.52 -662.46 / -610.86 349.53 / 349.53 Medical Nutrition Assessment Dietitian: Malnutrition Criteria Met Start: 06/17/21 11:18 Freq: Status: Active Protocol: Document 06/18/21 11:48 SLA (Rec: 06/18/21 11:48 SLA [id number]) Nutrition Malnutrition Evidence of Malnutrition Exists Yes Malnutrition (severe): Acute Illness/Injury Evidenced By Suboptimal Energy Intake ( Severe),Weight Loss (Severe) Intake Problem Inadequate Oral Intake Etiology r/t resp. failure Signs/Symptoms as evidenced by no PO intake x 6 days Status Active Problem Clinical Problem Acute Disease or Injury Related Malnutrition Etiology severe, acute malnutrition r/t inadequate energy intake w/ increased energy needs d/t resp. failure from COVID-19 Signs/Symptoms as evidenced by estimated PO intake meeting <50% of estimated nutritional needs >5 days; unintentional wt loss of 4.8kg/4.3% x 2 weeks Status Active Problem Recommendation Dietitian Recommendations/Changes Vital AF 1.2 via OGT at goal rate of 80mL/hour w/ 125mL H2O flush every 4 hours to provide 2304 calories, 144 g protein, and 2307mL total fluid/day. Would start at 25mL /hour and increase by 15mL every 12 hours as tolerated until goal rate is achieved. Lab / Micro Data Result Diagrams: 06/18/21 04:00 06/18/21 04:00 Labs: Laboratory Results - last 24 hr 06/18/21 04:00: WBC 13.8 H, RBC 3.83 L, Hgb 10.7 L, Hct 35.8 L, MCV 93.5, MCH 27.9, MCHC 29.9 L, RDW Std Deviation 44.8 H, RDW Coeff of Samantha 13.2, Plt Count 361, MPV 8.8, Immature Gran % (Auto) 1.200 H, Neut % (Auto) 88.6 H, Lymph % (Auto) 5.6 L, [place] % (Auto) 4.3, Eos % (Auto) 0.1, Baso % (Auto) 0.2, Absolute Neuts (auto) 12.2 H, Absolute Lymphs (auto) 0.77 L, Nucleated RBC % 0 06/18/21 04:00: Sodium 143, Potassium 4.1, Chloride 106, Carbon Dioxide 36.0 H, Anion Gap 1 L, BUN 10, Creatinine 0.66 L, Estim Creat Clear Calc 161.30, Est GFR (MDRD) Af Amer 176, Est GFR (MDRD) Non-Af 145, BUN/Creatinine Ratio 15.2, Glucose 176 H, Calcium 8.0 L, Total Bilirubin 0.50, AST 26, ALT 21, Alkaline Phosphatase 64, Total Protein 6.2 L, Albumin 1.4 L, Globulin 4.8 H, Albumin/Globulin Ratio 0.3 L 06/18/21 09:00: Vancomycin Trough 17.5 H Micro: Microbiology 06/14/21 07:20 Sputum, Induced/Lukens Gram Stain - Final 06/14/21 07:20 Sputum, Induced/Lukens Respiratory Culture - Final Culture exhibits no growth. 06/12/21 13:17 Sputum, Induced/Lukens Gram Stain - Final 06/12/21 13:17 Sputum, Induced/Lukens Respiratory Culture - Final Moraxella(Michel.)Catarrhalis 06/13/21 08:45 Urine, Clean Catch Legionella Antigen - Final 06/13/21 08:45 Urine, Clean Catch Streptococcus pneumoniae Antigen (M - Final 06/02/21 06:50 Blood Culture (Wb) - Anticubital Left Blood Culture - Final No growth in 5 days. 06/02/21 07:00 Blood Culture (Wb) - Anticubital Right Blood Culture - Final No growth in 5 days. 06/02/21 07:08 Nasal Secretion SARS-CoV-2 Antigen (Rapid) - Final SARS-CoV-2 (COVID 19) Rhythm Strip Rhythm Strip: Sinus Rhythm Rate: 88 Ectopy: None Physical Exam Const Constitutional Narrative: intubated and sedated Resp normal respiratory effort, no retractions, no use of accessory muscles and clear to auscultation bilaterally Cardio regular rate, regular rhythm, S1 normal heart sound and S2 normal heart sound GI normal to inspection, nondistended, normoactive bowel sounds, soft to palpation, non-tender and non-distended Extremity General Extremity: edema Assessment & Plan Assessment/Plan (1) Acute respiratory failure with hypoxia: (2) Pneumonia due to COVID-19 virus: PLAN: 1. acute hypoxic respiratory failure 2/2 COVID 19 + M. cat pneumonia + PE on vent 2. COVID 19 pneumonia on dexamethasone completed remdesivir 3. M. cat pneumonia on pip tazo and vanc 4. Encephalopathy on dexdemetomidine, fentanyl, midazolam, propofol midazolam being weaned. 5. Pulmonary emboli likely d/t hypercoagulable state from COVID 19 on therapeutic enoxaparin change to Xa inhibitor when able to take oral 6. VTE prophylaxis: not indicated given already anticoagulated. Charges/Coding Visit Charges Inpatient E&M: 73415 Subs Hosp L2
[2021-06-18] MEDS: Propofol 10MG/Ml 1,000 MG/100 ML Bottle 3.3 MG CONT INF (17:31)
[2021-06-18] MEDS: Dexmedetomidine 1,000 mcg in 0.9% NS 240 mL 38.2 MCG CONT INF (21:49)
[2021-06-19] VITALS (33 sets, daily range): BP systolic 89–127; BP diastolic 56–84; PULSE 44–118; RESP 16–37; TEMP 37.3–37.7; O2SAT 89–100
[2021-06-19] MEDS: Dexmedetomidine 1,000 mcg in 0.9% NS 240 mL 38.2 MCG CONT INF ×2 (04:16→11:44)
[2021-06-19 05:09] LABS: Absolute Lymphocyte Count 1.66 X10^3/uL (0.83-4.51); Absolute Neutrophil Count 8.2 X10^3/uL (2.0-7.7); Basophil# 0.04 X10^3/uL; Basophil% 0.4 % (0-1); Eosinophil# 0.19 X10^3/uL; Eosinophils% 1.7 % (0-5); Hematocrit 36.9 % (40-54); Hemoglobin 11.3 g/dL (13.0-16.5); Lymphocyte # 1.66 X10^3/ul (0.83-4.51); Lymphocyte % 15.2 % (19-41); Mean Corp Hgb Conc 30.6 g/dL (32-36); Mean Corpuscular Hgb 27.8 pg (27.0-32.0); Mean Corpuscular Volume 90.7 fL (80-94); Monocyte# 0.68 X10^3/uL; Monocyte% 6.2 % (0-10); NRBC Flagged by Analyzer 0 % (0-5); Neutrophil # 8.21 X10^3/uL (2.7-7.7); Neutrophil % 75.5 % (47-70); Platelet Count 371 K/mm3 (150-450); RBC Distribution Width CV 13.1 % (11.6-14.6); RBC Distribution Width SD 43.9 fl (35.1-43.9); Red Blood Count 4.07 M/mm3 (4.6-6.2); White Blood Count 10.9 K/mm3 (4.4-11.0)
[2021-06-19 05:25] LABS: ALB/GLOB Ratio 0.4 RATIO (0.9-2.4); AST(SGOT) 33 U/L (15-37); Alanine Aminotransfer ALT/SGPT 23 U/L (16-61); Albumin, Serum 1.6 g/dL (3.2-5.0); Alkaline Phosphatase 66 U/L (45-117); Anion Gap 3 (5-15); BUN 18 mg/dL (7-18); BUN/Creat Ratio 30.8 RATIO (10-20); Calcium,Total 8.1 mg/dL (8.5-10.1); Chloride 108 mmol/L (98-107); Creatinine, Serum 0.58 mg/dL (0.70-1.30); EST Glomerular Filtration Rate 168 mL/min (>60); Est Glom Filt Rate - Afr Amer 203 mL/min (>60); Estimated Creatinine Clearance 183.55 ml/min; Globulin 4.4 g/dL (2.2-4.2); Glucose 122 mg/dL (74-106); Potassium 3.3 mmol/L (3.5-5.1); Sodium Level 145 mmol/L (136-145)
[2021-06-19] MEDS: Furosemide 40 MG/4 ML Vial IV (06:31)
[2021-06-19] MEDS: dexAMETHasone 4 MG/ML Vial 6 MG IV (09:20)
[2021-06-19] MEDS: QUEtiapine 100 MG Tablet 200 MG PO ×2 (09:25→22:30)
[2021-06-19] MEDS: Chlorhexidine 15 ML PO (09:25)
[2021-06-19] MEDS: Lansoprazole 15 MG Capsule.DR 30 MG GT (09:26)
[2021-06-19] MEDS: Enoxaparin 100 MG/ML Syringe SC ×2 (09:26→22:21)
[2021-06-19] MEDS: Polyethylene Glycol 3350 17 GM PACKET PO (09:30)
[2021-06-19] MEDS: Senna/Docusate Sodium 1 Tablet 2 TABLET GT ×2 (09:30→22:22)
[2021-06-19] MEDS: guaiFENesin/Codeine 5 ML UDC 10 ML GT ×3 (10:02→22:21)
--- NOTE | 2021-06-19 10:10 | PN.CC_ITS ---
Assessment & Plan Assessment/Plan (1) Acute respiratory failure with hypoxia: (2) Pneumonia due to COVID-19 virus: PLAN: RECOMMENDATIONS: 1. Continue patient on assist control mode of mechanical ventilation. Wean FiO2/PEEP to maintain saturations at or above 90%. 2. Attempt to maintain plateau pressures less than 30. 3. Continue antimicrobials, therapeutic anticoagulation and GI prophylaxis. 4. Discontinue Versed and propofol therapy 5. Will attempt to initiate codeine therapy to help with cough so sedation can be lightened 6. Discontinue pressors 7. Continue diuretic therapy as needed to maintain euvolemic state with potassium supplementation as indicated 8. Attempt to lighten sedation slowly 9. Continue Seroquel dosing and plan for another 10 days of Decadron (06/26/2021). IMPRESSIONS: 1. Acute hypoxemic respiratory failure secondary to COVID-19 pneumonia The patient presented to the hospital with progressive respiratory symptoms and hypoxemia, with symptom onset sometime around May 22. The p atient subsequently tested positive for coronavirus. He is unvaccinated. Despite having completed a treatment course of remdesivir and Decadron, the patient has remained quite tenuous from a respiratory perspective. In fact, the patient decompensated from an oxygenation standpoint and ultimately required intubation on June 13. Repeat CTA chest did reveal evidence of pulmonary emboli and significant bilateral infiltrates. Patient should remain on therapeutic anticoagulation. Patient will be transitioned to Eliquis therapy in the next 24 to 48 hours. Will attempt to use codeine to help with cough so that sedation can be lightened to the point that patient can try spontaneous breathing trial. 2. Distributive shock Resolved. The patient developed hypotension as a consequence of sedative medication use. Plan to continue current supportive measures including Levophed to maintain a mean arterial pressure at or above 65 mmHg. 3. Bilateral pulmonary emboli Continue therapeutic anticoagulation with Lovenox as ordered. 4. Hypokalemia Electrolyte repletion as ordered. Recheck levels in the morning given active diuresis. TIME: 33 minutes of critical care time, independent of procedures, was spent addressing the patient's acute hypoxemic respiratory failure secondary to COVID- 19 pneumonia, bilateral pulmonary emboli, distributive shock, review of all data and collaboration with care team. (5:30 AM to 6:30 AM) Subjective Subjective Patient did well overnight. No acute issues were reported. Patient has been taken off of Levophed. Patient actually was placed on a spontaneous breathing trial this morning, but only tolerated 2 minutes. Patient has had some coughing episodes associated with desaturation. Patient was given Lasix this morning with significant output noted. Objective Data Objective Data Vital Signs: Vital Signs Temp Pulse Resp BP Pulse Ox 37.5 C H 88 33 H 119/59 L 90 06/19/21 07:00 06/19/21 08:00 06/19/21 07:00 06/19/21 07:00 06/19/21 07:00 Oxygen Flow Rate (L/min) 60 Oxygen Delivery Method Mechanical Ventilator Weight: 108.6 kg Body Mass Index (BMI) 36.7 Intake & Output: Intake and Output for Last 24 Hours 06/17/21 06/18/21 06/19/21 23:59 23:59 23:59 Intake Total 5262.54 / 5514.14 6554.78 / 6616.28 1736.82 / 1736.82 Output Total 5925 / 6125 4475 / 4475 2190 / 2190 Balance -662.46 / -610.86 2079.78 / 2141.28 -453.18 / -453.18 Medical Nutrition Assessment Dietitian: Malnutrition Criteria Met Start: 06/17/21 11:18 Freq: Status: Active Protocol: Document 06/18/21 11:48 BJ (Rec: 06/18/21 11:48 BJ [id number]) Nutrition Malnutrition Evidence of Malnutrition Exists Yes Malnutrition (severe): Acute Illness/Injury Evidenced By Suboptimal Energy Intake ( Severe),Weight Loss (Severe) Intake Problem Inadequate Oral Intake Etiology r/t resp. failure Signs/Symptoms as evidenced by no PO intake x 6 days Status Active Problem Clinical Problem Acute Disease or Injury Related Malnutrition Etiology severe, acute malnutrition r/t inadequate energy intake w/ increased energy needs d/t resp. failure from COVID-19 Signs/Symptoms as evidenced by estimated PO intake meeting <50% of estimated nutritional needs >5 days; unintentional wt loss of 4.8kg/4.3% x 2 weeks Status Active Problem Recommendation Dietitian Recommendations/Changes Vital AF 1.2 via OGT at goal rate of 80mL/hour w/ 125mL H2O flush every 4 hours to provide 2304 calories, 144 g protein, and 2307mL total fluid/day. Would start at 25mL /hour and increase by 15mL every 12 hours as tolerated until goal rate is achieved. Lab / Micro Data Result Diagrams: 06/19/21 04:10 06/19/21 04:10 Labs: Laboratory Results - last 24 hr 06/19/21 04:10: WBC 10.9, RBC 4.07 L, Hgb 11.3 L, Hct 36.9 L, MCV 90.7, MCH 27.8, MCHC 30.6 L, RDW Std Deviation 43.9, RDW Coeff of Samantha 13.1, Plt Count 371, MPV 9.0, Immature Gran % (Auto) 1.000 H, Neut % (Auto) 75.5 H, Lymph % (Auto) 15.2 L, [place] % (Auto) 6.2, Eos % (Auto) 1.7, Baso % (Auto) 0.4, Absolute Neuts (auto) 8.2 H, Absolute Lymphs (auto) 1.66, Nucleated RBC % 0 06/19/21 04:10: Sodium 145, Potassium 3.3 L, Chloride 108 H, Carbon Dioxide 34.0 H, Anion Gap 3 L, BUN 18, Creatinine 0.58 L, Estim Creat Clear Calc 183.55, Est GFR (MDRD) Af Amer 203, Est GFR (MDRD) Non-Af 168, BUN/Creatinine Ratio 30.8 H, Glucose 122 H, Calcium 8.1 L, Total Bilirubin 0.50, AST 33, ALT 23, Alkaline Phosphatase 66, Total Protein 6.0 L, Albumin 1.6 L, Globulin 4.4 H, Albumin/Globulin Ratio 0.4 L Micro: Microbiology 06/14/21 07:20 Sputum, Induced/Lukens Gram Stain - Final 06/14/21 07:20 Sputum, Induced/Lukens Respiratory Culture - Final Culture exhibits no growth. 06/12/21 13:17 Sputum, Induced/Lukens Gram Stain - Final 06/12/21 13:17 Sputum, Induced/Lukens Respiratory Culture - Final Moraxella(Michel.)Catarrhalis 06/13/21 08:45 Urine, Clean Catch Legionella Antigen - Final 06/13/21 08:45 Urine, Clean Catch Streptococcus pneumoniae Antigen (M - Final 06/02/21 06:50 Blood Culture (Wb) - Anticubital Left Blood Culture - Final No growth in 5 days. 06/02/21 07:00 Blood Culture (Wb) - Anticubital Right Blood Culture - Final No growth in 5 days. 06/02/21 07:08 Nasal Secretion SARS-CoV-2 Antigen (Rapid) - Final SARS-CoV-2 (COVID 19) Rhythm Strip Rhythm Strip: Sinus Rhythm Rate: 88 Ectopy: None Physical Exam Const Constitutional Narrative: RASS -2 General Appearance: intubated and patient mechanically ventilated Nutritional Appearance: obese HEENT normocephalic and head/scalp atraumatic Mouth: endotracheal tube in place and OG tube in place Eyes PERRL and conjunctivae normal Neck supple General: trachea midline and CVC in place Chest inspection of chest normal Chest: symmetrical chest wall rise; Negative for crepitus Resp Effort and Inspection: tachypneic Auscultation: rales diffuse and diminished lung sounds; Negative for rhonchi or wheezes Cardio regular rate, regular rhythm, S1 normal heart sound, S2 normal heart sound, no murmurs, no rub and no gallops GI normal to inspection, nondistended, normoactive bowel sounds Extremity General Extremity: edema bilateral lower extremity; Negative for clubbing Skin no rashes or lesions noted Neuro Sensorium / Orientation: sedated on vent Charges/Coding Procedures Hospitalists Procedures: 35635 Critial Care 1st Hr
[2021-06-19] MEDS: Vital AF 1.2 Cal Liquid 1,000 ML 70 ML GT (10:27)
--- NOTE | 2021-06-19 12:05 | CASEMGMT ---
SW participated in ICU rounds this morning. SW called Leigha to offer support. She is planning to come in to see pt. SW remains available should any supportive needs arise. JUAN Sesay
--- NOTE | 2021-06-19 13:21 | PCM.PN.HOSP ---
Subjective Subjective Did not tolerate SBT. Objective Data Objective Data Vital Signs: Vital Signs Temp Pulse Resp BP Pulse Ox 37.4 C H 115 H 37 H 117/69 93 06/19/21 12:00 06/19/21 13:03 06/19/21 13:03 06/19/21 12:00 06/19/21 13:03 Oxygen Flow Rate (L/min) 60 Oxygen Delivery Method Mechanical Ventilator Weight: 108.6 kg Body Mass Index (BMI) 36.7 Intake & Output: Intake and Output for Last 24 Hours 06/17/21 06/18/21 06/19/21 23:59 23:59 23:59 Intake Total 5262.54 / 5514.14 6554.78 / 6616.28 2695.16 / 2695.16 Output Total 5925 / 6125 4475 / 4475 2590 / 2590 Balance -662.46 / -610.86 2079.78 / 2141.28 105.16 / 105.16 Medical Nutrition Assessment Dietitian: Malnutrition Criteria Met Start: 06/17/21 11:18 Freq: Status: Active Protocol: Document 06/18/21 11:48 SLA (Rec: 06/18/21 11:48 SLA [id number]) Nutrition Malnutrition Evidence of Malnutrition Exists Yes Malnutrition (severe): Acute Illness/Injury Evidenced By Suboptimal Energy Intake ( Severe),Weight Loss (Severe) Intake Problem Inadequate Oral Intake Etiology r/t resp. failure Signs/Symptoms as evidenced by no PO intake x 6 days Status Active Problem Clinical Problem Acute Disease or Injury Related Malnutrition Etiology severe, acute malnutrition r/t inadequate energy intake w/ increased energy needs d/t resp. failure from COVID-19 Signs/Symptoms as evidenced by estimated PO intake meeting <50% of estimated nutritional needs >5 days; unintentional wt loss of 4.8kg/4.3% x 2 weeks Status Active Problem Recommendation Dietitian Recommendations/Changes Vital AF 1.2 via OGT at goal rate of 80mL/hour w/ 125mL H2O flush every 4 hours to provide 2304 calories, 144 g protein, and 2307mL total fluid/day. Would start at 25mL /hour and increase by 15mL every 12 hours as tolerated until goal rate is achieved. Lab / Micro Data Result Diagrams: 06/19/21 04:10 06/19/21 04:10 Labs: Laboratory Results - last 24 hr 06/19/21 04:10: WBC 10.9, RBC 4.07 L, Hgb 11.3 L, Hct 36.9 L, MCV 90.7, MCH 27.8, MCHC 30.6 L, RDW Std Deviation 43.9, RDW Coeff of Samantha 13.1, Plt Count 371, MPV 9.0, Immature Gran % (Auto) 1.000 H, Neut % (Auto) 75.5 H, Lymph % (Auto) 15.2 L, [place] % (Auto) 6.2, Eos % (Auto) 1.7, Baso % (Auto) 0.4, Absolute Neuts (auto) 8.2 H, Absolute Lymphs (auto) 1.66, Nucleated RBC % 0 06/19/21 04:10: Sodium 145, Potassium 3.3 L, Chloride 108 H, Carbon Dioxide 34.0 H, Anion Gap 3 L, BUN 18, Creatinine 0.58 L, Estim Creat Clear Calc 183.55, Est GFR (MDRD) Af Amer 203, Est GFR (MDRD) Non-Af 168, BUN/Creatinine Ratio 30.8 H, Glucose 122 H, Calcium 8.1 L, Total Bilirubin 0.50, AST 33, ALT 23, Alkaline Phosphatase 66, Total Protein 6.0 L, Albumin 1.6 L, Globulin 4.4 H, Albumin/Globulin Ratio 0.4 L Micro: Microbiology 06/14/21 07:20 Sputum, Induced/Lukens Gram Stain - Final 06/14/21 07:20 Sputum, Induced/Lukens Respiratory Culture - Final Culture exhibits no growth. 06/12/21 13:17 Sputum, Induced/Lukens Gram Stain - Final 06/12/21 13:17 Sputum, Induced/Lukens Respiratory Culture - Final Moraxella(Michel.)Catarrhalis 06/13/21 08:45 Urine, Clean Catch Legionella Antigen - Final 06/13/21 08:45 Urine, Clean Catch Streptococcus pneumoniae Antigen (M - Final 06/02/21 06:50 Blood Culture (Wb) - Anticubital Left Blood Culture - Final No growth in 5 days. 06/02/21 07:00 Blood Culture (Wb) - Anticubital Right Blood Culture - Final No growth in 5 days. 06/02/21 07:08 Nasal Secretion SARS-CoV-2 Antigen (Rapid) - Final SARS-CoV-2 (COVID 19) Rhythm Strip Rhythm Strip: Sinus Rhythm Rate: 88 Ectopy: None Physical Exam Const alert Resp normal respiratory effort, no retractions, no use of accessory muscles and clear to auscultation bilaterally Cardio regular rate, regular rhythm, S1 normal heart sound and S2 normal heart sound GI normal to inspection, nondistended, normoactive bowel sounds, soft to palpation, non-tender and non-distended Assessment & Plan Assessment/Plan (1) Acute respiratory failure with hypoxia: (2) Pneumonia due to COVID-19 virus: PLAN: 1. acute hypoxic respiratory failure 2/2 COVID 19 + M. cat pneumonia + PE on vent 45% FiO2 2. COVID 19 pneumonia on dexamethasone completed remdesivir quarantine completed 3. M. cat pneumonia on pip tazo and vanc consider change to Amox/CA cephaloporin. 4. Encephalopathy on dexdemetomidine, fentanyl, midazolam, propofol midazolam off 5. Pulmonary emboli likely d/t hypercoagulable state from COVID 19 on therapeutic enoxaparin change to Xa inhibitor when able to take oral 6. VTE prophylaxis: not indicated given already anticoagulated. Charges/Coding Visit Charges Inpatient E&M: 72822 Subs Hosp L2
[2021-06-19] MEDS: Dexmedetomidine 1,000 mcg in 0.9% NS 240 mL 40.9 MCG CONT INF (18:57)
[2021-06-20] VITALS (33 sets, daily range): BP systolic 102–139; BP diastolic 58–98; PULSE 50–130; RESP 16–41; TEMP 37.4–38.1; O2SAT 33–97
[2021-06-20] MEDS: Dexmedetomidine 1,000 mcg in 0.9% NS 240 mL 40.9 MCG CONT INF ×4 (01:30→21:22)
[2021-06-20] MEDS: Vital AF 1.2 Cal Liquid 1,000 ML 80 ML GT ×2 (01:31→17:05)
[2021-06-20] MEDS: guaiFENesin/Codeine 5 ML UDC 10 ML GT ×4 (04:05→21:48)
[2021-06-20 05:18] LABS: Absolute Lymphocyte Count 1.39 X10^3/uL (0.83-4.51); Absolute Neutrophil Count 8.9 X10^3/uL (2.0-7.7); Basophil# 0.05 X10^3/uL; Basophil% 0.4 % (0-1); Eosinophil# 0.49 X10^3/uL; Eosinophils% 4.2 % (0-5); Hematocrit 38.2 % (40-54); Hemoglobin 11.9 g/dL (13.0-16.5); Lymphocyte # 1.39 X10^3/ul (0.83-4.51); Mean Corp Hgb Conc 31.2 g/dL (32-36); Mean Corpuscular Hgb 28.2 pg (27.0-32.0); Mean Corpuscular Volume 90.5 fL (80-94); Mean Platelet Vol. 8.6 fl (6.2-12.0); Monocyte# 0.64 X10^3/uL; Monocyte% 5.5 % (0-10); NRBC Flagged by Analyzer 0 % (0-5); Neutrophil # 8.86 X10^3/uL (2.7-7.7); Neutrophil % 76.3 % (47-70); Platelet Count 389 K/mm3 (150-450); RBC Distribution Width CV 13.5 % (11.6-14.6); RBC Distribution Width SD 44.4 fl (35.1-43.9); Red Blood Count 4.22 M/mm3 (4.6-6.2); White Blood Count 11.6 K/mm3 (4.4-11.0)
[2021-06-20 05:35] LABS: ALB/GLOB Ratio 0.4 RATIO (0.9-2.4); AST(SGOT) 33 U/L (15-37); Alanine Aminotransfer ALT/SGPT 27 U/L (16-61); Albumin, Serum 1.6 g/dL (3.2-5.0); Alkaline Phosphatase 60 U/L (45-117); Anion Gap 1 (5-15); BUN 22 mg/dL (7-18); BUN/Creat Ratio 44.9 RATIO (10-20); Calcium,Total 7.8 mg/dL (8.5-10.1); Chloride 112 mmol/L (98-107); Creatinine, Serum 0.49 mg/dL (0.70-1.30); EST Glomerular Filtration Rate 205 mL/min (>60); Est Glom Filt Rate - Afr Amer 248 mL/min (>60); Estimated Creatinine Clearance 217.26 ml/min; Globulin 4.3 g/dL (2.2-4.2); Glucose 143 mg/dL (74-106); Potassium 3.3 mmol/L (3.5-5.1); Protein, Total 5.9 g/dL (6.4-8.2); Sodium Level 144 mmol/L (136-145)
--- NOTE | 2021-06-20 06:56 | PN.CC_ITS ---
Assessment & Plan Assessment/Plan (1) Acute respiratory failure with hypoxia: (2) Pneumonia due to COVID-19 virus: PLAN: RECOMMENDATIONS: 1. Continue patient on assist control mode of mechanical ventilation. Wean FiO2/PEEP to maintain saturations at or above 90%. 2. Spontaneous awakening and breathing trials per protocol 3. Continue antimicrobials (06/22/2021), therapeutic anticoagulation and GI prophylaxis. 4. Continue aggressive pulmonary toileting 5. Will attempt to initiate codeine therapy to help with cough so sedation can be lightened 6. Discontinue pressors 7. Continue diuretic therapy as needed to maintain euvolemic state with potassium supplementation as indicated 8. PT/OT 9. Continue Seroquel dosing and plan for another 10 days of Decadron (06/26/2021). IMPRESSIONS: 1. Acute hypoxemic respiratory failure secondary to COVID-19 pneumonia The patient presented to the hospital with progressive respiratory symptoms and hypoxemia, with symptom onset sometime around May 22. The patient subsequently tested positive for coronavirus. He is unvaccinated. Despite having completed a treatment course of remdesivir and Decadron, the patient has remained quite tenuous from a respiratory perspective. In fact, the patient decompensated from an oxygenation standpoint and ultimately required intubation on June 13. Repeat CTA chest did reveal evidence of pulmonary emboli and significant bilateral infiltrates. Patient should remain on therapeutic anticoagulation. Will discuss with team about possible transition to Eliquis therapy. Will attempt to use codeine to help with cough so that s edation can be lightened to the point that patient can try spontaneous breathing trial. 2. Distributive shock Resolved. The patient developed hypotension as a consequence of sedative medication use. Plan to continue current supportive measures including Levophed to maintain a mean arterial pressure at or above 65 mmHg. Discontinue Levophed 3. Bilateral pulmonary emboli Continue therapeutic anticoagulation with Lovenox as ordered. 4. Hypokalemia Electrolyte repletion as ordered. Recheck levels in the morning given active diuresis. TIME: 35 minutes of critical care time, independent of procedures, was spent addressing the patient's acute hypoxemic respiratory failure secondary to COVID- 19 pneumonia, bilateral pulmonary emboli, distributive shock, review of all data and collaboration with care team. (5:00 AM to 6 AM) Subjective Subjective Patient did well this morning and overnight. Patient was weaned to a PEEP of 5 with 45% FiO2. Patient also had a large bowel movement overnight. Patient had a spontaneous breathing trial this morning and was able to tolerate 1 hour, but was noted to have a respiratory rate of 36, so was placed back on therapy. Patient was denying any pain, but did communicate that he felt tired. Objective Data Objective Data Vital Signs: Vital Signs Temp Pulse Resp BP Pulse Ox 37.4 C H 86 36 H 122/64 H 91 06/20/21 03:00 06/20/21 05:10 06/20/21 05:10 06/20/21 03:00 06/20/21 05:10 Oxygen Flow Rate (L/min) 60 Oxygen Delivery Method Mechanical Ventilator Weight: 110.5 kg Body Mass Index (BMI) 36.7 Intake & Output: Intake and Output for Last 24 Hours 06/18/21 06/19/21 06/20/21 23:59 23:59 23:59 Intake Total 6554.78 / 6616.28 5040.81 / 5101.71 1952.40 / 1952.40 Output Total 4475 / 4475 3410 / 3410 360 / 360 Balance 2079.78 / 2141.28 1630.81 / 1691.71 1592.40 / 1592.40 Medical Nutrition Assessment Dietitian: Malnutrition Criteria Met Start: 06/17/21 11:18 Freq: Status: Active Protocol: Document 06/18/21 11:48 BJ (Rec: 06/18/21 11:48 BJ [id number]) Nutrition Malnutrition Evidence of Malnutrition Exists Yes Malnutrition (severe): Acute Illness/Injury Evidenced By Suboptimal Energy Intake ( Severe),Weight Loss (Severe) Intake Problem Inadequate Oral Intake Etiology r/t resp. failure Signs/Symptoms as evidenced by no PO intake x 6 days Status Active Problem Clinical Problem Acute Disease or Injury Related Malnutrition Etiology severe, acute malnutrition r/t inadequate energy intake w/ increased energy needs d/t resp. failure from COVID-19 Signs/Symptoms as evidenced by estimated PO intake meeting <50% of estimated nutritional needs >5 days; unintentional wt loss of 4.8kg/4.3% x 2 weeks Status Active Problem Recommendation Dietitian Recommendations/Changes Vital AF 1.2 via OGT at goal rate of 80mL/hour w/ 125mL H2O flush every 4 hours to provide 2304 calories, 144 g protein, and 2307mL total fluid/day. Would start at 25mL /hour and increase by 15mL every 12 hours as tolerated until goal rate is achieved. Lab / Micro Data Result Diagrams: 06/20/21 05:10 06/20/21 05:10 Labs: Laboratory Results - last 24 hr 06/20/21 05:10: WBC 11.6 H, RBC 4.22 L, Hgb 11.9 L, Hct 38.2 L, MCV 90.5, MCH 28.2, MCHC 31.2 L, RDW Std Deviation 44.4 H, RDW Coeff of Samantha 13.5, Plt Count 389, MPV 8.6, Immature Gran % (Auto) 1.600 H, Neut % (Auto) 76.3 H, Lymph % (Auto) 12.0 L, [place] % (Auto) 5.5, Eos % (Auto) 4.2, Baso % (Auto) 0.4, Absolute Neuts (auto) 8.9 H, Absolute Lymphs (auto) 1.39, Nucleated RBC % 0 06/20/21 05:10: Sodium 144, Potassium 3.3 L, Chloride 112 H, Carbon Dioxide 31.0, Anion Gap 1 L, BUN 22 H, Creatinine 0.49 L, Estim Creat Clear Calc 217.26, Est GFR (MDRD) Af Amer 248, Est GFR (MDRD) Non-Af 205, BUN/Creatinine Ratio 44.9 H, Glucose 143 H, Calcium 7.8 L, Total Bilirubin 0.50, AST 33, ALT 27, Alkaline Phosphatase 60, Total Protein 5.9 L, Albumin 1.6 L, Globulin 4.3 H, Albumin/Globulin Ratio 0.4 L Micro: Microbiology 06/14/21 07:20 Sputum, Induced/Lukens Gram Stain - Final 06/14/21 07:20 Sputum, Induced/Lukens Respiratory Culture - Final Culture exhibits no growth. 06/12/21 13:17 Sputum, Induced/Lukens Gram Stain - Final 06/12/21 13:17 Sputum, Induced/Lukens Respiratory Culture - Final Moraxella(Michel.)Catarrhalis 06/13/21 08:45 Urine, Clean Catch Legionella Antigen - Final 06/13/21 08:45 Urine, Clean Catch Streptococcus pneumoniae Antigen (M - Final 06/02/21 06:50 Blood Culture (Wb) - Anticubital Left Blood Culture - Final No growth in 5 days. 06/02/21 07:00 Blood Culture (Wb) - Anticubital Right Blood Culture - Final No growth in 5 days. 06/02/21 07:08 Nasal Secretion SARS-CoV-2 Antigen (Rapid) - Final SARS-CoV-2 (COVID 19) Rhythm Strip Rhythm Strip: Sinus Rhythm Rate: 88 Ectopy: None Physical Exam Const Constitutional Narrative: RASS -1 General Appearance: intubated and patient mechanically ventilated Nutritional Appearance: obese HEENT normocephalic and head/scalp atraumatic Mouth: endotracheal tube in place and OG tube in place Eyes PERRL and conjunctivae normal Neck supple General: trachea midline and CVC in place Chest inspection of chest normal Chest: symmetrical chest wall rise; Negative for crepitus Resp Effort and Inspection: tachypneic Auscultation: rales diffuse and diminished lung sounds; Negative for rhonchi or wheezes Cardio regular rate, regular rhythm, S1 normal heart sound, S2 normal heart sound, no murmurs, no rub and no gallops GI normal to inspection, nondistended, normoactive bowel sounds Extremity General Extremity: edema bilateral lower extremity; Negative for clubbing Skin no rashes or lesions noted Neuro Sensorium / Orientation: sedated on vent Charges/Coding Procedures Hospitalists Procedures: 91801 Critial Care 1st Hr
[2021-06-20 09:35] LABS: Vancomycin, Trough Level 14.1 ug/mL (5.0-15.0)
--- NOTE | 2021-06-20 10:10 | CASEMGMT ---
FRANCES SPARKS NOTE: Pt screened with [facility] Palliative Care Screening Tool for strata 3, pt did not meet criteria. Luke DE LA ROSAN RN CM
[2021-06-20] MEDS: dexAMETHasone 4 MG/ML Vial 6 MG IV (10:14)
[2021-06-20] MEDS: Lansoprazole 15 MG Capsule.DR 30 MG GT (10:14)
[2021-06-20] MEDS: Chlorhexidine 15 ML PO (10:14)
[2021-06-20] MEDS: Polyethylene Glycol 3350 17 GM PACKET PO (10:14)
[2021-06-20] MEDS: QUEtiapine 100 MG Tablet 200 MG PO ×2 (10:14→21:45)
[2021-06-20] MEDS: Furosemide 40 MG/4 ML Vial IV ×2 (10:18→17:05)
[2021-06-20] MEDS: Enoxaparin 100 MG/ML Syringe SC ×2 (10:18→21:45)
[2021-06-20] MEDS: Potassium Chloride Oral Soln 20 MEQ/15 ML UDC 40 MEQ PO ×2 (10:18→15:58)
[2021-06-20] MEDS: 0.9% Saline Lock 10 ML Syringe IV (10:20)
[2021-06-20] MEDS: Senna/Docusate Sodium 1 Tablet 2 TABLET GT ×2 (10:20→21:48)
--- NOTE | 2021-06-20 10:21 | PCM.RX.CS ---
Consult Pharmacy has been consulted to manage selected antiobiotic: Vancomycin Type of Consult: Follow-up Suspected Infection: Pneumonia Prior Doses of Antibiotics Received/Current Regimen: Currently on 1500mg iv q8h. Labs: Sodium 144 mmol/L (136-145) 06/20/21 05:10 Potassium 3.3 mmol/L (3.5-5.1) L 06/20/21 05:10 Chloride 112 mmol/L (98-107) H 06/20/21 05:10 Carbon Dioxide 31.0 mmol/L (21.0-32.0) 06/20/21 05:10 Anion Gap 1 (5-15) L 06/20/21 05:10 BUN 22 mg/dL (7-18) H 06/20/21 05:10 Creatinine 0.49 mg/dL (0.70-1.30) L 06/20/21 05:10 Est GFR (MDRD) Af Amer 248 mL/min (>60) 06/20/21 05:10 Est GFR (MDRD) Non-Af 205 mL/min (>60) 06/20/21 05:10 BUN/Creatinine Ratio 44.9 RATIO (10-20) H 06/20/21 05:10 Glucose 143 mg/dL (74-106) H 06/20/21 05:10 Vancomycin Trough 14.1 ug/mL (5.0-15.0) 06/20/21 08:55 Microbiology: Microbiology 06/14/21 07:20 Sputum, Induced/Lukens Gram Stain - Final 06/14/21 07:20 Sputum, Induced/Lukens Respiratory Culture - Final Culture exhibits no growth. 06/12/21 13:17 Sputum, Induced/Lukens Gram Stain - Final 06/12/21 13:17 Sputum, Induced/Lukens Respiratory Culture - Final Moraxella(Michel.)Catarrhalis 06/13/21 08:45 Urine, Clean Catch Legionella Antigen - Final 06/13/21 08:45 Urine, Clean Catch Streptococcus pneumoniae Antigen (M - Final 06/02/21 06:50 Blood Culture (Wb) - Anticubital Left Blood Culture - Final No growth in 5 days. 06/02/21 07:00 Blood Culture (Wb) - Anticubital Right Blood Culture - Final No growth in 5 days. 06/02/21 07:08 Nasal Secretion SARS-CoV-2 Antigen (Rapid) - Final SARS-CoV-2 (COVID 19) Weight used for dosin.5 kg Estimated Creatinine Clearance: >100ml/min Goal Trough: 15-20 mcg/mL Pharmacy Plan for Drug Dosing: Trough level today was 14.1 ~7.5 hrs post last dose. Will continue same dosage schedule. Another trough level is ordered in 2 days. Pharmacy Service will continue to monitor and adjust dosing as required. Follow-Up Labs: Trough Vancomycin - 9.17.21@0830 before 0900 dose
[2021-06-20] MEDS: LORazepam 2 MG/ML Syringe IV (12:20)
--- NOTE | 2021-06-20 13:34 | PN.HOSP_ITS ---
Subjective Subjective Tolerated SBT for 1 h today, but then developed tachypnea. Objective Data Objective Data Vital Signs: Vital Signs Temp Pulse Resp BP Pulse Ox 37.7 C H 117 H 41 H 114/60 89 06/20/21 08:00 06/20/21 12:00 06/20/21 10:46 06/20/21 08:00 06/20/21 10:46 Oxygen Flow Rate (L/min) 60 Oxygen Delivery Method Mechanical Ventilator Weight: 110.5 kg Body Mass Index (BMI) 36.7 Intake & Output: Intake and Output for Last 24 Hours 06/18/21 06/19/21 06/20/21 23:59 23:59 23:59 Intake Total 6554.78 / 6616.28 5040.81 / 5101.71 3832.54 / 3832.54 Output Total 4475 / 4475 3410 / 3410 3380 / 3380 Balance 2079.78 / 2141.28 1630.81 / 1691.71 452.54 / 452.54 Medical Nutrition Assessment Dietitian: Malnutrition Criteria Met Start: 06/17/21 11:18 Freq: Status: Active Protocol: Document 06/18/21 11:48 SLA (Rec: 06/18/21 11:48 SLA [id number]) Nutrition Malnutrition Evidence of Malnutrition Exists Yes Malnutrition (severe): Acute Illness/Injury Evidenced By Suboptimal Energy Intake ( Severe),Weight Loss (Severe) Intake Problem Inadequate Oral Intake Etiology r/t resp. failure Signs/Symptoms as evidenced by no PO intake x 6 days Status Active Problem Clinical Problem Acute Disease or Injury Related Malnutrition Etiology severe, acute malnutrition r/t inadequate energy intake w/ increased energy needs d/t resp. failure from COVID-19 Signs/Symptoms as evidenced by estimated PO intake meeting <50% of estimated nutritional needs >5 days; unintentional wt loss of 4.8kg/4.3% x 2 weeks Status Active Problem Recommendation Dietitian Recommendations/Changes Vital AF 1.2 via OGT at goal rate of 80mL/hour w/ 125mL H2O flush every 4 hours to provide 2304 calories, 144 g protein, and 2307mL total fluid/day. Would start at 25mL /hour and increase by 15mL every 12 hours as tolerated until goal rate is achieved. Lab / Micro Data Result Diagrams: 06/20/21 05:10 06/20/21 05:10 Labs: Laboratory Results - last 24 hr 06/20/21 05:10: WBC 11.6 H, RBC 4.22 L, Hgb 11.9 L, Hct 38.2 L, MCV 90.5, MCH 28.2, MCHC 31.2 L, RDW Std Deviation 44.4 H, RDW Coeff of Samantha 13.5, Plt Count 389, MPV 8.6, Immature Gran % (Auto) 1.600 H, Neut % (Auto) 76.3 H, Lymph % (Auto) 12.0 L, [place] % (Auto) 5.5, Eos % (Auto) 4.2, Baso % (Auto) 0.4, Absolute Neuts (auto) 8.9 H, Absolute Lymphs (auto) 1.39, Nucleated RBC % 0 06/20/21 05:10: Sodium 144, Potassium 3.3 L, Chloride 112 H, Carbon Dioxide 3 1.0, Anion Gap 1 L, BUN 22 H, Creatinine 0.49 L, Estim Creat Clear Calc 217.26, Est GFR (MDRD) Af Amer 248, Est GFR (MDRD) Non-Af 205, BUN/Creatinine Ratio 44.9 H, Glucose 143 H, Calcium 7.8 L, Total Bilirubin 0.50, AST 33, ALT 27, Alkaline Phosphatase 60, Total Protein 5.9 L, Albumin 1.6 L, Globulin 4.3 H, Albumin/Globulin Ratio 0.4 L 06/20/21 08:55: Vancomycin Trough 14.1 Micro: Microbiology 06/14/21 07:20 Sputum, Induced/Lukens Gram Stain - Final 06/14/21 07:20 Sputum, Induced/Lukens Respiratory Culture - Final Culture exhibits no growth. 06/12/21 13:17 Sputum, Induced/Lukens Gram Stain - Final 06/12/21 13:17 Sputum, Induced/Lukens Respiratory Culture - Final Moraxella(Michel.)Catarrhalis 06/13/21 08:45 Urine, Clean Catch Legionella Antigen - Final 06/13/21 08:45 Urine, Clean Catch Streptococcus pneumoniae Antigen (M - Final 06/02/21 06:50 Blood Culture (Wb) - Anticubital Left Blood Culture - Final No growth in 5 days. 06/02/21 07:00 Blood Culture (Wb) - Anticubital Right Blood Culture - Final No growth in 5 days. 06/02/21 07:08 Nasal Secretion SARS-CoV-2 Antigen (Rapid) - Final SARS-CoV-2 (COVID 19) Rhythm Strip Rhythm Strip: Sinus Rhythm Rate: 88 Ectopy: None Physical Exam Const Constitutional Narrative: awake. denies abdominal pain with shaking his head. on vent. Resp normal respiratory effort, no retractions, no use of accessory muscles and clear to auscultation bilaterally Cardio regular rate, regular rhythm, S1 normal heart sound and S2 normal heart sound GI normal to inspection, nondistended, normoactive bowel sounds, soft to palpation, non-tender and non-distended Auscultation: hyperactive bowel sounds Extremity normal to inspection Assessment & Plan Assessment/Plan (1) Acute respiratory failure with hypoxia: (2) Pneumonia due to COVID-19 virus: PLAN: 1. acute hypoxic respiratory failure 2/2 COVID 19 + M. cat pneumonia + PE on vent 45% FiO2 2. COVID 19 pneumonia on dexamethasone completed remdesivir quarantine completed 3. M. cat pneumonia on pip tazo and vanc consider change to Amox/CA cephaloporin. 4. Encephalopathy on dexdemetomidine, fentanyl, midazolam, propofol midazolam off 5. Pulmonary emboli likely d/t hypercoagulable state from COVID 19 on therapeutic enoxaparin change to Xa inhibitor when able to take oral 6. VTE prophylaxis: not indicated given already anticoagulated. Charges/Coding Visit Charges Inpatient E&M: 30587 Subs Hosp L2
--- NOTE | 2021-06-20 13:42 | CHAPLAIN ---
Type of Pastoral Visit ___ Initial Visit ___ Follow-up Visit ___ On-call Visit ___ General Patient Visit ___ Spiritual Assessment ___ Family Conference ___ Bereavement ___ Rapid Response ___ Code Blue _x__ Other (describe below) Pastoral Care Referral From ___ Patient ___ Family ___ Nurse ___ Physician ___ Air Press Operator ___ Dental Technology Advisor _x__ Other (describe below) Sacrament/Intervention ___ Active listening ___ Anointing ___ Oriental Orthodox ___ Bereavement ___ Communion ___ Jennifer exploration ___ ___ Life review _x__ Prayer ___ Reconciliation ___ Sacrament of Sick ___ Supportive presence ___ Wedding ___ Other (describe below) Pastoral Comments stopped in room to check on patient; prayer is offered for patient
[2021-06-21] VITALS (35 sets, daily range): BP systolic 97–158; BP diastolic 50–82; PULSE 60–140; RESP 10–44; TEMP 37.4–38.2; O2SAT 84–98
[2021-06-21] MEDS: guaiFENesin/Codeine 5 ML UDC 10 ML GT (03:13)
[2021-06-21 03:45] LABS: Absolute Lymphocyte Count 1.82 X10^3/uL (0.83-4.51); Absolute Neutrophil Count 8.5 X10^3/uL (2.0-7.7); Basophil# 0.07 X10^3/uL; Basophil% 0.6 % (0-1); Eosinophil# 0.62 X10^3/uL; Eosinophils% 5.2 % (0-5); Hematocrit 38.4 % (40-54); Hemoglobin 11.9 g/dL (13.0-16.5); Lymphocyte # 1.82 X10^3/ul (0.83-4.51); Lymphocyte % 15.2 % (19-41); Mean Corpuscular Volume 90.4 fL (80-94); Mean Platelet Vol. 9.1 fl (6.2-12.0); Monocyte# 0.71 X10^3/uL; Monocyte% 5.9 % (0-10); NRBC Flagged by Analyzer 0 % (0-5); Neutrophil # 8.51 X10^3/uL (2.7-7.7); Platelet Count 358 K/mm3 (150-450); RBC Distribution Width CV 13.7 % (11.6-14.6); RBC Distribution Width SD 44.6 fl (35.1-43.9); Red Blood Count 4.25 M/mm3 (4.6-6.2)
[2021-06-21 04:11] LABS: ALB/GLOB Ratio 0.4 RATIO (0.9-2.4); AST(SGOT) 25 U/L (15-37); Alanine Aminotransfer ALT/SGPT 30 U/L (16-61); Albumin, Serum 1.8 g/dL (3.2-5.0); Alkaline Phosphatase 65 U/L (45-117); Anion Gap 1 (5-15); BUN 23 mg/dL (7-18); BUN/Creat Ratio 41.3 RATIO (10-20); Calcium,Total 8.3 mg/dL (8.5-10.1); Chloride 107 mmol/L (98-107); Creatinine, Serum 0.56 mg/dL (0.70-1.30); EST Glomerular Filtration Rate 177 mL/min (>60); Est Glom Filt Rate - Afr Amer 214 mL/min (>60); Globulin 4.2 g/dL (2.2-4.2); Glucose 147 mg/dL (74-106); Potassium 3.3 mmol/L (3.5-5.1); Sodium Level 142 mmol/L (136-145)
[2021-06-21] MEDS: Dexmedetomidine 1,000 mcg in 0.9% NS 240 mL 40.9 MCG CONT INF (04:53)
[2021-06-21 06:31] LABS: Base Excess 7 mmol/L (-2 to +2); Bicarbonate 30.9 mmol/L (22-26); Blood Gas Specimen Type ART; FI02 45; Mode CPAP/PS; O2 Delivery Device Adult Vent; PEEP 5; PO2 61 mmHG (75-100); PS 5; SITE L Radial; SO2 92 % (95-99); Total Carbon Dioxide 32 mmol/L; pCO2 44.3 mmHg (35-45); pH 7.45 (7.35-7.45)
--- NOTE | 2021-06-21 07:51 | PCM.PN.INT ---
Assessment & Plan Assessment/Plan (1) Acute respiratory failure with hypoxia: (2) Pneumonia due to COVID-19 virus: PLAN: RECOMMENDATIONS: 1. Continue patient on assist control mode of mechanical ventilation. Wean FiO2/PEEP to maintain saturations at or above 90%. 2. Continue Airvo for 24 hours to help with secretions 3. Continue antimicrobials (06/22/2021), therapeutic anticoagulation and GI prophylaxis. 4. Continue aggressive pulmonary toileting 5. Discontinue codeine 6. Discontinue pressors 7. Continue diuretic therapy as needed to maintain euvolemic state with potassium supplementation as indicated 8. PT/OT 9. We will decrease Seroquel dosing and plan for another 10 days of Decadron (06/26/2021). IMPRESSIONS: 1. Acute hypoxemic respiratory failure secondary to COVID-19 pneumonia The patient presented to the hospital with progressive respiratory symptoms and hypoxemia, with symptom onset sometime around May 22. The patient subsequently tested positive for coronavirus. He is unvaccinated. Despite having completed a treatment course of remdesivir and Decadron, the patient has remained quite tenuous from a respiratory perspective. In fact, the patient decompensated from an oxygenation standpoint and ultimately required intubation on June 13. Repeat CTA chest did reveal evidence of pulmonary emboli and significant bilateral infiltrates. Patient should remain on therapeutic anticoagulation. Patient can be transitioned to Eliquis therapy if able to pass a swallow evaluation. Will decrease sedatives to help with pulmonary toileting. Codeine will be discontinued and Seroquel will be decreased. 2. Distributive shock Resolved. The patient developed hypotension as a consequence of sedative medication use. Plan to continue current supportive measures including Levophed to maintain a mean arterial pressure at or above 65 mmHg. Discontinue Levophed 3. Bilateral pulmonary emboli Continue therapeutic anticoagulation with Lovenox as ordered. 4. Hypokalemia Electrolyte repletion as ordered. Recheck levels in the morning given active diuresis. TIME: 35 minutes of critical care time, independent of procedures, was spent addressing the patient's acute hypoxemic respiratory failure secondary to COVID-19 pneumonia, bilateral pulmonary emboli, distributive shock, review of all data and collaboration with care team. (6:20 AM to 7:20 AM) Subjective Subjective The patient did well overnight. No acute issues were reported. Patient was able to pass a spontaneous breathing trial this morning and was successfully extubated. Patient did have significant hypoxia after extubation. Patient was assisted in cough and was placed on Airvo. Patient initially was requiring 87% FiO2, but has been decreased to 55% over the course of an hour with assistance of cough. Patient has been producing significant sputum. Objective Data Objective Data Vital Signs: Vital Signs Temp Pulse Resp BP Pulse Ox 37.8 C H 111 H 35 H 129/78 H 96 06/21/21 07:00 06/21/21 07:00 06/21/21 07:00 06/21/21 07:00 06/21/21 07:00 Oxygen Flow Rate (L/min) 60 Oxygen Delivery Method Airvo Weight: 108.2 kg Body Mass Index (BMI) 36.7 Intake & Output: Intake and Output for Last 24 Hours 06/19/21 06/20/21 06/21/21 23:59 23:59 23:59 Intake Total 5040.81 / 5101.71 6030.48 / 6583.38 2000.44 / 1999.44 Output Total 3410 / 3410 6450 / 6585 640 / 640 Balance 1630.81 / 1691.71 -419.52 / -1.62 1360.44 / 1360.44 Medical Nutrition Assessment Dietitian: Malnutrition Criteria Met Start: 06/17/21 11:18 Freq: Status: Active Protocol: Document 06/18/21 11:48 BJ (Rec: 06/18/21 11:48 [facility] [id number]) Nutrition Malnutrition Evidence of Malnutrition Exists Yes Malnutrition (severe): Acute Illness/Injury Evidenced By Suboptimal Energy Intake ( Severe),Weight Loss (Severe) Intake Problem Inadequate Oral Intake Etiology r/t resp. failure Signs/Symptoms as evidenced by no PO intake x 6 days Status Active Problem Clinical Problem Acute Disease or Injury Related Malnutrition Etiology severe, acute malnutrition r/t inadequate energy intake w/ increased energy needs d/t resp. failure from COVID-19 Signs/Symptoms as evidenced by estimated PO intake meeting <50% of estimated nutritional needs >5 days; unintentional wt loss of 4.8kg/4.3% x 2 weeks Status Active Problem Recommendation Dietitian Recommendations/Changes Vital AF 1.2 via OGT at goal rate of 80mL/hour w/ 125mL H2O flush every 4 hours to provide 2304 calories, 144 g protein, and 2307mL total fluid/day. Would start at 25mL /hour and increase by 15mL every 12 hours as tolerated until goal rate is achieved. Lab / Micro Data Result Diagrams: 06/21/21 03:20 06/21/21 03:20 Labs: Laboratory Results - last 24 hr 06/20/21 08:55: Vancomycin Trough 14.1 06/21/21 03:20: WBC 12.0 H, RBC 4.25 L, Hgb 11.9 L, Hct 38.4 L, MCV 90.4, MCH 28.0, MCHC 31.0 L, RDW Std Deviation 44.6 H, RDW Coeff of Samantha 13.7, Plt Count 358, MPV 9.1, Immature Gran % (Auto) 2.100 H, Neut % (Auto) 71.0 H, Lymph % (Auto) 15.2 L, [place] % (Auto) 5.9, Eos % (Auto) 5.2 H, Baso % (Auto) 0.6, Absolute Neuts (auto) 8.5 H, Absolute Lymphs (auto) 1.82, Nucleated RBC % 0 06/21/21 03:20: Sodium 142, Potassium 3.3 L, Chloride 107, Carbon Dioxide 34.0 H, Anion Gap 1 L, BUN 23 H, Creatinine 0.56 L, Estim Creat Clear Calc 190.10, Est GFR (MDRD) Af Amer 214, Est GFR (MDRD) Non-Af 177, BUN/Creatinine Ratio 41.3 H, Glucose 147 H, Calcium 8.3 L, Total Bilirubin 0.60, AST 25, ALT 30, Alkaline Phosphatase 65, Total Protein 6.0 L, Albumin 1.8 L, Globulin 4.2, Albumin/Globulin Ratio 0.4 L Micro: Microbiology 06/14/21 07:20 Sputum, Induced/Lukens Gram Stain - Final 06/14/21 07:20 Sputum, Induced/Lukens Respiratory Culture - Final Culture exhibits no growth. 06/12/21 13:17 Sputum, Induced/Lukens Gram Stain - Final 06/12/21 13:17 Sputum, Induced/Lukens Respiratory Culture - Final Moraxella(Michel.)Catarrhalis 06/13/21 08:45 Urine, Clean Catch Legionella Antigen - Final 06/13/21 08:45 Urine, Clean Catch Streptococcus pneumoniae Antigen (M - Final 06/02/21 06:50 Blood Culture (Wb) - Anticubital Left Blood Culture - Final No growth in 5 days. 06/02/21 07:00 Blood Culture (Wb) - Anticubital Right Blood Culture - Final No growth in 5 days. 06/02/21 07:08 Nasal Secretion SARS-CoV-2 Antigen (Rapid) - Final SARS-CoV-2 (COVID 19) ABG Data ABG results: ABG 06/21/21 06:23 Specimen Type ART Sample Site L Radial pH 7.45 Bicarbonate Actual 30.9 H Total CO2 32 Base Excess 7 H O2 Saturation 92 L O2 % 45 ABG pCO2 44.3 ABG pO2 61 L Huseyin Test N/A O2 Delivery Device Adult Vent Vent Mode CPAP/PS POC PEEP 5 POC Pressure Suppt 5 Rhythm Strip Rhythm Strip: Sinus Rhythm Rate: 88 Ectopy: None Physical Exam Const Constitutional Narrative: RASS 0. Patient currently on Airvo. Grossly weak Nutritional Appearance: obese HEENT normocephalic and head/scalp atraumatic Mouth: endotracheal tube in place and OG tube in place Eyes PERRL and conjunctivae normal Neck supple General: trachea midline and CVC in place Chest inspection of chest normal Chest: symmetrical chest wall rise; Negative for crepitus Resp Resp Narrative: Rhonchi improved with coughing. Poor vocalization Effort and Inspection: tachypneic Auscultation: rhonchi throughout and diminished lung sounds; Negative for rales or wheezes Cardio regular rate, regular rhythm, S1 normal heart sound, S2 normal heart sound, no murmurs, no rub and no gallops GI normal to inspection, nondistended, normoactive bowel sounds Extremity General Extremity: edema bilateral lower extremity; Negative for clubbing Skin no rashes or lesions noted Charges/Coding Procedures Hospitalists Procedures: [id number] Critial Care 1st Hr
[2021-06-21] MEDS: Furosemide 40 MG/4 ML Vial IV (07:56)
[2021-06-21] MEDS: Pantoprazole Sodium 40 MG Tablet PO (11:38)
[2021-06-21] MEDS: dexAMETHasone 4 MG/ML Vial 6 MG IV (11:38)
[2021-06-21] MEDS: guaiFENesin 1,200 MG Tablet 1200 MG PO (11:38)
[2021-06-21] MEDS: Enoxaparin 100 MG/ML Syringe SC ×2 (11:39→20:58)
[2021-06-21] MEDS: Polyethylene Glycol 3350 17 GM PACKET PO (11:39)
[2021-06-21] MEDS: QUEtiapine 100 MG Tablet PO ×2 (11:40→20:58)
[2021-06-21] MEDS: Senna/Docusate Sodium 1 Tablet 2 TABLET GT (11:40)
--- NOTE | 2021-06-21 12:15 | PN.HOSP_ITS ---
Subjective Subjective Extubated today. Tolerating Airvo so far. Objective Data Objective Data Vital Signs: Vital Signs Temp Pulse Resp BP Pulse Ox 38.1 C H 96 33 H 108/74 92 06/21/21 11:00 06/21/21 11:05 06/21/21 11:00 06/21/21 11:00 06/21/21 11:00 Oxygen Flow Rate (L/min) 55 Oxygen Delivery Method Mechanical Ventilator Weight: 108.2 kg Body Mass Index (BMI) 36.7 Intake & Output: Intake and Output for Last 24 Hours 06/19/21 06/20/21 06/21/21 23:59 23:59 23:59 Intake Total 5040.81 / 5101.71 6030.48 / 6583.38 2279.47 / 2279.47 Output Total 3410 / 3410 6450 / 6585 2925 / 2925 Balance 1630.81 / 1691.71 -419.52 / -1.62 -645.53 / -645.53 Medical Nutrition Assessment Dietitian: Malnutrition Criteria Met Start: 06/17/21 11:18 Freq: Status: Active Protocol: Document 06/21/21 10:43 AG (Rec: 06/21/21 10:43 AG [id number]) Nutrition Malnutrition Evidence of Malnutrition Exists Yes Malnutrition (severe): Acute Illness/Injury Evidenced By Suboptimal Energy Intake ( Severe),Weight Loss (Severe) Intake Problem Inadequate Oral Intake Etiology r/t resp. failure Signs/Symptoms as evidenced by no PO intake x 6 days Status Active Problem Clinical Problem Acute Disease or Injury Related Malnutrition Etiology severe, acute malnutrition r/t inadequate energy intake w/ increased energy needs d/t resp. failure from COVID-19 Signs/Symptoms as evidenced by estimated PO intake meeting <50% of estimated nutritional needs >5 days; unintentional wt loss of 4.8kg/4.3% x 2 weeks Status Active Problem Recommendation Dietitian Recommendations/Changes regular diet w/ 120mL ensure enlive 4x/day for additional calories/protein if consumed; recommend LACQUER POLISHER evaluation if chewing/swallowing issues evident. Lab / Micro Data Result Diagrams: 06/21/21 03:20 06/21/21 03:20 Labs: Laboratory Results - last 24 hr 06/21/21 03:20: WBC 12.0 H, RBC 4.25 L, Hgb 11.9 L, Hct 38.4 L, MCV 90.4, MCH 28.0, MCHC 31.0 L, RDW Std Deviation 44.6 H, RDW Coeff of Samantha 13.7, Plt Count 358, MPV 9.1, Immature Gran % (Auto) 2.100 H, Neut % (Auto) 71.0 H, Lymph % (Auto) 15.2 L, Callaway % (Auto) 5.9, Eos % (Auto) 5.2 H, Baso % (Auto) 0.6, Absolute Neuts (auto) 8.5 H, Absolute Lymphs (auto) 1.82, Nucleated RBC % 0 06/21/21 03:20: Sodium 142, Potassium 3.3 L, Chloride 107, Carbon Dioxide 34.0 H , Anion Gap 1 L, BUN 23 H, Creatinine 0.56 L, Estim Creat Clear Calc 190.10, Est GFR (MDRD) Af Amer 214, Est GFR (MDRD) Non-Af 177, BUN/Creatinine Ratio 41.3 H, Glucose 147 H, Calcium 8.3 L, Total Bilirubin 0.60, AST 25, ALT 30, Alkaline Phosphatase 65, Total Protein 6.0 L, Albumin 1.8 L, Globulin 4.2, Albumin/Globulin Ratio 0.4 L Micro: Microbiology 06/14/21 07:20 Sputum, Induced/Lukens Gram Stain - Final 06/14/21 07:20 Sputum, Induced/Lukens Respiratory Culture - Final Culture exhibits no growth. 06/12/21 13:17 Sputum, Induced/Lukens Gram Stain - Final 06/12/21 13:17 Sputum, Induced/Lukens Respiratory Culture - Final Moraxella(Michel.)Catarrhalis 06/13/21 08:45 Urine, Clean Catch Legionella Antigen - Final 06/13/21 08:45 Urine, Clean Catch Streptococcus pneumoniae Antigen (M - Final 06/02/21 06:50 Blood Culture (Wb) - Anticubital Left Blood Culture - Final No growth in 5 days. 06/02/21 07:00 Blood Culture (Wb) - Anticubital Right Blood Culture - Final No growth in 5 days. 06/02/21 07:08 Nasal Secretion SARS-CoV-2 Antigen (Rapid) - Final SARS-CoV-2 (COVID 19) ABG Data ABG results: ABG 06/21/21 06:23 Specimen Type ART Sample Site L Radial pH 7.45 Bicarbonate Actual 30.9 H Total CO2 32 Base Excess 7 H O2 Saturation 92 L O2 % 45 ABG pCO2 44.3 ABG pO2 61 L Huseyin Test N/A O2 Delivery Device Adult Vent Vent Mode CPAP/PS POC PEEP 5 POC Pressure Suppt 5 Rhythm Strip Rhythm Strip: Sinus Rhythm Rate: 88 Ectopy: None Physical Exam Const alert Constitutional Narrative: on Airvo. afebrile. Resp normal respiratory effort, no retractions and no use of accessory muscles Resp Narrative: coarse breath sounds bilaterally. Cardio regular rate, regular rhythm, S1 normal heart sound and S2 normal heart sound GI normal to inspection, nondistended, normoactive bowel sounds, soft to palpation, non-tender and non-distended Assessment & Plan Assessment/Plan (1) Acute respiratory failure with hypoxia: (2) Pneumonia due to COVID-19 virus: PLAN: 1. acute hypoxic respiratory failure 2/2 COVID 19 + M. cat pneumonia + PE extubated 06/21 2. COVID 19 pneumonia on dexamethasone completed remdesivir quarantine completed 3. M. cat pneumonia on pip tazo and vanc consider change to Amox/CA cephaloporin. 4. Encephalopathy on dexdemetomidine, fentanyl, midazolam, propofol midazolam off 5. Pulmonary emboli likely d/t hypercoagulable state from COVID 19 on therapeutic enoxaparin change to Xa inhibitor when able to take oral 6. VTE prophylaxis: not indicated given already anticoagulated. Charges/Coding Visit Charges Inpatient E&M: 68829 Subs Hosp L2
[2021-06-21] MEDS: Potassium Chloride Oral Tablet 20 MEQ 40 MEQ PO (16:52)
[2021-06-21] MEDS: Acetaminophen 325 MG Tablet 650 MG PO ×2 (17:47→22:42)
--- NOTE | 2021-06-21 19:03 | EKG12_ITS ---
Test Reason : VHEST PAIN Blood Pressure : / mmHG Vent. Rate : 123 BPM Atrial Rate : 123 BPM P-R Int : 130 ms QRS Dur : 074 ms QT Int : 358 ms P-R-T Axes : 034 009 -13 degrees QTc Int : 512 ms Sinus tachycardia Left ventricular hypertrophy with repolarization abnormality Abnormal ECG When compared with ECG of 02-JUN-2021 07:10, No significant change was found Confirmed by LISA PERDOMO, YOSELYN ([id number]), assistant film editor THEO WHITMORE ([id number]) on 06/25/2021 10:36:53 AM Referred By: Confirmed By:YOSELYN GONZALEZ MD
[2021-06-21] MEDS: DiphenhydrAMINE 25 MG Capsule 50 MG PO (21:26)
--- NOTE | 2021-06-21 22:44 | NURSING ---
pt hr tachy 138, temp 100.[address] chou, he came and assessed the pt ordered to give tylenol early.
[2021-06-22] VITALS (38 sets, daily range): BP systolic 100–135; BP diastolic 59–85; PULSE 92–132; RESP 26–39; TEMP 37.6–44.4; O2SAT 90–99
[2021-06-22 03:13] LABS: Hematocrit 38.8 % (40-54); Hemoglobin 12.3 g/dL (13.0-16.5); Mean Corp Hgb Conc 31.7 g/dL (32-36); Mean Corpuscular Volume 88.2 fL (80-94); Mean Platelet Vol. 8.8 fl (6.2-12.0); POSITIVE COUNT YES; POSITIVE MORPHOLOGY YES; Platelet Count 589 K/mm3 (150-450); RBC Distribution Width CV 14.3 % (11.6-14.6); RBC Distribution Width SD 45.2 fl (35.1-43.9); White Blood Count 19.2 K/mm3 (4.4-11.0)
[2021-06-22 03:16] LABS: Differential Indicated MANUAL DIFF
[2021-06-22 03:33] LABS: BUN 20 mg/dL (7-18); Creatinine, Serum 0.67 mg/dL (0.70-1.30); EST Glomerular Filtration Rate 142 mL/min (>60); Estimated Creatinine Clearance 158.89 ml/min; Glucose 105 mg/dL (74-106)
[2021-06-22 03:34] LABS: ALB/GLOB Ratio 0.5 RATIO (0.9-2.4); AST(SGOT) 51 U/L (15-37); Alanine Aminotransfer ALT/SGPT 50 U/L (16-61); Alkaline Phosphatase 73 U/L (45-117); Anion Gap 3 (5-15); BUN/Creat Ratio 29.8 RATIO (10-20); Calcium,Total 8.1 mg/dL (8.5-10.1); Chloride 106 mmol/L (98-107); Est Glom Filt Rate - Afr Amer 172 mL/min (>60); Globulin 4.3 g/dL (2.2-4.2); Potassium 3.5 mmol/L (3.5-5.1); Protein, Total 6.3 g/dL (6.4-8.2); Sodium Level 140 mmol/L (136-145)
[2021-06-22 04:10] LABS: Total Cells Counted 100 (MANUAL DIFF)
[2021-06-22 04:11] LABS: Basophil 1 % (0-1); Eosinophil 2 % (0-5); Lymphocyte 14 % (19-41); Metamyelocyte 1 % (0-1); Monocyte 11 % (0-10); Myelocyte 1 % (0-0); Neutrophil-Band 1 % (0-5); Neutrophil-Segmented 69 % (47-70); Platelet Estimate MOD INC (ADEQ)
[2021-06-22 04:12] LABS: Absolute Neutrophil Count 13.4 X10^3/uL (2.0-7.7); Anisocytosis RARE; Microcytosis RARE; Neutrophil # 13.44 X10^3/uL (2.7-7.7); Polychromasia RARE
[2021-06-22 04:13] LABS: Absolute Lymphocyte Count 2.69 X10^3/uL (0.83-4.51); Lymphocyte # 2.69 X10^3/ul (0.83-4.51)
--- NOTE | 2021-06-22 06:48 | PCM.PN.INT ---
Assessment & Plan Assessment/Plan (1) Acute respiratory failure with hypoxia: (2) Pneumonia due to COVID-19 virus: PLAN: RECOMMENDATIONS: 1. Wean Airvo as tolerated. Likely okay to use nasal cannula at this time 2. Okay to transition to nasal cannula patient tolerates 3. Continue antimicrobials (06/22/2021), therapeutic anticoagulation and GI prophylaxis. 4. Continue aggressive pulmonary toileting 5. Discontinue Seroquel 6. Add metoprolol 7. Continue diuretic therapy as needed to maintain euvolemic state with potassium supplementation as indicated 8. PT/OT 9. Plan for another 10 days of Decadron (06/26/2021). IMPRESSIONS: 1. Acute hypoxemic respiratory failure secondary to COVID-19 pneumonia The patient presented to the hospital with progressive respiratory symptoms and hypoxemia, with symptom onset sometime around May 22. The patient subsequently tested positive for coronavirus. He is unvaccinated. Despite having completed a treatment course of remdesivir and Decadron, the patient has remained quite tenuous from a respiratory perspective. In fact, the patient decompensated from an oxygenation standpoint and ultimately required intubation on June 13. Repeat CTA chest did reveal evidence of pulmonary emboli and significant bilateral infiltrates. Patient should remain on therapeutic anticoagulation. Patient can be transitioned to Eliquis therapy if able to pass a swallow evaluation. Will discontinue Seroquel therapy. Continue to wean oxygen as tolerated. Okay to use nasal cannula if patient qualifies. 2. Distributive shock Resolved. The patient developed hypotension as a consequence of sedative medication use. Plan to continue current supportive measures including Levophed to maintain a mean arterial pressure at or above 65 mmHg. Discontinue Levophed 3. Bilateral pulmonary emboli Continue therapeutic anticoagulation with Lovenox as ordered. 4. Hypokalemia Electrolyte repletion as ordered. Recheck levels in the morning given active diuresis. 5. Sinus tachycardia Patient with persistent tachycardia, but no hypotension. Will give rate control. Subjective Subjective Patient did okay overnight. Patient has tolerated Airvo without complications. Patient has been persistently tachycardic. Patient did have a slight fever and was noted to have a rash throughout his chest. This was not associated with medication administration. Patient was given Benadryl with improvement. Objective Data Objective Data Vital Signs: Vital Signs Temp Pulse Resp BP Pulse Ox 37.7 C H 115 H 31 H 113/68 95 06/22/21 02:00 06/22/21 04:51 06/22/21 04:51 06/22/21 02:00 06/22/21 04:51 Oxygen Flow Rate (L/min) 55 Oxygen Delivery Method Airvo Weight: 108.2 kg Body Mass Index (BMI) 36.7 Intake & Output: Intake and Output for Last 24 Hours 06/20/21 06/21/21 06/22/21 23:59 23:59 23:59 Intake Total 6030.48 / 6583.38 3855.12 / 3863.12 58 / 58 Output Total 6450 / 6585 2925 / 3925 1000 / 1000 Balance -419.52 / -1.62 930.12 / -61.88 -942 / -942 Medical Nutrition Assessment Dietitian: Malnutrition Criteria Met Start: 06/17/21 11:18 Freq: Status: Active Protocol: Document 06/21/21 10:43 AG (Rec: 06/21/21 10:43 AG [id number]) Nutrition Malnutrition Evidence of Malnutrition Exists Yes Malnutrition (severe): Acute Illness/Injury Evidenced By Suboptimal Energy Intake ( Severe),Weight Loss (Severe) Intake Problem Inadequate Oral Intake Etiology r/t resp. failure Signs/Symptoms as evidenced by no PO intake x 6 days Status Active Problem Clinical Problem Acute Disease or Injury Related Malnutrition Etiology severe, acute malnutrition r/t inadequate energy intake w/ increased energy needs d/t resp. failure from COVID-19 Signs/Symptoms as evidenced by estimated PO intake meeting <50% of estimated nutritional needs >5 days; unintentional wt loss of 4.8kg/4.3% x 2 weeks Status Active Problem Recommendation Dietitian Recommendations/Changes regular diet w/ 120mL ensure enlive 4x/day for additional calories/protein if consumed; recommend SUBSTATION OPERATOR AUTOMATIC evaluation if chewing/swallowing issues evident. Lab / Micro Data Result Diagrams: 06/22/21 03:00 06/22/21 03:00 Labs: Laboratory Results - last 24 hr 06/22/21 03:00: WBC 19.2 H, RBC 4.40 L, Hgb 12.3 L, Hct 38.8 L, MCV 88.2, MCH 28.0, MCHC 31.7 L, RDW Std Deviation 45.2 H, RDW Coeff of Samantha 14.3, Plt Count 589 H, MPV 8.8, Neut % (Auto) Not Reportable, Absolute Neuts (auto) 13.4 H, Absolute Lymphs (auto) 2.69, Total Counted 100, Neutrophils % (Manual) 69, Band Neutrophils % 1, Lymphocytes % (Manual) 14 L, Monocytes % (Manual) 11 H, Eosinophils % (Manual) 2, Basophils % (Manual) 1, Metamyelocytes % 1, Myelocytes % 1 H, Diff Path Review February foll, Platelet Estimate MOD INC, Polychromasia RARE, Anisocytosis RARE, Microcytosis RARE 06/22/21 03:00: Sodium 140, Potassium 3.5, Chloride 106, Carbon Dioxide 31.0, Anion Gap 3 L, BUN 20 H, Creatinine 0.67 L, Estim Creat Clear Calc 158.89, Est GFR (MDRD) Af Amer 172, Est GFR (MDRD) Non-Af 142, BUN/Creatinine Ratio 29.8 H, Glucose 105, Calcium 8.1 L, Total Bilirubin 0.80, AST 51 H, ALT 50, Alkaline Phosphatase 73, Total Protein 6.3 L, Albumin 2.0 L, Globulin 4.3 H, Albumin/Globulin Ratio 0.5 L Micro: Microbiology 06/14/21 07:20 Sputum, Induced/Lukens Gram Stain - Final 06/14/21 07:20 Sputum, Induced/Lukens Respiratory Culture - Final Culture exhibits no growth. 06/12/21 13:17 Sputum, Induced/Lukens Gram Stain - Final 06/12/21 13:17 Sputum, Induced/Lukens Respiratory Culture - Final Moraxella(Michel.)Catarrhalis 06/13/21 08:45 Urine, Clean Catch Legionella Antigen - Final 06/13/21 08:45 Urine, Clean Catch Streptococcus pneumoniae Antigen (M - Final 06/02/21 06:50 Blood Culture (Wb) - Anticubital Left Blood Culture - Final No growth in 5 days. 06/02/21 07:00 Blood Culture (Wb) - Anticubital Right Blood Culture - Final No growth in 5 days. 06/02/21 07:08 Nasal Secretion SARS-CoV-2 Antigen (Rapid) - Final SARS-CoV-2 (COVID 19) Rhythm Strip Rhythm Strip: Sinus Rhythm Rate: 88 Ectopy: None Physical Exam Const alert Constitutional Narrative: RASS 0. Patient currently on Airvo. Grossly weak General Appearance: cooperative Nutritional Appearance: obese HEENT normocephalic and head/scalp atraumatic Mouth: endotracheal tube in place and OG tube in place Eyes PERRL and conjunctivae normal Eyes Narrative: Slight scleral injection without icterus Neck supple General: trachea midline and CVC in place Lymph Lymphatic: no lymphadenopathy noted Chest inspection of chest normal Chest Narrative: No crepitus noted Chest: symmetrical chest wall rise; Negative for crepitus Resp Resp Narrative: Rhonchi improved with coughing. Poor vocalization. Cough improving. Effort and Inspection: tachypneic Auscultation: rhonchi throughout and diminished lung sounds; Negative for rales or wheezes Cardio regular rhythm, S1 normal heart sound, S2 normal heart sound, no murmurs, no rub and no gallops Rate: tachycardic Heart Sounds: Negative for murmur GI normal to inspection, nondistended, normoactive bowel sounds Extremity General Extremity: edema bilateral lower extremity; Negative for clubbing Skin no rashes or lesions noted Neuro oriented x3 and CN's II-XII intact bilaterally Psych mental status grossly normal, thought process normal and cooperative Mood & Affect: depressed Charges/Coding Visit Charges Inpatient E&M: 52972 Subs Hosp L3
[2021-06-22] MEDS: Potassium Chloride Oral Tablet 20 MEQ 40 MEQ PO ×2 (08:38→17:59)
[2021-06-22] MEDS: Enoxaparin 100 MG/ML Syringe SC (08:38)
[2021-06-22] MEDS: Furosemide 40 MG/4 ML Vial IV (08:38)
[2021-06-22] MEDS: dexAMETHasone 4 MG/ML Vial 6 MG IV (08:39)
[2021-06-22] MEDS: Pantoprazole Sodium 40 MG Tablet PO (08:40)
[2021-06-22] MEDS: guaiFENesin 1,200 MG Tablet 1200 MG PO ×2 (08:40→23:00)
[2021-06-22] MEDS: Metoprolol Tartrate 25 MG Tablet 12.5 MG PO (08:45)
[2021-06-22 09:49] LABS: Vancomycin, Trough Level 19.6 ug/mL (5.0-15.0)
--- NOTE | 2021-06-22 09:59 | PCM.RX.CS ---
Consult Pharmacy has been consulted to manage selected antiobiotic: Vancomycin Type of Consult: Follow-up Labs: Sodium 140 mmol/L (136-145) 06/22/21 03:00 Potassium 3.5 mmol/L (3.5-5.1) 06/22/21 03:00 Chloride 106 mmol/L (98-107) 06/22/21 03:00 Carbon Dioxide 31.0 mmol/L (21.0-32.0) 06/22/21 03:00 Anion Gap 3 (5-15) L 06/22/21 03:00 BUN 20 mg/dL (7-18) H 06/22/21 03:00 Creatinine 0.67 mg/dL (0.70-1.30) L 06/22/21 03:00 Est GFR (MDRD) Af Amer 172 mL/min (>60) 06/22/21 03:00 Est GFR (MDRD) Non-Af 142 mL/min (>60) 06/22/21 03:00 BUN/Creatinine Ratio 29.8 RATIO (10-20) H 06/22/21 03:00 Glucose 105 mg/dL (74-106) 06/22/21 03:00 Vancomycin Trough 19.6 ug/mL (5.0-15.0) H 06/22/21 08:50 Microbiology: Microbiology 06/14/21 07:20 Sputum, Induced/Lukens Gram Stain - Final 06/14/21 07:20 Sputum, Induced/Lukens Respiratory Culture - Final Culture exhibits no growth. 06/12/21 13:17 Sputum, Induced/Lukens Gram Stain - Final 06/12/21 13:17 Sputum, Induced/Lukens Respiratory Culture - Final Moraxella(Michel.)Catarrhalis 06/13/21 08:45 Urine, Clean Catch Legionella Antigen - Final 06/13/21 08:45 Urine, Clean Catch Streptococcus pneumoniae Antigen (M - Final 06/02/21 06:50 Blood Culture (Wb) - Anticubital Left Blood Culture - Final No growth in 5 days. 06/02/21 07:00 Blood Culture (Wb) - Anticubital Right Blood Culture - Final No growth in 5 days. 06/02/21 07:08 Nasal Secretion SARS-CoV-2 Antigen (Rapid) - Final SARS-CoV-2 (COVID 19) Goal Trough: 15-20 mcg/mL Pharmacy Plan for Drug Dosing: VANCOMYCIN LEVEL RECEIVED Current Vancomycin Dose: 1500mg q8h (,,17) Number of Doses Received: x27 Vancomycin Level: 19.6 Hours Since Last Dose: 6 Renal Function: SrCr 0.67 Renal Function Trend: stable Lab/Micro: Vancomycin Plan/Comments: none, planned stopped date 06/23/21 Pending Level: none Pharmacy Service will continue to monitor and adjust dosing as required.
--- NOTE | 2021-06-22 11:03 | CASEMGMT ---
Addendum entered by Abena Munoz 06/22/21 11:07: SW also offered support to , she states that her children(3 and 6) were staying w/their grandmother and they are coming home today. She also states her neighbors have been very supportive. She states she has been having a difficult time emotionally so the children were staying with their grandma. SW encouraged , once they are a little further in time away from all of this, to explore the idea of counseling. She does state she is doing better. SW will continue to follow. JUAN Sesay Original Note: SW participated in ICU rounds, as per physician it is anticipated pt may need some rehab at discharge. SW spoke w/pt, if rehab needed would like to stay here, agreeable to have SW call pt's . SW called [facility], spoke w/her about rehab options. SW reviewed options in their preferred geographic area that take pt's insurance. If possible would like pt to stay here in TCU. SW explained will put pt on the TCU list. states they are trying to get things set up for pt at home, and having a couple of weeks to do this may be helpful. wants pt to stay here if rehab is needed, does not want him starting over in another facility. SW called TCU, since pt has been here 20 days already post COVID+, TCU would be able to take him. Pt on the TCU list. SW will continue to follow. JUAN Sesay
[2021-06-22] MEDS: Acetaminophen 325 MG Tablet 650 MG PO ×2 (11:41→17:59)
--- NOTE | 2021-06-22 12:54 | CHAPLAIN ---
Type of Pastoral Visit ___ Initial Visit ___ Follow-up Visit ___ On-call Visit _x__ General Patient Visit ___ Spiritual Assessment ___ Family Conference ___ Bereavement ___ Rapid Response ___ Code Blue ___ Other (describe below) Pastoral Care Referral From ___ Patient ___ Family ___ Nurse ___ Physician ___ Aeroplane Pilot ___ Financial Institution Vice President _x__ Other (describe below) Sacrament/Intervention ___ Active listening ___ Anointing ___ Jewish ___ Bereavement ___ Communion ___ Jennifer exploration ___ ___ Life review ___ Prayer ___ Reconciliation ___ Sacrament of Sick _x__ Supportive presence ___ Wedding ___ Other (describe below) Pastoral Comments since patient is not ventilated, this life insurance actuary stopped to say hello, reintroduce self and role, and offer support
--- NOTE | 2021-06-22 13:58 | PN.HOSP_ITS ---
Subjective Subjective Short of breath on Airvo Objective Data Objective Data Vital Signs: Vital Signs Temp Pulse Resp BP Pulse Ox 37.7 C H 113 H 32 H 121/79 H 98 06/22/21 12:00 06/22/21 13:00 06/22/21 13:00 06/22/21 13:00 06/22/21 13:16 Oxygen Flow Rate (L/min) 5 Oxygen Delivery Method Nasal Cannula Weight: 108.2 kg Body Mass Index (BMI) 36.7 Intake & Output: Intake and Output for Last 24 Hours 06/20/21 06/21/21 06/22/21 23:59 23:59 23:59 Intake Total 6030.48 / 6583.38 3855.12 / 3863.12 1408 / 1408 Output Total 6450 / 6501 2925 / 3925 2560 / 2560 Balance -419.52 / -1.62 930.12 / -61.88 -1152 / -1152 Medical Nutrition Assessment Dietitian: Malnutrition Criteria Met Start: 06/17/21 11:18 Freq: Status: Active Protocol: Document 06/21/21 10:43 AG (Rec: 06/21/21 10:43 AG [id number]) Nutrition Malnutrition Evidence of Malnutrition Exists Yes Malnutrition (severe): Acute Illness/Injury Evidenced By Suboptimal Energy Intake ( Severe),Weight Loss (Severe) Intake Problem Inadequate Oral Intake Etiology r/t resp. failure Signs/Symptoms as evidenced by no PO intake x 6 days Status Active Problem Clinical Problem Acute Disease or Injury Related Malnutrition Etiology severe, acute malnutrition r/t inadequate energy intake w/ increased energy needs d/t resp. failure from COVID-19 Signs/Symptoms as evidenced by estimated PO intake meeting <50% of estimated nutritional needs >5 days; unintentional wt loss of 4.8kg/4.3% x 2 weeks Status Active Problem Recommendation Dietitian Recommendations/Changes regular diet w/ 120mL ensure enlive 4x/day for additional calories/protein if consumed; recommend NEWSPAPER WRITER evaluation if chewing/swallowing issues evident. Lab / Micro Data Result Diagrams: 06/22/21 03:00 06/22/21 03:00 Labs: Laboratory Results - last 24 hr 06/22/21 03:00: WBC 19.2 H, RBC 4.40 L, Hgb 12.3 L, Hct 38.8 L, MCV 88.2, MCH 28.0, MCHC 31.7 L, RDW Std Deviation 45.2 H, RDW Coeff of Samantha 14.3, Plt Count 589 H, MPV 8.8, Neut % (Auto) Not Reportable, Absolute Neuts (auto) 13.4 H, Absolute Lymphs (auto) 2.69, Total Counted 100, Neutrophils % (Manual) 69, Band Neutrophils % 1, Lymphocytes % (Manual) 14 L, Monocytes % (Manual) 11 H, Eosinophils % (Manual) 2, Basophils % (Manual) 1, Metamyelocytes % 1, Myelocytes % 1 H, Diff Path Review February, Platelet Estimate MOD INC, Polychromasia RARE, Anisocytosis RARE, Microcytosis RARE 06/22/21 03:00: Sodium 140, Potassium 3.5, Chloride 106, Carbon Dioxide 31.0, Anion Gap 3 L, BUN 20 H, Creatinine 0.67 L, Estim Creat Clear Calc 158.89, Est GFR (MDRD) Af Amer 172, Est GFR (MDRD) Non-Af 142, BUN/Creatinine Ratio 29.8 H, Glucose 105, Calcium 8.1 L, Total Bilirubin 0.80, AST 51 H, ALT 50, Alkaline Phosphatase 73, Total Protein 6.3 L, Albumin 2.0 L, Globulin 4.3 H, Albumin/Globulin Ratio 0.5 L 06/22/21 08:50: Vancomycin Trough 19.6 H Micro: Microbiology 06/14/21 07:20 Sputum, Induced/Lukens Gram Stain - Final 06/14/21 07:20 Sputum, Induced/Lukens Respiratory Culture - Final Culture exhibits no growth. 06/12/21 13:17 Sputum, Induced/Lukens Gram Stain - Final 06/12/21 13:17 Sputum, Induced/Lukens Respiratory Culture - Final Moraxella(Michel.)Catarrhalis 06/13/21 08:45 Urine, Clean Catch Legionella Antigen - Final 06/13/21 08:45 Urine, Clean Catch Streptococcus pneumoniae Antigen (M - Final 06/02/21 06:50 Blood Culture (Wb) - Anticubital Left Blood Culture - Final No growth in 5 days. 06/02/21 07:00 Blood Culture (Wb) - Anticubital Right Blood Culture - Final No growth in 5 days. 08/28/21 07:08 Nasal Secretion SARS-CoV-2 Antigen (Rapid) - Final SARS-CoV-2 (COVID 19) Rhythm Strip Rhythm Strip: Sinus Rhythm Rate: 88 Ectopy: None Physical Exam Narrative Up in chair. Tachypneic with short shallow breaths. On air Vo. Const alert Resp normal respiratory effort and no retractions Resp Narrative: Coarse breath sounds bilaterally Cardio regular rate, regular rhythm, S1 normal heart sound and S2 normal heart sound GI normal to inspection, nondistended, normoactive bowel sounds, soft to palpation, non-tender and non-distended Assessment & Plan Assessment/Plan (1) Acute respiratory failure with hypoxia: (2) Pneumonia due to COVID-19 virus: PLAN: 1. acute hypoxic respiratory failure 2/2 COVID 19 + M. cat pneumonia + PE extubated 06/21 On air Vo when I saw but has been weaned down to 5 L nasal cannula. Continue to wean as able. 2. COVID 19 pneumonia on dexamethasone completed remdesivir quarantine completed 3. M. cat pneumonia on pip tazo and vanc consider change to Amox/CA cephaloporin. 4. Encephalopathy Resolved. Due to all the sedating agents that he was on. 5. Pulmonary emboli likely d/t hypercoagulable state from COVID 19 On apixaban. Treat for 6 months. 6. VTE prophylaxis: not indicated given already anticoagulated. 7. Debility: To be expected after 20-day hospitalization. Patient currently on the TCU list. The patient can continue to remain on nasal cannula then can likely be discharged to the transitional care unit next week. Charges/Coding Visit Charges Inpatient E&M: 29693 Subs Hosp L2
[2021-06-22 14:47] LABS: Pathologist Review Reviewed
[2021-06-22] MEDS: APIXABAN 5 MG TABLET 10 MG PO (23:00)
[2021-06-22] MEDS: QUEtiapine 100 MG Tablet PO (23:00)
[2021-06-22] MEDS: 0.9% Saline Lock 10 ML Syringe IV (23:20)
[2021-06-23] VITALS (28 sets, daily range): BP systolic 117–149; BP diastolic 63–84; PULSE 82–117; RESP 22–37; TEMP 36.6–38; O2SAT 88–96
[2021-06-23 04:29] LABS: Absolute Lymphocyte Count 1.29 X10^3/uL (0.83-4.51); Absolute Neutrophil Count 9.1 X10^3/uL (2.0-7.7); Basophil# 0.12 X10^3/uL; Basophil% 0.9 % (0-1); Eosinophil# 1.01 X10^3/uL; Eosinophils% 7.7 % (0-5); Hematocrit 39.6 % (40-54); Hemoglobin 12.1 g/dL (13.0-16.5); Lymphocyte # 1.29 X10^3/ul (0.83-4.51); Lymphocyte % 9.9 % (19-41); Mean Corp Hgb Conc 30.6 g/dL (32-36); Mean Corpuscular Hgb 27.9 pg (27.0-32.0); Mean Corpuscular Volume 91.2 fL (80-94); Monocyte# 0.87 X10^3/uL; Monocyte% 6.7 % (0-10); NRBC Flagged by Analyzer 0 % (0-5); Neutrophil # 9.11 X10^3/uL (2.7-7.7); Neutrophil % 69.8 % (47-70); Platelet Count 475 K/mm3 (150-450); RBC Distribution Width CV 14.4 % (11.6-14.6); RBC Distribution Width SD 47.4 fl (35.1-43.9); Red Blood Count 4.34 M/mm3 (4.6-6.2); White Blood Count 13.1 K/mm3 (4.4-11.0)
[2021-06-23 04:44] LABS: ALB/GLOB Ratio 0.5 RATIO (0.9-2.4); AST(SGOT) 35 U/L (15-37); Alanine Aminotransfer ALT/SGPT 48 U/L (16-61); Alkaline Phosphatase 67 U/L (45-117); Anion Gap 5 (5-15); BUN 20 mg/dL (7-18); BUN/Creat Ratio 30.3 RATIO (10-20); Calcium,Total 8.2 mg/dL (8.5-10.1); Chloride 112 mmol/L (98-107); Creatinine, Serum 0.66 mg/dL (0.70-1.30); EST Glomerular Filtration Rate 145 mL/min (>60); Est Glom Filt Rate - Afr Amer 176 mL/min (>60); Globulin 4.2 g/dL (2.2-4.2); Glucose 117 mg/dL (74-106); Potassium 3.6 mmol/L (3.5-5.1); Protein, Total 6.2 g/dL (6.4-8.2); Sodium Level 144 mmol/L (136-145)
--- NOTE | 2021-06-23 07:17 | PCM.PN.INT ---
Assessment & Plan Assessment/Plan (1) Acute respiratory failure with hypoxia: (2) Pneumonia due to COVID-19 virus: PLAN: RECOMMENDATIONS: 1. Wean Airvo as tolerated. Likely okay to use nasal cannula at this time 2. Okay to transition to nasal cannula patient tolerates 3. Continue therapeutic anticoagulation and GI prophylaxis. Antibiotics should be completed today 4. Continue aggressive pulmonary toileting 5. Decadron planned through 06/26/2021 6. Increase metoprolol 7. We will hold on diuretics today 8. Okay to leave the intensive care unit from my perspective IMPRESSIONS: 1. Acute hypoxemic respiratory failure secondary to COVID-19 pneumonia The patient presented to the hospital with progressive respiratory symptoms and hypoxemia, with symptom onset sometime around May 22. The patient subsequently tested positive for coronavirus. He is unvaccinated. Despite having completed a treatment course of remdesivir and Decadron, the patient has remained quite tenuous from a respiratory perspective. In fact, the patient decompensated from an oxygenation standpoint and ultimately required intubation on June 13. Repeat CTA chest did reveal evidence of pulmonary emboli and significant bilateral infiltrates. Patient should remain on therapeutic anticoagulation. Patient can be transitioned to Eliquis therapy if able to pass a swallow evaluation. Patient continues to improve. Continue to encourage aggressive pulmonary toileting. 2. Distributive shock Resolved. The patient developed hypotension as a consequence of sedative medication use. Plan to continue current supportive measures including Levophed to maintain a mean arterial pressure at or above 65 mmHg. Discontinue Levophed 3. Bilateral pulmonary emboli Continue therapeutic anticoagulation with Lovenox as ordered. 4. Hypokalemia Electrolyte repletion as ordered. Recheck levels in the morning given active diuresis. 5. Sinus tachycardia Patient with persistent tachycardia, but no hypotension. Will increase rate control. Subjective Subjective Patient did well overnight. No acute issues were reported. Patient did have two large bowel movements noted. Patient has been able to tolerate nasal cannula during the day, but was placed on Airvo overnight to help with secretions. Patient has remained tachycardic. Objective Data Objective Data Vital Signs: Vital Signs Temp Pulse Resp BP Pulse Ox 37.6 C H 97 24 H 123/76 H 95 06/23/21 07:00 06/23/21 07:00 06/23/21 07:00 06/23/21 07:00 06/23/21 07:00 Oxygen Flow Rate (L/min) 6 Oxygen Delivery Method Nasal Cannula Weight: 104.2 kg Body Mass Index (BMI) 36.7 Intake & Output: Intake and Output for Last 24 Hours 06/21/21 06/22/21 06/23/21 23:59 23:59 23:59 Intake Total 3855.12 / 3863.12 2398 / 3118 1300 / 1300 Output Total 2925 / 3925 3210 / 3460 350 / 350 Balance 930.12 / -61.88 -812 / -342 950 / 950 Medical Nutrition Assessment Dietitian: Malnutrition Criteria Met Start: 06/17/21 11:18 Freq: Status: Active Protocol: Document 06/21/21 10:43 AG (Rec: 06/21/21 10:43 AG [id number]) Nutrition Malnutrition Evidence of Malnutrition Exists Yes Malnutrition (severe): Acute Illness/Injury Evidenced By Suboptimal Energy Intake ( Severe),Weight Loss (Severe) Intake Problem Inadequate Oral Intake Etiology r/t resp. failure Signs/Symptoms as evidenced by no PO intake x 6 days Status Active Problem Clinical Problem Acute Disease or Injury Related Malnutrition Etiology severe, acute malnutrition r/t inadequate energy intake w/ increased energy needs d/t resp. failure from COVID-19 Signs/Symptoms as evidenced by estimated PO intake meeting <50% of estimated nutritional needs >5 days; unintentional wt loss of 4.8kg/4.3% x 2 weeks Status Active Problem Recommendation Dietitian Recommendations/Changes regular diet w/ 120mL ensure enlive 4x/day for additional calories/protein if consumed; recommend [employer] evaluation if chewing/swallowing issues evident. Lab / Micro Data Result Diagrams: 06/23/21 03:30 06/23/21 03:30 Labs: Laboratory Results - last 24 hr 06/22/21 03:00: Diff Path Review Reviewed 06/22/21 08:50: Vancomycin Trough 19.6 H 06/23/21 03:30: WBC 13.1 H, RBC 4.34 L, Hgb 12.1 L, Hct 39.6 L, MCV 91.2, MCH 27.9, MCHC 30.6 L, RDW Std Deviation 47.4 H, RDW Coeff of Samantha 14.4, Plt Count 475 H, MPV 9.0, Immature Gran % (Auto) 5.000 H, Neut % (Auto) 69.8, Lymph % (Auto) 9.9 L, [place] % (Auto) 6.7, Eos % (Auto) 7.7 H, Baso % (Auto) 0.9, Absolute Neuts (auto) 9.1 H, Absolute Lymphs (auto) 1.29, Nucleated RBC % 0 06/23/21 03:30: Sodium 144, Potassium 3.6, Chloride 112 H, Carbon Dioxide 27.0, Anion Gap 5, BUN 20 H, Creatinine 0.66 L, Estim Creat Clear Calc 161.30, Est GFR (MDRD) Af Amer 176, Est GFR (MDRD) Non-Af 145, BUN/Creatinine Ratio 30.3 H, Glucose 117 H, Calcium 8.2 L, Total Bilirubin 0.70, AST 35, ALT 48, Alkaline Phosphatase 67, Total Protein 6.2 L, Albumin 2.0 L, Globulin 4.2, Albumin/Globulin Ratio 0.5 L Micro: Microbiology 06/14/21 07:20 Sputum, Induced/Lukens Gram Stain - Final 06/14/21 07:20 Sputum, Induced/Lukens Respiratory Culture - Final Culture exhibits no growth. 06/12/21 13:17 Sputum, Induced/Lukens Gram Stain - Final 06/12/21 13:17 Sputum, Induced/Lukens Respiratory Culture - Final Moraxella(Michel.)Catarrhalis 06/13/21 08:45 Urine, Clean Catch Legionella Antigen - Final 06/13/21 08:45 Urine, Clean Catch Streptococcus pneumoniae Antigen (M - Final 06/02/21 06:50 Blood Culture (Wb) - Anticubital Left Blood Culture - Final No growth in 5 days. 06/02/21 07:00 Blood Culture (Wb) - Anticubital Right Blood Culture - Final No growth in 5 days. 06/02/21 07:08 Nasal Secretion SARS-CoV-2 Antigen (Rapid) - Final SARS-CoV-2 (COVID 19) Rhythm Strip Rhythm Strip: Sinus Rhythm Rate: 88 Ectopy: None Physical Exam Const alert Constitutional Narrative: RASS 0. Patient currently on nasal cannula. Grossly weak. Voice is improving. General Appearance: cooperative Nutritional Appearance: obese HEENT normocephalic and head/scalp atraumatic Mouth: endotracheal tube in place and OG tube in place Eyes PERRL and conjunctivae normal Eyes Narrative: Slight scleral injection without icterus Neck supple General: trachea midline and CVC in place Lymph Lymphatic: no lymphadenopathy noted Chest inspection of chest normal Chest: symmetrical chest wall rise; Negative for crepitus Resp Effort and Inspection: symmetric chest movement Auscultation: diminished lung sounds; Negative for rales, rhonchi or wheezes Cardio regular rhythm, S1 normal heart sound, S2 normal heart sound, no murmurs, no rub and no gallops Rate: tachycardic Heart Sounds: Negative for murmur GI normal to inspection, nondistended, normoactive bowel sounds Extremity General Extremity: edema bilateral lower extremity; Negative for clubbing or cyanosis Skin no rashes or lesions noted Neuro oriented x3 and CN's II-XII intact bilaterally Psych mental status grossly normal, thought process normal and cooperative Mood & Affect: depressed Charges/Coding Visit Charges Inpatient E&M: 13331 Subs Hosp L3
[2021-06-23] MEDS: guaiFENesin 1,200 MG Tablet 1200 MG PO ×2 (08:39→21:14)
[2021-06-23] MEDS: Sodium Chloride 0.65% 1 SPRAY SPRAY.BTL 2 SPRAY NASAL (08:39)
[2021-06-23] MEDS: Potassium Chloride Oral Tablet 20 MEQ 40 MEQ PO ×2 (08:40→16:29)
[2021-06-23] MEDS: Pantoprazole Sodium 40 MG Tablet PO (08:40)
[2021-06-23] MEDS: Metoprolol Tartrate 25 MG Tablet PO (08:41)
[2021-06-23] MEDS: APIXABAN 5 MG TABLET 10 MG PO ×2 (08:42→21:14)
[2021-06-23] MEDS: dexAMETHasone 4 MG/ML Vial 6 MG IV (08:42)
[2021-06-23] MEDS: Acetaminophen 325 MG Tablet 650 MG PO ×3 (08:45→16:32)
[2021-06-23] MEDS: Albuterol 2.5 MG/3 ML VIAL.NEB. INHALATION (10:35)
--- NOTE | 2021-06-23 14:20 | PCM.PN.HOSP ---
Subjective Subjective tolerating NC Objective Data Objective Data Vital Signs: Vital Signs Temp Pulse Resp BP Pulse Ox 36.6 C 96 30 H 141/73 H 93 06/23/21 09:00 06/23/21 11:34 06/23/21 10:38 06/23/21 10:00 06/23/21 10:38 Oxygen Flow Rate (L/min) 6 Oxygen Delivery Method Nasal Cannula Weight: 104.2 kg Body Mass Index (BMI) 36.7 Intake & Output: Intake and Output for Last 24 Hours 06/21/21 06/22/21 06/23/21 23:59 23:59 23:59 Intake Total 3855.12 / 3863.12 2398 / 3118 1300 / 1300 Output Total 2925 / 3925 3210 / 3460 350 / 350 Balance 930.12 / -61.88 -812 / -342 950 / 950 Medical Nutrition Assessment Dietitian: Malnutrition Criteria Met Start: 06/17/21 11:18 Freq: Status: Active Protocol: Document 06/23/21 10:35 BJ (Rec: 06/23/21 10:36 SLA [id number]) Nutrition Malnutrition Evidence of Malnutrition Exists Yes Malnutrition (severe): Acute Illness/Injury Evidenced By Suboptimal Energy Intake ( Severe),Weight Loss (Severe) Intake Problem Inadequate Oral Intake Etiology r/t resp. failure Signs/Symptoms as evidenced by poor po intake of food - is accepting of ensure enlive w/ meals - does not want additional supplementation at this time. Status Active Problem Clinical Problem Acute Disease or Injury Related Malnutrition Etiology severe, acute malnutrition r/t inadequate energy intake w/ increased energy needs d/t resp. failure from COVID-19 Signs/Symptoms as evidenced by estimated PO intake meeting <50% of estimated nutritional needs >5 days; 7.4% wt loss since adm (112.8 kg on 06/02) Status Active Problem Recommendation Dietitian Recommendations/Changes Will continue to provide regular diet Will continue to provide 8 oz strawberry ensure enlive w/ meals per pt preference Lab / Micro Data Result Diagrams: 06/23/21 03:30 06/23/21 03:30 Labs: Laboratory Results - last 24 hr 06/22/21 03:00: Diff Path Review Reviewed 06/23/21 03:30: WBC 13.1 H, RBC 4.34 L, Hgb 12.1 L, Hct 39.6 L, MCV 91.2, MCH 27.9, MCHC 30.6 L, RDW Std Deviation 47.4 H, RDW Coeff of Samantha 14.4, Plt Count 475 H, MPV 9.0, Immature Gran % (Auto) 5.000 H, Neut % (Auto) 69.8, Lymph % (Auto) 9.9 L, [place] % (Auto) 6.7, Eos % (Auto) 7.7 H, Baso % (Auto) 0.9, Absolute Neuts (auto) 9.1 H, Absolute Lymphs (auto) 1.29, Nucleated RBC % 0 06/23/21 03:30: Sodium 144, Potassium 3.6, Chloride 112 H, Carbon Dioxide 27.0, Anion Gap 5, BUN 20 H, Creatinine 0.66 L, Estim Creat Clear Calc 161.30, Est GFR (MDRD) Af Amer 176, Est GFR (MDRD) Non-Af 145, BUN/Creatinine Ratio 30.3 H, Glucose 117 H, Calcium 8.2 L, Total Bilirubin 0.70, AST 35, ALT 48, Alkaline Phosphatase 67, Total Protein 6.2 L, Albumin 2.0 L, Globulin 4.2, Albumin/Globulin Ratio 0.5 L Micro: Microbiology 06/14/21 07:20 Sputum, Induced/Lukens Gram Stain - Final 06/14/21 07:20 Sputum, Induced/Lukens Respiratory Culture - Final Culture exhibits no growth. 06/12/21 13:17 Sputum, Induced/Lukens Gram Stain - Final 06/12/21 13:17 Sputum, Induced/Lukens Respiratory Culture - Final Moraxella(Michel.)Catarrhalis 06/13/21 08:45 Urine, Clean Catch Legionella Antigen - Final 06/13/21 08:45 Urine, Clean Catch Streptococcus pneumoniae Antigen (M - Final 06/02/21 06:50 Blood Culture (Wb) - Anticubital Left Blood Culture - Final No growth in 5 days. 06/02/21 07:00 Blood Culture (Wb) - Anticubital Right Blood Culture - Final No growth in 5 days. 06/02/21 07:08 Nasal Secretion SARS-CoV-2 Antigen (Rapid) - Final SARS-CoV-2 (COVID 19) Rhythm Strip Rhythm Strip: Sinus Rhythm Rate: 88 Ectopy: None Physical Exam Narrative appears more comfortable on NC. No respiratory distress. No conversational dyspnea. HEENT head/scalp atraumatic Head and Scalp: normocephalic Resp normal respiratory effort and no retractions Resp Narrative: coarse BS Cardio regular rate, regular rhythm, S1 normal heart sound and S2 normal heart sound GI normal to inspection, nondistended, normoactive bowel sounds, soft to palpation, non-tender and non-distended Extremity General Extremity: edema Assessment & Plan Assessment/Plan (1) Acute respiratory failure with hypoxia: (2) Pneumonia due to COVID-19 virus: PLAN: 1. acute hypoxic respiratory failure 2/ COVID 19 + M. cat pneumonia + PE extubated 06/21 On air Vo when I saw but has been weaned down to 5 L nasal cannula. Continue to wean as able. 2. COVID 19 pneumonia on dexamethasone completed remdesivir quarantine completed 3. M. cat pneumonia completed abx 4. Encephalopathy Resolved. Due to all the sedating agents that he was on. 5. Pulmonary emboli likely d/t hypercoagulable state from COVID 19 On apixaban. Treat for 6 months. 6. VTE prophylaxis: not indicated given already anticoagulated. 7. Debility: To be expected after 20+day hospitalization. Patient currently on the TCU list. The patient can continue to remain on nasal cannula then can likely be discharged to the transitional care unit next week. Transfer to [facility] Charges/Coding Visit Charges Inpatient E&M: 91831 Subs Hosp L2
--- NOTE | 2021-06-23 21:59 | NURSING ---
sats 88% on 7l increases o 2 to 8l
[2021-06-24] VITALS (15 sets, daily range): BP systolic 113–148; BP diastolic 66–86; PULSE 89–120; RESP 25–35; TEMP 36.7–36.9; O2SAT 84–97
[2021-06-24 08:23] LABS: Absolute Lymphocyte Count 1.36 X10^3/uL (0.83-4.51); Absolute Neutrophil Count 11.1 X10^3/uL (2.0-7.7); Basophil# 0.08 X10^3/uL; Basophil% 0.5 % (0-1); Eosinophil# 0.97 X10^3/uL; Eosinophils% 6.1 % (0-5); Hematocrit 39.1 % (40-54); Hemoglobin 12.4 g/dL (13.0-16.5); Lymphocyte # 1.36 X10^3/ul (0.83-4.51); Lymphocyte % 8.6 % (19-41); Mean Corp Hgb Conc 31.7 g/dL (32-36); Mean Corpuscular Hgb 28.1 pg (27.0-32.0); Mean Corpuscular Volume 88.5 fL (80-94); Mean Platelet Vol. 8.8 fl (6.2-12.0); Monocyte# 1.78 X10^3/uL; Monocyte% 11.3 % (0-10); NRBC Flagged by Analyzer 0 % (0-5); Neutrophil # 11.11 X10^3/uL (2.7-7.7); Neutrophil % 70.5 % (47-70); POSITIVE DIFFERENTIAL YES; Platelet Count 499 K/mm3 (150-450); RBC Distribution Width CV 14.6 % (11.6-14.6); RBC Distribution Width SD 46.7 fl (35.1-43.9); Red Blood Count 4.42 M/mm3 (4.6-6.2); White Blood Count 15.8 K/mm3 (4.4-11.0)
[2021-06-24 08:26] LABS: Differential Indicated SCAN CRITERIA MET
--- NOTE | 2021-06-24 08:31 | PN.CC_ITS ---
Assessment & Plan Assessment/Plan (1) Acute respiratory failure with hypoxia: (2) Pneumonia due to COVID-19 virus: PLAN: RECOMMENDATIONS: 1. Wean nasal cannula as tolerated 2. Increase activity as tolerated 3. Continue therapeutic anticoagulation and GI prophylaxis. Monitor off ant ibiotics 4. Continue aggressive pulmonary toileting 5. Decadron planned through 06/26/2021 6. Continue metoprolol 7. We will hold on diuretics today 8. Will sign off from a critical care/pulmonary perspective. Please call us if patient requires Airvo again 9. We will likely see after patient completes rehab stay in our office. Anticipate 6 months of anticoagulation IMPRESSIONS: 1. Acute hypoxemic respiratory failure secondary to COVID-19 pneumonia The patient presented to the hospital with progressive respiratory symptoms and hypoxemia, with symptom onset sometime around May 22. The patient subsequently tested positive for coronavirus. He is unvaccinated. Despite having completed a treatment course of remdesivir and Decadron, the patient has remained quite tenuous from a respiratory perspective. In fact, the patient decompensated from an oxygenation standpoint and ultimately required intubation on June 13. Repeat CTA chest did reveal evidence of pulmonary emboli and significant bilateral infiltrates. Patient should remain on therapeutic anticoagulation. Patient continues to improve. Will sign off from a pulmonary/critical care perspective, but please call us back if patient requires Airvo supplementation. Patient will likely require rehab stay, so he can be seen after that in our office. Do anticipate patient requiring 6 months of anticoagulation. 2. Distributive shock Resolved. The patient developed hypotension as a consequence of sedative medication use. Plan to continue current supportive measures including Levophed to maintain a mean arterial pressure at or above 65 mmHg. Discontinue Levophed 3. Bilateral pulmonary emboli Continue therapeutic anticoagulation with Lovenox as ordered. 4. Hypokalemia Electrolyte repletion as ordered. Recheck levels intermittently when given active diuresis. 5. Sinus tachycardia Resolved. Continue Lopressor Subjective Subjective Patient did okay overnight. No acute issues were reported. Patient states his strength is improving, but he is still very weak. Patient is not reporting any chest pain. Patient has had a cough that is nonproductive. Objective Data Objective Data Vital Signs: Vital Signs Temp Pulse Resp BP Pulse Ox 36.9 C 91 28 H 129/66 H 93 06/24/21 03:38 06/24/21 03:38 06/24/21 03:38 06/24/21 03:38 06/24/21 07:26 Oxygen Flow Rate (L/min) 8 Oxygen Delivery Method Nasal Cannula Weight: 102.386 kg Body Mass Index (BMI) 36.7 Intake & Output: Intake and Output for Last 24 Hours 06/22/21 06/23/21 06/24/21 23:59 23:59 23:59 Intake Total 2398 / 3118 2089 Output Total 3210 / 3460 2049 600 / 600 Balance -812 / -342 40 / 40 -600 / -600 Medical Nutrition Assessment Dietitian: Malnutrition Criteria Met Start: 06/17/21 11:18 Freq: Status: Active Protocol: Document 06/23/21 10:35 SLA (Rec: 06/23/21 10:36 SLA [id number]) Nutrition Malnutrition Evidence of Malnutrition Exists Yes Malnutrition (severe): Acute Illness/Injury Evidenced By Suboptimal Energy Intake ( Severe),Weight Loss (Severe) Intake Problem Inadequate Oral Intake Etiology r/t resp. failure Signs/Symptoms as evidenced by poor po intake of food - is accepting of ensure enlive w/ meals - does not want additional supplementation at this time. Status Active Problem Clinical Problem Acute Disease or Injury Related Malnutrition Etiology severe, acute malnutrition r/t inadequate energy intake w/ increased energy needs d/t resp. failure from COVID-19 Signs/Symptoms as evidenced by estimated PO intake meeting <50% of estimated nutritional needs >5 days; 7.4% wt loss since adm (112.8 kg on 06/02) Status Active Problem Recommendation Dietitian Recommendations/Changes Will continue to provide regular diet Will continue to provide 8 oz strawberry ensure enlive w/ meals per pt preference Lab / Micro Data Result Diagrams: 06/24/21 08:17 06/23/21 03:30 Labs: Laboratory Results - last 24 hr 06/24/21 08:17: WBC 15.8 H, RBC 4.42 L, Hgb 12.4 L, Hct 39.1 L, MCV 88.5, MCH 28.1, MCHC 31.7 L, RDW Std Deviation 46.7 H, RDW Coeff of Asmantha 14.6, Plt Count 499 H, MPV 8.8, Immature Gran % (Auto) 3.000 H, Neut % (Auto) 70.5 H, Lymph % (Auto) 8.6 L, [place] % (Auto) 11.3 H, Eos % (Auto) 6.1 H, Baso % (Auto) 0.5, Absolute Neuts (auto) 11.1 H, Absolute Lymphs (auto) 1.36, Nucleated RBC % 0 Micro: Microbiology 06/14/21 07:20 Sputum, Induced/Lukens Gram Stain - Final 06/14/21 07:20 Sputum, Induced/Lukens Respiratory Culture - Final Culture exhibits no growth. 06/12/21 13:17 Sputum, Induced/Lukens Gram Stain - Final 06/12/21 13:17 Sputum, Induced/Lukens Respiratory Culture - Final Moraxella(Michel.)Catarrhalis 06/13/21 08:45 Urine, Clean Catch Legionella Antigen - Final 06/13/21 08:45 Urine, Clean Catch Streptococcus pneumoniae Antigen (M - Final 06/02/21 06:50 Blood Culture (Wb) - Anticubital Left Blood Culture - Final No growth in 5 days. 06/02/21 07:00 Blood Culture (Wb) - Anticubital Right Blood Culture - Final No growth in 5 days. 06/02/21 07:08 Nasal Secretion SARS-CoV-2 Antigen (Rapid) - Final SARS-CoV-2 (COVID 19) Rhythm Strip Rhythm Strip: Sinus Rhythm Rate: 88 Ectopy: None Physical Exam Const alert Constitutional Narrative: RASS 0. Patient currently on nasal cannula. Grossly weak. Voice is improving. General Appearance: cooperative Nutritional Appearance: obese HEENT normocephalic and head/scalp atraumatic Mouth: endotracheal tube in place and OG tube in place Eyes PERRL and conjunctivae normal Neck supple General: trachea midline and CVC in place Lymph Lymphatic: no lymphadenopathy noted Chest inspection of chest normal Chest Narrative: No crepitus noted Chest: symmetrical chest wall rise; Negative for crepitus Resp Effort and Inspection: symmetric chest movement Auscultation: diminished lung sounds; Negative for rales, rhonchi or wheezes Cardio regular rhythm, S1 normal heart sound, S2 normal heart sound, no murmurs, no rub and no gallops Rate: tachycardic Heart Sounds: Negative for murmur GI normal to inspection, nondistended, normoactive bowel sounds Extremity General Extremity: edema bilateral lower extremity; Negative for clubbing or cyanosis Skin no rashes or lesions noted Neuro oriented x3 and CN's II-XII intact bilaterally Psych mental status grossly normal, thought process normal and cooperative Mood & Affect: depressed Charges/Coding Visit Charges Inpatient E&M: 06275 Subs Hosp L2
[2021-06-24 08:55] LABS: Anion Gap 3 (5-15); BUN 14 mg/dL (7-18); BUN/Creat Ratio 29.7 RATIO (10-20); Calcium,Total 8.4 mg/dL (8.5-10.1); Chloride 108 mmol/L (98-107); Creatinine, Serum 0.47 mg/dL (0.70-1.30); EST Glomerular Filtration Rate 214 mL/min (>60); Est Glom Filt Rate - Afr Amer 259 mL/min (>60); Estimated Creatinine Clearance 226.51 ml/min; Glucose 117 mg/dL (74-106); Potassium 3.5 mmol/L (3.5-5.1); Sodium Level 139 mmol/L (136-145)
[2021-06-24 08:56] LABS: Platelet Estimate SLT INC (ADEQ); Red Cell Morphology NORM C+C NORMAL (NORM C&C)
[2021-06-24] MEDS: guaiFENesin 1,200 MG Tablet 1200 MG PO ×2 (10:11→21:22)
[2021-06-24] MEDS: dexAMETHasone 4 MG/ML Vial 6 MG IV (10:12)
[2021-06-24] MEDS: APIXABAN 5 MG TABLET 10 MG PO ×2 (10:12→21:23)
[2021-06-24] MEDS: Metoprolol Tartrate 25 MG Tablet PO (10:13)
[2021-06-24] MEDS: Potassium Chloride Oral Tablet 20 MEQ 40 MEQ PO ×2 (10:14→18:56)
[2021-06-24] MEDS: Pantoprazole Sodium 40 MG Tablet PO (10:17)
[2021-06-24] MEDS: 0.9% Saline Lock 10 ML Syringe IV (10:18)
[2021-06-24 11:26] LABS: Mucous, Urine 0 SEEN /hpf (<or=2+)
[2021-06-24 11:27] LABS: Color, Urine Brown (Yellow); Glucose, Dipstick Normal (Normal); Ketone-Dipstick 5 mg/dl (Negative); Leukocyte Esterase-Dipstick 500 /ul (Negative); Nitrite-Dipstick Negative (Negative); Occult Blood-Urine 250 /ul (Negative); Protein-Dipstick 100 mg/dl (Negative); Specific Gravity, Urine 1.015 (1.002-1.030); Urine Bilirubin Dipstick Negative (Negative); Urine Clarity Cloudy (Clear); Urine Urobilinogen Normal (Normal)
[2021-06-24 11:34] LABS: Amorphous Sediment 3+; Bacteria 3+ /hpf (None Seen); Red Blood Cells-Urine 10-25 SEEN /hpf (0-5); Squamous Epithelial Cells - UA 0-5 SEEN /hpf (0-5); White Blood Cells 10-25 SEEN /hpf (0-5)
--- NOTE | 2021-06-24 12:58 | PN.HOSP_ITS ---
Subjective Subjective States he cannot take short of breath because he is feeling compressed Objective Data Objective Data Vital Signs: Vital Signs Temp Pulse Resp BP Pulse Ox 36.7 C 112 H 28 H 137/86 H 92 06/24/21 12:00 06/24/21 12:49 06/24/21 12:49 06/24/21 09:00 06/24/21 12:49 Oxygen Flow Rate (L/min) 5 Oxygen Delivery Method Nasal Cannula Weight: 102.386 kg Body Mass Index (BMI) 36.7 Intake & Output: Intake and Output for Last 24 Hours 06/22/21 06/23/21 06/24/21 23:59 23:59 23:59 Intake Total 2398 / 3118 2089 Output Total 3210 / 3460 2049 600 / 600 Balance -812 / -342 40 / 40 -600 / -600 Medical Nutrition Assessment Dietitian: Malnutrition Criteria Met Start: 06/17/21 11:18 Freq: Status: Active Protocol: Document 06/23/21 10:35 BJ (Rec: 06/23/21 10:36 [facility] [id number]) Nutrition Malnutrition Evidence of Malnutrition Exists Yes Malnutrition (severe): Acute Illness/Injury Evidenced By Suboptimal Energy Intake ( Severe),Weight Loss (Severe) Intake Problem Inadequate Oral Intake Etiology r/t resp. failure Signs/Symptoms as evidenced by poor po intake of food - is accepting of ensure enlive w/ meals - does not want additional supplementation at this time. Status Active Problem Clinical Problem Acute Disease or Injury Related Malnutrition Etiology severe, acute malnutrition r/t inadequate energy intake w/ increased energy needs d/t resp. failure from COVID-19 Signs/Symptoms as evidenced by estimated PO intake meeting <50% of estimated nutritional needs >5 days; 7.4% wt loss since adm (112.8 kg on 06/02) Status Active Problem Recommendation Dietitian Recommendations/Changes Will continue to provide regular diet Will continue to provide 8 oz strawberry ensure enlive w/ meals per pt preference Lab / Micro Data Result Diagrams: 06/24/21 08:17 06/24/21 08:17 Labs: Laboratory Results - last 24 hr 06/24/21 08:17: WBC 15.8 H, RBC 4.42 L, Hgb 12.4 L, Hct 39.1 L, MCV 88.5, MCH 28.1, MCHC 31.7 L, RDW Std Deviation 46.7 H, RDW Coeff of Samantha 14.6, Plt Count 499 H, MPV 8.8, Immature Gran % (Auto) 3.000 H, Neut % (Auto) 70.5 H, Lymph % (Auto) 8.6 L, [place] % (Auto) 11.3 H, Eos % (Auto) 6.1 H, Baso % (Auto) 0.5, Absolute Neuts (auto) 11.1 H, Absolute Lymphs (auto) 1.36, Nucleated RBC % 0, Diff Path Review May gerardo, Platelet Estimate SLT INC, RBC Morphology NORM C+C 06/24/21 08:17: Sodium 139, Potassium 3.5, Chloride 108 H, Carbon Dioxide 28.0, Anion Gap 3 L, BUN 14, Creatinine 0.47 L, Estim Creat Clear Calc 226.51, Est GFR (MDRD) Af Amer 259, Est GFR (MDRD) Non-Af 214, BUN/Creatinine Ratio 29.7 H, Glucose 117 H, Calcium 8.4 L 06/24/21 09:30: Urine Color Brown, Urine Clarity Cloudy, Urine pH 7.0, Ur Specific [place] 1.015, Urine Protein 100 H, Urine Glucose (UA) Normal, Urine Ketones 5 H, Urine Occult Blood 250 H, Urine Nitrite Negative, Urine Bilirubin Negative, Urine Urobilinogen Normal, Ur Leukocyte Esterase 500 H, Urine RBC 10- 25 SEEN, Urine WBC 10-25 SEEN, Ur Squamous Epith Cells 0-5 SEEN, Amorphous Sedi ment 3+, Urine Bacteria 3+, Urine Mucus 0 SEEN Micro: Microbiology 06/14/21 07:20 Sputum, Induced/Lukens Gram Stain - Final 06/14/21 07:20 Sputum, Induced/Lukens Respiratory Culture - Final Culture exhibits no growth. 06/12/21 13:17 Sputum, Induced/Lukens Gram Stain - Final 06/12/21 13:17 Sputum, Induced/Lukens Respiratory Culture - Final Moraxella(Michel.)Catarrhalis 06/13/21 08:45 Urine, Clean Catch Legionella Antigen - Final 06/13/21 08:45 Urine, Clean Catch Streptococcus pneumoniae Antigen (M - Final 06/02/21 06:50 Blood Culture (Wb) - Anticubital Left Blood Culture - Final No growth in 5 days. 06/02/21 07:00 Blood Culture (Wb) - Anticubital Right Blood Culture - Final No growth in 5 days. 06/02/21 07:08 Nasal Secretion SARS-CoV-2 Antigen (Rapid) - Final SARS-CoV-2 (COVID 19) Rhythm Strip Rhythm Strip: Sinus Rhythm Rate: 88 Ectopy: None Physical Exam Narrative short shallow respirations. Const alert Resp normal respiratory effort Resp Narrative: coarse breath sounds Cardio regular rate, regular rhythm, S1 normal heart sound and S2 normal heart sound GI normal to inspection, nondistended, normoactive bowel sounds Neuro Sensorium / Orientation: awake and alert Assessment & Plan Assessment/Plan (1) Acute respiratory failure with hypoxia: (2) Pneumonia due to COVID-19 virus: PLAN: 1. acute hypoxic respiratory failure / COVID 19 + M. cat pneumonia + PE extubated 06/21 Patient taking short shallow respirations. Patient advised to use incentive spirometer. Patient states that he just feels compressed when taking deep breaths. Patient's overall recovers can be limited by his willingness to actively participate in instructions. Understandably he is short of breath but needs continued encouragement to be able to improve. 2. COVID 19 pneumonia on dexamethasone completed remdesivir quarantine completed 3. M. cat pneumonia completed abx 4. Encephalopathy Resolved. Due to all the sedating agents that he was on. 5. Pulmonary emboli likely d/t hypercoagulable state from COVID 19 On apixaban. Treat for 6 months. 6. VTE prophylaxis: not indicated given already anticoagulated. 7. Debility: To be expected after 20+day hospitalization. Patient currently on the TCU list. The patient can continue to remain on nasal cannula then can likely be discharged to the transitional care unit next week. Transfer to [facility] Charges/Coding Visit Charges Inpatient E&M: 37395 Subs Hosp L2
--- NOTE | 2021-06-24 22:50 | NURSING ---
Massiel Leon RN did Right IJ central line dressing change at HS and also did cap changes.
[2021-06-25] VITALS (14 sets, daily range): BP systolic 108–131; BP diastolic 68–86; PULSE 75–100; RESP 20–28; TEMP 36.6–36.9; O2SAT 92–99
--- NOTE | 2021-06-25 09:54 | PN.HOSP_ITS ---
Subjective Subjective Hurt his chest to take in a deep breath. Objective Data Objective Data Vital Signs: Vital Signs Temp Pulse Resp BP Pulse Ox 36.7 C 75 28 H 123/68 H 94 06/25/21 03:00 06/25/21 06:22 06/25/21 03:00 06/25/21 03:00 06/25/21 06:47 Oxygen Flow Rate (L/min) 8 Oxygen Delivery Method Nasal Cannula Weight: 99.5 kg Body Mass Index (BMI) 36.7 Intake & Output: Intake and Output for Last 24 Hours 06/23/21 06/24/21 06/25/21 23:59 23:59 23:59 Intake Total 2089 Output Total 2049 1050 / 1050 Balance 40 / 40 -1050 / -1050 Medical Nutrition Assessment Dietitian: Malnutrition Criteria Met Start: 06/17/21 11:18 Freq: Status: Active Protocol: Document 06/23/21 10:35 BJ (Rec: 06/23/21 10:36 BJ [id number]) Nutrition Malnutrition Evidence of Malnutrition Exists Yes Malnutrition (severe): Acute Illness/Injury Evidenced By Suboptimal Energy Intake ( Severe),Weight Loss (Severe) Intake Problem Inadequate Oral Intake Etiology r/t resp. failure Signs/Symptoms as evidenced by poor po intake of food - is accepting of ensure enlive w/ meals - does not want additional supplementation at this time. Status Active Problem Clinical Problem Acute Disease or Injury Related Malnutrition Etiology severe, acute malnutrition r/t inadequate energy intake w/ increased energy needs d/t resp. failure from COVID-19 Signs/Symptoms as evidenced by estimated PO intake meeting <50% of estimated nutritional needs >5 days; 7.4% wt loss since adm (112.8 kg on 06/02) Status Active Problem Recommendation Dietitian Recommendations/Changes Will continue to provide regular diet Will continue to provide 8 oz strawberry ensure enlive w/ meals per pt preference Lab / Micro Data Result Diagrams: 06/24/21 08:17 06/24/21 08:17 Labs: Laboratory Results - last 24 hr 06/24/21 09:30: Urine Color Brown, Urine Clarity Cloudy, Urine pH 7.0, Ur Specific [place] 1.015, Urine Protein 100 H, Urine Glucose (UA) Normal, Urine Ketones 5 H, Urine Occult Blood 250 H, Urine Nitrite Negative, Urine Bilirubin Negative, Urine Urobilinogen Normal, Ur Leukocyte Esterase 500 H, Urine RBC 10- 25 SEEN, Urine WBC 10-25 SEEN, Ur Squamous Epith Cells 0-5 SEEN, Amorphous Sediment 3+, Urine Bacteria 3+, Urine Mucus 0 SEEN Micro: Microbiology 06/14/21 07:20 Sputum, Induced/Lukens Gram Stain - Final 06/14/21 07:20 Sputum, Induced/Lukens Respiratory Culture - Final Culture exhibits no growth. 06/12/21 13:17 Sputum, Induced/Lukens Gram Stain - Final 06/12/21 13:17 Sputum, Induced/Lukens Respiratory Culture - Final Moraxella(Michel.)Catarrhalis 06/13/21 08:45 Urine, Clean Catch Legionella Antigen - Final 06/13/21 08:45 Urine, Clean Catch Streptococcus pneumoniae Antigen (M - Final 06/02/21 06:50 Blood Culture (Wb) - Anticubital Left Blood Culture - Final No growth in 5 days. 06/02/21 07:00 Blood Culture (Wb) - Anticubital Right Blood Culture - Final No growth in 5 days. 06/02/21 07:08 Nasal Secretion SARS-CoV-2 Antigen (Rapid) - Final SARS-CoV-2 (COVID 19) Rhythm Strip Rhythm Strip: Sinus Rhythm Rate: 88 Ectopy: None Physical Exam Const alert and no apparent distress Constitutional Narrative: flat affect. afebrile. short shallow breaths. Resp normal respiratory effort, no retractions, no use of accessory muscles and clear to auscultation bilaterally Cardio regular rate, regular rhythm, S1 normal heart sound and S2 normal heart sound GI normal to inspection, nondistended, normoactive bowel sounds, soft to palpation, non-tender and non-distended Neuro Sensorium / Orientation: awake and alert Psych Mood & Affect: depressed Assessment & Plan Assessment/Plan (1) Acute respiratory failure with hypoxia: (2) Pneumonia due to COVID-19 virus: PLAN: 1. acute hypoxic respiratory failure 2/2 COVID 19 + M. cat pneumonia + PE extubated 06/21 Patient taking short shallow respirations. Patient advised to use incentive spirometer. Patient states that he just feels compressed when taking deep breaths. Patient's overall recovers can be limited by his willingness to actively participate in instructions. Understandably he is short of breath but needs continued encouragement to be able to improve. 2. COVID 19 pneumonia on dexamethasone completed remdesivir quarantine completed 3. M. cat pneumonia completed abx 4. Encephalopathy Resolved. Due to all the sedating agents that he was on. 5. Pulmonary emboli likely d/t hypercoagulable state from COVID 19 On apixaban. Treat for 6 months. 6. VTE prophylaxis: not indicated given already anticoagulated. 7. Debility: To be expected after 20+day hospitalization. Patient currently on the TCU list. The patient can continue to remain on nasal cannula then can likely be discharged to the transitional care unit when he is able to be on 10 L of oxygen or less with exertion. Today he went up to 15. Patient is overall recovery I feel is good to be hindered by his amotivation he endorses that he does not use incentive spirometer as he should despite being told numerous times to do so. He reluctantly takes deep respirations. 8. Depression: May be situational or patient may have underlying depression. I did recommend SSRI for him to help him through this as he is going to have a long recovery and certainly is can be dealing with other things once he is finally discharged to home. He states that he will think about it. Charges/Coding Visit Charges Inpatient E&M: 72171 Subs Hosp L2
[2021-06-25] MEDS: dexAMETHasone 4 MG/ML Vial 6 MG IV (10:10)
[2021-06-25] MEDS: Acetaminophen 325 MG Tablet 650 MG PO (10:11)
[2021-06-25] MEDS: APIXABAN 5 MG TABLET 10 MG PO ×2 (10:11→21:37)
[2021-06-25] MEDS: Metoprolol Tartrate 25 MG Tablet PO (10:11)
[2021-06-25] MEDS: Pantoprazole Sodium 40 MG Tablet PO (10:12)
[2021-06-25] MEDS: Potassium Chloride Oral Tablet 20 MEQ 40 MEQ PO ×2 (10:12→17:09)
--- NOTE | 2021-06-25 10:34 | CASEMGMT ---
SW spoke w/physician, pt is getting close to being ready for discharge. SW spoke w/RN, pt did just have therapy, needed up to 10L O2 for therapy. SW spoke w/pt, explained he may be ready for discharge today or tomorrow, and we will start the process w/his insurance. Pt states understanding. SW called Olga in TCU, she will start the precert. SW will continue to follow. JUAN Sesay
[2021-06-25 12:57] LABS: Pathologist Review Reviewed
[2021-06-25 14:16] LABS: Bedside Glucose 127 mg/dL (70-110)
--- NOTE | 2021-06-25 19:29 | PCS.PANDOC ---
PANDEMIC DOCUMENTATION INITIATED: Date: 06/02/2021 Time:715
[2021-06-26] VITALS (13 sets, daily range): BP systolic 114–129; BP diastolic 64–84; PULSE 52–113; RESP 22–26; TEMP 36.1–36.6; O2SAT 88–98
--- NOTE | 2021-06-26 08:51 | TREXTCAR_ITS ---
Diet 06/21/21 15:26 Diet: Regular - General Food consistency:: Regular Liquid Consistency:: Regular/Thin Type of Dietary Supplement:: Ensure Enlive Is pt able to select menu?: Yes Diet Comments: 8 oz strawberry ensure enlive w/ meals Routine Orders/Code Status O2 Frequency: Continuous Keep PO Greater than or Equal to (%): 90 Routine Lab Work: CBC and BMP Code Status: Full Code Wound(s) nose: Wound Type: Pressure Injury Therapies Weight Bearing: Full weight bearing Physical Therapy: Eval and Treat Occupational Therapy: Eval and Treat Problem/Diagnosis (1) Acute respiratory failure with hypoxia: Status: Acute (2) Pneumonia due to COVID-19 virus: Status: Acute Allergies/Procedures Done in Hospital Allergies No Known Allergies Allergy (Verified 05/29/21 13:22) Type of Care/Length of Stay Estimated LOS: Convalescent Care Less Than 30 days Type of Care Needed: Skilled Rehab Potential: Good Prognosis: Good Additional Orders/Day of Discharge Day of Discharge: 06/26/21 Dietary and Speech Recommendations Dietitian Recommendations/Changes: Will continue to provide regular diet Will continue to provide 8 oz strawberry ensure enlive w/ meals per pt preference Discharge Plan Admission Admit Date/Time: 06/02/21 07:16 Primary Reason for Your Visit: COVID 19 Attending Provider: Mele Nicholas Primary Care Provider: Care Physician,Licha Primary Discharge Orders/Prescriptions Prescriptions: New acetaminophen [Tylenol] 325 mg Tablet 650 mg PO Q6H PRN PRN (Reason: Pain Score 1-10/Temp > 100.7 F) Qty: 0 RF: 0 Eliquis 5 mg Tablet 10 mg PO BID Qty: 0 RF: 0 Eliquis 5 mg Tablet 5 mg PO BID Qty: 0 RF: 0 sennosides-docusate sodium [Stool Softener-Stimulant Laxat] 8.6-50 mg Tablet 2 tab PO BID Qty: 0 RF: 0 pantoprazole 40 mg Tablet,Delayed Release (Dr/Ec) 40 mg PO DAILY Qty: 0 RF: 0 sodium chloride [Deep Sea Nasal] 0.65 % Aerosol,[place] 2 spray NASAL TID PRN PRN (Reason: NASAL DRYNESS) Qty: 0 RF: 0 metoprolol tartrate 25 mg Tablet 12.5 mg PO BIDCM Qty: 0 RF: 0 Mucus Relief ER 1,200 mg Tablet Extended Release 12hr 1,200 mg PO BID Qty: 0 RF: 0 Continued albuterol sulfate [Ventolin HFA] 1 INHALER inhaler 1 - 2 puff inhalation Q4H PRN PRN (Reason: Wheezing) Qty: 1 RF: 0 Discontinued dexamethasone 6 MG tablet 6 mg PO DAILY Qty: 7 RF: 0 Referrals / Follow Up: Care Physician,No Primary [Primary Care Provider] - Disposition Disposition (needs filled in before D/C Order can be placed): Senior Living Facility
--- NOTE | 2021-06-26 08:56 | PCM.DC.SUM ---
Providers Date of Admission: 06/02/21 Primary Care Physician: No Primary Care Phys Reason For Visit: COVID-19 Diagnosis Discharge Diagnosis (1) Acute respiratory failure with hypoxia: Status: Acute Code(s): J96.01 - Acute respiratory failure with hypoxia (2) Pneumonia due to COVID-19 virus: Status: Acute Code(s): U07.1 - COVID-19; J12.82 - Pneumonia due to coronavirus disease 2019 (3) Pulmonary emboli: Status: Acute Code(s): I26.99 - Other pulmonary embolism without acute cor pulmonale (4) Debility: Status: Acute Code(s): R53.81 - Other malaise (5) Depression: Status: Acute Code(s): F32.9 - Major depressive disorder, single episode, unspecified (6) Sepsis: Status: Acute Code(s): A41.9 - Sepsis, unspecified organism Medications at Discharge Home Medications albuterol sulfate [Ventolin HFA] 1 - 2 puff INHALATION Q4H PRN PRN #1 inhaler 05/29/21 acetaminophen [Tylenol] 650 mg PO Q6H PRN PRN #0 tab 06/26/21 apixaban [Eliquis] 5 mg PO BID #0 tab 06/26/21 apixaban [Eliquis] 10 mg PO BID #0 tab 06/26/21 guaifenesin [Mucus Relief ER] 1,200 mg PO BID #0 tab 06/26/21 metoprolol tartrate 12.5 mg PO BIDCM #0 tab 06/26/21 pantoprazole 40 mg PO DAILY #0 tab 06/26/21 sennosides-docusate sodium [Stool Softener-Stimulant Laxat] 2 tab PO BID #0 tab 06/26/21 sodium chloride [Deep Sea Nasal] 2 spray NASAL TID PRN PRN #0 ml 06/26/21 Hospital Course Operations None Procedures Central line placement and Intubation Summary of Care Provided Minutes Spent on Discharge: 40 Hospital Course: 35-year-old male presents to the emergency room with shortness of breath. Patient became ill on May 22. Positive Covid test on the . Patient had a very protracted hospitalization requiring intubation, sedation paralytics. Patient had Moraxella catarrhalis pneumonia as well as pulmonary emboli. Patient was extubated on the . Patient pleated treatment for COVID-19 as well as Moraxella catarrhalis pneumonia. Patient will continue with apixaban for a total of 6 months. Patient is likely hypercoagulable due to COVID-19. Patient has had issues with just profound weakness. Certainly due to the patient's prolonged hospitalization but also may be some the paralytics that he had been on to maintain him on the ventilator. Patient has exhibited a depressed behavior and he is withdrawn he reluctantly engages in activity. I did advise the patient to try a SSRI for his depression to help him with coping. He stated that he would think about it no realistic expectation from this provider that the patient will actually 'think about it. Once we can maintain his oxygenation 10 L or less at 90% patient go to the transitional care unit in stable condition. Physical Exam Const alert Constitutional Narrative: Over the side of the bed. She 5 L. No respiratory distress no conversational dyspnea. Able to place his water across his body with his left arm onto the bedside table without difficulties. Medical Records Data Medical Nutrition Assessment Dietitian: Malnutrition Criteria Met Start: 06/17/21 11:18 Freq: Status: Active Protocol: Document 06/23/21 10:35 [facility] (Rec: 06/23/21 10:36 [facility] [id number]) Nutrition Malnutrition Evidence of Malnutrition Exists Yes Malnutrition (severe): Acute Illness/Injury Evidenced By Suboptimal Energy Intake ( Severe),Weight Loss (Severe) Intake Problem Inadequate Oral Intake Etiology r/t resp. failure Signs/Symptoms as evidenced by poor po intake of food - is accepting of ensure enlive w/ meals - does not want additional supplementation at this time. Status Active Problem Clinical Problem Acute Disease or Injury Related Malnutrition Etiology severe, acute malnutrition r/t inadequate energy intake w/ increased energy needs d/t resp. failure from COVID-19 Signs/Symptoms as evidenced by estimated PO intake meeting <50% of estimated nutritional needs >5 days; 7.4% wt loss since adm (112.8 kg on 06/02) Status Active Problem Recommendation Dietitian Recommendations/Changes Will continue to provide regular diet Will continue to provide 8 oz strawberry ensure enlive w/ meals per pt preference Weight / BMI Weight Weight: 99.6 kg Body Mass Index (BMI) 36.7 ABG / Lab / Microbiology Data Result Diagrams: 06/24/21 08:17 06/24/21 08:17 Laboratory: Laboratory Results - last 24 hr 06/24/21 08:17: Diff Path Review Reviewed 06/24/21 09:30: Urine Color Brown, Urine Clarity Cloudy, Urine pH 7.0, Ur Specific [place] 1.015, Urine Protein 100 H, Urine Glucose (UA) Normal, Urine Ketones 5 H, Urine Occult Blood 250 H, Urine Nitrite Negative, Urine Bilirubin Negative, Urine Urobilinogen Normal, Ur Leukocyte Esterase 500 H, Urine RBC 10-25 SEEN, Urine WBC 10-25 SEEN, Ur Squamous Epith Cells 0-5 SEEN, Amorphous Sediment 3+, Urine Bacteria 3+, Urine Mucus 0 SEEN 06/25/21 14:00: POC Glucose 127 H Microbiology: Microbiology 06/24/21 09:30 Urine, Clean Catch Urine Culture - Preliminary GNR lactose stone decorator Gram negative mirtha 06/14/21 07:20 Sputum, Induced/Lukens Gram Stain - Final 06/14/21 07:20 Sputum, Induced/Lukens Respiratory Culture - Final Culture exhibits no growth. 06/12/21 13:17 Sputum, Induced/Lukens Gram Stain - Final 06/12/21 13:17 Sputum, Induced/Lukens Respiratory Culture - Final Moraxella(Michel.)Catarrhalis 06/13/21 08:45 Urine, Clean Catch Legionella Antigen - Final 06/13/21 08:45 Urine, Clean Catch Streptococcus pneumoniae Antigen (M - Final 06/02/21 06:50 Blood Culture (Wb) - Anticubital Left Blood Culture - Final No growth in 5 days. 06/02/21 07:00 Blood Culture (Wb) - Anticubital Right Blood Culture - Final No growth in 5 days. 06/02/21 07:08 Nasal Secretion SARS-CoV-2 Antigen (Rapid) - Final SARS-CoV-2 (COVID 19) Meaningful Use Info Meaningful Use Diagnoses (Choose all that apply): None applicable Discharge Plan Admission Admit Date/Time: 06/02/21 07:16 Primary Reason for Your Visit: COVID 19 Attending Provider: Mele Nicholas Primary Care Provider: Care Physician,No Primary Discharge Orders/Prescriptions Prescriptions: New acetaminophen [Tylenol] 325 mg Tablet 650 mg PO Q6H PRN PRN (Reason: Pain Score 1-10/Temp > 100.7 F) Qty: 0 RF: 0 Eliquis 5 mg Tablet 10 mg PO BID Qty: 0 RF: 0 Eliquis 5 mg Tablet 5 mg PO BID Qty: 0 RF: 0 sennosides-docusate sodium [Stool Softener-Stimulant Laxat] 8.6-50 mg Tablet 2 tab PO BID Qty: 0 RF: 0 pantoprazole 40 mg Tablet,Delayed Release (Dr/Ec) 40 mg PO DAILY Qty: 0 RF: 0 sodium chloride [Deep Sea Nasal] 0.65 % Aerosol,[place] 2 spray NASAL TID PRN PRN (Reason: NASAL DRYNESS) Qty: 0 RF: 0 metoprolol tartrate 25 mg Tablet 12.5 mg PO BIDCM Qty: 0 RF: 0 Mucus Relief ER 1,200 mg Tablet Extended Release 12hr 1,200 mg PO BID Qty: 0 RF: 0 Continued albuterol sulfate [Ventolin HFA] 1 INHALER inhaler 1 - 2 puff inhalation Q4H PRN PRN (Reason: Wheezing) Qty: 1 RF: 0 Discontinued dexamethasone 6 MG tablet 6 mg PO DAILY Qty: 7 RF: 0 Referrals / Follow Up: Care Physician,No Primary [Primary Care Provider] - Disposition Disposition (needs filled in before D/C Order can be placed): [facility] Charges/Coding Visit Charges Inpatient E&M: 33965 Disch Hosp
[2021-06-26] MEDS: Potassium Chloride Oral Tablet 20 MEQ 40 MEQ PO ×2 (09:18→17:17)
[2021-06-26] MEDS: APIXABAN 5 MG TABLET 10 MG PO ×2 (09:18→20:30)
[2021-06-26] MEDS: Pantoprazole Sodium 40 MG Tablet PO (09:18)
[2021-06-26] MEDS: Metoprolol Tartrate 25 MG Tablet PO (09:18)
[2021-06-26] MEDS: Acetaminophen 325 MG Tablet 650 MG PO (09:22)
--- NOTE | 2021-06-26 09:33 | CASEMGMT ---
SW called Olga in TCU, she did start precert yesterday, will let SW know if they get precert today for pt to go to TCU today. As per physician, pt is medically ready today. JUAN Sesay
--- NOTE | 2021-06-26 16:07 | CASEMGMT ---
Precert was not attained for this pt. SW called his to let him know, RN will let pt know. It is anticipated precert may be attained tomorrow. JUAN Sesay
--- NOTE | 2021-06-26 16:51 | CHAPLAIN ---
Type of Pastoral Visit ___ Initial Visit _x__ Follow-up Visit ___ On-call Visit ___ General Patient Visit ___ Spiritual Assessment ___ Family Conference ___ Bereavement ___ Rapid Response ___ Code Blue ___ Other (describe below) Pastoral Care Referral From _x__ Patient ___ Family ___ Nurse ___ Physician ___ Tank Welder ___ Ripsaw Operator ___ Other (describe below) Sacrament/Intervention _x__ Active listening ___ Anointing ___ Uatsdin ___ Bereavement ___ Communion ___ Jennifer exploration ___ ___ Life review _x__ Prayer ___ Reconciliation ___ Sacrament of Sick _x__ Supportive presence ___ Wedding ___ Other (describe below) Pastoral Comments patient has been in hospital for a long time and was seen when intubated and when on bi-pap previously; now patient is able to talk and review what this illness has brought to his life and family; pt states that this has been frustrating in relation to humility with being cared for and for weakness; pt gets tearful and says I don't have the energy to stop the tears; pt does state that he is doing well emotionally and spiritually; pt welcomes prayer and presence
[2021-06-27] VITALS (8 sets, daily range): BP systolic 116–134; BP diastolic 65–81; PULSE 82–99; RESP 18–22; TEMP 36.4–36.8; O2SAT 92–100
[2021-06-27] MEDS: APIXABAN 5 MG TABLET 10 MG PO ×2 (08:29→20:59)
[2021-06-27] MEDS: Potassium Chloride Oral Tablet 20 MEQ 40 MEQ PO ×2 (08:29→17:27)
[2021-06-27] MEDS: Pantoprazole Sodium 40 MG Tablet PO (08:30)
[2021-06-27] MEDS: Metoprolol Tartrate 25 MG Tablet PO (08:31)
--- NOTE | 2021-06-27 12:06 | CASEMGMT ---
Social Work VIKTORIA spoke with Olga in TCU who reports that insurance needed to speak with pt regarding address. VIKTORIA met with pt and requested he call insurance which pt did. Olga then spoke with insurance again who confirms this issue has been resolved, but insurance still has two to three days to process the request for precert. Pt updated. Plan: TCU, pending precert from insurance TIBURCIO Mtz
--- NOTE | 2021-06-27 13:00 | PN.HOSP_ITS ---
Subjective Subjective Patient was seen and examined. No acute events. Remains on 5 L of oxygen. Objective Data Objective Data Vital Signs: Vital Signs Temp Pulse Resp BP Pulse Ox 97.6 F L 94 20 H 118/81 H 92 06/27/21 08:30 06/27/21 08:31 06/27/21 08:30 06/27/21 08:30 06/27/21 12:28 Oxygen Flow Rate (L/min) [At 6 REST with Oxygen] Oxygen Flow Rate (L/min) [ 6 AMBULATING with Oxygen #3] Oxygen Flow Rate (L/min) [ 5 AMBULATING with Oxygen #2] Oxygen Flow Rate (L/min) [ 5 AMBULATING with Oxygen #1] Oxygen Flow Rate (L/min) 5 Oxygen Delivery Method Nasal Cannula Weight: 99.3 kg Body Mass Index (BMI) 36.7 Intake & Output: Intake and Output for Last 24 Hours 06/25/21 06/26/21 06/27/21 23:59 23:59 23:59 Intake Total 0 / 0 Output Total 300 / 300 600 / 600 Balance 0 / 0 -300 / -300 -600 / -600 Medical Nutrition Assessment Dietitian: Malnutrition Criteria Met Start: 06/17/21 11:18 Freq: Status: Active Protocol: Document 06/27/21 12:15 RMA (Rec: 06/27/21 12:15 RMA [id number]) Nutrition Malnutrition Evidence of Malnutrition Exists Yes Malnutrition (severe): Acute Illness/Injury Evidenced By Suboptimal Energy Intake ( Severe),Weight Loss (Severe) Intake Problem Inadequate Oral Intake Etiology r/t resp. failure; decreased appetite Signs/Symptoms as evidenced by poor to fair po intake of food at meals - is accepting of ensure enlive w/ meals - does not want additional supplementation at this time. Status Active Problem Clinical Problem Acute Disease or Injury Related Malnutrition Etiology severe, acute malnutrition r/t inadequate energy intake w/ increased energy needs d/t resp. failure from COVID-19 Signs/Symptoms as evidenced by estimated PO intake meeting <50% of estimated nutritional needs >5 days; ~12% wt loss since admission. Status Active Problem Recommendation Dietitian Recommendations/Changes Will continue to provide regular diet and encourage intake at meals. Will continue to provide 8 oz strawberry ensure enlive w/ meals per pt preference. Lab / Micro Data Result Diagrams: 06/24/21 08:17 06/24/21 08:17 Micro: Microbiology 06/24/21 09:30 Urine, Clean Catch Urine Culture - Final Escherichia coli Klebsiella pneumoniae sp pneum 06/14/21 07:20 Sputum, Induced/Lukens Gram Stain - Final 06/14/21 07:20 Sputum, Induced/Lukens Respiratory Culture - Final Culture exhibits no growth. 06/12/21 13:17 Sputum, Induced/Lukens Gram Stain - Final 06/12/21 13:17 Sputum, Induced/Lukens Respiratory Culture - Final Moraxella(Michel.)Catarrhalis 06/13/21 08:45 Urine, Clean Catch Legionella Antigen - Final 06/13/21 08:45 Urine, Clean Catch Streptococcus pneumoniae Antigen (M - Final 06/02/21 06:50 Blood Culture (Wb) - Anticubital Left Blood Culture - Final No growth in 5 days. 06/02/21 07:00 Blood Culture (Wb) - Anticubital Right Blood Culture - Final No growth in 5 days. 06/02/21 07:08 Nasal Secretion SARS-CoV-2 Antigen (Rapid) - Final SARS-CoV-2 (COVID 19) Rhythm Strip Rhythm Strip: Sinus Rhythm Rate: 88 Ectopy: None Physical Exam Narrative Physical exam: General: Alert, Oriented x3, Cooperative, appears comfortable on 5 L of oxygen HEENT: Atraumatic Oral: Moist Mucosa Neck: Supple Lungs: Diminished to auscultation Cardiovascular: HS I+II, regular, no murmurs Abdomen: Bowel Sounds Present, Soft, Non Tender Extremities: No edema Assessment & Plan Assessment/Plan (1) Acute respiratory failure with hypoxia: (2) Pneumonia due to COVID-19 virus: (3) Pulmonary emboli: QUALIFIERS: Pulmonary embolism type: multiple subsegmental (without acute cor pulmonale) Qualified Code(s): I26.94 - Multiple subsegmental pulmonary emboli without acute cor pulmonale (4) Debility: (5) Depression: QUALIFIERS: Depression Type: unspecified Qualified Code(s): F32.9 - Major depressive disorder, single episode, unspecified (6) Sepsis: PLAN: 1. Acute hypoxic respiratory failure secondary to acute COVID-19 pne umonia/Moraxella catarrhalis pneumonia/Acute PE Patient was extubated 06/21 Patient is currently on 5 L of oxygen. Continue to wean off for SPO2 more than 94 2. Acute COVID 19 pneumonia, severe, with respiratory failure Completed dexamethasone and remdesivir. Off quarantine 3. Acute Moraxella catarrhalis pneumonia, completed antibiotics 4. Acute encephalopathy, resolved 5. Acute pulmonary emboli, secondary to hypercoagulable state from acute COVID- 19 infection, continue apixaban 6. Debility related to the above, waiting on insurance precertification for discharge to TCU Charges/Coding Visit Charges Inpatient E&M: 90862 Subs Hosp L2
[2021-06-28] VITALS (8 sets, daily range): BP systolic 104–138; BP diastolic 68–73; PULSE 95–98; RESP 18–20; TEMP 36.1–36.6; O2SAT 93–100
[2021-06-28] MEDS: Acetaminophen 325 MG Tablet 650 MG PO (02:29)
[2021-06-28] MEDS: APIXABAN 5 MG TABLET 10 MG PO ×2 (09:00→21:35)
[2021-06-28] MEDS: Pantoprazole Sodium 40 MG Tablet PO (09:00)
[2021-06-28] MEDS: Potassium Chloride Oral Tablet 20 MEQ 40 MEQ PO ×2 (09:00→16:37)
[2021-06-28] MEDS: Metoprolol Tartrate 25 MG Tablet PO (09:01)
--- NOTE | 2021-06-28 10:36 | PN.HOSP_ITS ---
Subjective Subjective Patient seen and examined. Waiting for insurance precertification for [facility] to [facility]. No new complaints. No acute event. Objective Data Objective Data Vital Signs: Vital Signs Temp Pulse Resp BP Pulse Ox 97.7 F L 95 18 114/73 98 06/28/21 08:35 06/28/21 09:01 06/28/21 08:35 06/28/21 09:01 06/28/21 09:21 Oxygen Flow Rate (L/min) [At 6 REST with Oxygen] Oxygen Flow Rate (L/min) [ 6 AMBULATING with Oxygen #3] Oxygen Flow Rate (L/min) [ 5 AMBULATING with Oxygen #2] Oxygen Flow Rate (L/min) [ 5 AMBULATING with Oxygen #1] Oxygen Flow Rate (L/min) 5 Oxygen Delivery Method Nasal Cannula Weight: 99.1 kg Body Mass Index (BMI) 36.7 Intake & Output: Intake and Output for Last 24 Hours 06/26/21 06/27/21 06/28/21 23:59 23:59 23:59 Output Total 300 / 300 600 / 600 325 / 325 Balance -300 / -300 -600 / -600 -325 / -325 Medical Nutrition Assessment Dietitian: Malnutrition Criteria Met Start: 06/17/21 11:18 Freq: Status: Active Protocol: Document 06/27/21 12:15 RMA (Rec: 06/27/21 12:15 RMA [id number]) Nutrition Malnutrition Evidence of Malnutrition Exists Yes Malnutrition (severe): Acute Illness/Injury Evidenced By Suboptimal Energy Intake ( Severe),Weight Loss (Severe) Intake Problem Inadequate Oral Intake Etiology r/t resp. failure; decreased appetite Signs/Symptoms as evidenced by poor to fair po intake of food at meals - is accepting of ensure enlive w/ meals - does not want additional supplementation at this time. Status Active Problem Clinical Problem Acute Disease or Injury Related Malnutrition Etiology severe, acute malnutrition r/t inadequate energy intake w/ increased energy needs d/t resp. failure from COVID-19 Signs/Symptoms as evidenced by estimated PO intake meeting <50% of estimated nutritional needs >5 days; ~12% wt loss since admission. Status Active Problem Recommendation Dietitian Recommendations/Changes Will continue to provide regular diet and encourage intake at meals. Will continue to provide 8 oz strawberry ensure enlive w/ meals per pt preference. Lab / Micro Data Result Diagrams: 06/24/21 08:17 06/24/21 08:17 Micro: Microbiology 06/24/21 09:30 Urine, Clean Catch Urine Culture - Final Escherichia coli Klebsiella pneumoniae sp pneum 06/14/21 07:20 Sputum, Induced/Lukens Gram Stain - Final 06/14/21 07:20 Sputum, Induced/Lukens Respiratory Culture - Final Culture exhibits no growth. 06/12/21 13:17 Sputum, Induced/Lukens Gram Stain - Final 06/12/21 13:17 Sputum, Induced/Lukens Respiratory Culture - Final Moraxella(Michel.)Catarrhalis 06/13/21 08:45 Urine, Clean Catch Legionella Antigen - Final 06/13/21 08:45 Urine, Clean Catch Streptococcus pneumoniae Antigen (M - Final 06/02/21 06:50 Blood Culture (Wb) - Anticubital Left Blood Culture - Final No growth in 5 days. 06/02/21 07:00 Blood Culture (Wb) - Anticubital Right Blood Culture - Final No growth in 5 days. 06/02/21 07:08 Nasal Secretion SARS-CoV-2 Antigen (Rapid) - Final SARS-CoV-2 (COVID 19) Rhythm Strip Rhythm Strip: Sinus Rhythm Rate: 88 Ectopy: None Physical Exam Narrative Physical exam: General: Alert, Oriented x3, Cooperative, appears comfortable on 5 L of oxygen HEENT: Atraumatic Oral: Moist Mucosa Neck: Supple Lungs: Diminished to auscultation Cardiovascular: HS I+II, regular, no murmurs Abdomen: Bowel Sounds Present, Soft, Non Tender Extremities: No edema Assessment & Plan Assessment/Plan (1) Acute respiratory failure with hypoxia: (2) Pneumonia due to COVID-19 virus: (3) Pulmonary emboli: QUALIFIERS: Pulmonary embolism type: multiple subsegmental (without acute cor pulmonale) Qualified Code(s): I26.94 - Multiple subsegmental pulmonary emboli without acute cor pulmonale (4) Debility: (5) Depression: QUALIFIERS: Depression Type: unspecified Qualified Code(s): F32.9 - Major depressive disorder, single episode, unspecified (6) Sepsis: PLAN: 1. Acute hypoxic respiratory failure secondary to acute COVID-19 pneumonia/Moraxella catarrhalis pneumonia/Acute PE Patient was extubated 06/21 Patient remains on 5 L of oxygen. Continue to wean off for SPO2 more than 94 2. Acute COVID 19 pneumonia, severe, with respiratory failure Completed dexamethasone and remdesivir. Off quarantine 3. Acute Moraxella catarrhalis pneumonia, completed antibiotics 4. Acute encephalopathy, resolved 5. Acute pulmonary emboli, secondary to hypercoagulable state from acute COVID- 19 infection, continue apixaban 6. Debility related to the above, waiting on insurance precertification for discharge to TCU Charges/Coding Visit Charges Inpatient E&M: 02893 Subs Hosp L2
[2021-06-29] VITALS (8 sets, daily range): BP systolic 107–137; BP diastolic 62–83; PULSE 87–117; RESP 18–22; TEMP 36.3–37; O2SAT 92–100
[2021-06-29] MEDS: Acetaminophen 325 MG Tablet 650 MG PO (04:17)
[2021-06-29 05:16] LABS: Hematocrit 43.4 % (40-54); Hemoglobin 13.5 g/dL (13.0-16.5); Mean Corp Hgb Conc 31.1 g/dL (32-36); Mean Corpuscular Hgb 27.4 pg (27.0-32.0); Mean Corpuscular Volume 88.2 fL (80-94); Mean Platelet Vol. 8.9 fl (6.2-12.0); POSITIVE COUNT YES; POSITIVE MORPHOLOGY YES; Platelet Count 610 K/mm3 (150-450); Red Blood Count 4.92 M/mm3 (4.6-6.2); White Blood Count 13.9 K/mm3 (4.4-11.0)
[2021-06-29 05:29] LABS: Differential Indicated MANUAL DIFF
[2021-06-29 05:47] LABS: ALB/GLOB Ratio 0.6 RATIO (0.9-2.4); AST(SGOT) 47 U/L (15-37); Alanine Aminotransfer ALT/SGPT 77 U/L (16-61); Albumin, Serum 2.6 g/dL (3.2-5.0); Alkaline Phosphatase 91 U/L (45-117); Anion Gap 3 (5-15); BUN 15 mg/dL (7-18); BUN/Creat Ratio 23.1 RATIO (10-20); Calcium,Total 8.9 mg/dL (8.5-10.1); Chloride 105 mmol/L (98-107); Creatinine, Serum 0.65 mg/dL (0.70-1.30); EST Glomerular Filtration Rate 148 mL/min (>60); Est Glom Filt Rate - Afr Amer 179 mL/min (>60); Estimated Creatinine Clearance 163.78 ml/min; Globulin 4.5 g/dL (2.2-4.2); Glucose 113 mg/dL (74-106); Potassium 4.2 mmol/L (3.5-5.1); Protein, Total 7.1 g/dL (6.4-8.2); Sodium Level 137 mmol/L (136-145)
[2021-06-29 06:15] LABS: Eosinophil 7 % (0-5); Lymphocyte 10 % (19-41); Metamyelocyte 4 % (0-1); Monocyte 5 % (0-10); Myelocyte 2 % (0-0); Neutrophil-Segmented 72 % (47-70); Total Cells Counted 100 (MANUAL DIFF)
[2021-06-29 06:16] LABS: Absolute Neutrophil Count 10.8 X10^3/uL (2.0-7.7)
[2021-06-29 06:17] LABS: Absolute Lymphocyte Count 1.39 X10^3/uL (0.83-4.51); Lymphocyte # 1.39 X10^3/ul (0.83-4.51)
[2021-06-29 06:19] LABS: Differential Comment MANUAL DIFF; Platelet Estimate MKD INC (ADEQ)
[2021-06-29 06:20] LABS: Red Cell Morphology NORM C+C NORMAL (NORM C&C)
[2021-06-29] MEDS: APIXABAN 5 MG TABLET 10 MG PO (09:36)
[2021-06-29] MEDS: Pantoprazole Sodium 40 MG Tablet PO (09:36)
[2021-06-29] MEDS: Potassium Chloride Oral Tablet 20 MEQ 40 MEQ PO ×2 (09:36→17:42)
[2021-06-29] MEDS: Metoprolol Tartrate 25 MG Tablet PO (09:37)
--- NOTE | 2021-06-29 12:07 | CASEMGMT ---
Social Work SW spoke with Olga in TCU. Olga spoke with insurance again this morning and they state they still have 24 hours to review case and make a determination for precertification. Pt updated. TCU will notify [facility] when precert is obtained and pt can be transferred. PT updated. TIBURCIO Mtz
--- NOTE | 2021-06-29 12:40 | PCM.PN.HOSP ---
Subjective Subjective Patient was seen and examined. Waiting on insurance precertification for discharge. Objective Data Objective Data Vital Signs: Vital Signs Temp Pulse Resp BP Pulse Ox 97.4 F L 112 H 22 H 137/83 H 97 06/29/21 09:40 06/29/21 09:40 06/29/21 09:40 06/29/21 09:40 06/29/21 09:40 Oxygen Flow Rate (L/min) [At 6 REST with Oxygen] Oxygen Flow Rate (L/min) [ 6 AMBULATING with Oxygen #3] Oxygen Flow Rate (L/min) [ 5 AMBULATING with Oxygen #2] Oxygen Flow Rate (L/min) [ 5 AMBULATING with Oxygen #1] Oxygen Flow Rate (L/min) 5 Oxygen Delivery Method Nasal Cannula Weight: 98.157 kg Body Mass Index (BMI) 36.7 Intake & Output: Intake and Output for Last 24 Hours 06/27/21 06/28/21 06/29/21 23:59 23:59 23:59 Output Total 600 / 600 725 / 725 Balance -600 / -600 -725 / -725 Medical Nutrition Assessment Dietitian: Malnutrition Criteria Met Start: 06/17/21 11:18 Freq: Status: Active Protocol: Document 06/27/21 12:15 RMA (Rec: 06/27/21 12:15 RMA [id number]) Nutrition Malnutrition Evidence of Malnutrition Exists Yes Malnutrition (severe): Acute Illness/Injury Evidenced By Suboptimal Energy Intake ( Severe),Weight Loss (Severe) Intake Problem Inadequate Oral Intake Etiology r/t resp. failure; decreased appetite Signs/Symptoms as evidenced by poor to fair po intake of food at meals - is accepting of ensure enlive w/ meals - does not want additional supplementation at this time. Status Active Problem Clinical Problem Acute Disease or Injury Related Malnutrition Etiology severe, acute malnutrition r/t inadequate energy intake w/ increased energy needs d/t resp. failure from COVID-19 Signs/Symptoms as evidenced by estimated PO intake meeting <50% of estimated nutritional needs >5 days; ~12% wt loss since admission. Status Active Problem Recommendation Dietitian Recommendations/Changes Will continue to provide regular diet and encourage intake at meals. Will continue to provide 8 oz strawberry ensure enlive w/ meals per pt preference. Lab / Micro Data Result Diagrams: 06/29/21 04:40 06/29/21 04:40 Labs: Laboratory Results - last 24 hr 06/29/21 04:40: WBC 13.9 H, RBC 4.92, Hgb 13.5, Hct 43.4, MCV 88.2, MCH 27.4, MCHC 31.1 L, RDW Std Deviation 45.0 H, RDW Coeff of Samantha 14.0, Plt Count 610 H, MPV 8.9, Neut % (Auto) Not Reportable, Absolute Neuts (auto) 10.8 H, Absolute Lymphs (auto) 1.39, Total Counted 100, Neutrophils % (Manual) 72 H, Lymphocytes % (Manual) 10 L, Monocytes % (Manual) 5, Eosinophils % (Manual) 7 H, Metamyelocytes % 4 H, Myelocytes % 2 H, Differential Comment MANUAL DIFF, Diff Path Review May foll, Platelet Estimate MKD INC, RBC Morphology NORM C+C 06/29/21 04:40: Sodium 137, Potassium 4.2, Chloride 105, Carbon Dioxide 29.0, Anion Gap 3 L, BUN 15, Creatinine 0.65 L, Estim Creat Clear Calc 163.78, Est GFR (MDRD) Af Amer 179, Est GFR (MDRD) Non-Af 148, BUN/Creatinine Ratio 23.1 H, Glucose 113 H, Calcium 8.9, Total Bilirubin 0.50, AST 47 H, ALT 77 H, Alkaline Phosphatase 91, Total Protein 7.1, Albumin 2.6 L, Globulin 4.5 H, Albumin/Globulin Ratio 0.6 L Micro: Microbiology 06/24/21 09:30 Urine, Clean Catch Urine Culture - Final Escherichia coli Klebsiella pneumoniae sp pneum 06/14/21 07:20 Sputum, Induced/Lukens Gram Stain - Final 06/14/21 07:20 Sputum, Induced/Lukens Respiratory Culture - Final Culture exhibits no growth. 06/12/21 13:17 Sputum, Induced/Lukens Gram Stain - Final 06/12/21 13:17 Sputum, Induced/Lukens Respiratory Culture - Final Moraxella(Michel.)Catarrhalis 06/13/21 08:45 Urine, Clean Catch Legionella Antigen - Final 06/13/21 08:45 Urine, Clean Catch Streptococcus pneumoniae Antigen (M - Final 06/02/21 06:50 Blood Culture (Wb) - Anticubital Left Blood Culture - Final No growth in 5 days. 06/02/21 07:00 Blood Culture (Wb) - Anticubital Right Blood Culture - Final No growth in 5 days. 06/02/21 07:08 Nasal Secretion SARS-CoV-2 Antigen (Rapid) - Final SARS-CoV-2 (COVID 19) Rhythm Strip Rhythm Strip: Sinus Rhythm Rate: 88 Ectopy: None Physical Exam Narrative Physical exam: General: Alert, Oriented x3, Cooperative, appears comfortable on 5 L of oxygen HEENT: Atraumatic Oral: Moist Mucosa Neck: Supple Lungs: Diminished to auscultation Cardiovascular: HS I+II, regular, no murmurs Abdomen: Bowel Sounds Present, Soft, Non Tender Extremities: No edema Assessment & Plan Assessment/Plan (1) Acute respiratory failure with hypoxia: (2) Pneumonia due to COVID-19 virus: (3) Pulmonary emboli: QUALIFIERS: Pulmonary embolism type: multiple subsegmental (without acute cor pulmonale) Qualified Code(s): I26.94 - Multiple subsegmental pulmonary emboli without acute cor pulmonale (4) Debility: (5) Depression: QUALIFIERS: Depression Type: unspecified Qualified Code(s): F32.9 - Major depressive disorder, single episode, unspecified (6) Sepsis: PLAN: 1. Acute hypoxic respiratory failure secondary to acute COVID-19 pneumonia/Moraxella catarrhalis pneumonia/Acute PE Patient was extubated 06/21 Patient remains on 5 L of oxygen. Continue to wean off for SPO2 more than 94 2. Acute COVID 19 pneumonia, severe, with respiratory failure Completed dexamethasone and remdesivir. Off quarantine 3. Acute Moraxella catarrhalis pneumonia, completed antibiotics 4. Acute encephalopathy, resolved 5. Acute pulmonary emboli, secondary to hypercoagulable state from acute COVID-19 infection, continue apixaban 6. Debility related to the above, waiting on insurance precertification for discharge to TCU Charges/Coding Visit Charges Inpatient E&M: 13049 [facility] Hosp L1
[2021-06-29] MEDS: APIXABAN 5 MG TABLET PO (22:20)
[2021-06-30] VITALS (8 sets, daily range): BP systolic 111–126; BP diastolic 66–77; PULSE 73–112; RESP 19–24; TEMP 36.3–36.8; O2SAT 96–99
[2021-06-30] MEDS: Potassium Chloride Oral Tablet 20 MEQ 40 MEQ PO ×2 (09:01→18:01)
[2021-06-30] MEDS: Metoprolol Tartrate 25 MG Tablet PO (09:01)
[2021-06-30] MEDS: Pantoprazole Sodium 40 MG Tablet PO (09:02)
[2021-06-30] MEDS: APIXABAN 5 MG TABLET PO ×2 (09:02→21:08)
--- NOTE | 2021-06-30 14:14 | PN.HOSP_ITS ---
Subjective Subjective Patient was seen and examined. No acute event. Objective Data Objective Data Vital Signs: Vital Signs Temp Pulse Resp BP Pulse Ox 97.6 F L 106 H 19 H 119/77 97 06/30/21 10:38 06/30/21 10:38 06/30/21 10:38 06/30/21 10:38 06/30/21 10:38 Oxygen Flow Rate (L/min) [At 6 REST with Oxygen] Oxygen Flow Rate (L/min) [ 6 AMBULATING with Oxygen #3] Oxygen Flow Rate (L/min) [ 5 AMBULATING with Oxygen #2] Oxygen Flow Rate (L/min) [ 5 AMBULATING with Oxygen #1] Oxygen Flow Rate (L/min) 4 Oxygen Delivery Method Nasal Cannula Weight: 99 kg Body Mass Index (BMI) 36.7 Intake & Output: Intake and Output for Last 24 Hours 06/28/21 06/29/21 06/30/21 23:59 23:59 23:59 Output Total 725 / 725 250 / 250 Balance -725 / -725 -250 / -250 Medical Nutrition Assessment Dietitian: Malnutrition Criteria Met Start: 06/17/21 11:18 Freq: Status: Active Protocol: Document 06/27/21 12:15 RMA (Rec: 06/27/21 12:15 RMA [id number]) Nutrition Malnutrition Evidence of Malnutrition Exists Yes Malnutrition (severe): Acute Illness/Injury Evidenced By Suboptimal Energy Intake ( Severe),Weight Loss (Severe) Intake Problem Inadequate Oral Intake Etiology r/t resp. failure; decreased appetite Signs/Symptoms as evidenced by poor to fair po intake of food at meals - is accepting of ensure enlive w/ meals - does not want additional supplementation at this time. Status Active Problem Clinical Problem Acute Disease or Injury Related Malnutrition Etiology severe, acute malnutrition r/t inadequate energy intake w/ increased energy needs d/t resp. failure from COVID-19 Signs/Symptoms as evidenced by estimated PO intake meeting <50% of estimated nutritional needs >5 days; ~12% wt loss since admission. Status Active Problem Recommendation Dietitian Recommendations/Changes Will continue to provide regular diet and encourage intake at meals. Will continue to provide 8 oz strawberry ensure enlive w/ meals per pt preference. Lab / Micro Data Result Diagrams: 06/29/21 04:40 06/29/21 04:40 Micro: Microbiology 06/24/21 09:30 Urine, Clean Catch Urine Culture - Final Escherichia coli Klebsiella pneumoniae sp pneum 06/14/21 07:20 Sputum, Induced/Lukens Gram Stain - Final 06/14/21 07:20 Sputum, Induced/Lukens Respiratory Culture - Final Culture exhibits no growth. 06/12/21 13:17 Sputum, Induced/Lukens Gram Stain - Final 06/12/21 13:17 Sputum, Induced/Lukens Respiratory Culture - Final Moraxella(Michel.)Catarrhalis 06/13/21 08:45 Urine, Clean Catch Legionella Antigen - Final 06/13/21 08:45 Urine, Clean Catch Streptococcus pneumoniae Antigen (M - Final 06/02/21 06:50 Blood Culture (Wb) - Anticubital Left Blood Culture - Final No growth in 5 days. 06/02/21 07:00 Blood Culture (Wb) - Anticubital Right Blood Culture - Final No growth in 5 days. 06/02/21 07:08 Nasal Secretion SARS-CoV-2 Antigen (Rapid) - Final SARS-CoV-2 (COVID 19) Rhythm Strip Rhythm Strip: Sinus Rhythm Rate: 88 Ectopy: None Physical Exam Narrative Physical exam: General: Alert, Oriented x3, Cooperative, appears comfortable on 4 L of oxygen HEENT: Atraumatic Oral: Moist Mucosa Neck: Supple Lungs: Diminished to auscultation Cardiovascular: HS I+II, regular, no murmurs Abdomen: Bowel Sounds Present, Soft, Non Tender Extremities: No edema Assessment & Plan Assessment/Plan (1) Acute respiratory failure with hypoxia: (2) Pneumonia due to COVID-19 virus: (3) Pulmonary emboli: QUALIFIERS: Pulmonary embolism type: multiple subsegmental (without acute cor pulmonale) Qualified Code(s): I26.94 - Multiple subsegmental pulmonary emboli without acute cor pulmonale (4) Debility: (5) Depression: QUALIFIERS: Depression Type: unspecified Qualified Code(s): F32.9 - Major depressive disorder, single episode, unspecified (6) Sepsis: PLAN: 1. Acute hypoxic respiratory failure secondary to acute COVID-19 pneumonia/Moraxella catarrhalis pneumonia/Acute PE Patient was extubated 06/21 Patient remains on 4 L of oxygen. Continue to wean off for SPO2 more than 94 2. Acute COVID 19 pneumonia, severe, with respiratory failure Completed dexamethasone and remdesivir. Off quarantine 3. Acute Moraxella catarrhalis pneumonia, completed antibiotics 4. Acute encephalopathy, resolved 5. Acute pulmonary emboli, secondary to hypercoagulable state from acute COVID- 19 infection, continue apixaban 6. Debility related to the above, waiting on insurance precertification for discharge to TCU Charges/Coding Visit Charges Inpatient E&M: 45453 Subs Hosp L3
[2021-07-01] VITALS (12 sets, daily range): BP systolic 111–125; BP diastolic 71–77; PULSE 71–110; RESP 18–22; TEMP 36.4–36.8; O2SAT 89–98
--- NOTE | 2021-07-01 07:33 | PN.HOSP_ITS ---
Subjective Subjective No acute event. Still waiting on insurance precertification for discharge. Oxygen requirements have improved to 1.5. Objective Data Objective Data Vital Signs: Vital Signs Temp Pulse Resp BP Pulse Ox 98.1 F 97 20 H 125/77 H 98 07/01/21 04:55 07/01/21 04:55 07/01/21 04:55 07/01/21 04:55 07/01/21 04:55 Oxygen Flow Rate (L/min) [At 6 REST with Oxygen] Oxygen Flow Rate (L/min) [ 6 AMBULATING with Oxygen #3] Oxygen Flow Rate (L/min) [ 5 AMBULATING with Oxygen #2] Oxygen Flow Rate (L/min) [ 5 AMBULATING with Oxygen #1] Oxygen Flow Rate (L/min) 2 Oxygen Delivery Method Nasal Cannula Weight: 99.3 kg Body Mass Index (BMI) 36.7 Intake & Output: Intake and Output for Last 24 Hours 06/29/21 06/30/21 07/01/21 23:59 23:59 23:59 Intake Total 480 / 480 Output Total 250 / 250 800 / 800 400 / 400 Balance -250 / -250 -320 / -320 -400 / -400 Medical Nutrition Assessment Dietitian: Malnutrition Criteria Met Start: 06/17/21 11:18 Freq: Status: Active Protocol: Document 06/27/21 12:15 RMA (Rec: 06/27/21 12:15 RMA [id number]) Nutrition Malnutrition Evidence of Malnutrition Exists Yes Malnutrition (severe): Acute Illness/Injury Evidenced By Suboptimal Energy Intake ( Severe),Weight Loss (Severe) Intake Problem Inadequate Oral Intake Etiology r/t resp. failure; decreased appetite Signs/Symptoms as evidenced by poor to fair po intake of food at meals - is accepting of ensure enlive w/ meals - does not want additional supplementation at this time. Status Active Problem Clinical Problem Acute Disease or Injury Related Malnutrition Etiology severe, acute malnutrition r/t inadequate energy intake w/ increased energy needs d/t resp. failure from COVID-19 Signs/Symptoms as evidenced by estimated PO intake meeting <50% of estimated nutritional needs >5 days; ~12% wt loss since admission. Status Active Problem Recommendation Dietitian Recommendations/Changes Will continue to provide regular diet and encourage intake at meals. Will continue to provide 8 oz strawberry ensure enlive w/ meals per pt preference. Lab / Micro Data Result Diagrams: 06/29/21 04:40 06/29/21 04:40 Micro: Microbiology 06/24/21 09:30 Urine, Clean Catch Urine Culture - Final Escherichia coli Klebsiella pneumoniae sp pneum 06/14/21 07:20 Sputum, Induced/Lukens Gram Stain - Final 06/14/21 07:20 Sputum, Induced/Lukens Respiratory Culture - Final Culture exhibits no growth. 06/12/21 13:17 Sputum, Induced/Lukens Gram Stain - Final 06/12/21 13:17 Sputum, Induced/Lukens Respiratory Culture - Final Moraxella(Michel.)Catarrhalis 06/13/21 08:45 Urine, Clean Catch Legionella Antigen - Final 06/13/21 08:45 Urine, Clean Catch Streptococcus pneumoniae Antigen (M - Final 06/02/21 06:50 Blood Culture (Wb) - Anticubital Left Blood Culture - Final No growth in 5 days. 06/02/21 07:00 Blood Culture (Wb) - Anticubital Right Blood Culture - Final No growth in 5 days. 06/02/21 07:08 Nasal Secretion SARS-CoV-2 Antigen (Rapid) - Final SARS-CoV-2 (COVID 19) Rhythm Strip Rhythm Strip: Sinus Rhythm Rate: 88 Ectopy: None Physical Exam Narrative Physical exam: General: Alert, Oriented x3, Cooperative, appears comfortable on 4 L of oxygen HEENT: Atraumatic Oral: Moist Mucosa Neck: Supple Lungs: Diminished to auscultation Cardiovascular: HS I+II, regular, no murmurs Abdomen: Bowel Sounds Present, Soft, Non Tender Extremities: No edema Assessment & Plan Assessment/Plan (1) Acute respiratory failure with hypoxia: (2) Pneumonia due to COVID-19 virus: (3) Pulmonary emboli: QUALIFIERS: Pulmonary embolism type: multiple subsegmental (without acute cor pulmonale) Qualified Code(s): I26.94 - Multiple subsegmental pulmonary emboli without acute cor pulmonale (4) Debility: (5) Depression: QUALIFIERS: Depression Type: unspecified Qualified Code(s): F32.9 - Major depressive disorder, single episode, unspecified (6) Sepsis: PLAN: 1. Acute hypoxic respiratory failure secondary to acute COVID-19 pneumonia/Moraxella catarrhalis pneumonia/Acute PE Patient was extubated 06/21 Currently on 1.5 L of oxygen Continue to wean off for SPO2 more than 94 2. Acute COVID 19 pneumonia, severe, with respiratory failure Completed dexamethasone and remdesivir. Off quarantine 3. Acute Moraxella catarrhalis pneumonia, completed antibiotics 4. Acute encephalopathy, resolved 5. Acute pulmonary emboli, secondary to hypercoagulable state from acute COVID- 19 infection, continue apixaban 6. Debility related to the above, waiting on insurance precertification for discharge to TCU Charges/Coding Visit Charges Inpatient E&M: 36619 Subs Hosp L1
[2021-07-01] MEDS: Potassium Chloride Oral Tablet 20 MEQ 40 MEQ PO ×2 (09:11→16:20)
[2021-07-01] MEDS: Metoprolol Tartrate 25 MG Tablet PO (09:12)
[2021-07-01] MEDS: Pantoprazole Sodium 40 MG Tablet PO (09:12)
[2021-07-01] MEDS: APIXABAN 5 MG TABLET PO ×2 (09:12→21:28)
[2021-07-02] VITALS (8 sets, daily range): BP systolic 100–117; BP diastolic 71–76; PULSE 85–97; RESP 18–20; TEMP 36.1–36.4; O2SAT 95–98
[2021-07-02] MEDS: Acetaminophen 325 MG Tablet 650 MG PO (08:02)
[2021-07-02] MEDS: Potassium Chloride Oral Tablet 20 MEQ 40 MEQ PO ×2 (08:03→17:01)
--- NOTE | 2021-07-02 08:11 | NURSING ---
noted hr up to 123 when ambulating to chair. spo2 maintained lowest was 93% on 2lnc. resp rate increased to approx. 24bpm. pt tolerated well x1 sba w/ walker. call light within reach.
--- NOTE | 2021-07-02 09:42 | PCM.PN.HOSP ---
Subjective Subjective Breathing much better. Feeling exhausted walking to and from bathroom. Having coughing fits during the day, not a night. Objective Data Objective Data Vital Signs: Vital Signs Temp Pulse Resp BP Pulse Ox 36.1 C L 97 20 H 100/71 95 07/02/21 08:05 07/02/21 08:05 07/02/21 08:05 07/02/21 08:05 07/02/21 08:05 Oxygen Flow Rate (L/min) [At 6 REST with Oxygen] Oxygen Flow Rate (L/min) [ 6 AMBULATING with Oxygen #3] Oxygen Flow Rate (L/min) [ 5 AMBULATING with Oxygen #2] Oxygen Flow Rate (L/min) [ 5 AMBULATING with Oxygen #1] Oxygen Flow Rate (L/min) 2 Oxygen Delivery Method Nasal Cannula Weight: 99 kg Body Mass Index (BMI) 36.7 Intake & Output: Intake and Output for Last 24 Hours 06/30/21 07/01/21 07/02/21 23:59 23:59 23:59 Intake Total 480 / 480 800 / 800 Output Total 800 / 800 2250 / 2250 Balance -320 / -320 -1450 / -1450 Medical Nutrition Assessment Dietitian: Malnutrition Criteria Met Start: 06/17/21 11:18 Freq: Status: Active Protocol: Document 06/27/21 12:15 RMA (Rec: 06/27/21 12:15 RMA [id number]) Nutrition Malnutrition Evidence of Malnutrition Exists Yes Malnutrition (severe): Acute Illness/Injury Evidenced By Suboptimal Energy Intake ( Severe),Weight Loss (Severe) Intake Problem Inadequate Oral Intake Etiology r/t resp. failure; decreased appetite Signs/Symptoms as evidenced by poor to fair po intake of food at meals - is accepting of ensure enlive w/ meals - does not want additional supplementation at this time. Status Active Problem Clinical Problem Acute Disease or Injury Related Malnutrition Etiology severe, acute malnutrition r/t inadequate energy intake w/ increased energy needs d/t resp. failure from COVID-19 Signs/Symptoms as evidenced by estimated PO intake meeting <50% of estimated nutritional needs >5 days; ~12% wt loss since admission. Status Active Problem Recommendation Dietitian Recommendations/Changes Will continue to provide regular diet and encourage intake at meals. Will continue to provide 8 oz strawberry ensure enlive w/ meals per pt preference. Lab / Micro Data Result Diagrams: 06/29/21 04:40 06/29/21 04:40 Micro: Microbiology 06/24/21 09:30 Urine, Clean Catch Urine Culture - Final Escherichia coli Klebsiella pneumoniae sp pneum 06/14/21 07:20 Sputum, Induced/Lukens Gram Stain - Final 06/14/21 07:20 Sputum, Induced/Lukens Respiratory Culture - Final Culture exhibits no growth. 06/12/21 13:17 Sputum, Induced/Lukens Gram Stain - Final 06/12/21 13:17 Sputum, Induced/Lukens Respiratory Culture - Final Moraxella(Michel.)Catarrhalis 06/13/21 08:45 Urine, Clean Catch Legionella Antigen - Final 06/13/21 08:45 Urine, Clean Catch Streptococcus pneumoniae Antigen (M - Final 06/02/21 06:50 Blood Culture (Wb) - Anticubital Left Blood Culture - Final No growth in 5 days. 06/02/21 07:00 Blood Culture (Wb) - Anticubital Right Blood Culture - Final No growth in 5 days. 06/02/21 07:08 Nasal Secretion SARS-CoV-2 Antigen (Rapid) - Final SARS-CoV-2 (COVID 19) Rhythm Strip Rhythm Strip: Sinus Rhythm Rate: 88 Ectopy: None Physical Exam Const alert Constitutional Narrative: up in chair. much better spirits. Resp normal respiratory effort, no retractions, no use of accessory muscles and clear to auscultation bilaterally Cardio regular rate, regular rhythm, S1 normal heart sound and S2 normal heart sound GI normal to inspection, nondistended, normoactive bowel sounds, soft to palpation, non-tender and non-distended Extremity normal to inspection and no clubbing, cyanosis or edema Assessment & Plan Assessment/Plan (1) Acute respiratory failure with hypoxia: (2) Pneumonia due to COVID-19 virus: (3) Pulmonary emboli: QUALIFIERS: Pulmonary embolism type: multiple subsegmental (without acute cor pulmonale) Qualified Code(s): I26.94 - Multiple subsegmental pulmonary emboli without acute cor pulmonale (4) Debility: (5) Depression: QUALIFIERS: Depression Type: unspecified Qualified Code(s): F32.9 - Major depressive disorder, single episode, unspecified (6) Sepsis: PLAN: 1. acute hypoxic respiratory failure resolved down to 1.5 L NC 2/ COVID 19 + M. cat pneumonia + PE extubated 06/21 2. COVID 19 pneumonia completed dexamethasone completed remdesivir quarantine completed 3. M. cat pneumonia completed abx 4. Encephalopathy Resolved. Due to all the sedating agents that he was on. 5. Pulmonary emboli likely d/t hypercoagulable state from COVID 19 On apixaban. Treat for 6 months. 6. VTE prophylaxis: not indicated given already anticoagulated. 7. Debility: To be expected after 30+day hospitalization. Patient currently on the TCU list. The patient can continue to remain on nasal cannula then can likely be discharged to the transitional care unit when he is able to be on 10 L of oxygen or less with exertion. Today he went up to 15. Patient is overall recovery I feel is good to be hindered by his amotivation he endorses that he does not use incentive spirometer as he should despite being told numerous times to do so. He reluctantly takes deep respirations. 8. Disposition: to SNF pending insurance authorization. Avoidable day #6 as pt was medically ready for discharge on 06/26 9. Paroxysms of cough add guaifenesin w codeine PRN Charges/Coding Visit Charges Inpatient E&M: 10230 Subs Hosp L2
[2021-07-02] MEDS: APIXABAN 5 MG TABLET PO (11:01)
[2021-07-02] MEDS: Metoprolol Tartrate 25 MG Tablet PO (11:01)
[2021-07-02] MEDS: Pantoprazole Sodium 40 MG Tablet PO (11:02)
--- NOTE | 2021-07-02 12:55 | CASEMGMT ---
Addendum entered by Abena Munoz 07/02/21 16:21: SW spoke w/Olga in TCU, precert was attained. SW faxed all discharge paperwork to TCU. SW let pt know he can go to TCU today, pt is agreeable. SW let physician know, let pt's RN know. No further needs, pt to TCU today. JUAN Sesay Original Note: SW spoke w/Olga in TCU, she is still trying to get precert for pt. SW spoke w/pt in room, pt's on the phone. SW spoke w/pt about the possibility of going home from here, rather than TCU if he feels strong enough. Pt states the OT spoke to him about the same thing. SW encouraged him to speak w/his about it, if he feels like he can go home, we can set up home care and home O2. Pt states understanding. SW will check in w/him in the morning should we not get precert today for TCU, to see if he feels he can manage at home. JUAN Sesay
[2021-07-02 14:00] LABS: Pathologist Review Reviewed
--- NOTE | 2021-07-02 16:16 | DS.PCM_ITS ---
Providers Date of Admission: 06/02/21 Date of Discharge: 07/02/21 Primary Care Physician: No Primary Care Phys Reason For Visit: COVID-19 Diagnosis Discharge Diagnosis (1) Acute respiratory failure with hypoxia: Status: Acute Code(s): J96.01 - Acute respiratory failure with hypoxia (2) Pneumonia due to COVID-19 virus: Status: Acute Code(s): U07.1 - COVID-19; J12.82 - Pneumonia due to coronavirus disease 2019 (3) Pulmonary emboli: Status: Acute Code(s): I26.99 - Other pulmonary embolism without acute cor pulmonale Qualifiers: Pulmonary embolism type: multiple subsegmental (without acute cor pulmonale) Qualified Code(s): I26.94 - Multiple subsegmental pulmonary emboli without acute cor pulmonale (4) Debility: Status: Acute Code(s): R53.81 - Other malaise (5) Depression: Status: Acute Code(s): F32.9 - Major depressive disorder, single episode, unspecified Qualifiers: Depression Type: unspecified Qualified Code(s): F32.9 - Major depressive disorder, single episode, unspecified (6) Sepsis: Status: Acute Code(s): A41.9 - Sepsis, unspecified organism Medications at Discharge Home Medications albuterol sulfate [Ventolin HFA] 1 - 2 puff INHALATION Q4H PRN PRN #1 inhaler 05/29/21 acetaminophen [Tylenol] 650 mg PO Q6H PRN PRN #0 tab 06/26/21 sodium chloride [Deep Sea Nasal] 2 spray NASAL TID PRN PRN #0 ml 06/26/21 apixaban [Eliquis] 5 mg PO BID 07/02/21 guaifenesin [Mucus Relief ER] 1,200 mg PO BID 07/02/21 metoprolol tartrate 12.5 mg PO BIDCM 07/02/21 pantoprazole 40 mg PO DAILY 07/02/21 sennosides-docusate sodium [Stool Softener-Stimulant Laxat] 2 tab PO BID 07/02/21 Hospital Course Summary of Care Provided Minutes Spent on Discharge: 28 Hospital Course: Please refer to the discharge dictated for specific details. Discharge was held pending insurance approval to custodial facility. Patient had a very protracted stay with COVID-19 but has steadily improved. On day of discharge patient was on 1.5 L of oxygen and was having improved but still diminished activity level. Weight / BMI Weight Weight: 99 kg Body Mass Index (BMI) 36.7 ABG / Lab / Microbiology Data Result Diagrams: 06/29/21 04:40 06/29/21 04:40 Microbiology: Microbiology 06/24/21 09:30 Urine, Clean Catch Urine Culture - Final Escherichia coli Klebsiella pneumoniae sp pneum 06/14/21 07:20 Sputum, Induced/Lukens Gram Stain - Final 06/14/21 07:20 Sputum, Induced/Lukens Respiratory Culture - Final Culture exhibits no growth. 06/12/21 13:17 Sputum, Induced/Lukens Gram Stain - Final 06/12/21 13:17 Sputum, Induced/Lukens Respiratory Culture - Final Moraxella(Michel.)Catarrhalis 06/13/21 08:45 Urine, Clean Catch Legionella Antigen - Final 06/13/21 08:45 Urine, Clean Catch Streptococcus pneumoniae Antigen (M - Final 06/02/21 06:50 Blood Culture (Wb) - Anticubital Left Blood Culture - Final No growth in 5 days. 06/02/21 07:00 Blood Culture (Wb) - Anticubital Right Blood Culture - Final No growth in 5 days. 06/02/21 07:08 Nasal Secretion SARS-CoV-2 Antigen (Rapid) - Final SARS-CoV-2 (COVID 19) Meaningful Use Info Meaningful Use Diagnoses (Choose all that apply): None applicable Discharge Plan Admission Admit Date/Time: 06/02/21 07:16 Primary Reason for Your Visit: COVID 19 Attending Provider: Mele Nicholas Primary Care Provider: Care Physician,Licha Primary Discharge Orders/Prescriptions Prescriptions: New acetaminophen [Tylenol] 325 mg Tablet 650 mg PO Q6H PRN PRN (Reason: Pain Score 1-10/Temp > 100.7 F) Qty: 0 RF: 0 sodium chloride [Deep Sea Nasal] 0.65 % Aerosol,Bethany 2 spray NASAL TID PRN PRN (Reason: NASAL DRYNESS) Qty: 0 RF: 0 Continued albuterol sulfate [Ventolin HFA] 1 INHALER inhaler 1 - 2 puff inhalation Q4H PRN PRN (Reason: Wheezing) Qty: 1 RF: 0 Discontinued dexamethasone 6 MG tablet 6 mg PO DAILY Qty: 7 RF: 0 No Action sennosides-docusate sodium [Stool Softener-Stimulant Laxat] 8.6-50 mg tablet 2 tab PO BID RF: 0 pantoprazole 40 mg tablet,delayed release (DR/EC) 40 mg PO DAILY RF: 0 metoprolol tartrate 25 mg tablet 12.5 mg PO BIDCM RF: 0 Mucus Relief ER 1,200 mg tablet extended release 12hr 1,200 mg PO BID RF: 0 Eliquis 5 mg tablet 5 mg PO BID RF: 0 Referrals / Follow Up: Care Physician,No Primary [Primary Care Provider] - Disposition Disposition (needs filled in before D/C Order can be placed): Nursing Home Fa cility Charges/Coding Visit Charges Inpatient E&M: 81818 Disch Hosp
--- NOTE | 2021-07-02 16:56 | NURSING ---
report called to TCU RN
== END 2021-07-02 18:55 | disposition skilled nursing facility (03) | DRG 870 ==
LOC: ED 07:47 → ICU 07:56 → MS2 06-24 15:44
PROVIDERS: Family Medicine; Internal Medicine; Internal Medicine Critical Care Medicine; Student in an Organized Health Care Education/Training Program; Admitting Provider Internal Medicine; Emergency Provider Emergency Medicine
DX: A41.89 Other specified sepsis (principal); U07.1 COVID-19; J12.82 Pneumonia due to coronavirus disease 2019; R57.8 Other shock; R65.21 Severe sepsis with septic shock; J96.01 Acute respiratory failure with hypoxia; J15.6 Pneumonia due to other Gram-negative bacteria; I26.94 Multiple subsegmental thrombotic pulmonary emboli without acute cor pulmonale; N17.9 Acute kidney failure, unspecified; R17 Unspecified jaundice; E87.1 Hypo-osmolality and hyponatremia; G93.40 Encephalopathy, unspecified; D68.69 Other thrombophilia; Z28.3 Underimmunization status; E66.9 Obesity, unspecified; Z68.36 Body mass index [BMI] 36.0-36.9, adult; R00.1 Bradycardia, unspecified; E87.6 Hypokalemia; T38.0X5A Adverse effect of glucocorticoids and synthetic analogues, initial encounter; F32.9 Major depressive disorder, single episode, unspecified; Z79.01 Long term (current) use of anticoagulants
CPT/HCPCS: 31500; 31720; 36600; 71045; 71275; 80048; 80053; 80202; 81001; 82550; 82803; 82962; 83605; 83615; 83735; 84075; 84100; 84145; 84443; 84478; 84484; 85025; 85027; 85379; 85384; 85610; 85730; 86140; 87040; 87070; 87077; 87086; 87088; 87186; 87205; 87426; 87449; 87641; 93005; 94002; 94003; 94640; 94660; 94762; 97110; 97116; 97162; 97165; 97530; 97535; 97802; 97803; 99251; 99284; J7030; J7040; J7050; J7120; Q9967; A4216; G0463; J0330; J1940; J3010

== ENCOUNTER 2021-07-02 19:10 | Inpatient (IN) | payer OTHER, SELFPAY ==
[2021-07-02 19:33] VITALS: BP 121/76; PULSE 95; RESP 18; TEMP 36.7; O2SAT 97; BMI 31.4
--- NOTE | 2021-07-02 21:09 | HP.PCM_ITS ---
HPI - General General Date of Admission: 07/02/21 HPI Narrative 06/02/2021 DOMO MUÑOZ, is a 35 Male who presents to [facility] Emergency Department with shortness of breath. 06/02/2021 EKG normal sinus rhythm, T wave abnormality, consider inferior ischemia, prolonged QT. Covid19 12 days ago, unvaccinated, declined monoclonal antibody infusion. Decadron, inhaler given. Pulsox 50% on RA, 71% on Nonrebreather. BiPAP applied. 06/02/2021 Admit to ICU. LR IV. Remdesivir, Decadron. BiPAP, FiO2. CTA chest negative for pulmonary embolism, Lovenox 40mg twice daily for DVT prophylaxis. 06/03/2021 Airvo. 06/04/2021 Lasix 20mg IV x 1 dose. 06/09/2021 BiPAP, Airvo. 06/11/2021 Lasix IV. 06/12/2021 BiPAP, Acute kidney injury resolved. 06/13/2021 CTA chest shows pulmonary embolism, pneumonia. Heparin drip for pulmonary embolism. Vancomycin, Zosyn for pneumonia. 06/14/2021 Intubated. 06/16/2021 Propofol, Fentanyl for agitation. 06/17/2021 Decadron repeated. Heparin drip changed to Lovenox for pulmonary embolism. 06/18/2021 Moraxella Catarrhalis pneumonia. Confused. 06/19/2021, M. Catarrhalis pneumonia, Zosyn/Vancomycin changed to Augmentin. 06/21/2021 Extubated. 06/22/2021 Short of breath on Airvo. on Eliquis for pulmonary embolism. 06/23/2021 Tolerating nasal cannula. Encephalopathy secondary to sedating drugs. 06/24/2021 Incentive spirometer. Encephalopathy resolved. 06/25/2021 Finished Remdesivir, quarantine, antibiotics. Eliquis x 6 months for pulmonary embolism. 06/27/2021 Oxygen 5 liters per NC. 06/29/2021 Oxygen 5 liters per NC. 07/02/2021 Admit to TCU with debility, here for rehabilitation, strengthening, prior to discharge home with . PFSH Medical History no medical history Home Medications albuterol sulfate [Ventolin HFA] 1 - 2 puff INHALATION Q4H PRN PRN #1 inhaler 05/29/21 [Rx Last Taken Unknown] acetaminophen [Tylenol] 650 mg PO Q6H PRN PRN #0 tab 06/26/21 [Rx Last Taken Unknown] sodium chloride [Deep Sea Nasal] 2 spray NASAL TID PRN PRN #0 ml 06/26/21 [Rx Last Taken Unknown] apixaban [Eliquis] 5 mg PO BID 07/02/21 [History Last Taken Unknown] guaifenesin [Mucus Relief ER] 1,200 mg PO BID 07/02/21 [History Last Taken Unknown] metoprolol tartrate 12.5 mg PO BIDCM 07/02/21 [History Last Taken Unknown] pantoprazole 40 mg PO DAILY 07/02/21 [History Last Taken Unknown] sennosides-docusate sodium [Stool Softener-Stimulant Laxat] 2 tab PO BID 07/02/21 [History Last Taken Unknown] Allergy/AdvReac Type Severity Reaction Status Date / Time No Known Allergies Allergy Verified 05/29/21 13:22 Family History Mother No problems noted. Father No problems noted. Social History (Updated 07/02/21 @ 21:[address] Santhosh Gonzales MD) household members: spouse Smoking Status: Never smoker ROS Constitutional Constitutional: Denies chills, fever(s) or weight gain ENT HEENT: Denies headache(s), nasal congestion or nasal discharge Cardiovascular Cardiovascular: Denies chest pain or palpitations Respiratory/Chest Respiratory/Chest: Denies cough, excessive phlegm production or shortness of breath with exertion Gastrointestinal Gastrointestinal: Denies abdominal pain, nausea or vomiting Genitourinary Genitourinary: Denies dysuria Musculoskeletal Musculoskeletal: Denies joint pain or joint swelling Integumentary Integumentary: Denies rash or wounds Neurologic Neurologic: Denies focal weakness, numbness or tingling Psychiatric Psychiatric: Reports auditory hallucinations; Denies anxiety, depression, homicidal ideation or suicidal ideation Physical Exam Const alert and oriented x3 General Appearance: cooperative HEENT normocephalic Eyes PERRL and EOMs intact bilaterally Neck supple, no JVD and no carotid bruits Resp normal respiratory effort, normal air movement and clear to auscultation bilaterally Cardio regular rate and regular rhythm GI normal to inspection, nondistended, normoactive bowel sounds, non-tender and non-distended Extremity normal capillary refill General Extremity: Negative for edema Skin no rashes or lesions noted General Skin Exam: no breakdown Psych affect normal Appearance: appropriate Results Lab / Micro Data Result Diagrams: 07/03/21 05:10 07/03/21 05:10 Assessment & Plan Assessment/Plan (1) Debility: (2) Acute respiratory failure with hypoxia: (3) Pneumonia due to COVID-19 virus: (4) Moraxella catarrhalis pneumonia: (5) MALAIKA (acute kidney injury): (6) Pulmonary emboli: QUALIFIERS: Pulmonary embolism type: multiple subsegmental (without acute cor pulmonale) Qualified Code(s): I26.94 - Multiple subsegmental pulmonary emboli without acute cor pulmonale (7) Encephalopathy: PLAN: 35 year old male with below past medical history hospitalized for acute respiratory failure with hypoxia requiring intubation due to covid19, c omplicated by acute kidney injury, M. Catarrhalis pneumonia, encephalopathy, pulmonary embolism, admitted to TCU with debility, here for rehabilitation, strengthening, prior to discharge home with . * Debility - PT/OT. * Pain - Tylenol 1000mg Q6H prn pain (1-10). * Bowel - Senna/colace 2 tablets twice daily. * Adult immunization - Administer prevnar 13, pneumovax 23, fluzone, covid19 vaccine as appropriate. * DVT prophylaxis - Not necessary, already on Eliquis. * Shortness of breath - Albuterol 1-2 puffs Q4H PRN. * Pulmonary embolism - Eliquis 5mg twice daily thru 12/10/2021. * Congestion - Mucinex 1200mg twice daily. * Hypertension - Metoprolol 12.5mg twice daily. * GERD - Pantoprazole 40mg daily.
[2021-07-02] MEDS: APIXABAN 5 MG TABLET PO (23:07)
[2021-07-03 06:19] LABS: Absolute Lymphocyte Count 1.95 X10^3/uL (0.83-4.51); Basophil# 0.14 X10^3/uL; Basophil% 1.3 % (0-1); Eosinophil# 0.53 X10^3/uL; Eosinophils% 4.9 % (0-5); Hematocrit 39.5 % (40-54); Hemoglobin 12.4 g/dL (13.0-16.5); Lymphocyte # 1.95 X10^3/ul (0.83-4.51); Lymphocyte % 18.2 % (19-41); Mean Corp Hgb Conc 31.4 g/dL (32-36); Mean Corpuscular Hgb 27.7 pg (27.0-32.0); Mean Corpuscular Volume 88.2 fL (80-94); Mean Platelet Vol. 9.1 fl (6.2-12.0); Monocyte# 0.78 X10^3/uL; Monocyte% 7.3 % (0-10); NRBC Flagged by Analyzer 0 % (0-5); Neutrophil # 6.97 X10^3/uL (2.7-7.7); Neutrophil % 65.1 % (47-70); Platelet Count 497 K/mm3 (150-450); RBC Distribution Width CV 13.9 % (11.6-14.6); RBC Distribution Width SD 44.9 fl (35.1-43.9); Red Blood Count 4.48 M/mm3 (4.6-6.2); White Blood Count 10.7 K/mm3 (4.4-11.0)
[2021-07-03 06:32] LABS: Anion Gap 8 (5-15); BUN 14 mg/dL (7-18); BUN/Creat Ratio 19.9 RATIO (10-20); Calcium,Total 8.5 mg/dL (8.5-10.1); Chloride 104 mmol/L (98-107); EST Glomerular Filtration Rate 135 mL/min (>60); Est Glom Filt Rate - Afr Amer 164 mL/min (>60); Estimated Creatinine Clearance 152.08 ml/min; Glucose 110 mg/dL (74-106); Sodium Level 140 mmol/L (136-145)
[2021-07-03] MEDS: Pantoprazole Sodium 40 MG Tablet PO (06:43)
[2021-07-03] MEDS: APIXABAN 5 MG TABLET PO ×2 (08:37→18:12)
[2021-07-03 08:42] VITALS: BP 123/75; PULSE 107
[2021-07-03] MEDS: Metoprolol Tartrate 25 MG Tablet 12.5 MG PO ×2 (08:42→18:11)
[2021-07-03] MEDS: Acetaminophen 500 MG Tablet 1000 MG PO (08:47)
[2021-07-03 08:49] VITALS: BP 123/75; PULSE 107
[2021-07-03] MEDS: Tuberculin,Purif.prot.deriv. 50 TU/ML Vial 0.1 ML ID (11:19)
[2021-07-03] MEDS: 0.9% Saline Lock 10 ML Syringe IV (13:18)
[2021-07-03 13:33] VITALS: BP 109/65; PULSE 104; RESP 17; TEMP 35.6; O2SAT 93
--- NOTE | 2021-07-03 16:18 | CASEMGMT ---
Social Work Met with patient for initial assessment. Discussed code status. Pt confirmed full code. MOLST form completed, communication to , placed in chart. Explained insurance with [employer] 07/26 and continued stay is not guaranteed. 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 SW to continue to assist and provide emotional support as needed. Pt did express he and his attending counseling after DC as this was a traumatic event to the pt and his family. SW encouraged counseling and offered resources if needed. SW to continue to follow. Kalli Gaston PRINCIPAL SYSTEM SOFTWARE ENGINEER SHEET ROCK HANGER
--- NOTE | 2021-07-03 16:56 | CHAPLAIN ---
Type of Pastoral Visit _x__ Initial Visit ___ Follow-up Visit ___ On-call Visit ___ General Patient Visit ___ Spiritual Assessment ___ Family Conference ___ Bereavement ___ Rapid Response ___ Code Blue ___ Other (describe below) Pastoral Care Referral From _x__ Patient ___ Family ___ Nurse ___ Physician ___ Fishing Manager ___ Jumpbasting Canvas Baster ___ Other (describe below) Sacrament/Intervention _x__ Active listening ___ Anointing ___ Anabaptist ___ Bereavement ___ Communion ___ Jennifer exploration ___ _x__ Life review _x__ Prayer ___ Reconciliation ___ Sacrament of Sick _x__ Supportive presence ___ Wedding ___ Other (describe below) Pastoral Comments having followed this patient from ICU to MS2 to TCU; pt is looking much better and he states that he is feeling more like normal and seeing his own improvement; gave pt time and presence; pt talked about getting home and being a Dad and ; pt states he and will be going through counseling to handle the trauma of these weeks; pt states God has something more for me and is welcoming of spiritual care and prayer;
[2021-07-03 18:11] VITALS: BP 109/65; PULSE 104
[2021-07-03 23:56] VITALS: RESP 18
[2021-07-04] MEDS: Pantoprazole Sodium 40 MG Tablet PO (05:29)
[2021-07-04] MEDS: APIXABAN 5 MG TABLET PO ×2 (05:31→17:40)
[2021-07-04 06:37] VITALS: O2SAT 93
[2021-07-04 08:54] VITALS: BP 122/78; PULSE 113
[2021-07-04] MEDS: Metoprolol Tartrate 25 MG Tablet 12.5 MG PO ×2 (08:54→17:41)
[2021-07-04 08:57] VITALS: BP 122/78; PULSE 113; RESP 22; TEMP 36.4; O2SAT 94
--- NOTE | 2021-07-04 11:34 | PHA.CONS_ITS ---
Progress Note - Pharmacy Subjective: TCU Admission Objective: Allergies No Known Allergies Allergy (Verified 05/29/21 13:22) Current Medications Generic Name Dose Route Start Last Admin Trade Name Louisq PRN Reason Stop Dose Admin Acetaminophen 1,000 mg 07/02/21 21:24 07/03/21 08:47 Acetaminophen 500 Mg Tablet PO 1,000 mg Q6H PRN PRN Administration Pain Score 1-10 Albuterol Sulfate 1 - 2 puff 07/02/21 20:08 Albuterol Sulfate Hfa 6.7 Gm Inhaler (200 Puffs) INHALATION Q4H PRN PRN Wheezing Apixaban 5 mg 07/03/21 06:00 07/04/21 05:31 Apixaban 5 Mg Tablet PO 12/10/21 23:55 5 mg BID KATHYA Administration Guaifenesin 1,200 mg 07/03/21 06:00 07/04/21 05:30 Guaifenesin 1,200 Mg Tablet PO Not Given BID KATHYA Metoprolol Tartrate 12.5 mg 07/03/21 08:00 07/04/21 08:54 Metoprolol Tartrate 25 Mg Tablet PO 12.5 mg BIDCM KATHYA Administration Pantoprazole Sodium 40 mg 07/03/21 06:00 07/04/21 05:29 Pantoprazole Sodium 40 Mg Tablet PO 40 mg DAILY KATHYA Administration Senna/Docusate Sodium 2 tablet 07/03/21 06:00 07/04/21 05:29 Senna/Docusate Sodium 1 Tablet PO Not Given BID KATHYA Sodium Chloride 2 spray 07/02/21 20:08 Sodium Chloride 0.65% 1 [place].Btl NASAL TID PRN PRN NASAL DRYNESS Sodium Chloride 10 - 40 ml 07/02/21 22:46 07/03/21 13:18 0.9% Saline Lock 10 Ml Syringe IV 10 ml UD PRN Administration SALINE FLUSH Tuberculin PPD 0.1 ml 07/10/21 10:00 Tuberculin,Purif.Prot.Deriv. 50 Tu/Ml Vial ID 07/10/21 10:01 X1 ONE Problem List (Last Reviewed 07/02/21 @ 21:[address] Santhosh Gonzales MD) Encephalopathy (Acute) Moraxella catarrhalis pneumonia (Acute) Debility (Acute) Pulmonary emboli (Acute) MALAIKA (acute kidney injury) (Acute) Pneumonia due to COVID-19 virus (Acute) Acute respiratory failure with hypoxia (Acute) Vital Signs Temp Pulse Resp BP Pulse Ox 97.5 F L 113 H 22 H 122/78 H 94 07/04/21 08:57 07/04/21 08:57 07/04/21 08:57 07/04/21 08:57 07/04/21 08:57 Oxygen Flow Rate (L/min) 2 Oxygen Delivery Method Nasal Cannula Weight: 99.45 kg Body Mass Index (BMI) 31.4 Sodium 140 mmol/L (136-145) 07/03/21 05:10 Potassium 4.0 mmol/L (3.5-5.1) 07/03/21 05:10 Chloride 104 mmol/L (98-107) 07/03/21 05:10 Carbon Dioxide 28.0 mmol/L (21.0-32.0) 07/03/21 05:10 Anion Gap 8 (5-15) 07/03/21 05:10 BUN 14 mg/dL (7-18) 07/03/21 05:10 Creatinine 0.70 mg/dL (0.70-1.30) 07/03/21 05:10 Est GFR (MDRD) Af Amer 164 mL/min (>60) 07/03/21 05:10 Est GFR (MDRD) Non-Af 135 mL/min (>60) 07/03/21 05:10 BUN/Creatinine Ratio 19.9 RATIO (10-20) 07/03/21 05:10 Glucose 110 mg/dL (74-106) H 07/03/21 05:10 Assessment/Plan: 1. Pain: acetaminophen 1000mg PO Q6H PRN pain -07/15. Please continue to monitor for increased pain and PRN usage. 2. PE: apixaban 5mg PO BID thru 12/10/21. Please continue to monitor for S/S of bleeding, oxygen, and hemoglobin (last 12.4g/dL). 3. Shortness of breath: albuterol MDI 1-2puffs inhalation Q4H PRN wheezing. Please continue to monitor for PRN usage. *4. Congestion: Mucinex 1200mg PO BID. Patient has refused 3/3 doses. Please consider stopping medication if clinically appropriate. 5. Hypertension: metoprolol tartrate 12.5mg PO BID. Please continue to monitor HR (last 113) and BP (last 122/78). 6. GERD: pantoprazole 40mg PO daily. Please continue to monitor for S/S of GERD and diarrhea. Psychotropic Medications: None Unnecessary Medications: None *Bowel Regimen: senna/docusate 2T PO BID. Patient has refused 3/3 doses. Please consider changing to PRN. Thanks. Please continue to monitor for constipation. Date of Note:: 07/04/21
--- NOTE | 2021-07-04 12:48 | NURSING ---
Saline lock to LAC d/c, pt tolerated well, denies pain, catheter tip intact
[2021-07-04] MEDS: guaiFENesin 1,200 MG Tablet 1200 MG PO (17:40)
[2021-07-04 17:41] VITALS: BP 128/70; PULSE 93
[2021-07-05] MEDS: guaiFENesin 1,200 MG Tablet 1200 MG PO ×2 (06:36→17:04)
[2021-07-05] MEDS: Pantoprazole Sodium 40 MG Tablet PO (06:36)
[2021-07-05] MEDS: APIXABAN 5 MG TABLET PO ×2 (06:36→17:03)
[2021-07-05 07:26] VITALS: O2SAT 96
[2021-07-05 08:31] VITALS: BP 111/69; PULSE 99
[2021-07-05] MEDS: Metoprolol Tartrate 25 MG Tablet 12.5 MG PO ×2 (08:31→17:04)
[2021-07-05 09:44] VITALS: BP 111/69; PULSE 99; RESP 20; TEMP 36.5; O2SAT 96
[2021-07-05 17:04] VITALS: BP 112/72; PULSE 99
[2021-07-05 20:30] VITALS: PULSE 102; RESP 20; O2SAT 93
[2021-07-06] MEDS: APIXABAN 5 MG TABLET PO ×2 (04:59→16:59)
[2021-07-06] MEDS: guaiFENesin 1,200 MG Tablet 1200 MG PO ×2 (04:59→16:58)
[2021-07-06] MEDS: Pantoprazole Sodium 40 MG Tablet PO (04:59)
[2021-07-06 08:38] VITALS: BP 116/73; PULSE 93; RESP 22; TEMP 36.6; O2SAT 97
[2021-07-06 08:41] VITALS: PULSE 93
[2021-07-06] MEDS: Metoprolol Tartrate 25 MG Tablet 12.5 MG PO ×2 (08:41→16:58)
[2021-07-06 10:00] VITALS: PULSE 91; RESP 18; O2SAT 93
[2021-07-06 15:45] VITALS: BP 108/65; PULSE 101; RESP 16; TEMP 36.4; O2SAT 99
[2021-07-06 16:58] VITALS: PULSE 101
[2021-07-07] MEDS: APIXABAN 5 MG TABLET PO ×2 (06:16→17:41)
[2021-07-07] MEDS: Pantoprazole Sodium 40 MG Tablet PO (06:16)
[2021-07-07] MEDS: guaiFENesin 1,200 MG Tablet 1200 MG PO ×2 (06:17→17:41)
[2021-07-07 08:38] VITALS: BP 124/74; PULSE 100
[2021-07-07 08:39] VITALS: BP 124/74; PULSE 100
[2021-07-07] MEDS: Metoprolol Tartrate 25 MG Tablet 12.5 MG PO ×2 (08:39→17:41)
[2021-07-07 13:47] VITALS: BP 114/68; PULSE 94; RESP 20; TEMP 36.8; O2SAT 94
[2021-07-07 17:41] VITALS: PULSE 94
[2021-07-07 20:47] VITALS: PULSE 83; RESP 18; O2SAT 97
[2021-07-08] MEDS: APIXABAN 5 MG TABLET PO ×2 (05:34→17:10)
[2021-07-08] MEDS: guaiFENesin 1,200 MG Tablet 1200 MG PO ×2 (05:35→17:10)
[2021-07-08] MEDS: Pantoprazole Sodium 40 MG Tablet PO (05:36)
[2021-07-08 08:32] VITALS: BP 129/76; PULSE 105
[2021-07-08] MEDS: Metoprolol Tartrate 25 MG Tablet 12.5 MG PO ×2 (08:32→17:10)
[2021-07-08 08:34] VITALS: BP 129/76; PULSE 105
[2021-07-08 11:05] VITALS: PULSE 78; RESP 18; O2SAT 98
[2021-07-08 16:42] VITALS: BP 126/73; PULSE 94; RESP 20; TEMP 36.7; O2SAT 95
[2021-07-08 17:10] VITALS: BP 126/73; PULSE 94
[2021-07-09] MEDS: APIXABAN 5 MG TABLET PO ×2 (05:35→17:05)
[2021-07-09] MEDS: Pantoprazole Sodium 40 MG Tablet PO (05:35)
[2021-07-09] MEDS: guaiFENesin 1,200 MG Tablet 1200 MG PO ×2 (05:35→17:05)
[2021-07-09 08:32] VITALS: BP 112/67; PULSE 95; RESP 20; TEMP 36.7; O2SAT 95
[2021-07-09 08:40] VITALS: PULSE 95
[2021-07-09] MEDS: Metoprolol Tartrate 25 MG Tablet 12.5 MG PO ×2 (08:40→17:04)
[2021-07-09 17:04] VITALS: BP 112/70; PULSE 89
[2021-07-10 05:51] LABS: Absolute Lymphocyte Count 1.56 X10^3/uL (0.83-4.51); Absolute Neutrophil Count 6.3 X10^3/uL (2.0-7.7); Basophil# 0.07 X10^3/uL; Basophil% 0.8 % (0-1); Eosinophil# 0.35 X10^3/uL; Eosinophils% 3.9 % (0-5); Hematocrit 39.7 % (40-54); Hemoglobin 12.6 g/dL (13.0-16.5); Lymphocyte # 1.56 X10^3/ul (0.83-4.51); Lymphocyte % 17.2 % (19-41); Mean Corp Hgb Conc 31.7 g/dL (32-36); Mean Corpuscular Hgb 27.9 pg (27.0-32.0); Mean Corpuscular Volume 87.8 fL (80-94); Mean Platelet Vol. 9.4 fl (6.2-12.0); Monocyte# 0.69 X10^3/uL; Monocyte% 7.6 % (0-10); NRBC Flagged by Analyzer 0 % (0-5); Neutrophil # 6.32 X10^3/uL (2.7-7.7); Neutrophil % 69.7 % (47-70); Platelet Count 334 K/mm3 (150-450); RBC Distribution Width CV 14.3 % (11.6-14.6); RBC Distribution Width SD 45.8 fl (35.1-43.9); Red Blood Count 4.52 M/mm3 (4.6-6.2); White Blood Count 9.1 K/mm3 (4.4-11.0)
[2021-07-10] MEDS: guaiFENesin 1,200 MG Tablet 1200 MG PO ×2 (05:53→16:57)
[2021-07-10] MEDS: Pantoprazole Sodium 40 MG Tablet PO (05:53)
[2021-07-10] MEDS: APIXABAN 5 MG TABLET PO ×2 (05:54→16:57)
[2021-07-10 06:14] LABS: Anion Gap 4 (5-15); BUN 13 mg/dL (7-18); Calcium,Total 8.7 mg/dL (8.5-10.1); Chloride 105 mmol/L (98-107); Creatinine, Serum 0.76 mg/dL (0.70-1.30); EST Glomerular Filtration Rate 123 mL/min (>60); Est Glom Filt Rate - Afr Amer 149 mL/min (>60); Estimated Creatinine Clearance 140.08 ml/min; Glucose 97 mg/dL (74-106); Potassium 3.9 mmol/L (3.5-5.1); Sodium Level 140 mmol/L (136-145)
[2021-07-10 08:15] VITALS: BP 119/74; PULSE 106
[2021-07-10] MEDS: Metoprolol Tartrate 25 MG Tablet 12.5 MG PO ×2 (08:15→16:57)
[2021-07-10 08:17] VITALS: BP 119/74; PULSE 106
[2021-07-10] MEDS: Tuberculin,Purif.prot.deriv. 50 TU/ML Vial 0.1 ML ID (10:53)
[2021-07-10 13:14] VITALS: BP 109/58; PULSE 96; RESP 18; TEMP 36.4; O2SAT 98
--- NOTE | 2021-07-10 15:13 | CHAPLAIN ---
Type of Pastoral Visit ___ Initial Visit _x__ Follow-up Visit ___ On-call Visit ___ General Patient Visit ___ Spiritual Assessment ___ Family Conference ___ Bereavement ___ Rapid Response ___ Code Blue ___ Other (describe below) Pastoral Care Referral From _x__ Patient ___ Family ___ Nurse ___ Physician ___ Receiving Manager ___ Bicycle Ii Assembler ___ Other (describe below) Sacrament/Intervention _x__ Active listening ___ Anointing ___ Christian ___ Bereavement ___ Communion ___ Jennifer exploration ___ ___ Life review ___ Prayer ___ Reconciliation ___ Sacrament of Sick ___ Supportive presence ___ Wedding ___ Other (describe below) Pastoral Comments
[2021-07-10 16:57] VITALS: BP 126/70; PULSE 101
[2021-07-11] MEDS: guaiFENesin 1,200 MG Tablet 1200 MG PO ×2 (05:20→17:09)
[2021-07-11] MEDS: APIXABAN 5 MG TABLET PO ×2 (05:20→17:09)
[2021-07-11] MEDS: Pantoprazole Sodium 40 MG Tablet PO (05:21)
[2021-07-11 08:04] VITALS: BP 121/55; PULSE 100
[2021-07-11] MEDS: Metoprolol Tartrate 25 MG Tablet 12.5 MG PO ×2 (08:04→17:09)
[2021-07-11 08:06] VITALS: BP 121/55; PULSE 100
--- NOTE | 2021-07-11 10:00 | CASEMGMT ---
Social Work IDT met with patient and for care plan meeting. Discussed patient's progress in therapy and nursing. Pt progressing well. Graduated from no AD. New O2 - goal is to DC without O2. 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 Goal is to DC home with and young children. Explained insurance with [employer] 07/26 and continued stay is not guaranteed. SW to continue to follow. Kalli Gaston, LINER INSTALLER MIXER ATTENDANT
[2021-07-11 16:00] VITALS: BP 111/67; PULSE 99; RESP 18; TEMP 35.7; O2SAT 97
[2021-07-11 17:09] VITALS: BP 111/67; PULSE 99
[2021-07-11 20:58] VITALS: PULSE 107; RESP 18; O2SAT 96
[2021-07-12] MEDS: APIXABAN 5 MG TABLET PO ×2 (06:07→16:56)
[2021-07-12] MEDS: guaiFENesin 1,200 MG Tablet 1200 MG PO ×2 (06:07→16:56)
[2021-07-12] MEDS: Pantoprazole Sodium 40 MG Tablet PO (06:07)
[2021-07-12 07:12] VITALS: O2SAT 98
[2021-07-12 08:34] VITALS: BP 124/70; PULSE 96; RESP 18; TEMP 36.6; O2SAT 96
[2021-07-12 08:35] VITALS: PULSE 96
[2021-07-12] MEDS: Metoprolol Tartrate 25 MG Tablet 12.5 MG PO ×2 (08:35→16:56)
[2021-07-12 13:03] VITALS: BP 125/69; PULSE 85; RESP 22; TEMP 36.6; O2SAT 97
--- NOTE | 2021-07-12 15:05 | CHAPLAIN ---
Type of Pastoral Visit ___ Initial Visit _x__ Follow-up Visit ___ On-call Visit ___ General Patient Visit ___ Spiritual Assessment ___ Family Conference ___ Bereavement ___ Rapid Response ___ Code Blue ___ Other (describe below) Pastoral Care Referral From ___ Patient ___ Family ___ Nurse ___ Physician ___ Manager Of Production ___ Drywall Finisher _x__ Other (describe below) Sacrament/Intervention _x__ Active listening ___ Anointing ___ Holiness ___ Bereavement ___ Communion ___ Jennifer exploration ___ ___ Life review ___ Prayer ___ Reconciliation ___ Sacrament of Sick ___ Supportive presence ___ Wedding ___ Other (describe below) Pastoral Comments PT suggested a follow up visit to encourage pt as he is gaining and seeing improvements after a long journey
[2021-07-12 16:56] VITALS: PULSE 85
[2021-07-12 21:09] VITALS: PULSE 100; RESP 18
[2021-07-13] MEDS: APIXABAN 5 MG TABLET PO ×2 (05:39→16:08)
[2021-07-13] MEDS: guaiFENesin 1,200 MG Tablet 1200 MG PO ×2 (05:39→16:08)
[2021-07-13] MEDS: Pantoprazole Sodium 40 MG Tablet PO (05:40)
--- NOTE | 2021-07-13 05:42 | NURSING ---
Patient up to bathroom, then returned to bed, sitting on side. SpO2 obtained, with saturation at 90% using 1L/min via NC. SpO2 increased to 95% after 2 minutes of sitting and resting. NC continues to be in place. Encouraged patient to expand whole ribcage when taking deep breaths, using IS through out the day while awake. Patient verbalized understanding. Patient is up ad berto in room. Encouraged him to call for assistance if needed. Will continue to monitor.
[2021-07-13 07:38] VITALS: O2SAT 93
[2021-07-13 08:15] VITALS: BP 128/73; PULSE 102
[2021-07-13] MEDS: Metoprolol Tartrate 25 MG Tablet 12.5 MG PO ×2 (08:15→16:07)
--- NOTE | 2021-07-13 10:17 | MDS.RN ---
Information for the mds was obtained from review of the clinical record, interview of resident, staff, and direct observation of resident's care.
[2021-07-13 16:07] VITALS: BP 129/69; PULSE 98
[2021-07-13 16:13] VITALS: BP 129/69; PULSE 98; RESP 18; TEMP 36.6; O2SAT 94
[2021-07-14] MEDS: Pantoprazole Sodium 40 MG Tablet PO (05:27)
[2021-07-14] MEDS: APIXABAN 5 MG TABLET PO ×2 (05:27→18:10)
[2021-07-14] MEDS: guaiFENesin 1,200 MG Tablet 1200 MG PO ×2 (05:27→18:10)
[2021-07-14 07:51] VITALS: BP 108/78; PULSE 89; RESP 20; TEMP 36.7; O2SAT 96
[2021-07-14 07:52] VITALS: PULSE 89
[2021-07-14] MEDS: Metoprolol Tartrate 25 MG Tablet 12.5 MG PO ×2 (07:52→18:09)
[2021-07-14 08:51] VITALS: O2SAT 96
[2021-07-14 09:01] VITALS: O2SAT 94
[2021-07-14 18:09] VITALS: BP 124/78; PULSE 95
[2021-07-15] MEDS: guaiFENesin 1,200 MG Tablet 1200 MG PO ×2 (05:52→17:12)
[2021-07-15] MEDS: Pantoprazole Sodium 40 MG Tablet PO (05:53)
[2021-07-15] MEDS: APIXABAN 5 MG TABLET PO ×2 (05:53→17:13)
[2021-07-15 06:30] VITALS: O2SAT 92
[2021-07-15 08:52] VITALS: BP 125/79; PULSE 99; RESP 22; TEMP 36.7; O2SAT 97
[2021-07-15 08:54] VITALS: PULSE 99
[2021-07-15] MEDS: Metoprolol Tartrate 25 MG Tablet 12.5 MG PO ×2 (08:54→17:13)
[2021-07-15 13:29] VITALS: BP 115/74; PULSE 96; RESP 17; TEMP 36.3; O2SAT 100
[2021-07-15 17:13] VITALS: PULSE 96
[2021-07-15 23:15] VITALS: PULSE 73; RESP 18; O2SAT 96
[2021-07-16] MEDS: Pantoprazole Sodium 40 MG Tablet PO (06:39)
[2021-07-16] MEDS: guaiFENesin 1,200 MG Tablet 1200 MG PO ×2 (06:39→17:45)
[2021-07-16] MEDS: APIXABAN 5 MG TABLET PO ×2 (06:39→17:44)
--- NOTE | 2021-07-16 06:43 | NURSING ---
Patient went without O2 at HS, SpO2 at 93% on room air. Will continue to monitor.
[2021-07-16 07:29] VITALS: O2SAT 96
[2021-07-16 08:29] VITALS: PULSE 101
[2021-07-16] MEDS: Metoprolol Tartrate 25 MG Tablet 12.5 MG PO ×2 (08:29→17:44)
--- NOTE | 2021-07-16 14:39 | CASEMGMT ---
Social Work Spoke with pt regarding request to DC. IDT agreeable to DC home with family 1016. Pt agreeable to outpatient PT recommendation - provided options - pr requesting [facility]. Referral made. No DME needs. Pt is off of O2. to transport home and can transport to PT sessions. Pt requested counseling and PCP resources - provided both. Pt appreciative. Plan: DC home with family 1016, [facility] Kalli Gaston, WIRE TECHNICIAN CONSTRUCTION CARPENTERS HELPER
[2021-07-16 17:40] VITALS: BP 119/71; PULSE 94; RESP 20; TEMP 36.7; O2SAT 97
[2021-07-16 17:44] VITALS: PULSE 94
--- NOTE | 2021-07-16 19:09 | DS.PCM_ITS ---
Providers Date of Admission: 07/02/21 Primary Care Physician: No Primary Care Phys Reason For Visit: COVID Diagnosis Discharge Diagnosis (1) Debility: Status: Acute Code(s): R53.81 - Other malaise (2) Acute respiratory failure with hypoxia: Status: Resolved Code(s): J96.01 - Acute respiratory failure with hypoxia (3) Pneumonia due to COVID-19 virus: Status: Resolved Code(s): U07.1 - COVID-19; J12.82 - Pneumonia due to coronavirus disease 2019 (4) Moraxella catarrhalis pneumonia: Status: Acute Code(s): J15.6 - Pneumonia due to other Gram-negative bacteria (5) MALAIKA (acute kidney injury): Status: Resolved Code(s): N17.9 - Acute kidney failure, unspecified (6) Pulmonary emboli: Status: Acute Code(s): I26.99 - Other pulmonary embolism without acute cor pulmonale Qualifiers: Pulmonary embolism type: multiple subsegmental (without acute cor pulmonale) Qualified Code(s): I26.94 - Multiple subsegmental pulmonary emboli without acute cor pulmonale (7) Encephalopathy: Status: Acute Code(s): G93.40 - Encephalopathy, unspecified Medications at Discharge Home Medications acetaminophen [Tylenol] 650 mg PO Q6H PRN PRN #0 tab 06/26/21 Mucus Relief ER 1,200 mg PO BID 07/02/21 Eliquis 5 mg PO BID 30 Days #60 tab 07/16/21 metoprolol tartrate 12.5 mg PO BIDCM 30 Days #60 tab 07/16/21 pantoprazole 40 mg PO DAILY 30 Days #30 tab 07/16/21 Hospital Course Operations None Procedures Intubation Summary of Care Provided Minutes Spent on Discharge: 30 Hospital Course: 35 year old male with below past medical history hospitalized for acute respiratory failure with hypoxia requiring intubation due to covid19, complicated by acute kidney injury, M. Catarrhalis pneumonia, encephalopathy, pulmonary embolism, admitted to TCU with debility, here for rehabilitation, strengthening, prior to discharge home with . Discharge home with family 07/21/2021, [facility]. Eliquis thru 12/10/2021 for Pulmonary embolism. Physical Exam Const alert and oriented x3 General Appearance: cooperative HEENT normocephalic Eyes PERRL and EOMs intact bilaterally Neck supple, no JVD and no carotid bruits Resp normal respiratory effort, normal air movement and clear to auscultation bilaterally Cardio regular rate and regular rhythm GI normal to inspection, nondistended, normoactive bowel sounds, non-tender and non-distended Extremity normal capillary refill General Extremity: Negative for edema Skin no rashes or lesions noted General Skin Exam: no breakdown Psych affect normal Appearance: appropriate Weight / BMI Weight Weight: 99.478 kg Body Mass Index (BMI) 31.4 ABG / Lab / Microbiology Data Result Diagrams: 07/10/21 05:15 07/10/21 05:15 D/C Instructions Discharge Diet: No restrictions Discharge Activity: Return to Normal Activity and May Shower May resume sexual activity in: 6-8 weeks Weight Bearing Status: Weight bearing as tolerated Call your doctor if you observe: Fever of 101 or Higher, Inability to urinate, Inability to have a bowel movement, Shortness of breath, Dizziness, Swelling in the ankles, Chest pain, Prolonged hiccupping and Uncontrolled pain Additional Instructions: Discharge home with family 07/21/2021, [email or web address]. Please Follow Up With: Madelyn Kelly MD When: 1 week. Meaningful Use Info Meaningful Use Diagnoses (Choose all that apply): None applicable Discharge Plan Admission Admit Date/Time: 07/02/21 19:10 Primary Reason for Your Visit: Debility. Attending Provider: Santhosh Gonzales Chi Primary Care Provider: Care Physician,No Primary Instructions Additional Instructions / Restrictions: Discharge home with family 07/21/2021, [email or web address] PT. Eliquis thru 12/10/2021 for Pulmonary embolism. Discharge Orders/Prescriptions Prescriptions: Continued acetaminophen [Tylenol] 325 mg Tablet 650 mg PO Q6H PRN PRN (Reason: Pain Score 1-10/Temp > 100.7 F) Qty: 0 RF: 0 Mucus Relief ER 1,200 mg tablet extended release 12hr 1,200 mg PO BID RF: 0 pantoprazole 40 mg tablet,delayed release (DR/EC) 40 mg PO DAILY 30 Days Qty: 30 RF: 0 metoprolol tartrate 25 mg tablet 12.5 mg PO BIDCM 30 Days Qty: 60 RF: 0 Eliquis 5 mg tablet 5 mg PO BID 30 Days Qty: 60 RF: 0 Discontinued albuterol sulfate [Ventolin HFA] 1 INHALER inhaler 1 - 2 puff inhalation Q4H PRN PRN (Reason: Wheezing) Qty: 1 RF: 0 sodium chloride [Deep Sea Nasal] 0.65 % Aerosol,[place] 2 spray NASAL TID PRN PRN (Reason: NASAL DRYNESS) Qty: 0 RF: 0 sennosides-docusate sodium [Stool Softener-Stimulant Laxat] 8.6-50 mg tablet 2 tab PO BID RF: 0 Referrals / Follow Up: Madelyn Kelly MD [STAFF PHYSICIAN] - Within 1 Week Disposition Disposition (needs filled in before D/C Order can be placed): Home, Self Care
[2021-07-17 06:00] LABS: Absolute Lymphocyte Count 1.81 X10^3/uL (0.83-4.51); Absolute Neutrophil Count 5.5 X10^3/uL (2.0-7.7); Basophil# 0.06 X10^3/uL; Basophil% 0.7 % (0-1); Eosinophil# 0.61 X10^3/uL; Hematocrit 41.6 % (40-54); Hemoglobin 13.5 g/dL (13.0-16.5); Lymphocyte # 1.81 X10^3/ul (0.83-4.51); Lymphocyte % 20.7 % (19-41); Mean Corp Hgb Conc 32.5 g/dL (32-36); Mean Corpuscular Hgb 28.6 pg (27.0-32.0); Mean Corpuscular Volume 88.1 fL (80-94); Mean Platelet Vol. 9.3 fl (6.2-12.0); Monocyte# 0.68 X10^3/uL; Monocyte% 7.8 % (0-10); NRBC Flagged by Analyzer 0 % (0-5); Neutrophil # 5.51 X10^3/uL (2.7-7.7); Neutrophil % 62.8 % (47-70); Platelet Count 310 K/mm3 (150-450); RBC Distribution Width CV 13.9 % (11.6-14.6); Red Blood Count 4.72 M/mm3 (4.6-6.2); White Blood Count 8.8 K/mm3 (4.4-11.0)
[2021-07-17] MEDS: APIXABAN 5 MG TABLET PO ×2 (06:18→17:20)
[2021-07-17] MEDS: guaiFENesin 1,200 MG Tablet 1200 MG PO ×2 (06:18→17:20)
[2021-07-17] MEDS: Pantoprazole Sodium 40 MG Tablet PO (06:18)
[2021-07-17 06:24] LABS: Anion Gap 7 (5-15); BUN 13 mg/dL (7-18); BUN/Creat Ratio 17.3 RATIO (10-20); Calcium,Total 8.7 mg/dL (8.5-10.1); Chloride 105 mmol/L (98-107); Creatinine, Serum 0.75 mg/dL (0.70-1.30); EST Glomerular Filtration Rate 125 mL/min (>60); Est Glom Filt Rate - Afr Amer 151 mL/min (>60); Estimated Creatinine Clearance 141.94 ml/min; Glucose 94 mg/dL (74-106); Potassium 3.8 mmol/L (3.5-5.1); Sodium Level 141 mmol/L (136-145)
[2021-07-17 07:36] VITALS: O2SAT 94
[2021-07-17 08:14] VITALS: PULSE 78
[2021-07-17] MEDS: Metoprolol Tartrate 25 MG Tablet 12.5 MG PO ×2 (08:14→17:20)
[2021-07-17 08:18] VITALS: BP 124/72; PULSE 78
--- NOTE | 2021-07-17 10:47 | CASEMGMT ---
Social Work SW faxed referral for outpatient therapy at [facility], they are to call pt w/appt times. SW let pt know. Form also received via fax for return to work. had called yesterday saying the form would be faxed and Dr. Gonzales would complete. SW left form for Dr. Gonzales to complete, and SW let pt and know form was received and left for physician to complete. JUAN Sesay
[2021-07-17 12:59] VITALS: BP 103/72; PULSE 86; RESP 20; TEMP 36.3; O2SAT 96
[2021-07-17 17:20] VITALS: PULSE 73
[2021-07-17 22:00] VITALS: O2SAT 96
[2021-07-18] MEDS: Pantoprazole Sodium 40 MG Tablet PO (06:33)
[2021-07-18] MEDS: APIXABAN 5 MG TABLET PO ×2 (06:33→17:28)
[2021-07-18] MEDS: guaiFENesin 1,200 MG Tablet 1200 MG PO ×2 (06:33→17:28)
[2021-07-18 06:35] VITALS: O2SAT 95
[2021-07-18 08:39] VITALS: BP 120/69; PULSE 92; RESP 18; TEMP 36.6
[2021-07-18 08:40] VITALS: PULSE 92
[2021-07-18] MEDS: Metoprolol Tartrate 25 MG Tablet 12.5 MG PO ×2 (08:40→17:28)
--- NOTE | 2021-07-18 12:08 | CASEMGMT ---
Social Work Return to Work forms completed by physician and faxed to [facility] [employer]. Originals provided to pt . Pt is aware. TIBURCIO Mtz
--- NOTE | 2021-07-18 16:48 | CHAPLAIN ---
Type of Pastoral Visit ___ Initial Visit _x__ Follow-up Visit ___ On-call Visit ___ General Patient Visit ___ Spiritual Assessment ___ Family Conference ___ Bereavement ___ Rapid Response ___ Code Blue ___ Other (describe below) Pastoral Care Referral From _x__ Patient ___ Family ___ Nurse ___ Physician ___ Chemical Dependency Counselor ___ Occupational Therapy Technician ___ Other (describe below) Sacrament/Intervention _x__ Active listening ___ Anointing ___ Zoroastrianism ___ Bereavement ___ Communion ___ Jennifer exploration ___ ___ Life review ___ Prayer ___ Reconciliation ___ Sacrament of Sick _x__ Supportive presence ___ Wedding ___ Other (describe below) Pastoral Comments
[2021-07-18 17:28] VITALS: BP 110/68; PULSE 93
[2021-07-19] MEDS: APIXABAN 5 MG TABLET PO ×2 (06:43→18:04)
[2021-07-19] MEDS: Pantoprazole Sodium 40 MG Tablet PO (06:43)
[2021-07-19] MEDS: guaiFENesin 1,200 MG Tablet 1200 MG PO ×2 (06:43→18:04)
[2021-07-19 08:42] VITALS: PULSE 103
[2021-07-19] MEDS: Metoprolol Tartrate 25 MG Tablet 12.5 MG PO ×2 (08:42→18:04)
[2021-07-19 08:43] VITALS: BP 110/70; PULSE 103; RESP 18; TEMP 36.4; O2SAT 95
[2021-07-19 18:04] VITALS: BP 114/74; PULSE 80
[2021-07-19 22:05] VITALS: PULSE 71; RESP 18
[2021-07-20] MEDS: Pantoprazole Sodium 40 MG Tablet PO (06:12)
[2021-07-20] MEDS: APIXABAN 5 MG TABLET PO ×2 (06:12→17:21)
[2021-07-20] MEDS: guaiFENesin 1,200 MG Tablet 1200 MG PO ×2 (06:12→17:21)
[2021-07-20 08:42] VITALS: BP 114/68; PULSE 103
[2021-07-20] MEDS: Metoprolol Tartrate 25 MG Tablet 12.5 MG PO ×2 (08:42→17:21)
[2021-07-20 08:44] VITALS: BP 114/68; PULSE 103
[2021-07-20 10:30] VITALS: PULSE 81; RESP 18; O2SAT 97
--- NOTE | 2021-07-20 14:31 | CASEMGMT ---
Social Work BIMS and PHQ-9 completed for MDS assessment. Kalli Gaston, EXAMINATION SCORER RAILROAD SURVEYOR
[2021-07-20 15:45] VITALS: BP 117/75; PULSE 99; RESP 17; TEMP 37.1; O2SAT 98
[2021-07-20 17:21] VITALS: BP 117/75; PULSE 99
[2021-07-21] MEDS: guaiFENesin 1,200 MG Tablet 1200 MG PO (06:51)
[2021-07-21] MEDS: APIXABAN 5 MG TABLET PO (06:52)
[2021-07-21] MEDS: Pantoprazole Sodium 40 MG Tablet PO (06:52)
[2021-07-21 07:00] VITALS: O2SAT 95
[2021-07-21 07:06] VITALS: BP 129/75; PULSE 84; RESP 12; TEMP 36.6; O2SAT 95
[2021-07-21 08:12] VITALS: BP 120/72; PULSE 98; RESP 16; TEMP 36.4; O2SAT 95
[2021-07-21 08:16] VITALS: PULSE 100
[2021-07-21] MEDS: Metoprolol Tartrate 25 MG Tablet 12.5 MG PO (08:16)
--- NOTE | 2021-07-27 13:45 | CASEMGMT ---
Pt called SW, states he has not heard from [facility] to set up outpt therapy. SW called [facility], spoke w/Alessia. They have tried to call pt multiple times but there was no voicemail to leave a message. SW called pt back, gave pt this information, gave him the number to call [facility] to set up the outpt therapy, he will call. JUAN Sesay
== END 2021-07-21 10:30 | disposition home or self-care (01) | DRG 175 ==
PROVIDERS: Admitting Provider Family Medicine Geriatric Medicine; Visit Provider Family Medicine Geriatric Medicine
DX: I26.94 Multiple subsegmental thrombotic pulmonary emboli without acute cor pulmonale (principal); J15.6 Pneumonia due to other Gram-negative bacteria; Z23 Encounter for immunization; K21.9 Gastro-esophageal reflux disease without esophagitis; I10 Essential (primary) hypertension; Z87.01 Personal history of pneumonia (recurrent); Z86.16 Personal history of COVID-19; Z79.01 Long term (current) use of anticoagulants; Z79.899 Other long term (current) drug therapy
CPT/HCPCS: 36415; 80048; 85025; 90732; 97110; 97116; 97162; 97166; 97530; 97535; 97802; G0009; A4216

== ENCOUNTER 2021-08-27 14:30 | Outpatient (RCR) | payer OTHER, SELFPAY ==
--- NOTE | 2021-07-30 10:01 | HP.PTEVAL_ITS ---
Patient's Visit Information DOMO MUÑOZ is a 35 year old M referred to Physical Therapy by Dr. Santhosh Gonzales MD with a diagnosis of Debility s/p COVID. Date of Evaluation: 07/30/21 Physical Therapist: Linette Jackson DPT - Visit Plan Frequency: 3x /Week Duration: 4 Weeks Plan: Focus on LE and core strength/stabilization, endurance and functional mobility. Wear pulse ox as needed - Subjective Patient reports that [facility] 21 of July. He was put on a ventilator for 7 days and ended up with blood clots. Lives in a single story home with ground level is into the basement- 13 stairs in/out with bilateral HR. He still is challenged to get in/out- but once he is inside its all one level. Lives with and two sons (6 and 3 years old). 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 Carry's #30 of tools in a backpack- lots of walking. He is not back to work yet- went to TCU (2-3 weeks)- was carrying a backpack with 10# in. Has developed anxiety and has shortness of breathe with activity. Picking stuff up off the ground is still challenging. He has no pain- usually aches and pains. No O2 at home. Feels that he is 60% back to normal. Really struggles to carry things and going up/down stairs. Plans to get counseling for his anxiety. Goals: Be back to his normal- wants to get back to life and work. Goes to PCP on of this week. PMHx: pneumonia Meds: eloquest, metroprolol. - Objective Posture: FH, RS- can correct with verbal cues but does not maintain. Gait: no deviation noted- good arm swing and trunk rotation- does have SOB and wears a pulse ox ranges from 96-92. See 6 min walk test, TUG test. ROM: WFL in all planes. Stairs: asc/desc 8 recip with 1 HR. Strength: Core: fair minus, Hip: IR/ER: 4-/5, Abd/Add: 4+/5, Flexion: 4/5, Extn: 4/5, Knee: 4+/5, Ankle: 4+/5. Balance: fair eyes open: WFL, eyes closed narrow SCOTT: fair minus- increase sway, Tandem stance: 5 sec each moderate sway, SLS: 10 sec bilateral with moderate sway - Balance/Special Test Scores Lower Extremity Functional Score: 48 TUG Test Time Seconds: 8.35 30 Second Chair Rise Test Seconds: 12 6 Minute Walk Test: 1307. Started at 96 sats then dropped to 92- back to 96 within a few minutes of rest - Goals Goal 1:: Patient will be I with HEP and progression Goal Time Frame: 4-6 Weeks Goal 2:: Patient will asc/desc 8 recip with no HR carrying a 10# DB Goal Time Frame: 4-6 Weeks Goal 3:: Patient will ambulate for 10 min carrying a back pack with #30 to simulate work related tasks Goal Time Frame: 4-6 Weeks Goal 4:: Patient will demo 5/5 strength in LE Goal Time Frame: 4-6 Weeks Goal 5:: Patient will maintain proper posture t/o tx session to demo increased core s/s Goal Time Frame: 4-6 Weeks - Rehabilitation Potential Physical Therapy Diagnosis: Patient presents with hypomobility- he has decrease strength, flex and muscular endurance leading to poor posture and decreased ability to perform work and ADL's. Rehabilitation Potential: Good - Anticipated Interventions Patient/Client Instruction: Educate patient on: Benefits of Fitness Program Therapeutic Exercise to Include: Strength training, Endurance training, Balance training, Body mechanics, Postural training, Gait and locomotor training, Neuromotor development, Dynamic Lumbar Stabilization, Scapular Strength/Stabilization For the Purpose of:: To improve muscle performance and motor function Functional Training to Include: Functional work training, Gait training Thank you for the opportunity to evaluate your patient. For Medicare and Medicare HMO plans, please review the plan of care and approve it. It will need to be FAXED BACK to us at [phone] for Medicare purposes. For Medicare only, by signing this I certify the plan of care. Please let me know if there are questions or concerns regarding this plan of care. Physician Signature: Date:
--- NOTE | 2021-08-27 14:52 | HP.PTDCSUM ---
It has been my pleasure to treat DOMO MUÑOZ referred by Dr. Santhosh Gonzales MD, with the diagnosis of Debility s/p COVID for a total of 13 visit(s). Discharge Date: Please see the following information for a summary of their discharge status. Subjective: Patient reports that he is doing okay- physically he feels alright. Hoping to get off the meds that make him really tired. Sees MD tomorrow. Return to work soon. He thinks he is functional and has no concerns about going back to work physically. % Improvement: 90 Objective/Function: Posture: good throughout. Gait: no deviation. ROM: WFL in all planes. Stairs: asc/desc 8 recip without HR carrying a weight. Strength: Core: good, LE: 5/5 throughout. Balance:good throughout dynamic and static standing and sitting Goal 1:: Patient will be I with HEP and progression Goal Progress: Goal Met Goal 2:: Patient will asc/desc 8 recip with no HR carrying a 10# DB Goal Progress: Goal Met Goal 3:: Patient will ambulate for 10 min carrying a back pack with #30 to simulate work related tasks Goal Progress: Goal Met Goal 4:: Patient will demo 5/5 strength in LE Goal Progress: Goal Met Goal 5:: Patient will maintain proper posture t/o tx session to demo increased core s/s Goal Progress: Goal Met Plan: Focus on LE and core strength/stabilization, endurance and functional mobility. 08/27/2021: Discharge to home exercise program If there are questions or concerns regarding this patient's physical therapy, please feel free to call me at [phone]. Thank you for the referral of this patient. Sincerely, Linette Jackson, DPT Balance/Gait/Functional tests - Balance/Special Test Scores Lower Extremity Functional Score: 80 TUG Test Time Seconds: 4.8 Tug Test: <10 sec.=free mobile 30 Second Chair Rise Test Seconds: 20 6 Minute Walk Test: 0 feet
== END 2021-08-27 14:56 | disposition home or self-care (01) ==
LOC: PT 14:30
PROVIDERS: PCP Family Medicine; Referring Provider Family Medicine Geriatric Medicine; Visit Provider Family Medicine Geriatric Medicine
DX: R53.81 Other malaise (principal); Z86.16 Personal history of COVID-19
CPT/HCPCS: 97110; 97162; 97530

== ENCOUNTER 2022-01-11 07:42 | Outpatient (CLI) | payer OTHER, SELFPAY ==
--- NOTE | 2022-01-11 07:44 | CT_ITS ---
STUDY: CTA CHEST REASON FOR EXAM: Male, 36 years old. Follow-up for PE. RADIATION DOSAGE (If Supplied By Facility): CTDIvol = ( 11.25 ) mGy, DLP = ( 511.97 ) mGycm TECHNIQUE: The examination was performed with the intravenous administration of IV 100mL Isovue-370. Post-processing of the angiographic images was performed, with multiplanar reformation and 3D reconstruction. Individualized dose optimization techniques were used for this CT. COMPARISON: Comparison is made with prior study dated 06/13/2021. FINDINGS: Normal enhancement of the main pulmonary artery and right and left pulmonary arteries. Normal enhancement of the bilateral peripheral pulmonary arteries. There is no demonstrated pulmonary embolism. Normal thoracic aorta and visualized great vessels. There is no demonstrated aortic dissection. Normal heart and pericardium. Normal mediastinum. Normal hilar regions. Normal visualized trachea and bronchi. The lungs are well expanded. Normal pulmonary parenchyma. Normal pleura. Normal chest wall structures. Normal osseous structures. Normal visualized upper abdomen. CT/CTA Chest W/WO Contrast IMPRESSION: Normal CTA chest examination, without a demonstrated pulmonary embolism or arterial dissection. Electronically Signed: Jose Kenney MD at 14:34 EDT ,
== END 2022-01-11 23:59 | disposition home or self-care (01) ==
LOC: CT 07:43
PROVIDERS: PCP Family Medicine; Referring Provider Family Medicine; Visit Provider Family Medicine
DX: U07.1 COVID-19 (principal); I26.99 Other pulmonary embolism without acute cor pulmonale
CPT/HCPCS: 71275; Q9967